=== PATIENT | female | born 1950 | race Caucasian/White ===

== ENCOUNTER 2021-09-09 08:10 | Outpatient (RCR) | payer MEDICARE, MEDICAID, SELFPAY ==
[2021-09-09 08:57] LABS: Basophils Absolute Auto 0.04 K/uL (0.00-0.30); Basophils Percent Auto 0.6 % (0.0-3.0); Eosinophils Absolute Auto 0.09 K/uL (0.00-0.50); Eosinophils Percent Auto 1.4 % (0.0-7.0); Hematocrit 43.6 % (33.0-51.0); Hemoglobin* 14.4 gm/dL (12.0-16.0); Lymphocytes Absolute Auto 2.01 K/uL (0.90-2.90); Lymphocytes Percent Auto 30.3 % (20-44); Mean Corpuscular HGB Conc 33 gm/dL (32-36); Mean Corpuscular Hemoglobin 29 pg (26-34); Mean Corpuscular Volume 88 fL (80-100); Neutrophils Absolute Auto 3.97 K/uL (1.7-7.0); Neutrophils Percent Auto 59.7 % (42.0-72.0); Platelet Count* 193 K/uL (140-440); RDW Coefficient of Variation % 14.9 % (11.5-15.5); Red Blood Count 4.97 m/uL (4.00-5.20); White Blood Count* 6.64 K/uL (4.50-11.00)
[2021-09-09 09:01] LABS: Appearance Urine Slightly Cloudy (Clear); Bilirubin Urine Negative (Negative); Blood Urine Trace-intact (Negative); Color Urine Yellow (Yellow); Glucose Urine Negative (Negative); Ketones Urine Negative (Negative); Leukocyte Esterase Urine Trace (Negative); Nitrite Urine Positive (Negative); Protein Urine Negative (Negative); Specific Gravity Urine 1.025 (1.000-1.030); Urobilinogen Urine 0.2 (0.2-1.0); pH Urine 6.5 (5.0-8.5)
[2021-09-09 09:04] LABS: Albumin* 4.3 g/dL (3.3-5.0)
[2021-09-09 09:05] LABS: Chloride* 107 mmol/L (96-114); Potassium* 3.7 mmol/L (3.6-5.1); Sodium* 139 mmol/L (135-149)
[2021-09-09 09:07] LABS: Aspartate Amino Transferase* 24 U/L (12-35); Carbon Dioxide* 24 mmol/L (20-32); Creatinine* 0.5 mg/dL (0.5-1.5); Estimated Glomerular Filt Rate 99.59; Total Protein* 7.5 g/dL (6.0-8.3)
[2021-09-09 09:08] LABS: Alanine Aminotransferase* 13 U/L (4-35); Alkaline Phosphatase* 93 U/L (40-150); Blood Urea Nitrogen* 12 mg/dL (7-30); Calcium* 9.2 mg/dL (8.4-10.6); Glucose* 108 mg/dL (60-115)
[2021-09-09] MEDS: SODIUM CHLORIDE 0.9 % (FLUSH) 10 ML SYRINGE IVF (09:15)
[2021-09-09] MEDS: HEPARIN 500 UNIT/5 ML SYRINGE IVF (09:15)
[2021-09-09 09:32] LABS: RBC Urine 0-2 (0-2)
[2021-09-09 09:33] LABS: Amorphous Sediment Urine Few; Bacteria Urine Many; Squamous Epithelial Cell Urine Moderate (None-Few); WBC Clumps Urine Few
--- NOTE | 2021-09-09 14:19 | ONC.NURNOTE ---
patient called to let her know she has a UTI. rx called in to her pharmacy. per Dr. Barber
[2021-09-11 05:32] LABS: Carcinoembryonic Antigen 32.6 ng/mL
[2021-09-11 15:00] LABS: Slide Review Reflex No
== END 2021-09-27 23:59 | disposition home or self-care (01) ==
LOC: CCIC 08:10
PROVIDERS: PCP Family Medicine; Visit Provider Internal Medicine Hematology & Oncology
DX: C20 Malignant neoplasm of rectum (principal); C78.01 Secondary malignant neoplasm of right lung; C78.02 Secondary malignant neoplasm of left lung
CPT/HCPCS: 36415; 36591; 80053; 81003; 81015; 82378; 85025; 87086; J1642

== ENCOUNTER 2021-09-17 14:32 | Emergency (ER) | payer MEDICARE, MEDICAID, SELFPAY ==
[2021-09-17] VITALS (11 sets, daily range): BP systolic 120–173; BP diastolic 80–94; PULSE 54–68; RESP 14–28; TEMP 36.1; O2SAT 89–98; BMI 20.2
--- NOTE | 2021-09-17 15:25 | CRLHL7_ITS ---
For Patients: As a result of the Century Cures Act, medical imaging exams and procedure reports are released immediately into your electronic medical record. You may view this report before your referring provider. If you have questions, please contact your health care provider. INDICATION: Shortness of breath. TECHNIQUE: Chest 1 view. COMPARISON: PET-CT 08/06/2021. FINDINGS: Right IJ Port-A-Cath with tip in the upper SVC. Large ovoid masslike density in the right lower lung corresponds with the pleural based masses seen on PET-CT. Patchy right lower perihilar opacity may represent atelectasis or infiltrate. Tiny right pleural effusion. The left lung is clear. No pneumothorax. Mild cardiomegaly. Calcified tortuous aorta. Sternotomy with mediastinal clips. The bones are unremarkable. IMPRESSION: 1. Large ovoid masslike density in the right lower lung corresponds with the pleural based masses seen on PET-CT. 2. Patchy right lower perihilar opacity may represent atelectasis or infiltrate. 3. Tiny right pleural effusion. Dictated by Alejandra Houser MD @ 09/17/2021 4:53:19 PM (Electronically Signed)
[2021-09-17] MEDS: ALTEPLASE 2 MG INJ IVF (16:29)
--- NOTE | 2021-09-17 16:32 | ED.NURSE ---
[facility] WILBUR Villarreal in to administer Cathflo to pt Port.
--- NOTE | 2021-09-17 17:07 | ED.NURSE ---
Able to draw blood off port after cathflo removed.
[2021-09-17 17:10] LABS: Basophils Absolute Auto 0.04 K/uL (0.00-0.30); Basophils Percent Auto 0.6 % (0.0-3.0); Eosinophils Absolute Auto 0.11 K/uL (0.00-0.50); Eosinophils Percent Auto 1.6 % (0.0-7.0); Immature Granulocytes Abs Auto 0.03 K/uL (0.00-0.30); Lymphocytes Absolute Auto 1.91 K/uL (0.90-2.90); Lymphocytes Percent Auto 27.6 % (20-44); Mean Corpuscular HGB Conc 33 gm/dL (32-36); Mean Corpuscular Hemoglobin 29 pg (26-34); Mean Corpuscular Volume 87 fL (80-100); Monocytes Percent Auto 7.1 % (0.0-11.0); Neutrophils Absolute Auto 4.35 K/uL (1.7-7.0); Neutrophils Percent Auto 62.7 % (42.0-72.0); Platelet Count* 164 K/uL (140-440); RDW Coefficient of Variation % 14.9 % (11.5-15.5); Red Blood Count 4.47 m/uL (4.00-5.20); White Blood Count* 6.93 K/uL (4.50-11.00)
[2021-09-17 17:27] LABS: Albumin* 3.7 g/dL (3.3-5.0); Chloride* 110 mmol/L (96-114); Slide Review Reflex No; Sodium* 140 mmol/L (135-149)
[2021-09-17 17:28] LABS: Potassium* 3.7 mmol/L (3.6-5.1)
[2021-09-17 17:29] LABS: Creatinine* 0.4 mg/dL (0.5-1.5); Est. Creatinine Clearance* 42.95; Estimated Glomerular Filt Rate 105 ml/min
[2021-09-17 17:30] LABS: Alanine Aminotransferase* 10 U/L (4-35); Alkaline Phosphatase* 75 U/L (40-150); Aspartate Amino Transferase* 22 U/L (12-35); Bilirubin Direct* 0.3 mg/dL (0.0-0.5); Bilirubin Total* 0.5 mg/dL (0.1-1.5); Blood Urea Nitrogen* 15 mg/dL (7-30); Carbon Dioxide* 26 mmol/L (20-32); Glucose* 83 mg/dL (60-115); Total Protein* 6.8 g/dL (6.0-8.3)
[2021-09-17 17:31] LABS: Calcium* 8.9 mg/dL (8.4-10.6)
[2021-09-17 17:36] LABS: D Dimer Quantitative* 3.52 ug/ml (0.00-0.50)
[2021-09-17 17:39] LABS: NT Pro B Type NatriureticPept* 660 PG/mL (0-125)
[2021-09-17 17:45] LABS: Troponin I* < 0.01 ng/mL (0.01-0.04)
[2021-09-17 17:46] LABS: C Reactive Protein* < 0.5 mg/dL (0.5-1.0)
--- NOTE | 2021-09-17 18:15 | CT_ITS ---
Final Report Patient: ANGELINE MARTINEZ Facility:?[facility] Patient ID:?[id number] Site Patient [id number]:?[id number]. Site :?[id number] Study:?CT Chest PE W/ ISOVUE 370 95CC-09/17/2021 6:46:07 PM Ordering Physician:Bipin Rodriguez Final Report: INDICATION: Chest pain and elevated D-dimer. Lung cancer. Rule out pulmonary embolism. TECHNIQUE: Volumetric helical scanning of the thorax was performed during infusion of 95 cc of Isovue 370 contrast material IV, timing optimized for pulmonary arterial opacification. Coronal and sagittal reconstructions were obtained. COMPARISON: PET-CT of 08/06/2021. FINDINGS: The images are of acceptable quality and demonstrate uniform vascular enhancement within the pulmonary arteries. No pulmonary arterial filling defect is identified. The heart size is normal. Postop changes of coronary bypass are noted. Multiple pleural-based masses in the right chest are again demonstrated matter grossly unchanged. On image 140 of series 4, a new 1 cm left lower lobe nodule is demonstrated. On image 38, an unchanged 1.5 cm medial left upper lobe nodule is noted. No acute infiltrate is demonstrated. No pleural effusion is evident. There is no mediastinal or hilar adenopathy. Images of the upper abdomen are unremarkable. IMPRESSION: 1. Negative for pulmonary embolism acute infiltrate. 2. Multiple grossly unchanged pleural-based masses in the right chest. 3. New 1 cm mass in the left lower lobe. Please note that all CT scans at this facility use dose modulation, iterative reconstruction, and/or weight-based dosing when appropriate to reduce radiation dose to as low as reasonably achievable. Dictated by Dwain Olivera MD @ 09/17/2021 7:59:17 PM (Electronic Signature)
--- NOTE | 2021-09-17 18:17 | ED.GENADULT ---
HPI - General Adult General Date Seen: 09/17/21 Chief complaint: Shortness of Breath/Dyspnea Stated complaint: Chest Pain Time Seen by Provider: 09/17/21 14:40 Source: patient History of Present Illness HPI narrative: Patient is a 71-year-old woman who presents for evaluation of left-sided chest pain. She says that she had called the clinic yesterday to make an appointment, and they called her this morning at 7:30 a.m. and told her that instead of keeping her 10:00 a.m. appointment she should come to the ER. She says that for the past 3 weeks, she has had a sharp pain in her left chest any time she leans forward. As soon as she stands up, it dissipates. It only lasts a few seconds or however long she leans forward. She is not sure whether it gets worse when she breathes, because she has never tried to breathe when she is leaning forward. She has a history of lung cancer, currently getting active oral chemotherapy. She has shortness of breath secondary to that, but has not noticed any change in her shortness of breath. She denies any new fevers or cough. She has not had any lower extremity swelling or pain. She denies any history of pulmonary embolism. She does have a history of triple bypass, she thinks 8 or 9 years ago. She did not have chest pain prior to her bypass surgery, and says that her primary symptom before that was shortness of breath with exertion. She has nitroglycerin, but has not tried any of that because the chest pain is so fleeting in nature. She says that she was told to come to the ER instead because her pain could be related to her heart. Pain is well localized to 1 spot in her chest, does not radiate, and does not vary in location. It is sometimes mild in intensity, but sometimes can be more severe. It does not happen every time she leans forward. She is not sure of what the difference is between times it happens and times it does not happen. Related Data Home Medications Medication Instructions Recorded Confirmed aspirin 81 mg chewable tablet 81 mg PO DAILY 09/07/21 09/07/21 bupropion HCl 200 mg tablet,12 hr 200 mg PO DAILY 09/07/21 09/07/21 sustained-release clonazepam 0.5 mg tablet 0.5 mg PO HS 09/07/21 09/07/21 diphenoxylate-atropine 2.5 1 tab PO Q6H PRN 09/07/21 09/07/21 mg-0.025 mg tablet gabapentin 300 mg capsule 300 mg PO .Q24 09/07/21 09/07/21 ibuprofen 200 mg capsule 200 mg PO Q6H PRN 09/07/21 09/07/21 isosorbide mononitrate 30 mg 30 mg PO DAILY 09/07/21 09/07/21 tablet,extended release 24 hr nitroglycerin 0.4 mg sublingual 0.4 mg SUBLINGUAL Q5M PRN 09/07/21 09/07/21 tablet ondansetron 4 mg disintegrating 4 mg TRANSLINGUAL Q6H PRN 09/07/21 09/07/21 tablet oxycodone 5 mg tablet 5 mg PO Q4H PRN 09/07/21 09/07/21 prochlorperazine maleate 10 mg 10 mg PO Q6H PRN 09/07/21 09/07/21 tablet sertraline 100 mg tablet 100 mg PO Q24H 09/07/21 09/07/21 sotorasib 120 mg tablet (Lumakras) 480 mg PO Q24H 09/07/21 09/07/21 Previous Rx's Medication Instructions Recorded levofloxacin 500 mg tablet 500 mg PO QDAY #5 tab 09/09/21 Allergies Allergy/AdvReac Type Severity Reaction Status Date / Time hydromorphone Allergy Unknown Verified 09/07/21 09:10 penicillin V Allergy Unknown Verified 09/07/21 09:10 Review of Systems Status of ROS: Reports: 10 or more systems reviewed and unremarkable except as noted in History and below [facility] Medical History Adenocarcinoma of rectum (~12/2015) Adenocarcinoma, lung Encounter for insertion of tunneled central venous catheter (CVC) with port Histoplasmosis 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 Social History Smoking Status: Current every day smoker What tobacco products do you use: cigarettes Do you use any of these nicotine containing products: None Second hand tobacco smoke exposure: No How often do you have a drink containing alcohol: 2-3 times a week How often do you have six or more drinks on one occasion: Never AUDIT-C Alcohol total score: 3 Non-prescribed substance use: marijuana (any form) Exam Narrative: Exam Narrative: Vital signs as noted below. In general, an alert, nontoxic elderly woman. Breathing easily. Head: Normocephalic, atraumatic. Eyes: Pupils are equal reactive. Extraocular movements are full. Conjunctivae are normal. ENT: Mucous membranes are moist. Throat is normal. Neck: Supple without lymphadenopathy. Heart: Regular rate and rhythm. No murmur or rub. Lungs: Clear bilaterally. No increased work of breathing, crackles or wheezes. Abdomen: Soft and nontender. No organomegaly. Extremities: Well perfused. No edema. No calf tenderness. Pulses intact. Neurologic: Patient is alert and oriented to person and place. Speech is fluent. Face is symmetric. Moves all extremities equally. Affect: Normal. Skin: Warm and dry. Well perfused. Const: Vital Signs, click to edit/add: Vital Signs - 24 hr 09/17/21 14:49 09/17/21 15:00 09/17/21 15:15 Temperature 96.9 F L Pulse Rate [Right Pulse Oximeter] 67 65 65 Respiratory Rate 28 H 17 14 Blood Pressure [Le ft Upper Arm] 146/85 H 136/92 H 133/80 Pulse Oximetry 94 92 93 09/17/21 15:30 09/17/21 15:45 09/17/21 16:00 Temperature Pulse Rate [Right Pulse Oximeter] 61 66 66 Respiratory Rate 20 20 24 Blood Pressure [Le ft Upper Arm] 132/81 128/91 H 137/83 Pulse Oximetry 94 95 98 09/17/21 16:30 09/17/21 17:00 09/17/21 17:30 Temperature Pulse Rate [Right Pulse Oximeter] 54 L 68 61 Respiratory Rate 25 H 26 H 26 H Blood Pressure [Le ft Upper Arm] 120/89 156/87 H Pulse Oximetry 89 94 94 09/17/21 18:00 Temperature Pulse Rate [Right Pulse Oximeter] 61 Respiratory Rate 14 Blood Pressure [Le ft Upper Arm] 158/94 H Pulse Oximetry 94 Course Course Hospital Course: Patient had an EKG on arrival which by my review shows normal sinus rhythm, ventricular rate of 67 beats per minute. No acute ischemic changes. I ordered labs including a CBC, metabolic panel, troponin, D-dimer. Anticipate the D-dimer will likely be elevated given her underlying lung cancer, but certainly her cancer diagnosis increases her risk of PE. If the D-dimer happens to be negative I would feel comfortable forgoing additional workup, but otherwise I think she will need imaging to rule out PE. I did do a portable chest x-ray just to make sure that she did not have a pleural effusion, pneumothorax or other obvious pulmonary reason for this positional chest pain. She does not have any pleuritic chest pain, she does not have pain when she lays back, does not have any changes on her EKG does suggest pericarditis. CRP is normal. White blood cell count is normal. She is not febrile here. I do not see any evidence of significant infiltrate on the chest x-ray on the left. She clearly has a large mass on the right, this is stable compared to the exterior door installer film of her last chest CT by my review. Her D-dimer was in fact elevated, at 3.52. Her troponin is negative, and I reviewed with her that her pain is really quite atypical for angina. I certainly do not suspect acute coronary syndrome given that she is pain-free here, has a negative troponin, normal EKG, and very atypical symptoms. Her BNP is mildly elevated at 660. Patient did gone have CT scan of the chest, which by my review did not show any acute abnormalities, she did have masses in the right chest which appeared stable to me. She does not have any evidence of PE by my review. Radiology report was notable for stable lung cancer in the right chest, a stable pulmonary nodule in the left upper lobe, they also noted a new nodule, 1 cm, in the left lower lobe. They did not note any evidence of PE or infiltrate. I reviewed all this with her, including the pulmonary nodule which is new compared to previous CT in 2020. She has had imaging in the form of PET scans since then. I have discussed with her that I do not know whether this nodule is entirely new were only new compared to the imaging that we have in our system here. I have asked her to review this with her oncologist. With regard to her chest pain, I do think it is very atypical for cardiac chest pain, and unlikely to be related to ischemic disease. That said, we discussed that it may not be unreasonable to do some kind of provocative cardiac testing, given that her symptoms were shortness of breath prior to her CABG, and with her lung cancer, it may be difficult to parse out whether not she is developing worsening shortness of breath or not. I think this can be safely discussed with her primary doctor. Certainly if she has chest pain which is nonpositional, severe/persistent, or has worsening/severe shortness of breath, she should return to the emergency department. Otherwise I think follow up with her primary doctor is reasonable at this time. She is comfortable with that and is very eager to go home. Vital Signs Vital signs: Initial Vital Signs Temperature 96.9 F L 09/17/21 14:49 Temperature Source Temporal Artery Scan 09/17/21 14:49 Pulse Rate 67 09/17/21 14:49 Respiratory Rate 28 H 09/17/21 14:49 Blood Pressure 146/85 H 09/17/21 14:49 Blood Pressure Mean 105 09/17/21 14:49 Blood Pressure Position Supine 09/17/21 14:49 Pulse Oximetry 94 09/17/21 14:49 Oxygen Delivery Method 09/17/21 14:49 Vital Signs Temperature 96.9 F L 09/17/21 14:49 Pulse Rate 67 09/17/21 14:49 Respiratory Rate 28 H 09/17/21 14:49 Blood Pressure 146/85 H 09/17/21 14:49 Pulse Oximetry 94 09/17/21 14:49 Temperature 96.9 F L 09/17/21 14:49 Pulse Rate 67 09/17/21 19:00 Respiratory Rate 17 09/17/21 19:00 Blood Pressure 173/93 H 09/17/21 19:00 Pulse Oximetry 96 09/17/21 19:00 Medical Decision Making Lab Data Labs: Lab Results 09/17/21 09/17/21 09/17/21 Range/Units 17:05 17:05 17:05 WBC 6.93 (4.50-11.00) K/uL RBC 4.47 (4.00-5.20) m/uL Hgb 13.0 (12.0-16.0) gm/dL Hct 39.0 (33.0-51.0) % MCV 87 (80-100) fL MCH 29 (26-34) pg MCHC 33 (32-36) gm/dL RDW Coeff of Aleks 14.9 (11.5-15.5) % Plt Count 164 (140-440) K/uL Neut % (Auto) 62.7 (42.0-72.0) % Lymph % (Auto) 27.6 (20-44) % [place] % (Auto) 7.1 (0.0-11.0) % Eos % (Auto) 1.6 (0.0-7.0) % Baso % (Auto) 0.6 (0.0-3.0) % Neut # (Auto) 4.35 (1.7-7.0) K/uL Lymph # (Auto) 1.91 (0.90-2.90) K/uL [place] # (Auto) 0.50 (0.00-0.90) K/UL Eos # (Auto) 0.11 (0.00-0.50) K/uL Baso # (Auto) 0.04 (0.00-0.30) K/uL Abs Immat Gran (auto) 0.03 (0.00-0.30) K/uL D-Dimer Quant (PE/DVT) 3.52 H (0.00-0.50) ug/ml Sodium 140 (135-149) mmol/L Potassium 3.7 (3.6-5.1) mmol/L Chloride 110 (96-114) mmol/L Carbon Dioxide 26 (20-32) mmol/L BUN 15 (7-30) mg/dL Creatinine 0.4 L (0.5-1.5) mg/dL Estimated Creat Clear 42.95 Estimated GFR 105 ml/min Glucose 83 (60-115) mg/dL Calcium 8.9 (8.4-10.6) mg/dL Total Bilirubin 0.5 (0.1-1.5) mg/dL Direct Bilirubin 0.3 (0.0-0.5) mg/dL AST 22 (12-35) U/L ALT 10 (4-35) U/L Alkaline Phosphatase 75 (40-150) U/L Troponin I < 0.01 L (0.01-0.04) ng/mL C-Reactive Protein < 0.5 L (0.5-1.0) mg/dL NT-Pro-B Natriuret Pep 660 H (0-125) PG/mL Total Protein 6.8 (6.0-8.3) g/dL Albumin 3.7 (3.3-5.0) g/dL 09/17/21 Range/Units 17:05 WBC (4.50-11.00) K/uL RBC (4.00-5.20) m/uL Hgb (12.0-16.0) gm/dL Hct (33.0-51.0) % MCV (80-100) fL MCH (26-34) pg MCHC (32-36) gm/dL RDW Coeff of Aleks (11.5-15.5) % Plt Count (140-440) K/uL Neut % (Auto) (42.0-72.0) % Lymph % (Auto) (20-44) % [place] % (Auto) (0.0-11.0) % Eos % (Auto) (0.0-7.0) % Baso % (Auto) (0.0-3.0) % Neut # (Auto) (1.7-7.0) K/uL Lymph # (Auto) (0.90-2.90) K/uL [place] # (Auto) (0.00-0.90) K/UL Eos # (Auto) (0.00-0.50) K/uL Baso # (Auto) (0.00-0.30) K/uL Abs Immat Gran (auto) (0.00-0.30) K/uL D-Dimer Quant (PE/DVT) (0.00-0.50) ug/ml Sodium (135-149) mmol/L Potassium (3.6-5.1) mmol/L Chloride (96-114) mmol/L Carbon Dioxide (20-32) mmol/L BUN (7-30) mg/dL Creatinine (0.5-1.5) mg/dL Estimated Creat Clear Estimated GFR ml/min Glucose (60-115) mg/dL Calcium (8.4-10.6) mg/dL Total Bilirubin Cancelled (0.1-1.5) mg/dL Direct Bilirubin Cancelled (0.0-0.5) mg/dL AST Cancelled (12-35) U/L ALT Cancelled (4-35) U/L Alkaline Phosphatase Cancelled (40-150) U/L Troponin I Cancelled (0.01-0.04) ng/mL C-Reactive Protein (0.5-1.0) mg/dL NT-Pro-B Natriuret Pep Cancelled (0-125) PG/mL Total Protein Cancelled (6.0-8.3) g/dL Albumin Cancelled (3.3-5.0) g/dL Discharge Plan Discharge Clinical Impression: Bilateral lung cancer, Atypical chest pain Patient Disposition: Home, Self-Care Condition: Stable Instructions: Chest Pain (ED) Additional Instructions: Primary care follow-up in the next week or so. If you have severe, persistent chest pain or worsening shortness of breath, return to the emergency department for repeat evaluation. Prescriptions: No Action aspirin 81 mg tablet,chewable 81 mg PO DAILY 0RF bupropion HCl 200 mg tablet sustained-release 12 hr 200 mg PO DAILY 0RF clonazepam 0.5 mg tablet 0.5 mg PO HS 0RF diphenoxylate-atropine 2.5-0.025 mg tablet 1 tab PO Q6H PRN0RF Rx Instructions: 1-2 tabs gabapentin 300 mg capsule 300 mg PO .Q24 0RF ondansetron 4 mg tablet,disintegrating 4 mg translingual Q6H PRN (Reason: nausea and vomiting) 0RF nitroglycerin 0.4 mg tablet, sublingual 0.4 mg sublingual Q5M PRN (Reason: chest pain) 0RF oxycodone 5 mg tablet 5 mg PO Q4H PRN (Reason: pain) 0RF prochlorperazine maleate 10 mg tablet 10 mg PO Q6H PRN (Reason: nausea and vomiting) 0RF sertraline 100 mg tablet 100 mg PO Q24H 0RF Lumakras 120 mg tablet 480 mg PO Q24H 0RF ibuprofen 200 mg capsule 200 mg PO Q6H PRN (Reason: pain) 0RF isosorbide mononitrate 30 mg tablet extended release 24 hr 30 mg PO DAILY 0RF levofloxacin 500 mg tablet 500 mg PO QDAY Qty: 5 0RF Follow Up/Referrals: Byron Mondragon MD [Primary Care Provider] - Stand Alone Forms: Trig[employer] Info Instructions
[2021-09-17] MEDS: HEPARIN 500 UNIT/5 ML SYRINGE IVF (20:22)
== END 2021-09-17 20:31 | disposition home or self-care (01) ==
PROVIDERS: Emergency Provider Emergency Medicine; PCP Family Medicine
DX: R07.89 Other chest pain (principal); C34.90 Malignant neoplasm of unspecified part of unspecified bronchus or lung
CPT/HCPCS: 36415; 71045; 71260; 80048; 80076; 83880; 84484; 85025; 85379; 86140; 93005; 99285; J1642; J2997; Q9967

== ENCOUNTER 2021-10-29 15:18 | Outpatient (CLI) | payer MEDICARE, MEDICAID, SELFPAY ==
--- NOTE | 2021-10-29 15:30 | CRLHL7_ITS ---
For Patients: As a result of the 21st Century Cures Act, medical imaging exams and procedure reports are released immediately into your electronic medical record. You may view this report before your referring provider. If you have questions, please contact your health care provider. INDICATION: Metastatic rectal cancer TECHNIQUE: Following IV injection of FDG with uptake of 57 minutes, noncontrast CT scan followed by a PET scan were acquired along the length of body from the head to the upper thighs. Noncontrast CT was used for anatomic localization and photon attenuation correction of the PET-CT scan. - Blood glucose level: 80. - FDG dose (mCi): 10.9. COMPARISON: 08/06/2021 PET-CT. FINDINGS: Head/Neck: No abnormal tracer uptake. - Chest: AP window lymph node SUV max of 3.2 previously 3.1. No significant change of peripherally calcified right pleural based masses with peripheral mild uptake, similar to prior. SUV max of right anterior pleural surface 3.1 previously 2.9. - Background liver parenchyma with SUV mean of 2.2. No abnormal tracer uptake. - Musculoskeletal: No tracer avid bone lesion. - CT findings: Chest port tip is unchanged in position. Cardiomegaly, similar to prior. Severe coronary calcifications are again noted. Sternotomy hardware. Peripherally calcified right pleural based masses are similar to prior. Stable left lower lobe pulmonary nodule measuring 7 mm. Cholecystectomy. Atherosclerotic abdominal aorta. Stool throughout the colon. Rectosigmoid anastomosis. Degenerative changes in the spine. IMPRESSION : 1. Right pleural-based masses with peripheral calcification and mild peripheral uptake, similar prior to exam. 2. AP window lymph node with mild uptake, similar to prior. 3. No new sites of tracer avid disease. Dictated by Juan R Aden MD @ 11/04/2021 3:32:08 PM (Electronically Signed)
== END 2021-10-29 15:19 | disposition home or self-care (01) ==
LOC: RAD 15:22
PROVIDERS: PCP Family Medicine; Visit Provider Internal Medicine Hematology & Oncology
DX: C20 Malignant neoplasm of rectum (principal); C77.5 Secondary and unspecified malignant neoplasm of intrapelvic lymph nodes; C78.00 Secondary malignant neoplasm of unspecified lung; C78.2 Secondary malignant neoplasm of pleura
CPT/HCPCS: 78815; A9552

== ENCOUNTER 2021-11-04 12:52 | Outpatient (CLI) | payer MEDICARE, MEDICAID, SELFPAY ==
--- NOTE | 2021-11-04 13:45 | CRLHL7_ITS ---
For Patients: As a result of the Century Cures Act, medical imaging exams and procedure reports are released immediately into your electronic medical record. You may view this report before your referring provider. If you have questions, please contact your health care provider. INDICATION: Lung cancer. Evaluate for intracranial metastatic disease. TECHNIQUE: Brain MRI with contrast. The following sequences were obtained: Sagittal T1 weighted sequence. DWI and ADC mapping sequences. Axial FLAIR and HARRIET T2 weighted sequences. T1 weighted post-contrast sequence(s). 15 cc of Dotarem gadolinium based contrast agent was used. COMPARISON: Brain MRI from 12/12/2020. FINDINGS: No evidence of acute ischemia. Microhemorrhage within the right pontine belly. No mass or pathologic intracranial enhancement. Patchy and confluent FLAIR hyperintensity within the supratentorial white matter and brainstem, typical for chronic microvascular ischemic change. Mild to moderate generalized parenchymal volume loss. No hydrocephalus or extra-axial collections. The pituitary gland, parasellar structures and optic chiasm are normal. Posterior fossa is normal. All the major intracranial vascular structures demonstrate normal flow-related signal. The orbital contents are normal. No calvarial or skull base marrow signal abnormality. Hyperostosis frontalis. No obstructive sinus disease. No extracranial soft tissue findings. IMPRESSION: 1. No evidence of intracranial metastatic disease. 2. No acute infarction or other acute intracranial pathology. 3. Moderately extensive chronic microvascular ischemic changes. 4. 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 Dictated by Alvin Donahue MD @ 11/05/2021 11:28:21 AM (Electronically Signed)
== END 2021-11-04 12:53 | disposition home or self-care (01) ==
LOC: MRI 12:53
PROVIDERS: PCP Family Medicine; Visit Provider Internal Medicine Hematology & Oncology
DX: C34.90 Malignant neoplasm of unspecified part of unspecified bronchus or lung (principal); I67.82 Cerebral ischemia
CPT/HCPCS: 70553; A9575

== ENCOUNTER 2022-02-04 15:22 | Outpatient (CLI) | payer MEDICARE, MEDICAID, SELFPAY ==
--- NOTE | 2022-02-04 15:30 | CRLHL7_ITS ---
For Patients: As a result of the Century Cures Act, medical imaging exams and procedure reports are released immediately into your electronic medical record. You may view this report before your referring provider. If you have questions, please contact your health care provider. INDICATION: Colon cancer, lung cancer TECHNIQUE: Following IV injection of FDG with uptake of 67 minutes, noncontrast CT scan followed by a PET scan were acquired along the length of body from the head to the upper thighs. Noncontrast CT was used for anatomic localization and photon attenuation correction of the PET-CT scan. - Blood glucose level: 93. - FDG dose (mCi): 7.86. COMPARISON: PET-CT dated 10/29/2021. FINDINGS: Head/Neck: No abnormal radiotracer uptake. - Chest: Background mediastinal blood pool with SUV mean of 1.9. Redemonstrated cystic, peripherally calcified lung masses. Soft tissue associated with these masses is hypermetabolic, for example in the right lower lobe (image 102) a soft tissue nodule appears to have increased in size now with SUV max of 3.3, previously 2.2. A second hypermetabolic soft tissue nodule (image 101) measures SUV max of 3.1, previously 2.5. Re-demonstrated hypermetabolic lymph node (image 86) with SUV max of 3.5, previously 2.3. Increased size of several additional soft tissue nodules, including some at the left lung base which appear new (image 117). - Background liver parenchyma with SUV mean of 2.2. No increased radiotracer uptake. - Musculoskeletal: New radiotracer uptake within the right posterior 9th rib (image 110) with SUV max 6.2. - CT findings: Right chest wall port in place. Enlarged heart. Severe coronary artery calcifications. Status post CABG. Severe atherosclerotic disease of the thoracic aorta. Enlarged descending thoracic aorta. Abdominal aortic aneurysm. Status post cholecystectomy. Prior low anterior resection. IMPRESSION: 1. Increase size, number and radiotracer uptake associated with multiple intrathoracic metastatic lesions and lymphadenopathy. 2. 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 Dictated by Maurice Moreno MD @ 02/10/2022 9:33:39 AM (Electronically Signed)
== END 2022-02-04 15:23 | disposition home or self-care (01) ==
LOC: RAD 15:22
PROVIDERS: PCP Family Medicine; Visit Provider Internal Medicine Hematology & Oncology
DX: C34.90 Malignant neoplasm of unspecified part of unspecified bronchus or lung (principal); I67.82 Cerebral ischemia; C20 Malignant neoplasm of rectum
CPT/HCPCS: 78815; A9552

== ENCOUNTER 2022-02-11 13:34 | Outpatient (CLI) | payer MEDICARE, MEDICAID, SELFPAY ==
--- NOTE | 2022-02-11 13:45 | CRLHL7_ITS ---
For Patients: As a result of the Century Cures Act, medical imaging exams and procedure reports are released immediately into your electronic medical record. You may view this report before your referring provider. If you have questions, please contact your health care provider. INDICATION: Lung cancer. Pontine microhemorrhage. TECHNIQUE: Multiplanar multisequence MR imaging acquired through the brain prior to and following intravenous contrast. COMPARISON: MRI brain 11/04/2021. FINDINGS: Prominence of the ventricles and sulci compatible with mild diffuse cerebral volume loss. No mass effect or midline shift. Stable extensive confluent patchy T2 FLAIR hyperintensities throughout the supratentorial white matter, deep amado nuclei, and krystal, typical for advanced chronic microvascular ischemic changes. No pathologic intracranial enhancement. No intracranial hemorrhage or pathologic extra. Stable chronic microhemorrhage within the right hemipons. No recent intracranial hemorrhage or pathologic extra-axial fluid collection. No diffusion restriction to suggest acute infarction. Hyperostosis frontalis interna. The major arterial flow voids of the skullbase are preserved. Thinning of the ocular lenses. Mild right maxillary sinus mucosal thickening. Small right and trace left mastoid fluid. IMPRESSION: 1. No acute intracranial abnormality or evidence for intracranial metastatic disease. No significant change compared to 11/04/2021. 2. Advanced chronic microvascular ischemic changes and mild diffuse cerebral volume loss. 3. Stable chronic microhemorrhage in the right hemipons. Dictated by Marcos Cain MD @ 02/11/2022 9:40:25 PM (Electronically Signed)
== END 2022-02-11 13:35 | disposition home or self-care (01) ==
LOC: MRI 13:35
PROVIDERS: PCP Family Medicine; Visit Provider Internal Medicine Hematology & Oncology
DX: C34.90 Malignant neoplasm of unspecified part of unspecified bronchus or lung (principal); I67.82 Cerebral ischemia
CPT/HCPCS: 70553; A9575

== ENCOUNTER 2022-04-08 09:00 | Outpatient (RCR) | payer MEDICARE, MEDICAID, SELFPAY ==
[2021-10-13 08:56] LABS: Appearance Urine Slightly Cloudy (Clear); Bilirubin Urine Negative (Negative); Blood Urine Trace-intact (Negative); Color Urine Yellow (Yellow); Glucose Urine Negative (Negative); Ketones Urine Negative (Negative); Leukocyte Esterase Urine 1+ (Negative); Nitrite Urine Negative (Negative); Protein Urine Negative (Negative); Specific Gravity Urine 1.025 (1.000-1.030); Urobilinogen Urine 0.2 (0.2-1.0)
[2021-10-13 08:57] LABS: Basophils Absolute Auto 0.05 K/uL (0.00-0.30); Basophils Percent Auto 0.9 % (0.0-3.0); Eosinophils Absolute Auto 0.13 K/uL (0.00-0.50); Eosinophils Percent Auto 2.3 % (0.0-7.0); Hematocrit 43.1 % (33.0-51.0); Hemoglobin* 14.2 gm/dL (12.0-16.0); Immature Granulocytes Abs Auto 0.01 K/uL (0.00-0.30); Lymphocytes Absolute Auto 1.78 K/uL (0.90-2.90); Mean Corpuscular HGB Conc 33 gm/dL (32-36); Mean Corpuscular Hemoglobin 29 pg (26-34); Mean Corpuscular Volume 89 fL (80-100); Neutrophils Absolute Auto 3.32 K/uL (1.7-7.0); Neutrophils Percent Auto 57.6 % (42.0-72.0); Platelet Count* 177 K/uL (140-440); RDW Coefficient of Variation % 14.7 % (11.5-15.5); Red Blood Count 4.86 m/uL (4.00-5.20); White Blood Count* 5.75 K/uL (4.50-11.00)
[2021-10-13 09:09] LABS: Squamous Epithelial Cell Urine Few (None-Few)
[2021-10-13 09:10] LABS: Bacteria Urine Few
[2021-10-13 09:12] LABS: Chloride* 107 mmol/L (96-114)
[2021-10-13 09:13] LABS: Potassium* 3.9 mmol/L (3.6-5.1); Sodium* 140 mmol/L (135-149)
[2021-10-13 09:14] LABS: Slide Review Reflex No
[2021-10-13 09:15] LABS: Alkaline Phosphatase* 74 U/L (40-150); Aspartate Amino Transferase* 22 U/L (12-35); Bilirubin Total* 0.5 mg/dL (0.1-1.5); Carbon Dioxide* 27 mmol/L (20-32); Creatinine* 0.5 mg/dL (0.5-1.5); Estimated Glomerular Filt Rate 100 ml/min; Total Protein* 7.4 g/dL (6.0-8.3)
[2021-10-13 09:16] LABS: Alanine Aminotransferase* 12 U/L (4-35); Blood Urea Nitrogen* 11 mg/dL (7-30); Calcium* 9.1 mg/dL (8.4-10.6); Glucose* 103 mg/dL (60-115)
[2021-10-13] MEDS: HEPARIN 500 UNIT/5 ML SYRINGE IVF (12:38)
[2021-10-13] MEDS: SODIUM CHLORIDE 0.9 % (FLUSH) 10 ML SYRINGE IVF (12:38)
--- NOTE | 2021-10-13 13:40 | ONC.NURNOTE ---
Addendum entered and electronically signed by Laura Ovalle APRN 10/14/21 16:26: Received return call from Selena. CBC, CMP, UA and preliminary UC result for 10/13/21, and UA and UC result from 09/09/[address] Mondragon's office at [facility]. Noted on documentation that Selena was treated with levaquin 500mg x 5 days starting 09/09/21 with persistence in symptoms. Called [facility] nursing team and appreciate their assistance to get Selena in to see Dr. Mondragon tomorrow 10/15/21. Selena is aware and appreciative of this coordination. Original Note: UA noted patient reports ongoing symptoms of UTI with frequency and urgency states symptoms continue from last month- did not note much improvement
[2021-11-04 13:25] LABS: Basophils Absolute Auto 0.02 K/uL (0.00-0.30); Basophils Percent Auto 0.3 % (0.0-3.0); Eosinophils Absolute Auto 0.07 K/uL (0.00-0.50); Eosinophils Percent Auto 1.2 % (0.0-7.0); Hematocrit 40.3 % (33.0-51.0); Hemoglobin* 13.5 gm/dL (12.0-16.0); Lymphocytes Absolute Auto 1.75 K/uL (0.90-2.90); Lymphocytes Percent Auto 30.1 % (20-44); Mean Corpuscular HGB Conc 34 gm/dL (32-36); Mean Corpuscular Hemoglobin 30 pg (26-34); Mean Corpuscular Volume 88 fL (80-100); Monocytes Percent Auto 8.1 % (0.0-11.0); Neutrophils Absolute Auto 3.51 K/uL (1.7-7.0); Neutrophils Percent Auto 60.3 % (42.0-72.0); Platelet Count* 176 K/uL (140-440); Red Blood Count 4.56 m/uL (4.00-5.20); White Blood Count* 5.82 K/uL (4.50-11.00)
[2021-11-04] MEDS: HEPARIN 500 UNIT/5 ML SYRINGE IVF (13:28)
[2021-11-04] MEDS: SODIUM CHLORIDE 0.9 % (FLUSH) 10 ML SYRINGE IVF (13:29)
[2021-11-04 13:42] LABS: Albumin* 4.1 g/dL (3.3-5.0); Chloride* 106 mmol/L (96-114)
[2021-11-04 13:43] LABS: Potassium* 3.9 mmol/L (3.6-5.1); Sodium* 141 mmol/L (135-149)
[2021-11-04 13:45] LABS: Alkaline Phosphatase* 72 U/L (40-150); Aspartate Amino Transferase* 23 U/L (12-35); Bilirubin Total* 0.6 mg/dL (0.1-1.5); Blood Urea Nitrogen* 16 mg/dL (7-30); Carbon Dioxide* 27 mmol/L (20-32); Creatinine* 0.6 mg/dL (0.5-1.5); Estimated Glomerular Filt Rate 95 ml/min
[2021-11-04 13:46] LABS: Alanine Aminotransferase* 12 U/L (4-35); Calcium* 9.2 mg/dL (8.4-10.6); Glucose* 105 mg/dL (60-115)
[2021-11-04 14:09] LABS: Slide Review Reflex No
[2021-12-02 08:32] LABS: Basophils Absolute Auto 0.04 K/uL (0.00-0.30); Basophils Percent Auto 0.6 % (0.0-3.0); Eosinophils Absolute Auto 0.12 K/uL (0.00-0.50); Eosinophils Percent Auto 1.9 % (0.0-7.0); Hematocrit 43.5 % (33.0-51.0); Hemoglobin* 14.4 gm/dL (12.0-16.0); Immature Granulocytes Abs Auto 0.01 K/uL (0.00-0.30); Lymphocytes Absolute Auto 1.75 K/uL (0.90-2.90); Lymphocytes Percent Auto 27.9 % (20-44); Mean Corpuscular HGB Conc 33 gm/dL (32-36); Mean Corpuscular Hemoglobin 30 pg (26-34); Mean Corpuscular Volume 90 fL (80-100); Monocytes Percent Auto 6.7 % (0.0-11.0); Neutrophils Absolute Auto 3.93 K/uL (1.7-7.0); Neutrophils Percent Auto 62.7 % (42.0-72.0); Platelet Count* 181 K/uL (140-440); RDW Coefficient of Variation % 13.7 % (11.5-15.5); Red Blood Count 4.86 m/uL (4.00-5.20); White Blood Count* 6.27 K/uL (4.50-11.00)
[2021-12-02 08:34] LABS: Slide Review Reflex No
[2021-12-02 08:53] LABS: Albumin* 4.4 g/dL (3.3-5.0); Chloride* 105 mmol/L (96-114); Potassium* 4.1 mmol/L (3.6-5.1); Sodium* 138 mmol/L (135-149)
[2021-12-02 08:55] LABS: Aspartate Amino Transferase* 22 U/L (12-35); Bilirubin Total* 0.5 mg/dL (0.1-1.5); Carbon Dioxide* 27 mmol/L (20-32); Creatinine* 0.5 mg/dL (0.5-1.5); Estimated Glomerular Filt Rate 100 ml/min; Total Protein* 7.8 g/dL (6.0-8.3)
[2021-12-02 08:56] LABS: Alanine Aminotransferase* 11 U/L (4-35); Alkaline Phosphatase* 79 U/L (40-150); Blood Urea Nitrogen* 10 mg/dL (7-30); Calcium* 9.6 mg/dL (8.4-10.6); Glucose* 108 mg/dL (60-115)
[2021-12-02] MEDS: HEPARIN 500 UNIT/5 ML SYRINGE IVF (08:56)
[2021-12-02] MEDS: SODIUM CHLORIDE 0.9 % (FLUSH) 10 ML SYRINGE IVF (08:57)
[2021-12-30 10:20] LABS: Basophils Absolute Auto 0.04 K/uL (0.00-0.30); Basophils Percent Auto 0.6 % (0.0-3.0); Eosinophils Absolute Auto 0.13 K/uL (0.00-0.50); Eosinophils Percent Auto 1.9 % (0.0-7.0); Hematocrit 41.7 % (33.0-51.0); Hemoglobin* 13.8 gm/dL (12.0-16.0); Immature Granulocytes Abs Auto 0.01 K/uL (0.00-0.30); Lymphocytes Absolute Auto 1.75 K/uL (0.90-2.90); Lymphocytes Percent Auto 25.1 % (20-44); Mean Corpuscular HGB Conc 33 gm/dL (32-36); Mean Corpuscular Hemoglobin 29 pg (26-34); Mean Corpuscular Volume 89 fL (80-100); Monocytes Percent Auto 6.2 % (0.0-11.0); Neutrophils Percent Auto 66.1 % (42.0-72.0); Platelet Count* 205 K/uL (140-440); RDW Coefficient of Variation % 13.3 % (11.5-15.5); Red Blood Count 4.69 m/uL (4.00-5.20); White Blood Count* 6.96 K/uL (4.50-11.00)
[2021-12-30 10:41] LABS: Slide Review Reflex No
[2021-12-30 11:46] LABS: Albumin* 4.1 g/dL (3.3-5.0); Chloride* 105 mmol/L (96-114); Sodium* 140 mmol/L (135-149)
[2021-12-30 11:47] LABS: Potassium* 3.8 mmol/L (3.6-5.1)
[2021-12-30 11:49] LABS: Alanine Aminotransferase* 14 U/L (4-35); Alkaline Phosphatase* 75 U/L (40-150); Aspartate Amino Transferase* 22 U/L (12-35); Bilirubin Total* 0.7 mg/dL (0.1-1.5); Blood Urea Nitrogen* 10 mg/dL (7-30); Carbon Dioxide* 25 mmol/L (20-32); Creatinine* 0.5 mg/dL (0.5-1.5); Estimated Glomerular Filt Rate 100 ml/min; Glucose* 108 mg/dL (60-115); Total Protein* 7.1 g/dL (6.0-8.3)
[2022-02-03 08:53] LABS: Basophils Absolute Auto 0.03 K/uL (0.00-0.30); Basophils Percent Auto 0.5 % (0.0-3.0); Eosinophils Absolute Auto 0.13 K/uL (0.00-0.50); Eosinophils Percent Auto 2.3 % (0.0-7.0); Hematocrit 42.7 % (33.0-51.0); Hemoglobin* 14.3 gm/dL (12.0-16.0); Immature Granulocytes Abs Auto 0.01 K/uL (0.00-0.30); Immature Granulocytes Pct Auto 0.2 %; Lymphocytes Absolute Auto 1.75 K/uL (0.90-2.90); Lymphocytes Percent Auto 30.3 % (20-44); Mean Corpuscular HGB Conc 34 gm/dL (32-36); Mean Corpuscular Hemoglobin 30 pg (26-34); Mean Corpuscular Volume 88 fL (80-100); Monocytes Percent Auto 6.4 % (0.0-11.0); Neutrophils Absolute Auto 3.48 K/uL (1.7-7.0); Neutrophils Percent Auto 60.3 % (42.0-72.0); Platelet Count* 213 K/uL (140-440); RDW Coefficient of Variation % 13.2 % (11.5-15.5); Red Blood Count 4.84 m/uL (4.00-5.20); White Blood Count* 5.77 K/uL (4.50-11.00)
[2022-02-03 09:05] LABS: Albumin* 4.5 g/dL (3.3-5.0); Chloride* 107 mmol/L (96-114)
[2022-02-03 09:06] LABS: Potassium* 4.3 mmol/L (3.6-5.1); Sodium* 142 mmol/L (135-149)
[2022-02-03 09:08] LABS: Aspartate Amino Transferase* 22 U/L (12-35); Bilirubin Total* 0.7 mg/dL (0.1-1.5); Carbon Dioxide* 26 mmol/L (20-32); Creatinine* 0.5 mg/dL (0.5-1.5); Estimated Glomerular Filt Rate 100 ml/min
[2022-02-03 09:09] LABS: Alanine Aminotransferase* 15 U/L (4-35); Alkaline Phosphatase* 79 U/L (40-150); Blood Urea Nitrogen* 13 mg/dL (7-30); Calcium* 9.7 mg/dL (8.4-10.6); Glucose* 102 mg/dL (60-115); Total Protein* 7.7 g/dL (6.0-8.3)
[2022-02-03 09:17] LABS: Slide Review Reflex No
[2022-02-03] MEDS: HEPARIN 500 UNIT/5 ML SYRINGE IVF (09:52)
[2022-02-03] MEDS: SODIUM CHLORIDE 0.9 % (FLUSH) 10 ML SYRINGE IVF (09:52)
[2022-02-04] MEDS: SODIUM CHLORIDE 0.9 % (FLUSH) 10 ML SYRINGE IVF (17:09)
[2022-02-04] MEDS: HEPARIN 500 UNIT/5 ML SYRINGE IVF (17:10)
[2022-02-05 11:51] LABS: Carcinoembryonic Antigen 48.4 ng/mL
[2022-02-11] MEDS: SODIUM CHLORIDE 0.9 % (FLUSH) 10 ML SYRINGE IVF (14:09)
--- NOTE | 2022-02-11 16:31 | ONC.NURNOTE ---
Spoke with Dr. Barber and due to findings on PET scan patient was called by Dr. Barber and instructed to increase her Sotorasib from 4 pills daily to 5 pills daily. If tolerating 5 pills a day after 2 weeks patient to increase to 6 pills/daily. 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
--- NOTE | 2022-02-12 13:36 | ONC.PROVNOTE ---
[facility] Provider Note Clinic Note Narrative: Refill request: lomotil Ms. Gutierrez follows at our clinic with Dr. Keysha Barber for medical management of adenocarcinoma of the rectum. Her current therapy is sotorasib. She was seen in clinic last on 02/03/22. Request for refill of lomotil. Last script for #45 tabs on 02/16/21 per [place] [facility] [employer] [employer] review. Script for #30 tabs sent to pharmacy on file per patient request.
--- NOTE | 2022-02-15 11:48 | ONC.NURNOTE ---
Addendum entered by Sarah Sanchez RN 02/15/22 12:09: Selena phoned back no change in freq or quality of stools- doing well with dose increase will recheck with Selena again this week Selena and Daniel with numerous questions about the upcoming lung biopsy and results of MRI done last week results given as no metastatic disease in the brain Original Note: Lumakras follow up: per son Daniel- Selena started taking the 5 tab dose on Tuesday. This is one additional tab then she had previously been on for total dose of 600mg/d Selena is not at home at this time, Daniel reports no apparent changes in freq or consistency of BM- will have Selena call this typewriter assembler back.
--- NOTE | 2022-02-18 11:57 | ONC.NURNOTE ---
Side effect review: reports no change in bowel pattern since increasing dose of lumakras to 5/day Selena to continue on 5 tabs/day until next week and will re-evaluate next week before increasing to 6 tabs/day per Dr Barber's orders [facility] Lumakras 120mg #6 /day (720mg/day) disp #180 with 3 refills f [phone]
--- NOTE | 2022-02-24 10:07 | ONC.NURNOTE ---
Selena reports no diarrhea since increasing her Lumakras to 5 tabs/day will plan to increase to 6 tabs/day on Tuesday
--- NOTE | 2022-03-05 12:29 | ONC.NURNOTE ---
Selena called and reports no change in stool pattern after increasing Lumakras to 6/day which she has been taking for the past week
--- NOTE | 2022-03-18 15:25 | ONC.NURNOTE ---
Patient set up for lung biopsy with Dr. Owen. Dr. Owen wanted to see patient first and he did and was going to consult with other MD's and get back to patient. Patient needs more tissue for extended panel testing
[2022-03-30 09:48] LABS: Basophils Absolute Auto 0.04 K/uL (0.00-0.30); Basophils Percent Auto 0.6 % (0.0-3.0); Eosinophils Absolute Auto 0.08 K/uL (0.00-0.50); Eosinophils Percent Auto 1.2 % (0.0-7.0); Hematocrit 41.9 % (33.0-51.0); Hemoglobin* 14.2 gm/dL (12.0-16.0); Immature Granulocytes Abs Auto 0.02 K/uL (0.00-0.30); Immature Granulocytes Pct Auto 0.3 %; Lymphocytes Absolute Auto 1.56 K/uL (0.90-2.90); Lymphocytes Percent Auto 23.3 % (20-44); Mean Corpuscular HGB Conc 34 gm/dL (32-36); Mean Corpuscular Hemoglobin 30 pg (26-34); Mean Corpuscular Volume 88 fL (80-100); Monocytes Percent Auto 6.4 % (0.0-11.0); Neutrophils Absolute Auto 4.56 K/uL (1.7-7.0); Neutrophils Percent Auto 68.2 % (42.0-72.0); Platelet Count* 177 K/uL (140-440); RDW Coefficient of Variation % 13.1 % (11.5-15.5); Red Blood Count 4.77 m/uL (4.00-5.20); White Blood Count* 6.69 K/uL (4.50-11.00)
[2022-03-30 09:52] LABS: Slide Review Reflex No
[2022-03-30] MEDS: SODIUM CHLORIDE 0.9 % (FLUSH) 10 ML SYRINGE IVF (10:00)
[2022-03-30] MEDS: HEPARIN 500 UNIT/5 ML SYRINGE IVF (10:00)
[2022-03-30 10:02] LABS: Albumin* 4.2 g/dL (3.3-5.0); Chloride* 109 mmol/L (96-114); Potassium* 3.7 mmol/L (3.6-5.1); Sodium* 140 mmol/L (135-149)
[2022-03-30 10:04] LABS: Creatinine* 0.5 mg/dL (0.5-1.5); Estimated Glomerular Filt Rate 100 ml/min
[2022-03-30 10:05] LABS: Alanine Aminotransferase* 15 U/L (4-35); Aspartate Amino Transferase* 22 U/L (12-35); Bilirubin Total* 0.6 mg/dL (0.1-1.5); Blood Urea Nitrogen* 11 mg/dL (7-30); Calcium* 9.3 mg/dL (8.4-10.6); Carbon Dioxide* 24 mmol/L (20-32); Glucose* 115 mg/dL (60-115); Total Protein* 7.5 g/dL (6.0-8.3)
[2022-03-30 10:17] LABS: Alkaline Phosphatase* 87 U/L (40-150)
== END 2022-04-11 23:59 | disposition home or self-care (01) ==
LOC: CCIC 09:00
PROVIDERS: Internal Medicine Hematology & Oncology; PCP Family Medicine; Referring Provider Family Medicine; Visit Provider Internal Medicine Hematology & Oncology
DX: C20 Malignant neoplasm of rectum (principal)
CPT/HCPCS: 36415; 36591; 70553; 80053; 81003; 81015; 82378; 85025; 87086; 99211; 99212; 99213; 99214; 99215; A9575; J1642

== ENCOUNTER 2022-09-16 10:01 | Outpatient (CLI) | payer MEDICARE, MEDICAID, SELFPAY ==
--- NOTE | 2022-09-16 10:15 | CRLHL7_ITS ---
For Patients: As a result of the Century Cures Act, medical imaging exams and procedure reports are released immediately into your electronic medical record. You may view this report before your referring provider. If you have questions, please contact your health care provider. INDICATION: Lung cancer. Evaluate for intracranial metastatic disease. Pontine hemorrhage. TECHNIQUE: Brain MRI with contrast. The following sequences were obtained: Sagittal T1 weighted sequence. DWI and ADC mapping sequences. Axial FLAIR and HARRIET T2 weighted sequences. Susceptibility weighted or GRE sequence. T1 weighted post-contrast sequence(s). 15 cc of Dotarem gadolinium based contrast agent was used. COMPARISON: Brain MRI from 02/11/2022. FINDINGS: No evidence of acute ischemia. Focus of susceptibility within the right hemipons, compatible with a small hemorrhage, such as from a cavernoma or hypertensive bleed. Five millimeter enhancing nodule along the anterior inferior falx, likely a meningioma. No mass or pathologic intracranial enhancement. Patchy and confluent T2/FLAIR hyperintensity within the supratentorial white matter and brainstem, typical for chronic microvascular ischemic change. No hydrocephalus or extra-axial collections. The pituitary gland, parasellar structures and optic chiasm are normal. All the major intracranial vascular structures demonstrate normal flow-related signal. The orbital contents are normal. No calvarial or skull base marrow signal abnormality. No obstructive sinus disease. No extracranial soft tissue findings. IMPRESSION: 1. No acute ischemia or other acute intracranial pathology. 2. No evidence of intracranial metastatic disease. 3. Stable 5 millimeter enhancing nodule along the anterior inferior falx, likely a meningioma. 4. Stable microhemorrhage right hemipons. 5. Stable moderately advanced chronic microvascular ischemic changes within the supratentorial white matter and brainstem. Dictated by Alvin Donahue MD @ 09/17/2022 8:48:56 PM (Electronically Signed)
--- NOTE | 2022-09-16 13:15 | CRLHL7_ITS ---
For Patients: As a result of the Century Cures Act, medical imaging exams and procedure reports are released immediately into your electronic medical record. You may view this report before your referring provider. If you have questions, please contact your health care provider. INDICATION: Colorectal cancer TECHNIQUE: Following IV injection of FDG with uptake of 54 minutes, noncontrast CT scan followed by a PET scan were acquired along the length of body from the head to the upper thighs. Noncontrast CT was used for anatomic localization and photon attenuation correction of the PET-CT scan. - Blood glucose level: 85. - FDG dose (mCi): 12.01. COMPARISON: 06/24/2022 PET-CT. FINDINGS: Head/Neck: No abnormal tracer uptake. - Chest: Medial right upper lobe nodule with SUV max of 4.2 previously 4.1 measures 2.5 cm previously 1.5 cm. Left lung base nodule measures 1.3 cm previously 1.1 cm with SUV max of 2.8 previously 2.1. Left inferior perihilar nodule is similar in size to prior with SUV max of 5.3 previously 2.5. Cystic peripherally calcified lung masses with peripheral uptake with no significant change. Additional smaller nodules are similar to prior. - Background liver parenchyma with SUV mean of 2.6. No abnormal tracer uptake. - Musculoskeletal: No tracer avid bone lesion. - CT findings: Chest port tip at the cavoatrial junction. Coronary artery calcifications. Pulmonary nodules and masses as above. No pleural effusion or pneumothorax. Cholecystectomy. Atherosclerotic abdominal aorta. Excreted contrast in the kidneys and bladder. Sternotomy hardware. IMPRESSION : 1. Increased size and uptake of left lung base and medial right upper lobe nodules as above. Additional lung masses and nodules are similar to prior. 2. Otherwise no new tracer avid disease. Dictated by Juan R Aden MD @ 09/22/2022 3:24:55 PM (Electronically Signed)
== END 2022-09-16 10:02 | disposition home or self-care (01) ==
LOC: MRI 10:02
PROVIDERS: PCP Family Medicine; Visit Provider Physician Assistant
DX: C20 Malignant neoplasm of rectum (principal); J85.2 Abscess of lung without pneumonia; C34.90 Malignant neoplasm of unspecified part of unspecified bronchus or lung; C78.00 Secondary malignant neoplasm of unspecified lung; I67.82 Cerebral ischemia
CPT/HCPCS: 70553; 78815; A9552; A9575

== ENCOUNTER 2022-10-14 10:15 | Outpatient (RCR) | payer MEDICARE, MEDICAID, SELFPAY ==
--- NOTE | 2022-04-12 15:03 | ONC.NURNOTE ---
Selena called stating the new med that was increased is causing nausea. I tried to call her back 4x. line busy
--- NOTE | 2022-04-13 09:56 | ONC.NURNOTE ---
Addendum entered by Grisel Monahan RN 04/15/22 15:14: Called pt to see how she is doing since recieving script for Compazine and zofran. Pt states she has been taking the zofran prior to the administration of her Lumakras and she still feels nauseated. Pt doesn't feel Zofran is effective. Pt denies any fevers, abd pain, no constipation. Lapel Baster instructed pt to try taking the prochlorperazine instead prior to Lumakras. Pt verbalized understanding of plan of care. Pt informed nursing will call her tomorrow to see if the prochlorperazine helps. Addendum entered by Elizabeth Gonzales RN 04/13/22 10:06: Asked patient to take 30 minutes prior to administration of her Lumakras Original Note: Received call from patient stating the last few days she has had some nausea. Denies vomiting just feels sick to her stomach and doesn't have any nausea pills left. Lapel Baster spoke with Laura THURSTON and got verbal order to refill both Compazine and Zofran and was asked to have patient try one or the other and see which one helps. Lapel Baster to check back in a few days but patient has increased her oral chemo pill to 6/day on 02/27
--- NOTE | 2022-04-16 15:39 | ONC.NURNOTE ---
Selena states feeling better. states compazine is helping vs Zofran. states eats and drinking, even though she doesnt have a appetite. as previous with Selena. denies emesis. states tired and sleeping more. reassurance given. encourage her to rest. that maybe thats what her body needs now. enc her to call tuesday am if questions or concerns.
[2022-05-03 14:04] LABS: Basophils Absolute Auto 0.02 K/uL (0.00-0.30); Basophils Percent Auto 0.3 % (0.0-3.0); Eosinophils Absolute Auto 0.11 K/uL (0.00-0.50); Eosinophils Percent Auto 1.8 % (0.0-7.0); Hematocrit 39.9 % (33.0-51.0); Hemoglobin* 13.4 gm/dL (12.0-16.0); Immature Granulocytes Abs Auto 0.01 K/uL (0.00-0.30); Immature Granulocytes Pct Auto 0.2 %; Lymphocytes Absolute Auto 1.94 K/uL (0.90-2.90); Lymphocytes Percent Auto 31.6 % (20-44); Mean Corpuscular HGB Conc 34 gm/dL (32-36); Mean Corpuscular Hemoglobin 29 pg (26-34); Mean Corpuscular Volume 87 fL (80-100); Monocytes Percent Auto 6.5 % (0.0-11.0); Neutrophils Absolute Auto 3.66 K/uL (1.7-7.0); Neutrophils Percent Auto 59.6 % (42.0-72.0); Platelet Count* 205 K/uL (140-440); RDW Coefficient of Variation % 13.1 % (11.5-15.5); Red Blood Count 4.59 m/uL (4.00-5.20); White Blood Count* 6.14 K/uL (4.50-11.00)
[2022-05-03 14:09] LABS: Albumin* 3.8 g/dL (3.3-5.0); Chloride* 108 mmol/L (96-114); Potassium* 3.7 mmol/L (3.6-5.1); Sodium* 139 mmol/L (135-149)
[2022-05-03 14:10] LABS: Slide Review Reflex No
[2022-05-03 14:11] LABS: Bilirubin Total* 0.5 mg/dL (0.1-1.5); Carbon Dioxide* 22 mmol/L (20-32); Creatinine* 0.5 mg/dL (0.5-1.5); Estimated Glomerular Filt Rate 99 ml/min
[2022-05-03 14:12] LABS: Alanine Aminotransferase* 14 U/L (4-35); Alkaline Phosphatase* 75 U/L (40-150); Aspartate Amino Transferase* 19 U/L (12-35); Blood Urea Nitrogen* 8 mg/dL (7-30); Calcium* 8.8 mg/dL (8.4-10.6); Glucose* 112 mg/dL (60-115); Total Protein* 6.9 g/dL (6.0-8.3)
--- NOTE | 2022-05-17 12:45 | ONC.NURNOTE ---
Diving Supervisor tim latif for liquid biopsy and called [employer] to pick-up today by 1400. Reference number [id number]
[2022-05-31 10:11] LABS: Basophils Absolute Auto 0.04 K/uL (0.00-0.30); Basophils Percent Auto 0.7 % (0.0-3.0); Eosinophils Percent Auto 1.7 % (0.0-7.0); Hematocrit 41.6 % (33.0-51.0); Hemoglobin* 13.9 gm/dL (12.0-16.0); Immature Granulocytes Abs Auto 0.01 K/uL (0.00-0.30); Immature Granulocytes Pct Auto 0.2 %; Lymphocytes Absolute Auto 1.53 K/uL (0.90-2.90); Lymphocytes Percent Auto 26.2 % (20-44); Mean Corpuscular HGB Conc 33 gm/dL (32-36); Mean Corpuscular Hemoglobin 29 pg (26-34); Mean Corpuscular Volume 87 fL (80-100); Monocytes Percent Auto 6.3 % (0.0-11.0); Neutrophils Percent Auto 64.9 % (42.0-72.0); Platelet Count* 174 K/uL (140-440); RDW Coefficient of Variation % 12.8 % (11.5-15.5); Red Blood Count 4.81 m/uL (4.00-5.20); White Blood Count* 5.85 K/uL (4.50-11.00)
[2022-05-31 10:13] LABS: Slide Review Reflex No
[2022-05-31 10:24] LABS: Albumin* 4.3 g/dL (3.3-5.0); Chloride* 106 mmol/L (96-114)
[2022-05-31 10:25] LABS: Sodium* 138 mmol/L (135-149)
[2022-05-31 10:27] LABS: Aspartate Amino Transferase* 20 U/L (12-35); Bilirubin Total* 0.9 mg/dL (0.1-1.5); Blood Urea Nitrogen* 11 mg/dL (7-30); Carbon Dioxide* 26 mmol/L (20-32); Creatinine* 0.6 mg/dL (0.5-1.5); Estimated Glomerular Filt Rate 95 ml/min; Total Protein* 7.6 g/dL (6.0-8.3)
[2022-05-31 10:28] LABS: Alanine Aminotransferase* 13 U/L (4-35); Alkaline Phosphatase* 77 U/L (40-150); Calcium* 9.3 mg/dL (8.4-10.6); Glucose* 106 mg/dL (60-115)
[2022-05-31 10:35] LABS: Potassium* 4.1 mmol/L (3.6-5.1)
[2022-07-01 14:25] LABS: Basophils Absolute Auto 0.02 K/uL (0.00-0.30); Basophils Percent Auto 0.4 % (0.0-3.0); Eosinophils Absolute Auto 0.05 K/uL (0.00-0.50); Eosinophils Percent Auto 0.9 % (0.0-7.0); Hematocrit 40.5 % (33.0-51.0); Hemoglobin* 13.6 gm/dL (12.0-16.0); Lymphocytes Absolute Auto 1.61 K/uL (0.90-2.90); Lymphocytes Percent Auto 29.8 % (20-44); Mean Corpuscular HGB Conc 34 gm/dL (32-36); Mean Corpuscular Hemoglobin 29 pg (26-34); Mean Corpuscular Volume 87 fL (80-100); Monocytes Percent Auto 6.1 % (0.0-11.0); Neutrophils Absolute Auto 3.39 K/uL (1.7-7.0); Neutrophils Percent Auto 62.8 % (42.0-72.0); Platelet Count* 199 K/uL (140-440); RDW Coefficient of Variation % 13.6 % (11.5-15.5); Red Blood Count 4.64 m/uL (4.00-5.20)
[2022-07-01 14:33] LABS: Slide Review Reflex No
[2022-07-01 14:39] LABS: Albumin* 4.2 g/dL (3.3-5.0); Chloride* 106 mmol/L (96-114); Sodium* 137 mmol/L (135-149)
[2022-07-01 14:40] LABS: Potassium* 4.1 mmol/L (3.6-5.1)
[2022-07-01 14:42] LABS: Alanine Aminotransferase* 15 U/L (4-35); Alkaline Phosphatase* 71 U/L (40-150); Aspartate Amino Transferase* 23 U/L (12-35); Bilirubin Total* 0.9 mg/dL (0.1-1.5); Blood Urea Nitrogen* 7 mg/dL (7-30); Carbon Dioxide* 23 mmol/L (20-32); Creatinine* 0.6 mg/dL (0.5-1.5); Estimated Glomerular Filt Rate 95 ml/min; Glucose* 171 mg/dL (60-115); Total Protein* 7.3 g/dL (6.0-8.3)
[2022-07-01 14:43] LABS: Calcium* 8.8 mg/dL (8.4-10.6)
[2022-07-02 22:19] LABS: Carcinoembryonic Antigen 55.6 ng/mL
--- NOTE | 2022-07-13 15:36 | ONC.NURNOTE ---
Patient called to state she took 6 of her Lumakras pills (840mg) for 8 days in a row then she felt like her brain wouldn't function so she stopped and her head has cleared up. Cutter Operator Asbestos Shingle to let Dr. Barber know. She is back to taking 5 pills /day (720mg).
--- NOTE | 2022-08-10 14:24 | ONC.NURNOTE ---
Patient called to request appointment for labs for tomorrow. Is a week late per patient. couldn't get it together last week stated patient. On for 1100 tomorrow.
[2022-08-11 11:29] LABS: Basophils Absolute Auto 0.02 K/uL (0.00-0.30); Basophils Percent Auto 0.4 % (0.0-3.0); Hematocrit 42.8 % (33.0-51.0); Immature Granulocytes Abs Auto 0.01 K/uL (0.00-0.30); Immature Granulocytes Pct Auto 0.2 %; Lymphocytes Absolute Auto 1.51 K/uL (0.90-2.90); Lymphocytes Percent Auto 29.5 % (20-44); Mean Corpuscular HGB Conc 33 gm/dL (32-36); Mean Corpuscular Hemoglobin 29 pg (26-34); Mean Corpuscular Volume 87 fL (80-100); Monocytes Percent Auto 7.6 % (0.0-11.0); Neutrophils Absolute Auto 3.09 K/uL (1.7-7.0); Neutrophils Percent Auto 60.3 % (42.0-72.0); Platelet Count* 182 K/uL (140-440); RDW Coefficient of Variation % 13.6 % (11.5-15.5); Red Blood Count 4.92 m/uL (4.00-5.20); White Blood Count* 5.12 K/uL (4.50-11.00)
[2022-08-11 11:38] LABS: Slide Review Reflex No
[2022-08-11 11:41] LABS: Albumin* 4.3 g/dL (3.3-5.0); Chloride* 103 mmol/L (96-114)
[2022-08-11 11:42] LABS: Potassium* 4.3 mmol/L (3.6-5.1); Sodium* 135 mmol/L (135-149)
[2022-08-11 11:44] LABS: Alkaline Phosphatase* 91 U/L (40-150); Aspartate Amino Transferase* 22 U/L (12-35); Bilirubin Total* 0.5 mg/dL (0.1-1.5); Carbon Dioxide* 25 mmol/L (20-32); Creatinine* 0.6 mg/dL (0.5-1.5); Estimated Glomerular Filt Rate 95 ml/min; Total Protein* 7.6 g/dL (6.0-8.3)
[2022-08-11 11:45] LABS: Alanine Aminotransferase* 12 U/L (4-35); Blood Urea Nitrogen* 10 mg/dL (7-30); Calcium* 9.5 mg/dL (8.4-10.6); Glucose* 92 mg/dL (60-115)
--- NOTE | 2022-08-13 16:09 | ONC.NURNOTE ---
called Selena with her lab results and for her to continue Lumakras 5 tabs a day per Baylee BOWLES
[2022-09-09 10:52] LABS: Basophils Absolute Auto 0.01 K/uL (0.00-0.30); Basophils Percent Auto 0.2 % (0.0-3.0); Eosinophils Absolute Auto 0.08 K/uL (0.00-0.50); Eosinophils Percent Auto 1.6 % (0.0-7.0); Hematocrit 42.7 % (33.0-51.0); Hemoglobin* 14.2 gm/dL (12.0-16.0); Immature Granulocytes Abs Auto 0.01 K/uL (0.00-0.30); Immature Granulocytes Pct Auto 0.2 %; Lymphocytes Absolute Auto 1.63 K/uL (0.90-2.90); Lymphocytes Percent Auto 32.2 % (20-44); Mean Corpuscular HGB Conc 33 gm/dL (32-36); Mean Corpuscular Hemoglobin 28 pg (26-34); Mean Corpuscular Volume 85 fL (80-100); Monocytes Percent Auto 5.9 % (0.0-11.0); Neutrophils Absolute Auto 3.03 K/uL (1.7-7.0); Neutrophils Percent Auto 59.9 % (42.0-72.0); Platelet Count* 155 K/uL (140-440); RDW Coefficient of Variation % 13.3 % (11.5-15.5); White Blood Count* 5.06 K/uL (4.50-11.00)
[2022-09-09 10:56] LABS: Slide Review Reflex No
[2022-09-09 11:06] LABS: Albumin* 4.1 g/dL (3.3-5.0); Chloride* 103 mmol/L (96-114)
[2022-09-09 11:07] LABS: Potassium* 3.5 mmol/L (3.6-5.1); Sodium* 137 mmol/L (135-149)
[2022-09-09 11:09] LABS: Aspartate Amino Transferase* 20 U/L (12-35); Bilirubin Total* 0.6 mg/dL (0.1-1.5); Carbon Dioxide* 27 mmol/L (20-32); Creatinine* 0.6 mg/dL (0.5-1.5); Estimated Glomerular Filt Rate 95 ml/min; Total Protein* 7.4 g/dL (6.0-8.3)
[2022-09-09 11:10] LABS: Alanine Aminotransferase* 13 U/L (4-35); Alkaline Phosphatase* 73 U/L (40-150); Blood Urea Nitrogen* 10 mg/dL (7-30); Calcium* 9.1 mg/dL (8.4-10.6); Glucose* 154 mg/dL (60-115)
[2022-09-10 12:49] LABS: Carcinoembryonic Antigen 63.5 ng/mL
[2022-09-16] MEDS: SODIUM CHLORIDE 0.9 % (FLUSH) 10 ML SYRINGE IVF (11:12)
[2022-09-16] MEDS: HEPARIN 500 UNIT/5 ML SYRINGE IVF (11:12)
--- NOTE | 2022-09-27 14:01 | ONC.NURNOTE ---
[employer] faxed RX for Alecia to [phone].
--- NOTE | 2022-10-15 13:28 | ONC.NURNOTE ---
Ramya son Daniel called to let us know that Selena was admitted at [facility] with pnx. Per his request I called social group worker to provide him with papers re POA>
== END 2022-10-30 23:59 | disposition home or self-care (01) ==
LOC: CCIC 10:15
PROVIDERS: Physician Assistant; PCP Family Medicine; Referring Provider Family Medicine; Visit Provider Internal Medicine Hematology & Oncology
DX: C20 Malignant neoplasm of rectum (principal)
CPT/HCPCS: 36415; 36591; 70553; 78815; 80053; 82378; 85025; 99211; 99212; 99213; 99214; 99215; A9552; A9575; J1642

== ENCOUNTER 2022-10-15 07:15 | Outpatient (CLI) | payer MEDICARE, MEDICAID, SELFPAY | END 2022-10-15 07:16 | disposition home or self-care (01) | LOC: AMB 10-20 09:36 | PROVIDERS: PCP Family Medicine; Visit Provider Family Medicine | DX: R06.09 Other forms of dyspnea (principal) | CPT/HCPCS: A0425; A0427 ==

== ENCOUNTER 2022-10-15 07:41 | Inpatient (IN) | payer MEDICARE, MEDICAID, SELFPAY ==
[2022-10-15] VITALS (27 sets, daily range): BP systolic 98–141; BP diastolic 66–117; PULSE 61–138; RESP 20–22; TEMP 36.3–36.7; O2SAT 86–94; BMI 20.1; BMI 20.3; BMI 20.2
--- NOTE | 2022-10-15 08:23 | CRLHL7_ITS ---
For Patients: As a result of the Century Cures Act, medical imaging exams and procedure reports are released immediately into your electronic medical record. You may view this report before your referring provider. If you have questions, please contact your health care provider. INDICATION: SOB HX OF COLON CANCER W LUNG METS TECHNIQUE: CT chest PE was acquired with 95 CC ISOVUE 370 IV contrast. COMPARISON: PET-CT September 16, 2022 FINDINGS: Heart and vasculature: Contrast opacification of the pulmonary arterial tree is adequate. No sign of pulmonary embolism. Stable mild cardiomegaly. Moderate to severe atherosclerosis of the thoracic aorta. Right IJ port is in place. Postoperative changes from median sternotomy. Lungs and pleural: Multiple bilateral predominantly pleural based [id number]-left metastatic lesions are again demonstrated without significant interval change when compared to September 16, 2022 examination. New bibasilar mucous plugging and patchy opacities concerning for pneumonia/aspiration. No pleural effusions, pleural thickening, or pneumothorax. Lymph nodes/mediastinum: No mediastinal, hilar, or axillary adenopathy. Chest wall: No masses. Upper abdomen: No acute or significant findings. Bones: Unremarkable for age. IMPRESSION: 1. Bibasilar mucous plugging and patchy opacities concerning for pneumonia/aspiration. 2. No evidence of pulmonary embolus. 3. Multiple bilateral predominately pleural based [id number]-left metastatic lesions are again demonstrated without significant interval change when compared to September 16, 2022 examination. Please note that all CT scans at this facility use dose modulation, iterative reconstruction, and/or weight-based dosing when appropriate to reduce radiation dose to as low as reasonably achievable. Dictated by Justice Caldwell MD @ 10/15/2022 10:13:01 AM (Electronically Signed)
--- NOTE | 2022-10-15 08:24 | ED_ITS ---
HPI - SOB/Dyspnea General Chief Complaint: Shortness of Breath/Dyspnea Stated Complaint: Respiratory Distress Time Seen by Provider: 10/15/22 08:10 History of Present Illness HPI Narrative: This 72-year-old female comes in reporting shortness of breath. This started yesterday and she arrives here today with oximetry at 86% on room air with some associated tachycardia. She has colon cancer with metastatic disease to the lung. She does report some chest pain related to this. Related Data Home Medications Medication Instructions Recorded Confirmed clonazepam 0.5 mg tablet 0.5 mg PO HS 09/07/21 09/23/22 ibuprofen 200 mg capsule 200 mg PO Q6H PRN pain 09/07/21 09/23/22 isosorbide mononitrate 30 mg 30 mg PO DAILY 09/07/21 09/23/22 tablet,extended release 24 hr nitroglycerin 0.4 mg sublingual 0.4 mg sublingual Q5M PRN chest 09/07/21 09/23/22 tablet pain sertraline 100 mg tablet 100 mg PO Q24H 09/07/21 09/23/22 gabapentin 300 mg capsule 300 mg PO .Q24 05/03/22 09/23/22 aspirin 81 mg chewable tablet 81 mg PO DAILY PRN 09/23/22 09/23/22 Previous Rx's Medication Instructions Recorded diphenoxylate-atropine 2.5 1 tab PO Q6H PRN diarrhea #30 tabs 02/12/22 mg-0.025 mg tablet ondansetron 4 mg disintegrating 4 mg translingual Q6H PRN nausea 04/13/22 tablet and vomiting #30 tabs prochlorperazine maleate 10 mg 10 mg PO Q6H PRN nausea and 04/13/22 tablet vomiting #30 tabs methylprednisolone 4 mg tablets in See Rx Instructions PO PER PKG DIR 09/23/22 a dose pack (Medrol (Heriberto)) #21 ea potassium chloride 20 mEq 20 meq PO QDAY #10 tabs 09/23/22 tablet,extended release sotorasib 120 mg tablet (Lumakras) 720 mg (6 x 120 mg) PO QDAY #180 09/23/22 tabs morphine 15 mg tablet,extended 15 mg PO Q8H #30 tabs 10/11/22 release oxycodone 5 mg tablet 5 mg PO TID PRN pain #30 tabs 10/12/22 Allergies Allergy/AdvReac Type Severity Reaction Status Date / Time penicillin V Allergy Intermediate Rash Verified 10/15/22 09:52 hydromorphone Allergy Unknown hallucinati Verified 10/15/22 09:52 ons Review of Systems Status of ROS: Reports: 10 or more systems reviewed and unremarkable except as noted in History and below Narrative: Constitutional: No fevers, no weight gain or loss. Eyes: No discharge. No vision changes. HENT: No congestion, no sore throat, no ear pain. Cardiovascular: No palpitations. Respiratory: Shortness of breath. Gastrointestinal: No abdominal pain, no vomiting, no diarrhea. Genitourinary: No dysuria, no hematuria. Musculoskeletal: Normal range of motion. Skin: No rashes, no pruritis. Neurological: No dizziness, weakness, sensory change, speech change. Endo/Heme/Allergies: No bruising or bleeding. No polydipsia. Pysch: no suicidality, no anxiety, no insomnia. All other systems reviewed and are negative. [facility] Medical History (Updated 10/15/22 @ 11:46 by Avni Mejía MD) Lung metastasis ?C78.00 - Secondary malignant neoplasm of unspecified lung (ICD-10) Rectal cancer ?C20 - Malignant neoplasm of rectum (ICD-10) Encounter for insertion of tunneled central venous catheter (CVC) with port ?Z45.2 - Encounter for adjustment and management of vascular access device (ICD-10) Adenocarcinoma, lung ?C34.90 - Malignant neoplasm of unspecified part of unspecified bronchus or lung (ICD-10) 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 ?C79.9 - Secondary malignant neoplasm of unspecified site (ICD-10) ?C20 - Malignant neoplasm of rectum (ICD-10) Histoplasmosis ?B39.9 - Histoplasmosis, unspecified (ICD-10) Adenocarcinoma of rectum (~12/2015) ?C20 - Malignant neoplasm of rectum (ICD-10) Social History (Updated 09/23/22 @ 12:28 by Keysha Barber MD) Smoking Status: Former smoker What tobacco products do you use: cigarettes Smoking quit date/years: <= 15 years ago Do you use any of these nicotine containing products: None Second hand tobacco smoke exposure: No How often do you have a drink containing alcohol: 2-4 times a month How many standard drinks containing alcohol do you have on a typical day: 3 or 4 How often do you have six or more drinks on one occasion: Never AUDIT-C Alcohol total score: 3 Non-prescribed substance use: marijuana (any form) Exam Narrative: Exam Narrative: Constitutional: Well-developed, well-nourished, no acute distress. HEENT: Normocephalic, atraumatic. Neck: Normal range of motion. Nontender. Supple. Heart: Regular. No murmurs. Normal rate. Intact distal pulses. Lungs: Mild bilateral rhonchi. No use of accessory muscles well breathing with nasal cannula oxygen in place. Abdomen: Normal bowel sounds. Nontender. No rebound tenderness. Genitalia: Deferred. Back: No midline tenderness. Normal range of motion. Extremities: Normal range of motion. No injury. Skin: Intact. No rash. Warm. No erythema or pallor. Neurologic: No altered sensation. No weakness. Alert and oriented. Psychiatric: No suicidality. No anxiety or depression. No insomnia. Nursing notes and vitals signs are reviewed. Const: Vital Signs, click to edit/add: Vital Signs - 24 hr 10/15/22 08:06 10/15/22 08:21 10/15/22 08:30 Temperature 97.3 F L Pulse Rate 86 83 Pulse Rate [Right Pulse Oximeter] 98 Respiratory Rate 22 Blood Pressure Blood Pressure [Ri ght Upper Arm] 139/100 H Pulse Oximetry 86 L 92 92 Oxygen Delivery [facility] Room Air 10/15/22 08:59 10/15/22 09:00 10/15/22 09:02 Temperature Pulse Rate 87 83 89 Pulse Rate [Right Pulse Oximeter] Respiratory Rate Blood Pressure 131/73 131/68 Blood Pressure [Ri ght Upper Arm] Pulse Oximetry 91 90 91 Oxygen Delivery Fl thod 10/15/22 09:03 10/15/22 09:33 10/15/22 09:34 Temperature Pulse Rate 138 H 95 Pulse Rate [Right Pulse Oximeter] Respiratory Rate Blood Pressure 140/117 H Blood Pressure [Ri ght Upper Arm] Pulse Oximetry 93 94 Oxygen Delivery Fl thod 10/15/22 10:00 10/15/22 10:01 10/15/22 10:30 Temperature Pulse Rate 79 78 81 Pulse Rate [Right Pulse Oximeter] Respiratory Rate Blood Pressure 98/87 Blood Pressure [Ri ght Upper Arm] Pulse Oximetry 92 91 94 Oxygen Delivery Me thod 10/15/22 10:31 10/15/22 11:00 10/15/22 11:02 Temperature Pulse Rate 81 76 93 Pulse Rate [Right Pulse Oximeter] Respiratory Rate Blood Pressure 132/66 132/71 Blood Pressure [Ri ght Upper Arm] Pulse Oximetry 93 93 92 Oxygen Delivery Me thod 10/15/22 11:30 10/15/22 11:31 Temperature Pulse Rate 78 81 Pulse Rate [Right Pulse Oximeter] Respiratory Rate Blood Pressure 129/81 Blood Pressure [Ri ght Upper Arm] Pulse Oximetry 93 92 Oxygen Delivery Me thod Course Vital Signs Vital signs: Initial Vital Signs Temperature 97.3 F L 10/15/22 08:06 Temperature Source Temporal Artery Scan 10/15/22 08:06 Pulse Rate 98 10/15/22 08:06 Respiratory Rate 22 10/15/22 08:06 Blood Pressure 139/100 H 10/15/22 08:06 Blood Pressure Mean 113 H 10/15/22 08:06 Blood Pressure Position Sitting 10/15/22 08:06 Pulse Oximetry 86 L 10/15/22 08:06 Oxygen Delivery Method Room Air 10/15/22 08:06 Vital Signs Temperature 97.3 F L 10/15/22 08:06 Pulse Rate 98 10/15/22 08:06 Respiratory Rate 22 10/15/22 08:06 Blood Pressure 139/100 H 10/15/22 08:06 Pulse Oximetry 86 L 10/15/22 08:06 Oxygen Delivery Method Room Air 10/15/22 08:06 Temperature 97.3 F L 10/15/22 08:06 Pulse Rate 81 10/15/22 11:31 Respiratory Rate 22 10/15/22 08:06 Blood Pressure 129/81 10/15/22 11:31 Pulse Oximetry 92 10/15/22 11:31 Oxygen Delivery Method Room Air 10/15/22 08:06 MDM - SOB/Dyspnea MDM Narrative Medical decision making narrative: This patient comes in by ambulance because of shortness of breath. She had oximetry at 86% on room air prior to arrival and now with nasal cannula oxygen she is maintaining oximetry at around 92%. She has history of rectal cancer with metastatic disease to the lung. This was discovered about 7 years ago at which time she was told she had 6-9 months to live. She has continued of course these 7 years hence but does have significant tumor burden in her lungs that is unchanged on today's CT scan compared to views [address] imaging today also shows suspicion for pneumonia. The patient has a normal white count but her C reactive protein is significantly elevated. I spoke with the hospitalist electronic device monitor, Dr. Jerry, who agrees to her admission into the hospital for further evaluation and treatment. The patient states that she is DNR DNI. Lab Data Labs: Lab Results 10/15/22 10/15/22 10/15/22 Range/Units 08:23 08:35 08:45 WBC 10.94 (4.50-11.00) K/uL RBC 4.37 (4.00-5.20) m/uL Hgb 12.6 (12.0-16.0) gm/dL Hct 37.3 (33.0-51.0) % MCV 85 (80-100) fL MCH 29 (26-34) pg MCHC 34 (32-36) gm/dL RDW Coeff of Aleks 13.1 (11.5-15.5) % Plt Count 208 (140-440) K/uL Neut % (Auto) 86.4 H (42.0-72.0) % Lymph % (Auto) 7.7 L (20-44) % [place] % (Auto) 5.2 (0.0-11.0) % Eos % (Auto) 0.3 (0.0-7.0) % Baso % (Auto) 0.1 (0.0-3.0) % Neut # (Auto) 9.50 H (1.7-7.0) K/uL Lymph # (Auto) 0.80 L (0.90-2.90) K/uL [place] # (Auto) 0.60 (0.00-0.90) K/UL Eos # (Auto) 0.03 (0.00-0.50) K/uL Baso # (Auto) 0.01 (0.00-0.30) K/uL Abs Immat Gran (auto) 0.03 (0.00-0.30) K/uL Imm/Tot Granulo (auto) 0.3 % Sodium 136 (135-149) mmol/L Potassium 3.2 L (3.6-5.1) mmol/L Chloride 100 (96-114) mmol/L Carbon Dioxide 27 (20-32) mmol/L BUN 13 (7-30) mg/dL Creatinine 0.5 (0.5-1.5) mg/dL Estimated Creat Clear 41.98 Estimated GFR 99 ml/min Glucose 138 H (60-115) mg/dL Calcium 8.9 (8.4-10.6) mg/dL C-Reactive Protein 17.1 H (0.5-1.0) mg/dL SARS-CoV-2 (PCR) Negative SARS-CoV-2 (Negative) Influenza Type A (PCR) Negative PCR FLU A (Negative) Influenza Type B (PCR) Negative PCR FLU B (Negative) RSV (PCR) Negative PCR RSV (Negative) POC Troponin I 0.02 (0.01-0.04) ng/ml Imaging Data CT scan - chest: Radiologist's impression: 1. Bibasilar mucous plugging and patchy opacities concerning for pneumonia/aspiration. 2. No evidence of pulmonary embolus. 3. Multiple bilateral predominately pleural based [id number]-left metastatic lesions are again demonstrated without significant interval change when compared to September 16, 2022 examination. Discharge Plan Discharge Clinical Impression: Lung metastasis, 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, Pneumonia Patient Disposition: Admitted As Inpatient Condition: Unchanged Prescriptions: No Action methylprednisolone [Medrol (Heriberto)] 4 mg tablets,dose pack See Rx Instructions PO PER PKG DIR Qty: 21 3RF Rx Instructions: PO PER PKG DIR Lumakras 120 mg tablet 720 mg PO QDAY Qty: 180 3RF potassium chloride 20 mEq tablet extended release 20 meq PO QDAY Qty: 10 3RF morphine 15 mg tablet extended release 15 mg PO Q8H Qty: 30 0RF clonazepam 0.5 mg tablet 0.5 mg PO HS nitroglycerin 0.4 mg tablet, sublingual 0.4 mg sublingual Q5M PRN (Reason: chest pain) sertraline 100 mg tablet 100 mg PO Q24H ibuprofen 200 mg capsule 200 mg PO Q6H PRN (Reason: pain) isosorbide mononitrate 30 mg tablet extended release 24 hr 30 mg PO DAILY gabapentin 300 mg capsule 300 mg PO .Q24 Patient Comments: takes 200mg aspirin 81 mg tablet,chewable 81 mg PO DAILY PRN Patient Comments: Hasn't been taking everyday like prescribed diphenoxylate-atropine 2.5-0.025 mg tablet 1 tab PO Q6H PRN (Reason: diarrhea) Qty: 30 0RF Rx Instructions: 1-2 tabs #30 with no refills prochlorperazine maleate 10 mg tablet 10 mg PO Q6H PRN (Reason: nausea and vomiting) Qty: 30 0RF Rx Instructions: Try taking this 30 minutes prior to your chemo medicine Sotorasib ondansetron 4 mg tablet,disintegrating 4 mg translingual Q6H PRN (Reason: nausea and vomiting) Qty: 30 0RF Rx Instructions: Use either this or prochlorperazine for nausea Try taking this 30 mins prior to Sotorasib oxycodone 5 mg tablet 5 mg PO TID PRN (Reason: pain) Qty: 30 0RF Follow Up/Referrals: Byron Mondragon MD [Primary Care Provider] -
[2022-10-15 08:58] LABS: Basophils Absolute Auto 0.01 K/uL (0.00-0.30); Basophils Percent Auto 0.1 % (0.0-3.0); Eosinophils Absolute Auto 0.03 K/uL (0.00-0.50); Eosinophils Percent Auto 0.3 % (0.0-7.0); Hematocrit 37.3 % (33.0-51.0); Hemoglobin* 12.6 gm/dL (12.0-16.0); Immature Granulocytes Abs Auto 0.03 K/uL (0.00-0.30); Immature Granulocytes Pct Auto 0.3 %; Lymphocytes Percent Auto 7.7 % (20-44); Mean Corpuscular HGB Conc 34 gm/dL (32-36); Mean Corpuscular Hemoglobin 29 pg (26-34); Mean Corpuscular Volume 85 fL (80-100); Monocytes Percent Auto 5.2 % (0.0-11.0); Neutrophils Percent Auto 86.4 % (42.0-72.0); Platelet Count* 208 K/uL (140-440); RDW Coefficient of Variation % 13.1 % (11.5-15.5); Red Blood Count 4.37 m/uL (4.00-5.20); White Blood Count* 10.94 K/uL (4.50-11.00)
[2022-10-15 09:01] LABS: Troponin, Point-of-Care* 0.02 ng/ml (0.01-0.04)
[2022-10-15 09:02] LABS: Slide Review Reflex No
[2022-10-15 09:16] LABS: Chloride* 100 mmol/L (96-114); Potassium* 3.2 mmol/L (3.6-5.1); Sodium* 136 mmol/L (135-149)
[2022-10-15 09:18] LABS: PCR FLU A Negative PCR FLU A (Negative); PCR FLU B Negative PCR FLU B (Negative); PCR RSV Negative PCR RSV (Negative)
[2022-10-15 09:19] LABS: Creatinine* 0.5 mg/dL (0.5-1.5); Est. Creatinine Clearance* 41.98; Estimated Glomerular Filt Rate 99 ml/min
[2022-10-15 09:20] LABS: Blood Urea Nitrogen* 13 mg/dL (7-30); Calcium* 8.9 mg/dL (8.4-10.6); Carbon Dioxide* 27 mmol/L (20-32); Glucose* 138 mg/dL (60-115)
[2022-10-15 09:22] LABS: SARS PCR* Negative SARS-CoV-2 (Negative)
[2022-10-15 09:36] LABS: C Reactive Protein* 17.1 mg/dL (0.5-1.0)
[2022-10-15] MEDS: cefTRIAXone 1 GM in 0.9 % SODIUM CHLORIDE Mini-bag 100 ML IVPB (12:48)
[2022-10-15] MEDS: NICOTINE 14 mg PATCH 1 PATCH TRANSDERMA (14:21)
[2022-10-15] MEDS: AZITHROMYCIN 100 MG/ML inj 500 MG IVPB (14:37)
--- NOTE | 2022-10-15 14:49 | PM.IMHP1 ---
Hospitalist- H&P: HPI History of Present Illness Time Seen by Provider: 12:30 Date Seen: 10/15/22 Chief complaint: Respiratory Distress Narrative: Selena Gutierrez is a 72 year old woman presents to our emergency department with about a 24 hour history dyspnea that is not improving. She feels like she cannot catch her breath. Had very little sleep because of this. This morning decides to come in for further assessment. Room air oxygen saturation on presentation is 86%. She indicates this is new to her. Patient has been a 1/2 pack per day smoker for decades. Continues to smoke. Also smokes marijuana periodically. 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 Most recent PET scan, 09/22/2022, demonstrated increased size and uptake of left lung base and medial right upper lobe nodules. Additional lung masses and nodules were similar to previous findings. No other new tracer avid disease. Patient's goal of treatment continues to be palliative in nature, with DNR DNI resuscitation status. Review of Systems Status of ROS: Reports: 10 or more systems reviewed and unremarkable except as noted in History and below Narrative: Has chest pain related to pulmonary and pleural metastases. This pain is not new. Does not have additional pain. Denies angina or anginal equivalent. Denies syncope or near-syncope. Denies nausea or vomiting. Denies palpitations or chest fluttering. Has increased cough and dyspnea. Cough is nonproductive. Denies claudication. Bowel and bladder function are satisfactory. No focal motor neurologic deficits. Has had decreased appetite the last couple of days. Current decreased appetite is on top of baseline decreased appetite. Believe she has been drinking adequately. Denies fevers, rigors, diaphoresis. No other localizing symptoms. [facility] Medical History (Updated 10/15/22 @ 15:49 by Wiley Jerry MD) Lung metastasis ?C78.00 - Secondary malignant neoplasm of unspecified lung (ICD-10) Rectal cancer ?C20 - Malignant neoplasm of rectum (ICD-10) Encounter for insertion of tunneled central venous catheter (CVC) with port ?Z45.2 - Encounter for adjustment and management of vascular access device (ICD-10) Adenocarcinoma, lung ?C34.90 - Malignant neoplasm of unspecified part of unspecified bronchus or lung (ICD-10) 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 ?C79.9 - Secondary malignant neoplasm of unspecified site (ICD-10) ?C20 - Malignant neoplasm of rectum (ICD-10) Histoplasmosis ?B39.9 - Histoplasmosis, unspecified (ICD-10) Adenocarcinoma of rectum (~12/2015) ?C20 - Malignant neoplasm of rectum (ICD-10) Social History (Updated 10/15/22 @ 15:37 by Wiley Jerry MD) Narrative: Lives in private home. Designates her son, Daniel, as her primary contact for power family law attorney for health should that be required, cell phone [phone]. Designates her daughter, Staci, as her secondary contact for power of family law attorney for health should that be required, cell phone [phone]. Adamant that she desires a DNR DNI resuscitation status. What is your current living situation?: I presently have a place to live Problems where you live: no known problems Problems where you live details: n/a In the past 12 months, utilities in danger of being shut off: no In the past 12 mos, have been you worried that your food would run out before you had money to buy more?: never true In the past 12 mos, the food you bought just didn't last and you didn't have money to buy more?: never true Highest level of school completed/degree received: high school graduate Smoking Status: Current every day smoker What tobacco products do you use: cigarettes Smoking packs per day: 0.5 Smoking cigarettes per day: 10.0 Smoking quit date/years: <= 15 years ago Do you use any of these nicotine containing products: None Second hand tobacco smoke exposure: No How often do you have a drink containing alcohol: 2-4 times a month Alcohol type: hard liquor How many standard drinks containing alcohol do you have on a typical day: 3 or 4 How often do you have six or more drinks on one occasion: Never AUDIT-C Alcohol total score: 3 Non-prescribed substance use: marijuana (any form) Caffeine: Yes (2-3 cups) How often does anyone, including family, friends and others, physically hurt you: never How often does anyone, including family, friends and others, insult or talk down to you: never How often does anyone, including family, friends and others, threaten you with harm: never How often does anyone, including family, friends and others, scream or curse at you: never service: No Meds Home Medications and Allergies Home Medications Medication Instructions Recorded Confirmed Type clonazepam 0.5 mg tablet 0.5 mg PO HS PRN 09/07/21 10/15/22 History ibuprofen 200 mg capsule 200 mg PO Q6H PRN pain 09/07/21 10/15/22 History isosorbide mononitrate 30 mg 30 mg PO DAILY 09/07/21 10/15/22 History tablet,extended release 24 hr nitroglycerin 0.4 mg sublingual 0.4 mg sublingual Q5M PRN chest 09/07/21 10/15/22 History tablet pain sertraline 100 mg tablet 100 mg PO HS 09/07/21 10/15/22 History gabapentin 300 mg capsule 300 mg PO HS 05/03/22 10/15/22 History aspirin 81 mg chewable tablet 81 mg PO DAILY PRN 09/23/22 10/15/22 History albuterol sulfate 90 mcg/actuation 2 puff inhalation Q4H PRN 10/15/22 10/15/22 History aerosol inhaler (Ventolin HFA) diphenoxylate-atropine 2.5 1 tab PO Q6H PRN diarrhea 10/15/22 10/15/22 History mg-0.025 mg tablet morphine 15 mg tablet,extended 15 mg PO Q8H PRN 10/15/22 10/15/22 History release sotorasib 120 mg tablet (Lumakras) 600 mg PO DAILY 10/15/22 10/15/22 History Allergies Allergy/AdvReac Type Severity Reaction Status Date / Time penicillin V Allergy Intermediate Rash Verified 10/15/22 09:52 Exam Narrative: Exam Narrative: I 1st examined her in the emergency department as she is laying on the exam table. She has a nasal cannula in place and is tachypneic with respirations of 20-24 breaths per minute at rest. Appears to be in [id number] respiratory distress. Speaking 5-6 words before needs to stop and take a breath. Vision and hearing are grossly adequate. Alert, oriented to self, place, time, situation. Articulate and cooperative. Appropriately anxious. Mood and affect are congruent. Appears thin and cachectic. BMI is 20.3. External auditory canals are clear with normal tympanic membranes. Midline nasal septum. Dry buccal mucosa. Dentition in fair repair. No icterus or conjunctival injection. Pupils are equally round and reactive to light and accommodation. Extraocular muscles are intact. Neck is supple. No JVD or hepatojugular reflux. No head and neck lymphadenopathy. Lungs with diffuse rhonchi and scattered inspiratory and expiratory wheezes. Prolonged expiratory phase. Bibasilar rales. Palpable rhonchi on chest. No CVA tenderness. Heart tones with regular rhythm, normal S1-S2. Soft systolic murmur. No gallop or rub. PMI not laterally displaced. Abdomen is thin. Active bowel sounds. Soft. Nontender. Extremities without edema. Capillary refill less than 3 seconds. Moves all 4 extremities. Independent with transfers and station. I do not ask her to walk. Skin is dry and tenting. Const: Vital Signs, click to edit/add: Vital Signs - 24 hr 10/15/22 08:06 10/15/22 08:21 10/15/22 08:30 Temperature 97.3 F L Pulse Rate 86 83 Pulse Rate [Right Pulse Oximeter] 98 Respiratory Rate 22 Blood Pressure Blood Pressure [Ri ght Upper Arm] 139/100 H Pulse Oximetry 86 L 92 92 Oxygen Delivery Me thod Room Air Oxygen Flow Rate 10/15/22 08:59 10/15/22 09:00 10/15/22 09:02 Temperature Pulse Rate 87 83 89 Pulse Rate [Right Pulse Oximeter] Respiratory Rate Blood Pressure 131/73 131/68 Blood Pressure [Ri ght Upper Arm] Pulse Oximetry 91 90 91 Oxygen Delivery Me thod Oxygen Flow Rate 10/15/22 09:03 10/15/22 09:33 10/15/22 09:34 Temperature Pulse Rate 138 H 95 Pulse Rate [Right Pulse Oximeter] Respiratory Rate Blood Pressure 140/117 H Blood Pressure [Ri ght Upper Arm] Pulse Oximetry 93 94 Oxygen Delivery Me thod Oxygen Flow Rate 10/15/22 10:00 10/15/22 10:01 10/15/22 10:30 Temperature Pulse Rate 79 78 81 Pulse Rate [Right Pulse Oximeter] Respiratory Rate Blood Pressure 98/87 Blood Pressure [Ri ght Upper Arm] Pulse Oximetry 92 91 94 Oxygen Delivery Me thod Oxygen Flow Rate 10/15/22 10:31 10/15/22 11:00 10/15/22 11:02 Temperature Pulse Rate 81 76 93 Pulse Rate [Right Pulse Oximeter] Respiratory Rate Blood Pressure 132/66 132/71 Blood Pressure [Ri ght Upper Arm] Pulse Oximetry 93 93 92 Oxygen Delivery Me thod Oxygen Flow Rate 10/15/22 11:30 10/15/22 11:31 10/15/22 11:32 Temperature Pulse Rate 78 81 82 Pulse Rate [Right Pulse Oximeter] Respiratory Rate Blood Pressure 129/81 Blood Pressure [Ri ght Upper Arm] Pulse Oximetry 93 92 92 Oxygen Delivery Me thod Oxygen Flow Rate 10/15/22 12:00 10/15/22 12:02 10/15/22 12:30 Temperature Pulse Rate 70 75 81 Pulse Rate [Right Pulse Oximeter] Respiratory Rate Blood Pressure 115/74 Blood Pressure [Ri ght Upper Arm] Pulse Oximetry 92 93 90 Oxygen Delivery Me thod Oxygen Flow Rate 10/15/22 12:55 Temperature 97.3 F L Pulse Rate Pulse Rate [Right Pulse Oximeter] Respiratory Rate 22 Blood Pressure Blood Pressure [Ri ght Upper Arm] Pulse Oximetry 93 Oxygen Delivery Me thod Nasal Cannula Oxygen Flow Rate 3 Documenting provider has reviewed patient's vital signs: yes Hospitalist - H&P: Result Labs Labs: Short CBC 10/15/22 Range/Units 08:45 WBC 10.94 (4.50-11.00) K/uL Hgb 12.6 (12.0-16.0) gm/dL Hct 37.3 (33.0-51.0) % Plt Count 208 (140-440) K/uL BMP 10/15/22 08:45 Sodium 136 Potassium 3.2 L Chloride 100 Carbon Dioxide 27 BUN 13 Creatinine 0.5 Glucose 138 H Calcium 8.9 ECG Attestation: I personally reviewed and interpreted this ECG as follows: ECG interpretation date: 10/15/22 ECG interpretation time: 12:30 Prior ECG tracings: not available for review Interpretation: Atrial tachycardia with heart rate of 160. Imaging CT scan - chest: Attestation: I have reviewed the pertinent imaging results. Radiologist's impression: IMPRESSION: 1. Bibasilar mucous plugging and patchy opacities concerning for pneumonia/aspiration. 2. No evidence of pulmonary embolus. 3. Multiple bilateral predominately pleural based [id number]-[id number]-left metastatic lesions are again demonstrated without significant interval change when compared to September 16, 2022 examination. Assessment and Plan Assessment and plan (1) Acute on chronic respiratory failure with hypoxemia: Status: Acute (2) Community acquired pneumonia: Status: Acute (3) Chronic obstructive pulmonary disease (COPD) suggested by initial evaluation: Status: Acute (4) Chronic obstructive pulmonary disease with acute exacerbation: Status: Acute (5) Lung metastasis: Problem comment: Rectal adenocarcinoma is primary malignancy Status: Acute (6) Rectal cancer: Problem comment: MET amplification, RET arrangement; PTEN deletion; +KRAS [id number] ; +ve SMAD4 mut; MSI stable; TMB low; PDL1 (insufficient tissue) Status: Acute (7) Cancer cachexia: Status: Acute (8) Tobacco dependence due to cigarettes: Status: Acute (9) Frailty: Status: Acute (10) Essential hypertension: Status: Acute (11) Adenocarcinoma, lung: Problem comment: Stage IV rectal adenocarcinoma with metastases to lymph nodes, lung, pleura Status: Acute (12) Pain: Status: Acute (13) Histoplasmosis: Status: Acute (14) Narrow complex tachycardia: Problem comment: Transient episode of regular rate, narrow complex QRS tachycardia with rate of 160, SVT verses multifocal atrial tachycardia verses other. Status: Acute (15) Dehydration: Status: Acute Plan 1. Reviewed impression with patient and her daughter, Staci. 2. Admit to hospital. 3. Oxygen supplementation therapy. Three-part assessment for home oxygen tomorrow. 4. IV ceftriaxone and oral azithromycin. 5. DuoNebs scheduled and p.r.n. 6. Methylprednisolone 125 mg IV then 20 mg p.o. daily for at least 4 more days. Just started a methylprednisolone tapering dose pack. May consider instead of 20 mg for 4 more days simply having patient complete full tapering dose of the methylprednisolone that she already has. 7. Patient makes it very clear that she is receiving current chemotherapy for palliative reasons only. She understands there is no curative therapy for her stage IV rectal adenocarcinoma metastatic to lung and pleura. I explained to her that while she is in the hospital we will be holding her chemotherapy. Chemotherapy precautions while in hospital. 8. Continue with other supportive medications. 9. It is possible that patient may be ready for discharge even tomorrow. 10. Telemetry for her paroxysmal narrow complex tachycardia. 11. Normal saline IV fluid bolus followed by normal saline 125 mL/hour IV x2 L then saline lock. Check orthostatic blood pressures and pulses tomorrow morning. 12. Did ask dietary to see her in regard to her cancer and lung disease cachexia. 13. Continue to have follow-up with her oncologist. 14. Answered patient's and daughter's questions to their satisfaction. 15. Patient and daughter agreeable to above stated plans and recommendations.
[2022-10-15] MEDS: SODIUM CHLORIDE 0.9 % (FLUSH) 10 ML SYRINGE 5 ML IVF (16:04)
[2022-10-15] MEDS: METHYLPREDNISOLONE SOD SUCC 62.5 MG/ML (125) 125 MG IVP (16:04)
[2022-10-15] MEDS: IPRAT-ALBUT 0.5-2.5 MG/3 ML NEB 1 NEB IH ×2 (16:05→20:27)
[2022-10-15] MEDS: POTASSIUM CHLORIDE 10 MEQ CAPSULE ER 20 MEQ PO (16:05)
[2022-10-15] MEDS: 0.9 % SODIUM CHLORIDE 250 ml 250 ML IV (16:05)
[2022-10-15] MEDS: 0.9 % SODIUM CHLORIDE 1000 ml 1,000 ML 125 ML IV (16:06)
[2022-10-15 17:22] LABS: NT Pro B Type NatriureticPept* 1900 pg/mL; Troponin I* < 0.01 ng/mL (0.01-0.04)
[2022-10-15] MEDS: OXYCODONE 5 MG TABLET PO ×2 (18:50→23:27)
[2022-10-15] MEDS: ENOXAPARIN 30 MG/0.3ML INJ SUBCUT (20:24)
[2022-10-15] MEDS: MORPHINE 30 MG TABLET.ER PO (20:24)
[2022-10-15] MEDS: GABAPENTIN 300 MG CAPSULE PO (20:25)
[2022-10-15] MEDS: SERTRALINE 100 MG TABLET PO (20:25)
[2022-10-16] VITALS (9 sets, daily range): BP systolic 117–147; BP diastolic 55–97; PULSE 50–77; RESP 20–22; TEMP 36.6–36.8; O2SAT 84–90
[2022-10-16] MEDS: OXYCODONE 5 MG TABLET PO ×3 (03:39→16:32)
[2022-10-16] MEDS: MORPHINE 4 MG/ML INJ IVP (03:42)
[2022-10-16] MEDS: clonazePAM 0.5 MG TABLET PO ×2 (05:07→22:42)
--- NOTE | 2022-10-16 05:41 | PC.NURSE ---
: Pt resting in bed this shift up a few times with sba to br, requiring prn 10mg oxycodone q4h, rating pain 10/10 at its worst with patient noted to have increased rr/dyspnea/apprehensive appearance, thus morphine iv given while awaiting oxycodone to work, afterwards pt noted to be fuzzy minded, mildly euphoric, really wanting to go outside to smoke, educated on nicotine and pain medication interaction, currently on nicotine patch, option to use gum, opted to use her clonazepam she didn't use at bedtime to help calm her anxiety/nerves, educated on hospital's smoking policy, pt agreeable at this time. Oxygen 86% on room air when pt takes off to itch nose and doesn't replace, otherwise on 1lpm via nc, tele nsr with [facility] pac.
[2022-10-16 06:54] LABS: HCO3 VBG 26 mmol/L (21-28); Lactate* 0.8 mmol/L (0.5-1.9); PCO2 VBG 53 mmHG (40-50); PO2 VBG 43.3 mmHG (25-47); pH VBG 7.303 (7.32-7.43)
[2022-10-16 06:57] LABS: Hematocrit 32.3 % (33.0-51.0); Hemoglobin* 10.4 gm/dL (12.0-16.0); Mean Corpuscular HGB Conc 32 gm/dL (32-36); Mean Corpuscular Hemoglobin 29 pg (26-34); Mean Corpuscular Volume 89 fL (80-100); Platelet Count* 194 K/uL (140-440); Red Blood Count 3.65 m/uL (4.00-5.20); White Blood Count* 10.11 K/uL (4.50-11.00)
[2022-10-16 07:00] LABS: Slide Review Reflex No
[2022-10-16 07:14] LABS: Chloride* 106 mmol/L (96-114)
[2022-10-16 07:15] LABS: Sodium* 136 mmol/L (135-149)
[2022-10-16 07:16] LABS: Potassium* 4.9 mmol/L (3.6-5.1)
[2022-10-16 07:18] LABS: Bilirubin Total* 0.5 mg/dL (0.1-1.5); Creatinine* 0.4 mg/dL (0.5-1.5); Est. Creatinine Clearance* 42.34; Estimated Glomerular Filt Rate 104 ml/min
[2022-10-16 07:19] LABS: Alanine Aminotransferase* 13 U/L (4-35); Alkaline Phosphatase* 64 U/L (40-150); Aspartate Amino Transferase* 19 U/L (12-35); Blood Urea Nitrogen* 11 mg/dL (7-30); Carbon Dioxide* 25 mmol/L (20-32); Glucose* 110 mg/dL (60-115); Magnesium* 1.8 mg/dL (1.5-2.6); Phosphorus* 3.6 mg/dL (2.5-4.5)
[2022-10-16 07:35] LABS: Procalcitonin* 0.09 ng/mL (<0.50)
[2022-10-16 07:37] LABS: C Reactive Protein* 15.9 mg/dL (0.5-1.0); NT Pro B Type NatriureticPept* 3360 pg/mL; Troponin I* < 0.01 ng/mL (0.01-0.04)
[2022-10-16] MEDS: NICOTINE 21 MG PATCH 1 PATCH TRANSDERMA (09:21)
[2022-10-16] MEDS: MORPHINE 30 MG TABLET.ER PO ×2 (09:22→20:33)
[2022-10-16] MEDS: AZITHROMYCIN 250 MG TABLET 500 MG PO (09:22)
[2022-10-16] MEDS: ISOSORBIDE MONONITRATE ER 30 MG TAB PO (09:22)
[2022-10-16] MEDS: predniSONE 20 MG TABLET PO (09:22)
[2022-10-16] MEDS: POTASSIUM CHLORIDE 10 MEQ CAPSULE ER 20 MEQ PO (09:22)
[2022-10-16] MEDS: cefTRIAXone 1 GM in 0.9 % SODIUM CHLORIDE Mini-bag 100 ML IVPB (09:23)
[2022-10-16] MEDS: 0.9 % SODIUM CHLORIDE 250 ml IV (09:23)
[2022-10-16] MEDS: IPRAT-ALBUT 0.5-2.5 MG/3 ML NEB 1 NEB IH ×2 (09:24→20:33)
[2022-10-16] MEDS: SODIUM CHLORIDE 0.9 % (FLUSH) 10 ML SYRINGE 5 ML IVF ×3 (09:24→20:33)
[2022-10-16] MEDS: HEPARIN 500 UNIT/5 ML SYRINGE IVF ×2 (09:24→20:33)
--- NOTE | 2022-10-16 10:38 | PM.IMPN1 ---
Progress Note: A&P Assessment and plan (1) Acute on chronic respiratory failure with hypoxemia: Status: Acute (2) Chronic obstructive pulmonary disease (COPD) suggested by initial evaluation: Status: Acute (3) Chronic obstructive pulmonary disease with acute exacerbation: Status: Acute (4) Community acquired pneumonia: Status: Acute (5) Lung metastasis: Problem details: Rectal adenocarcinoma is primary malignancy Status: Chronic (6) Rectal cancer: Problem details: MET amplification, RET arrangement; PTEN deletion; +KRAS [id number] ; +ve SMAD4 mut; MSI stable; TMB low; PDL1 (insufficient tissue) Status: Acute (7) Cancer cachexia: Status: Acute (8) Tobacco dependence due to cigarettes: Status: Acute (9) Frailty: Status: Acute (10) Essential hypertension: Status: Acute (11) Adenocarcinoma, lung: Problem details: Stage IV rectal adenocarcinoma with metastases to lymph nodes, lung, pleura Status: Acute (12) Pain: Status: Acute (13) Histoplasmosis: Status: Acute (14) Narrow complex tachycardia: Problem details: - Transient episode of regular rate, narrow complex QRS tachycardia with rate of 160, SVT verses multifocal atrial tachycardia verses other. - No further episodes and rate has been upper 50's - 70's. Status: Resolved (15) Dehydration: Status: Acute Plan Discussed plan with patient and son, Daniel. Questions answered. Continue hospitalization for CAP, continue ceftriaxone and azithromycin, nebs, prednisone. Will likely need oxygen supplementation retirement. Assess this evening once clonazepam and narcotics have worn off some. Anticipate probable discharge home tomorrow, if able to achieve adequate pain control with less somnolence. Increase nicotine replacement patch. Time Spent With Patient Total time spent: Today I spent 35 minutes rounding on the patient. Greater than 50% included discussing care with patient and her son, the team, reviewing data, updating and managing the care plan. Subjective Time Seen by Provider: 07:30 Date Seen: 10/16/22 Interval history: Selena has chronic chest pain related to cancer. Her pain was difficult to control overnight and she got morphine in addition to oxycodone. Also, she was quite anxious and has frequently asking to go out and smoke contain patch on and being told our policy prohibits patient's from going out to smoke. She has a nightly dose of clonazepam as needed that was given this morning around 5:00 a.m.. This morning she is little confused and loopy. Selena's son, Daniel, was in the room with her this morning. He also noted this change in her. Selena's pain is better controlled now. She is still requiring oxygen overnight and this morning. Exam Narrative: Exam Narrative: General: No acute distress. Mildly somnolent, oriented x3. No pallor. No jaundice. Oropharynx: Clear. Mucous membranes moist. Cardiovascular: Regular rate and rhythm. Grade 1/6 systolic murmur. Respiratory: Prolonged expiratory phase. Diffuse rhonchi and wheezes noted. Abdomen: Bowel sounds present. Soft, nondistended, nontender. Extremities: No pedal edema. Const: Vital Signs, click to edit/add: Vital Signs - 24 hr 10/15/22 11:00 10/15/22 11:02 10/15/22 11:30 Temperature Pulse Rate 76 93 78 Pulse Rate [Left A pical] Respiratory Rate Blood Pressure 132/71 Blood Pressure [Le ft Arm] Pulse Oximetry 93 92 93 Oxygen Delivery Me thod Oxygen Flow Rate 10/15/22 11:31 10/15/22 11:32 10/15/22 12:00 Temperature Pulse Rate 81 82 70 Pulse Rate [Left A pical] Respiratory Rate Blood Pressure 129/81 Blood Pressure [Le ft Arm] Pulse Oximetry 92 92 92 Oxygen Delivery Me thod Oxygen Flow Rate 10/15/22 12:02 10/15/22 12:30 10/15/22 12:55 Temperature 97.3 F L Pulse Rate 75 81 Pulse Rate [Left A pical] Respiratory Rate 22 Blood Pressure 115/74 Blood Pressure [Le ft Arm] Pulse Oximetry 93 90 93 Oxygen Delivery Me thod Nasal Cannula Oxygen Flow Rate 3 10/15/22 12:55 10/15/22 15:00 10/15/22 15:00 Temperature Pulse Rate Pulse Rate [Left A pical] Respiratory Rate 22 22 22 Blood Pressure Blood Pressure [Le ft Arm] Pulse Oximetry 93 93 Oxygen Delivery Me thod Nasal Cannula Nasal Cannula Oxygen Flow Rate 3 3 10/15/22 15:00 10/15/22 21:06 10/15/22 23:47 Temperature 98.1 F 98 F Pulse Rate Pulse Rate [Left A pical] Respiratory Rate 22 22 22 Blood Pressure Blood Pressure [Le ft Arm] 141/76 H 122/76 Pulse Oximetry 93 89 Oxygen Delivery Me thod Nasal Cannula Oxygen Flow Rate 3 1 10/15/22 23:47 10/15/22 23:48 10/15/22 23:57 Temperature 98 F Pulse Rate 61 Pulse Rate [Left A pical] Respiratory Rate 20 Blood Pressure Blood Pressure [Le ft Arm] 115/73 Pulse Oximetry 90 90 Oxygen Delivery Me thod Nasal Cannula Oxygen Flow Rate 1 1 10/16/22 04:43 10/16/22 06:44 10/16/22 06:48 Temperature 98.2 F Pulse Rate Pulse Rate [Left A pical] Respiratory Rate 20 20 Blood Pressure Blood Pressure [Le ft Arm] 120/55 L Pulse Oximetry 90 84 L 90 Oxygen Delivery Me thod Nasal Cannula Room Air Nasal Cannula Oxygen Flow Rate 1 0.5 10/16/22 07:00 10/16/22 07:00 10/16/22 07:00 Temperature 98.0 F Pulse Rate Pulse Rate [Left A pical] 77 77 Respiratory Rate 20 20 Blood Pressure Blood Pressure [Le ft Arm] 123/80 Pulse Oximetry 89 89 Oxygen Delivery Me thod Nasal Cannula Nasal Cannula Oxygen Flow Rate 1 1 10/16/22 07:00 Temperature Pulse Rate 59 L Pulse Rate [Left A pical] Respiratory Rate Blood Pressure Blood Pressure [Le ft Arm] Pulse Oximetry Oxygen Delivery Me thod Oxygen Flow Rate Labs Labs: Laboratory Results - last 24 hr 10/15/22 10/15/22 10/16/22 08:45 16:56 06:30 WBC 10.11 RBC 3.65 L Hgb 10.4 L Hct 32.3 L MCV 89 MCH 29 MCHC 32 Plt Count 194 VBG pH 7.303 L VBG pCO2 53 H VBG pO2 43.3 VBG HCO3 26 Sodium 136 Potassium 4.9 Chloride 106 Carbon Dioxide 25 BUN 11 Creatinine 0.4 L Estimated Creat Clear 42.34 Estimated GFR 104 Glucose 110 Lactate 0.8 Phosphorus 3.6 Magnesium 1.8 Total Bilirubin 0.5 AST 19 ALT 13 Alkaline Phosphatase 64 Troponin I < 0.01 L < 0.01 L C-Reactive Protein 15.9 H NT-Pro-B Natriuret Pep 1900 3360 Total Protein 6.0 Albumin 3.0 L Procalcitonin 0.09 Lab Acknowledgement Test Added
[2022-10-16] MEDS: GABAPENTIN 300 MG CAPSULE PO (20:33)
[2022-10-16] MEDS: SERTRALINE 100 MG TABLET PO (20:33)
[2022-10-16] MEDS: ENOXAPARIN 30 MG/0.3ML INJ SUBCUT (20:34)
--- NOTE | 2022-10-16 21:59 | PC.NURSE ---
End of Shift: Patient pleasant and cooperative. Afebrile. 1L NC to keep sats greater than 88%. Rating pain up to 6-8/10 and PRN Oxycodone given x2 and scheduled Morphine. Up to bathroom and chair with SBA. Tolerating regular diet with no nausea.
[2022-10-17] MEDS: guaiFENesin 100 MG/ML CUP PO (04:50)
[2022-10-17] MEDS: OXYCODONE 5 MG TABLET PO (04:51)
[2022-10-17 05:26] VITALS: PULSE 63
[2022-10-17 05:29] VITALS: BP 135/93; PULSE 63; RESP 20; TEMP 36.6; O2SAT 92
[2022-10-17] MEDS: MORPHINE 4 MG/ML INJ IVP (05:53)
[2022-10-17] MEDS: HEPARIN 500 UNIT/5 ML SYRINGE IVF ×2 (05:55→11:15)
[2022-10-17] MEDS: SODIUM CHLORIDE 0.9 % (FLUSH) 10 ML SYRINGE 5 ML IVF (05:55)
[2022-10-17] MEDS: IPRAT-ALBUT 0.5-2.5 MG/3 ML NEB 1 NEB IH ×2 (06:54→10:13)
--- NOTE | 2022-10-17 06:55 | PC.NURSE ---
Addendum entered by Juan R Natarajan RN 10/17/22 06:59: Pt noted to be congested beginning of shift, guiafenesin orderd/given, pt c/o not being able to cough phlegm up, but after medication has coughed up some yellow phlegm, prn nebulizer given, encouraged tcdb and is use, up with sba to br. Original Note: : Pt rested well after taking clonazepam, no pain meds needed until this morning 10mg oxycodone given after 0400 up to br and noted pt dyspnea/grimacing/uncomfortable, pain wasn't relieved and rating a 8/10 thus morphine afterwards, pt talking with daughter, pt port needle needing replacement, labs drawn this morning, vss on ra, tele remains nsr with occ pac, remains on 1lpm of oxygen oximetry 90-93%
[2022-10-17 07:02] VITALS: PULSE 64
[2022-10-17 07:08] LABS: HCO3 VBG 29 mmol/L (21-28); PCO2 VBG 54 mmHG (40-50); PO2 VBG 42.5 mmHG (25-47); pH VBG 7.339 (7.32-7.43)
[2022-10-17 07:19] LABS: Basophils Absolute Auto 0.01 K/uL (0.00-0.30); Basophils Percent Auto 0.1 % (0.0-3.0); Eosinophils Absolute Auto 0.04 K/uL (0.00-0.50); Eosinophils Percent Auto 0.5 % (0.0-7.0); Hematocrit 33.5 % (33.0-51.0); Hemoglobin* 10.9 gm/dL (12.0-16.0); Immature Granulocytes Abs Auto 0.04 K/uL (0.00-0.30); Immature Granulocytes Pct Auto 0.5 %; Lymphocytes Absolute Auto 1.96 K/uL (0.90-2.90); Mean Corpuscular HGB Conc 33 gm/dL (32-36); Mean Corpuscular Hemoglobin 29 pg (26-34); Mean Corpuscular Volume 89 fL (80-100); Monocytes Percent Auto 5.9 % (0.0-11.0); Neutrophils Absolute Auto 5.96 K/uL (1.7-7.0); Platelet Count* 205 K/uL (140-440); RDW Coefficient of Variation % 13.6 % (11.5-15.5); Red Blood Count 3.75 m/uL (4.00-5.20); Slide Review Reflex No; White Blood Count* 8.51 K/uL (4.50-11.00)
[2022-10-17 07:37] LABS: C Reactive Protein* 7.6 mg/dL (0.5-1.0)
[2022-10-17 08:21] VITALS: BP 127/81; PULSE 75; RESP 20; TEMP 36.7; O2SAT 92
[2022-10-17] MEDS: POTASSIUM CHLORIDE 10 MEQ CAPSULE ER 20 MEQ PO (10:11)
[2022-10-17] MEDS: predniSONE 20 MG TABLET PO (10:11)
[2022-10-17] MEDS: NICOTINE 21 MG PATCH 1 PATCH TRANSDERMA (10:11)
[2022-10-17] MEDS: AZITHROMYCIN 250 MG TABLET 500 MG PO (10:12)
[2022-10-17] MEDS: MORPHINE 30 MG TABLET.ER PO (10:12)
[2022-10-17] MEDS: ISOSORBIDE MONONITRATE ER 30 MG TAB PO (10:12)
[2022-10-17] MEDS: cefTRIAXone 1 GM in 0.9 % SODIUM CHLORIDE Mini-bag 100 ML IVPB (10:13)
[2022-10-17] MEDS: 0.9 % SODIUM CHLORIDE 250 ml IV (10:13)
[2022-10-17] MEDS: SODIUM CHLORIDE 0.9 % (FLUSH) 10 ML SYRINGE IVF ×2 (10:14→11:14)
--- NOTE | 2022-10-17 13:02 | P.DS_ITS ---
DS: Providers Provider Time Seen by Provider: 10:35 Date Seen: 10/17/22 Date of admission: 10/15/22 15:12 Primary care physician: Byron Mondragon MD Admitting Clinician: Wiley Jerry MD Consults: 10/15/22 14:18 Consult to Nutrition [CONS] Routine Comment: Reason for consult:: Miscellaneous Comment: metastatic lung cancer cachexia 10/17/22 05:27 Consult to Respiratory Therapy [CONS] Routine Comment: Reason(s) for RT Consult:: Consult Comment: New oxygen use, congestion, worried about pnx. Attending Physician on discharge: Lisa Lacey MD Date of Discharge: 10/17/22 DS: Diagnosis Discharge Diagnosis (1) Dehydration: Status: Resolved (2) Narrow complex tachycardia: Status: Resolved Problem details: - Transient episode of regular rate, narrow complex QRS tachycardia with rate of 160, SVT verses multifocal atrial tachycardia verses other. - No further episodes and rate has been upper 50's - 70's. (3) Acute on chronic respiratory failure with hypoxemia: Status: Acute Problem details: Acute portion has resolved and she was fitted for home O2, which she will be discharged on (4) Cancer cachexia: Status: Acute (5) Community acquired pneumonia: Status: Acute Problem details: Has received adequate about of azithromycin. Has been on Rocephin for 3 days, continue oral 3rd generation cephalosporin for another 4 days as an outpatient. (6) Chronic obstructive pulmonary disease with acute exacerbation: Status: Acute Problem details: Started a Medrol dose pack the day prior to admission and has been on oral prednisone since then. Will discharged on 2 more days of oral prednisone then stop. (7) Tobacco dependence due to cigarettes: Status: Acute Problem details: I have recommended complete cessation of tobacco use, especially since she will be on home oxygen at this point. Patient and her family demonstrated understanding of this. I have prescribed her nicotine patches as she has not had any interested using the gum. I have also encouraged her to discussed smoking cessation with her primary care provider whom she will see in a week's time. (8) Essential hypertension: Status: Chronic (9) Frailty: Status: Acute (10) Rectal cancer: Status: Acute Problem details: MET amplification, RET arrangement; PTEN deletion; +KRAS [id number] ; +ve SMAD4 mut; MSI stable; TMB low; PDL1 (insufficient tissue) (11) Lung metastasis: Status: Chronic Problem details: Rectal adenocarcinoma is primary malignancy (12) Pain: Status: Acute Problem details: Acute on chronic. Although more somnolent, she has otherwise done well with changing long-acting morphine to a slightly increased dose less often and increased dose and frequency of p.r.n. oxycodone. She may benefit from outpatient palliative care consultation. (13) UTI (urinary tract infection): Status: Acute Problem details: Treating with antibiotics as above. (14) 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: Status: Acute (15) Histoplasmosis: Status: Chronic DS: Summary Hospital Course Hospital Course: This is a 72-year-old female with history of rectal cancer metastatic to her lungs for which she has been on chemotherapy who presented to the emergency department with worsening dyspnea over 24 hours. She was found to have an infiltrate and was admitted for treatment of community-acquired pneumonia. She has had quite a bit of cancer related pain for which her pain medications were adjusted. Due to pulmonary metastases and COPD, she mildly hypoxic and qualifies for home O2. She is discharged home today in improved condition. I have asked her to have goals of care discussions with her primary care provider and oncologist. Further details of diagnoses are above. Time Spent with Patient Time attestation: Total time spent providing and/or coordinating discharge services: Exam Narrative: Exam Narrative: General: No acute distress. Mildly somnolent, oriented x3. No pallor. No jaundice. Oropharynx: Clear. Mucous membranes moist. Cardiovascular: Regular rate and rhythm. Grade 1/6 systolic murmur. Respiratory: Prolonged expiratory phase. Diffuse rhonchi and wheezes noted, unchanged. Abdomen: Bowel sounds present. Soft, nondistended, nontender. Extremities: No pedal edema. Const: Vital Signs, click to edit/add: Vital Signs - 24 hr 10/16/22 15:00 10/16/22 15:00 10/16/22 15:00 Temperature Pulse Rate 60 Pulse Rate [Left A pical] 62 Respiratory Rate 20 Blood Pressure [Le ft Arm] Pulse Oximetry 89 Oxygen Delivery Me thod Nasal Cannula Oxygen Flow Rate 1 10/16/22 15:00 10/16/22 19:00 10/16/22 23:13 Temperature 97.9 F 97.8 F Pulse Rate Pulse Rate [Left A pical] 67 62 Respiratory Rate 22 20 20 Blood Pressure [Le ft Arm] 147/97 H 139/81 Pulse Oximetry 90 90 90 Oxygen Delivery Me thod Nasal Cannula Nasal Cannula Nasal Cannula Oxygen Flow Rate 1 1 1 10/16/22 23:13 10/16/22 23:15 10/17/22 05:26 Temperature 98 F Pulse Rate 63 Pulse Rate [Left A pical] 60 60 Respiratory Rate 20 20 Blood Pressure [Le ft Arm] 117/69 Pulse Oximetry 90 Oxygen Delivery Me thod Nasal Cannula Oxygen Flow Rate 1 10/17/22 05:29 10/17/22 07:02 10/17/22 08:21 Temperature 98 F Pulse Rate 64 Pulse Rate [Left A pical] 63 Respiratory Rate 20 Blood Pressure [Le ft Arm] 135/93 H Pulse Oximetry 92 92 Oxygen Delivery Me thod Nasal Cannula Nasal Cannula Oxygen Flow Rate 1 1 10/17/22 08:21 Temperature 98.1 F Pulse Rate Pulse Rate [Left A pical] 75 Respiratory Rate 20 Blood Pressure [Le ft Arm] 127/81 Pulse Oximetry 92 Oxygen Delivery Me thod Nasal Cannula Oxygen Flow Rate 1 DS: Data Data Completed and Pending Completed studies during hospitalization: 10/15/2022 EKG: Unusual P axis, possible ectopic atrial tachycardia, heart rate 161 beats per minute. Marked ST abnormality, possible inferior subendocardial injury. Ordering Physician: Avni Mejía M.D. Date of Service: 10/15/22 Procedure(s): CT angio chest PE protocol Accession Number(s): [id number] cc: Avni Mejía M.D.; Byron Mondragon M.D.~ For Patients: As a result of the 21st Century Cures Act, medical imaging exams and procedure reports are released immediately into your electronic medical record. You may view this report before your referring provider. If you have questions, please contact your health care provider. INDICATION: SOB HX OF COLON CANCER W LUNG METS TECHNIQUE: CT chest PE was acquired with 95 CC ISOVUE 370 IV contrast. COMPARISON: PET-CT September 16, 2022 FINDINGS: Heart and vasculature: Contrast opacification of the pulmonary arterial tree is adequate. No sign of pulmonary embolism. Stable mild cardiomegaly. Moderate to severe atherosclerosis of the thoracic aorta. Right IJ port is in place. Postoperative changes from median sternotomy. Lungs and pleural: Multiple bilateral predominantly pleural based axciv-qylqvtq-psjq-left metastatic lesions are again demonstrated without significant interval change when compared to September 16, 2022 examination. New bibasilar mucous plugging and patchy opacities concerning for pneumonia/aspiration. No pleural effusions, pleural thickening, or pneumothorax. Lymph nodes/mediastinum: No mediastinal, hilar, or axillary adenopathy. Chest wall: No masses. Upper abdomen: No acute or significant findings. Bones: Unremarkable for age. IMPRESSION: 1. Bibasilar mucous plugging and patchy opacities concerning for pneumonia/aspiration. 2. No evidence of pulmonary embolus. 3. Multiple bilateral predominately pleural based zjpem-[id number]-left metastatic lesions are again demonstrated without significant interval change when compared to September 16, 2022 examination. Please note that all CT scans at this facility use dose modulation, iterative reconstruction, and/or weight-based dosing when appropriate to reduce radiation dose to as low as reasonably achievable. Dictated by Justice Caldwell MD @ 10/15/2022 10:13:01 AM (Electronically Signed) Labs on day of discharge: Labs from last 24 hours 10/17/22 06:25 WBC 8.51 RBC 3.75 L Hgb 10.9 L Hct 33.5 MCV 89 MCH 29 MCHC 33 RDW Coeff of Aleks 13.6 Plt Count 205 Neut % (Auto) 70.0 Lymph % (Auto) 23.0 Mcmullen % (Auto) 5.9 Eos % (Auto) 0.5 Baso % (Auto) 0.1 Neut # (Auto) 5.96 Lymph # (Auto) 1.96 Mcmullen # (Auto) 0.50 Eos # (Auto) 0.04 Baso # (Auto) 0.01 Abs Immat Gran (auto) 0.04 Imm/Tot Granulo (auto) 0.5 VBG pH 7.339 VBG pCO2 54 H VBG pO2 42.5 VBG HCO3 29 H C-Reactive Protein 7.6 H Preliminary micro results at discharge 10/15/22 12:34 Blood Culture - Preliminary Blood NO GROWTH AFTER 48 HOURS 10/15/22 12:28 Blood Culture - Preliminary Blood NO GROWTH AFTER 48 HOURS Discharge Plan Discharge Disposition: Home, Self-Care Date of Admission: 10/15/22 15:12 Attending Provider on Discharge: Lisa Lacey Primary Care Provider: Byron Mondragon Condition: Unchanged Anticipated Discharge Date/Time: 10/17/22 13:05 Discharge Medications: New oxycodone 5 mg Tablet 5 - 10 mg PO Q4H MDD 30 mg PRN (Reason: pain) Qty: 30 0RF ipratropium-albuterol 0.5 mg-3 mg(2.5 mg base)/3 mL Solution For Nebulization 3 ml inhalation Q6H PRN (Reason: dyspnea) Qty: 20 0RF prednisone 20 mg Tablet 20 mg PO DAILYWM 2 Days Qty: 2 0RF sennosides-docusate sodium [Stool Softener-Laxative] 8.6-50 mg Tablet 1 tab PO BID PRNQty: 60 0RF nicotine 21 mg/24 hr Patch 24 Hour 1 patch transdermal Q24H Qty: 15 0RF cefdinir 300 mg capsule 300 mg PO BID Qty: 8 0RF morphine 30 mg Tablet Extended Release 30 mg PO BID Qty: 30 0RF (DME) nebulizer and compressor Device See Rx Instructions .Route Qty: 1 0RF Rx Instructions: As directed (DME) nebulizer accessories Kit See Rx Instructions .ROUTE .MEDSUPPLY Qty: 1 0RF Rx Instructions: As directed Continued potassium chloride 20 mEq tablet extended release 20 meq PO QDAY Qty: 10 3RF clonazepam 0.5 mg tablet 0.5 mg PO HS PRN nitroglycerin 0.4 mg tablet, sublingual 0.4 mg sublingual Q5M PRN (Reason: chest pain) sertraline 100 mg tablet 100 mg PO HS ibuprofen 200 mg capsule 200 mg PO Q6H PRN (Reason: pain) isosorbide mononitrate 30 mg tablet extended release 24 hr 30 mg PO DAILY gabapentin 300 mg capsule 300 mg PO HS aspirin 81 mg tablet,chewable 81 mg PO DAILY PRN Patient Comments: Hasn't been taking everyday like prescribed albuterol sulfate [Ventolin HFA] 90 mcg/actuation HFA aerosol inhaler 2 puff inhalation Q4H PRN diphenoxylate-atropine 2.5-0.025 mg tablet 1 tab PO Q6H PRN (Reason: diarrhea) Lumakras 120 mg tablet 600 mg PO DAILY prochlorperazine maleate 10 mg tablet 10 mg PO Q6H PRN (Reason: nausea and vomiting) Qty: 30 0RF Rx Instructions: Try taking this 30 minutes prior to your chemo medicine Sotorasib ondansetron 4 mg tablet,disintegrating 4 mg translingual Q6H PRN (Reason: nausea and vomiting) Qty: 30 0RF Rx Instructions: Use either this or prochlorperazine for nausea Try taking this 30 mins prior to Sotorasib Discontinued methylprednisolone [Medrol (Heriberto)] 4 mg tablets,dose pack See Rx Instructions PO PER PKG DIR Qty: 21 3RF Rx Instructions: PO PER PKG DIR morphine 15 mg tablet extended release 15 mg PO Q8H PRN oxycodone 5 mg tablet 5 mg PO TID PRN (Reason: pain) Qty: 30 0RF Discharge Orders: Discharge Order (Routine); Ordered 10/17/22 Ordered By: Lisa Lacey Patient Education: Prednisone (By mouth), Laxative, Stool Softeners (By mouth), Nicotine (Absorbed through the skin), Oxycodone, Rapid Release (By mouth), Ipratropium/Albuterol (By breathing), Cefdinir (By mouth), Morphine, Slow Release (By mouth), Bacterial Pneumonia (DC) Additional Instructions: - Do not smoke while using oxygen. Any flame, cinder or spark near the oxygen tubing or tank may ignite and explode. Also, do not smoke or chew nicotine gum while using the nicotine patches. - Follow up with your oncologist as previously scheduled. When you see them, have a conversation to discuss goals of care and prognosis. Consider having this discussion with your primary care provider as well. - Home oxygen as prescribed. Prescription Details While awake?-?1 LPM via nasal cannula On exertion?-?3 LPM via nasal cannula Instructions?-? Supplier to evaluate patient for oxygen conserving device via pulse oximetry at rest and with activities of daily living. Maintain oxygen saturation levels at or above 90% while on oxygen Activity Level: Activity as Tolerated and Use Walker Discharge Diet: Regular Follow Up Appointments: Byron Mondragon MD [Primary Care Provider] - 10/20/22 3:20 pm ([facility]) Forms: [employer] Info Instructions
[2022-10-21 18:12] LABS: Calcium* 8.3 mg/dL (8.4-10.6)
== END 2022-10-17 15:38 | disposition home or self-care (01) | DRG 189 ==
LOC: ED 11:46 → MEDSURG 12:43
PROVIDERS: Family Medicine; Admitting Provider Internal Medicine; Emergency Provider Emergency Medicine Emergency Medical Services; PCP Family Medicine; Visit Provider Internal Medicine
DX: J96.21 Acute and chronic respiratory failure with hypoxia (principal); J18.9 Pneumonia, unspecified organism; R64 Cachexia; C20 Malignant neoplasm of rectum; C77.8 Secondary and unspecified malignant neoplasm of lymph nodes of multiple regions; C78.2 Secondary malignant neoplasm of pleura; C78.01 Secondary malignant neoplasm of right lung; C78.02 Secondary malignant neoplasm of left lung; J44.0 Chronic obstructive pulmonary disease with (acute) lower respiratory infection; J44.1 Chronic obstructive pulmonary disease with (acute) exacerbation; N39.0 Urinary tract infection, site not specified; G89.3 Neoplasm related pain (acute) (chronic); R07.9 Chest pain, unspecified; Z68.20 Body mass index [BMI] 20.0-20.9, adult; I10 Essential (primary) hypertension; B39.9 Histoplasmosis, unspecified; I70.0 Atherosclerosis of aorta; F17.210 Nicotine dependence, cigarettes, uncomplicated
CPT/HCPCS: 36415; 71275; 80048; 80053; 82803; 83605; 83735; 83880; 84100; 84145; 84484; 85025; 85027; 86140; 87040; 87631; 93005; 94640; 99285; A9270; J0456; J0696; J1642; J1650; J2270; J2930; J7030; J7050; J7512; Q9967; S4990

== ENCOUNTER 2022-11-12 10:22 | Emergency (ER) | payer MEDICARE, MEDICAID, SELFPAY ==
[2022-11-12] VITALS (24 sets, daily range): BP systolic 118–144; BP diastolic 75–93; PULSE 71–100; RESP 18; TEMP 36.4; O2SAT 88–100; BMI 19.7
--- NOTE | 2022-11-12 11:20 | ED_ITS ---
HPI - General Adult General Chief complaint: Constipation Stated complaint: Rectal pain Time Seen by Provider: 11/12/22 11:20 History of Present Illness HPI narrative: Patient reports severe constipation, rectal and lower abdominal pain on-going for at least three days. Reports using narcotics for cancer pain. Did take 3 tabs of Miralax this AM. 72-year-old woman presenting to the emergency department with complaint of increasingly severe anal/rectal pain and constipation now about 3 days. 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 This pain is just terrible. Apparently is more for the lung pain that she takes regular opiates. Has taken them more over the last month she says. Did take apparently some MiraLax? Though described as tablets this morning. Has not placed any enemas or suppository. Apparently does not usually have this trouble. No fever. Currently living with her sister. Evidently has just finished her last p.r.n. oxycodone and has only morphine per daughter's report to nurse. Son who had been fisher pot was just in present and it appears that oxycodone has gone missing. Selena does acknowledge that request has been made for refill but has not been able to get them. Related Data Home Medications Medication Instructions Recorded Confirmed clonazepam 0.5 mg tablet 0.5 mg PO HS PRN 09/07/21 10/15/22 ibuprofen 200 mg capsule 200 mg PO Q6H PRN pain 09/07/21 10/15/22 isosorbide mononitrate 30 mg 30 mg PO DAILY 09/07/21 10/15/22 tablet,extended release 24 hr nitroglycerin 0.4 mg sublingual 0.4 mg sublingual Q5M PRN chest 09/07/21 10/15/22 tablet pain sertraline 100 mg tablet 100 mg PO HS 09/07/21 10/15/22 gabapentin 300 mg capsule 300 mg PO HS 05/03/22 10/15/22 aspirin 81 mg chewable tablet 81 mg PO DAILY PRN 09/23/22 10/15/22 albuterol sulfate 90 mcg/actuation 2 puff inhalation Q4H PRN 10/15/22 10/15/22 aerosol inhaler (Ventolin HFA) diphenoxylate-atropine 2.5 1 tab PO Q6H PRN diarrhea 10/15/22 10/15/22 mg-0.025 mg tablet Previous Rx's Medication Instructions Recorded ondansetron 4 mg disintegrating 4 mg translingual Q6H PRN nausea 04/13/22 tablet and vomiting #30 tabs prochlorperazine maleate 10 mg 10 mg PO Q6H PRN nausea and 04/13/22 tablet vomiting #30 tabs potassium chloride 20 mEq 20 meq PO QDAY #10 tabs 09/23/22 tablet,extended release cefdinir 300 mg capsule 300 mg PO BID #8 caps 10/17/22 ipratropium 0.5 mg-albuterol 3 mg 3 ml inhalation Q6H PRN dyspnea 10/17/22 (2.5 mg base)/3 mL nebulization #20 ea soln morphine 30 mg tablet,extended 30 mg PO BID #30 tabs 10/17/22 release nebulizer accessories #1 ea 10/17/22 nebulizer and compressor #1 ea 10/17/22 nicotine 21 mg/24 hr daily 1 patch transdermal Q24H #15 ea 10/17/22 transdermal patch oxycodone 5 mg tablet 5 - 10 mg (1 - 2 x 5 mg) PO Q4H 10/17/22 PRN pain #30 tabs prednisone 20 mg tablet 20 mg PO DAILYWM 2 days #2 tabs 10/17/22 sennosides 8.6 mg-docusate sodium 1 tab PO BID PRN #60 tabs 10/17/22 50 mg tablet (Stool Softener-Laxative) hydrocodone 5 mg-acetaminophen 325 1 tab PO Q4-6H PRN pain #15 tabs 12/09/22 mg tablet ketorolac 10 mg tablet 10 mg PO Q8H 5 days #15 tabs 12/09/22 sotorasib 120 mg tablet (Lumakras) 600 mg (5 x 120 mg) PO DAILY #150 12/13/22 tabs Allergies Allergy/AdvReac Type Severity Reaction Status Date / Time penicillin V Allergy Intermediate Rash Verified 12/09/22 13:22 Review of Systems Status of ROS: Reports: 6 or more systems reviewed and unremarkable except as noted in History and below [facility] Medical History Lung metastasis ?C78.00 - Secondary malignant neoplasm of unspecified lung (ICD-10) Rectal cancer ?C20 - Malignant neoplasm of rectum (ICD-10) Encounter for insertion of tunneled central venous catheter (CVC) with port ?Z45.2 - Encounter for adjustment and management of vascular access device (ICD-10) Adenocarcinoma, lung ?C34.90 - Malignant neoplasm of unspecified part of unspecified bronchus or lung (ICD-10) 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 Designates her son, Daniel, as her primary contact for power commercial litigation attorney for health should that be required, cell phone [phone]. Designates her daughter, Staci, as her secondary contact for power of commercial litigation attorney for health should that be required, cell phone [phone]. Adamant that she desires a DNR DNI resuscitation status. What is your current living situation?: I presently have a place to live Problems where you live: no known problems Problems where you live details: n/a In the past 12 months, utilities in danger of being shut off: no In past 12 months, lack of transportation kept you from medical appts, meetings, work, or getting things needed for daily living: no In the past 12 mos, have been you worried that your food would run out before you had money to buy more?: never true In the past 12 mos, the food you bought just didn't last and you didn't have money to buy more?: never true Highest level of school completed/degree received: high school graduate Smoking Status: Current every day smoker What tobacco products do you use: cigarettes Smoking packs per day: 0.5 Smoking cigarettes per day: 10.0 Smoking quit date/years: <= 15 years ago Do you use any of these nicotine containing products: None Second hand tobacco smoke exposure: No How often do you have a drink containing alcohol: 2-4 times a month Alcohol type: hard liquor How many standard drinks containing alcohol do you have on a typical day: 3 or 4 How often do you have six or more drinks on one occasion: Never AUDIT-C Alcohol total score: 3 Non-prescribed substance use: marijuana (any form) Caffeine: Yes (2-3 cups) How often does anyone, including family, friends and others, physically hurt you : never How often does anyone, including family, friends and others, insult or talk down to you: never How often does anyone, including family, friends and others, threaten you with harm: never How often does anyone, including family, friends and others, scream or curse at you: never service: No Exam 2 Narrative: Exam Narrative: Pleasant. Little tremulous voice. Clearly uncomfortable. Rotates for exam with some moans of pain. Otherwise breathing easily. Abdomen with normoactive bowel sounds is full. Diffusely tender but primarily in the low abdomen/pelvis. Examination of the anal area shows at least 3 substantial hemorrhoids though not inflamed. She is leaking some stool. She has been wearing attends. Const: Vital Signs, click to edit/add: Vital Signs - 24 hr 11/12/22 10:38 Temperature 97.5 F L Pulse Rate [Pulse Oximeter] 75 Respiratory Rate 18 Blood Pressure [Ri ght Upper Arm] 123/81 Pulse Oximetry 94 Oxygen Delivery Me thod Room Air Documenting provider has reviewed patient's vital signs: yes Course Vital Signs Vital signs: Initial Vital Signs Temperature 97.5 F L 11/12/22 10:38 Temperature Source Temporal Artery Scan 11/12/22 10:38 Pulse Rate 75 11/12/22 10:38 Respiratory Rate 18 11/12/22 10:38 Blood Pressure 123/81 11/12/22 10:38 Blood Pressure Mean 95 11/12/22 10:38 Pulse Oximetry 94 11/12/22 10:38 Oxygen Delivery Method Room Air 11/12/22 10:38 Vital Signs Temperature 97.5 F L 11/12/22 10:38 Pulse Rate 75 11/12/22 10:38 Respiratory Rate 18 11/12/22 10:38 Blood Pressure 123/81 11/12/22 10:38 Pulse Oximetry 94 11/12/22 10:38 Oxygen Delivery Method Room Air 11/12/22 10:38 Temperature 97.5 F L 11/12/22 10:38 Pulse Rate 79 11/12/22 15:02 Respiratory Rate 18 11/12/22 10:38 Blood Pressure 126/75 11/12/22 15:01 Pulse Oximetry 91 11/12/22 15:02 Oxygen Delivery Method Nasal Cannula 11/12/22 15:02 Oxygen Flow Rate 2 11/12/22 15:02 Medical Decision Making MDM Narrative Medical decision making narrative: She is clearly uncomfortable in requesting something strong for pain. Given that she already takes opiate will give a dose of Dilaudid accessing her port. Bladder scan as might also be retaining urine. X-ray of the abdomen. Does not have other indication of affection though abdomen is notably tender but without peritoneal signs. May need to pursue this further. I anticipate Enemeez or some other anesthetic combined with enema. I did look at abdominal x-ray. Given exam I do not suspect perforation. By my read looks to have good deal of stool in the rectal vault. Other changes, pulmonary, present prior. No air-fluid levels Abdomen 1 view. Comparison: 09/16/2022 CT-PET, CT chest 09/16/2022 Findings: Surgical clips in the right upper quadrant. Large pleural-based masses within the right lung base again noted. Moderately increased stool in the colon particularly within the rectum. Cardiomegaly. Aortic tortuosity. Postop changes of partial colectomy. No dilated small bowel loops. Chronic left renal calcifications. Impression: Constipation is suspected. No small bowel obstruction. Did bladder scan for 483 mL. She is requesting more pain medication. Given a dose of fentanyl. Able to get up on the commode. Voided with postvoid residual of 7 mL on bladder scan. Nursing was able to disimpact about a cup of stool. Enema placed. Overall improved See patient discharge plan Discharge Plan Discharge Clinical Impression: Chronic pain, Urinary retention, Obstipation, Pain in rectum Patient Disposition: Home w/ Parent or Adult Condition: Improved Additional Instructions: Very important to stay well hydrated. Generally increase your fruit and vegetable intake. I would consider taking MiraLax or equivalent 2-3 times daily over the next 2 weeks, adjusting to stool consistency. You might want to drink a bottle of magnesium citrate today and if no good result, repeating again tomorrow. While taking opiates it would probably also be a good idea to be taking a tablet of senna once or twice daily. This stimulates your bowels to move. I would suggest following up with your primary care provider or whomever is prescribing your pain medications to discuss other options. This might include a fentanyl patch which would decrease the chance that you will become as constipated from opiates. Prescribing some Percocet from [facility] as stop gap. Please make an appointment today of possible again to discuss refills/pain management I suspect that the degree of urinary retention was somewhat related to your full rectal vault. Prescriptions: No Action potassium chloride 20 mEq tablet extended release 20 meq PO QDAY Qty: 10 3RF hydrocodone-acetaminophen 5-325 mg tablet 1 tab PO Q4-6H PRN (Reason: pain) Qty: 15 0RF ketorolac 10 mg tablet 10 mg PO Q8H 5 Days Qty: 15 0RF clonazepam 0.5 mg tablet 0.5 mg PO HS PRN nitroglycerin 0.4 mg tablet, sublingual 0.4 mg sublingual Q5M PRN (Reason: chest pain) sertraline 100 mg tablet 100 mg PO HS ibuprofen 200 mg capsule 200 mg PO Q6H PRN (Reason: pain) isosorbide mononitrate 30 mg tablet extended release 24 hr 30 mg PO DAILY gabapentin 300 mg capsule 300 mg PO HS aspirin 81 mg tablet,chewable 81 mg PO DAILY PRN Patient Comments: Hasn't been taking everyday like prescribed albuterol sulfate [Ventolin HFA] 90 mcg/actuation HFA aerosol inhaler 2 puff inhalation Q4H PRN diphenoxylate-atropine 2.5-0.025 mg tablet 1 tab PO Q6H PRN (Reason: diarrhea) oxycodone 5 mg Tablet 5 - 10 mg PO Q4H MDD 30 mg PRN (Reason: pain) Qty: 30 0RF ipratropium-albuterol 0.5 mg-3 mg(2.5 mg base)/3 mL Solution For Nebulization 3 ml inhalation Q6H PRN (Reason: dyspnea) Qty: 20 0RF prednisone 20 mg Tablet 20 mg PO DAILYWM 2 Days Qty: 2 0RF sennosides-docusate sodium [Stool Softener-Laxative] 8.6-50 mg Tablet 1 tab PO BID PRNQty: 60 0RF nicotine 21 mg/24 hr Patch 24 Hour 1 patch transdermal Q24H Qty: 15 0RF cefdinir 300 mg capsule 300 mg PO BID Qty: 8 0RF morphine 30 mg Tablet Extended Release 30 mg PO BID Qty: 30 0RF (DME) nebulizer and compressor Device See Rx Instructions .Route Qty: 1 0RF Rx Instructions: As directed (DME) nebulizer accessories Kit See Rx Instructions .ROUTE .MEDSUPPLY Qty: 1 0RF Rx Instructions: As directed Lumakras 120 mg tablet 600 mg PO DAILY Qty: 150 3RF prochlorperazine maleate 10 mg tablet 10 mg PO Q6H PRN (Reason: nausea and vomiting) Qty: 30 0RF Rx Instructions: Try taking this 30 minutes prior to your chemo medicine Sotorasib ondansetron 4 mg tablet,disintegrating 4 mg translingual Q6H PRN (Reason: nausea and vomiting) Qty: 30 0RF Rx Instructions: Use either this or prochlorperazine for nausea Try taking this 30 mins prior to Sotorasib Follow Up/Referrals: Byron Mondragon MD [Primary Care Provider] - Stand Alone Forms: [facility]Doctor Info Instructions
--- NOTE | 2022-11-12 11:29 | CRLHL7_ITS ---
For Patients: As a result of the Century Cures Act, medical imaging exams and procedure reports are released immediately into your electronic medical record. You may view this report before your referring provider. If you have questions, please contact your health care provider. Indication: Abdomen pain Technique: Abdomen 1 view. Comparison: 09/16/2022 CT-PET, CT chest 09/16/2022 Findings: Surgical clips in the right upper quadrant. Large pleural-based masses within the right lung base again noted. Moderately increased stool in the colon particularly within the rectum. Cardiomegaly. Aortic tortuosity. Postop changes of partial colectomy. No dilated small bowel loops. Chronic left renal calcifications. Impression: Constipation is suspected. No small bowel obstruction. Dictated by Juan R Steen MD @ 11/12/2022 12:10:28 PM (Electronically Signed)
[2022-11-12] MEDS: HYDROmorphone 0.5 mg/0.5 ml inj IVP (12:02)
[2022-11-12] MEDS: fentaNYL 100 MCG/2 ML inj 50 MCG IVP (12:34)
[2022-11-12] MEDS: DOCUSATE SODIUM/BENZOCAINE 5 ML ENEMA PR (13:40)
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
--- NOTE | 2022-11-12 14:01 | ED.NURSE ---
1202: Port accessed without difficulty and dilaudid administered. 1215: Pt continuing to refuse bladder scan/enema until pain controlled. Pt states she is still at 10/10. MD updated. 1220: Sats in 80s, placed on 2 LPM oxygen via [place]. Pt requesting more pain medication. MD updated. 1318: Pt states pain is 8/10. Bladder scan 483. MD updated. 1325: Pt up to bedside commode with assist. Pt able to urinate and defecate small amount of stool. Repeat bladder scan 7. Pt rectum swollen with stool protruding out of rectum. Pt manually disimpacted per request. ~1 cup stool manually removed from rectum. Enema administered. updated.
[2022-11-12] MEDS: HEPARIN 500 UNIT/5 ML SYRINGE IVF (15:37)
== END 2022-11-12 15:46 | disposition home or self-care (01) ==
PROVIDERS: Emergency Provider Family Medicine; PCP Family Medicine
DX: R33.9 Retention of urine, unspecified (principal); K59.00 Constipation, unspecified; K62.89 Other specified diseases of anus and rectum; G89.29 Other chronic pain
CPT/HCPCS: 51798; 74018; 94761; 99284; A9270; J1170; J1642; J3010

== ENCOUNTER 2022-12-09 12:57 | Outpatient (CLI) | payer MEDICARE, MEDICAID, SELFPAY | END 2022-12-09 12:58 | disposition home or self-care (01) | LOC: AMB 12-10 11:18 | PROVIDERS: PCP Family Medicine; Visit Provider Internal Medicine | DX: R10.9 Unspecified abdominal pain (principal); K59.00 Constipation, unspecified | CPT/HCPCS: A0425; A0427 ==

== ENCOUNTER 2022-12-09 13:13 | Emergency (ER) | payer MEDICARE, MEDICAID, SELFPAY ==
[2022-12-09] VITALS (36 sets, daily range): BP systolic 131–173; BP diastolic 73–117; PULSE 59–84; RESP 18; TEMP 36.6; O2SAT 88–97; BMI 23.5
--- NOTE | 2022-12-09 13:30 | CRLHL7_ITS ---
For Patients: As a result of the Century Cures Act, medical imaging exams and procedure reports are released immediately into your electronic medical record. You may view this report before your referring provider. If you have questions, please contact your health care provider. INDICATION: Abdominal pain. History of colon cancer. TECHNIQUE: CT abdomen and pelvis acquired with 74 mL Isovue 370 IV contrast. COMPARISON: Multiple priors, most recent PET-CT dated 09/16/2022. FINDINGS: Lower chest: Multiple pulmonary masses in the bilateral lung bases, right greater than left, several of which are peripherally calcified, overall not significantly changed. Liver: No suspicious focal hepatic lesion. Gallbladder and bile ducts: Postcholecystectomy. Pancreas: Unremarkable. Spleen: Stable subcentimeter hypodense lesion, too small to characterize. Adrenal glands: Unremarkable. Kidneys: Kidneys enhance symmetrically, without hydronephrosis. Retroperitoneum: No lymphadenopathy. Bowel and mesentery: Bowel is not obstructed. No significant ascites. No pneumoperitoneum. Stable postsurgical changes of the rectum. Scattered colonic diverticulosis, without evidence of acute diverticulitis. Multiple prominent fluid filled nondilated loops of small bowel within the pelvis. Bladder: Unremarkable for degree of distension. Reproductive organs: Small calcified uterine fibroids. Pelvic lymph nodes: No lymphadenopathy. Vessels: Extensive atherosclerotic calcifications. Aneurysmal dilation of the infrarenal abdominal aorta measuring up to 3.3 cm, not significantly changed. Abdominal wall: No acute abdominal wall abnormality. Bones: Multilevel degenerative changes of the spine. Bones are osteopenic. IMPRESSION: 1. Multiple prominent filled fluid nondilated loops of small bowel within the pelvis, nonspecific, may reflect enteritis. 2. No significant change in multiple pulmonary masses in the bilateral lung bases, consistent with pulmonary metastases. 3. Stable additional incidental findings as above. Please note that all CT scans at this facility use dose modulation, iterative reconstruction, and/or weight-based dosing when appropriate to reduce radiation dose to as low as reasonably achievable. Dictated by Tim Olea MD @ 12/09/2022 6:33:09 PM (Electronically Signed)
--- NOTE | 2022-12-09 13:39 | ED.ABDPAIN ---
HPI - Abdominal Pain General Chief Complaint: Abdominal Pain <Rene Marvin MD - Last Filed: 12/10/22 08:45> Stated Complaint: Abdominal pain <Rene Marvin MD - Last Filed: 12/10/22 08:45> Time Seen by Provider: 12/09/22 13:20 <Rene Marvin MD - Last Filed: 12/10/22 08:45> History of Present Illness HPI narrative: Patient is a 72-year-old woman with a known history of metastatic colon cancer status post resection currently on oral chemotherapy for pulmonary metastases who presents with no bowel movement for 3 days. He has diffuse abdominal pain general malaise body aches and fatigue. She states that she is nauseous today but has been eating normally. She has had no dysuria. She has had no rashes no neurologic changes. She describes no cough or shortness of breath. No chest pain orthopnea or PND. Pain is dull and diffuse without radiculopathy. <Rene Marvin MD - Last Filed: 12/10/22 08:45> Related Data Home Medications: Home Medications Medication Instructions Recorded Confirmed clonazepam 0.5 mg tablet 0.5 mg PO HS PRN 09/07/21 10/15/22 ibuprofen 200 mg capsule 200 mg PO Q6H PRN pain 09/07/21 10/15/22 isosorbide mononitrate 30 mg 30 mg PO DAILY 09/07/21 10/15/22 tablet,extended release 24 hr nitroglycerin 0.4 mg sublingual 0.4 mg sublingual Q5M PRN chest 09/07/21 10/15/22 tablet pain sertraline 100 mg tablet 100 mg PO HS 09/07/21 10/15/22 gabapentin 300 mg capsule 300 mg PO HS 05/03/22 10/15/22 aspirin 81 mg chewable tablet 81 mg PO DAILY PRN 09/23/22 10/15/22 albuterol sulfate 90 mcg/actuation 2 puff inhalation Q4H PRN 10/15/22 10/15/22 aerosol inhaler (Ventolin HFA) diphenoxylate-atropine 2.5 1 tab PO Q6H PRN diarrhea 10/15/22 10/15/22 mg-0.025 mg tablet sotorasib 120 mg tablet (Lumakras) 600 mg PO DAILY 10/15/22 10/15/22 Previous Rx's Medication Instructions Recorded ondansetron 4 mg disintegrating 4 mg translingual Q6H PRN nausea 04/13/22 tablet and vomiting #30 tabs prochlorperazine maleate 10 mg 10 mg PO Q6H PRN nausea and 04/13/22 tablet vomiting #30 tabs potassium chloride 20 mEq 20 meq PO QDAY #10 tabs 09/23/22 tablet,extended release cefdinir 300 mg capsule 300 mg PO BID #8 caps 10/17/22 ipratropium 0.5 mg-albuterol 3 mg 3 ml inhalation Q6H PRN dyspnea 10/17/22 (2.5 mg base)/3 mL nebulization #20 ea soln morphine 30 mg tablet,extended 30 mg PO BID #30 tabs 10/17/22 release nebulizer accessories #1 ea 10/17/22 nebulizer and compressor #1 ea 10/17/22 nicotine 21 mg/24 hr daily 1 patch transdermal Q24H #15 ea 10/17/22 transdermal patch oxycodone 5 mg tablet 5 - 10 mg (1 - 2 x 5 mg) PO Q4H 10/17/22 PRN pain #30 tabs prednisone 20 mg tablet 20 mg PO DAILYWM 2 days #2 tabs 10/17/22 sennosides 8.6 mg-docusate sodium 1 tab PO BID PRN #60 tabs 10/17/22 50 mg tablet (Stool Softener-Laxative) hydrocodone 5 mg-acetaminophen 325 1 tab PO Q4-6H PRN pain #15 tabs 12/09/22 mg tablet ketorolac 10 mg tablet 10 mg PO Q8H 5 days #15 tabs 12/09/22 <Rene Marvin MD - Last Filed: 12/10/22 08:45> Allergies/Adverse Reactions: Allergies Allergy/AdvReac Type Severity Reaction Status Date / Time penicillin V Allergy Intermediate Rash Verified 12/09/22 13:22 <Rene Marvin MD - Last Filed: 12/10/22 08:45> Review of Systems Status of ROS Reports: 10 or more systems reviewed and unremarkable except as noted in History and below <Rene Marvin MD - Last Filed: 12/10/22 08:45> [facility] Medical History: Medical History Lung metastasis ?C78.00 - Secondary malignant neoplasm of unspecified lung (ICD-10) Rectal cancer ?C20 - Malignant neoplasm of rectum (ICD-10) Encounter for insertion of tunneled central venous catheter (CVC) with port ?Z45.2 - Encounter for adjustment and management of vascular access device (ICD-10) Adenocarcinoma, lung ?C34.90 - Malignant neoplasm of unspecified part of unspecified bronchus or lung (ICD-10) 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 Designates her son, Daniel, as her primary contact for power general assembler for health should that be required, cell phone [phone]. Designates her daughter, Staci, as her secondary contact for power of general assembler for health should that be required, cell phone [phone]. Adamant that she desires a DNR DNI resuscitation status. What is your current living situation?: I presently have a place to live Problems where you live: no known problems Problems where you live details: n/a In the past 12 months, utilities in danger of being shut off: no In past 12 months, lack of transportation kept you from medical appts, meetings, work, or getting things needed for daily living: no In the past 12 mos, have been you worried that your food would run out before you had money to buy more?: never true In the past 12 mos, the food you bought just didn't last and you didn't have money to buy more?: never true Highest level of school completed/degree received: high school graduate Smoking Status: Current every day smoker What tobacco products do you use: cigarettes Smoking packs per day: 0.5 Smoking cigarettes per day: 10.0 Smoking quit date/years: <= 15 years ago Do you use any of these nicotine containing products: None Second hand tobacco smoke exposure: No How often do you have a drink containing alcohol: 2-4 times a month Alcohol type: hard liquor How many standard drinks containing alcohol do you have on a typical day: 3 or 4 How often do you have six or more drinks on one occasion: Never AUDIT-C Alcohol total score: 3 Non-prescribed substance use: marijuana (any form) Caffeine: Yes (2-3 cups) How often does anyone, including family, friends and others, physically hurt you: never How often does anyone, including family, friends and others, insult or talk down to you: never How often does anyone, including family, friends and others, threaten you with harm: never How often does anyone, including family, friends and others, scream or curse at you: never service: No <Rene Marvin MD - Last Filed: 12/10/22 08:45> Exam Narrative: Exam Narrative: EXAM GENERAL: Patient appears comfortable and well. EYES: No scleral icterus. ENT: Tympanic membranes and oropharynx normal. THYROID: no thyroid nodules or thyromegaly. LYMPH: No supraclavicular or cervical lymphadenopathy. SKIN: Visible skin seen during exam normal or with benign process only. EXT: No dependent lower extremity pedal edema. HEART: Regular rate and rhythm with no murmurs, rubs, or gallops. LUNGS: Clear to auscultation bilaterally with no crackles or wheezes. ABD: Soft mildly tender to palpation no rebound masses or guarding hypoactive but present bowel sounds. PSYCH: Good eye contact, speech is not pressured. <Rene Marvin MD - Last Filed: 12/10/22 08:45> Const: Vital Signs, click to edit/add: Vital Signs - 24 hr 12/09/22 13:18 12/09/22 13:32 12/09/22 14:31 Temperature 97.9 F Pulse Rate 63 Pulse Rate [Right Pulse Oximeter] 67 Respiratory Rate 18 Blood Pressure 153/96 H Blood Pressure [Ri ght Upper Arm] 157/73 H Pulse Oximetry 94 93 Oxygen Delivery Me thod Room Air Oxygen Flow Rate 12/09/22 14:32 12/09/22 14:45 12/09/22 15:00 Temperature Pulse Rate 74 68 84 Pulse Rate [Right Pulse Oximeter] Respiratory Rate Blood Pressure Blood Pressure [Ri ght Upper Arm] Pulse Oximetry 92 93 88 Oxygen Delivery Me thod Oxygen Flow Rate 12/09/22 15:03 12/09/22 15:15 12/09/22 15:30 Temperature Pulse Rate 76 73 77 Pulse Rate [Right Pulse Oximeter] Respiratory Rate Blood Pressure 161/92 H Blood Pressure [Ri ght Upper Arm] Pulse Oximetry 90 88 92 Oxygen Delivery Me thod Oxygen Flow Rate 12/09/22 15:32 12/09/22 15:33 12/09/22 15:45 Temperature Pulse Rate 72 77 63 Pulse Rate [Right Pulse Oximeter] Respiratory Rate Blood Pressure 173/99 H Blood Pressure [Ri ght Upper Arm] Pulse Oximetry 90 92 92 Oxygen Delivery Me thod Oxygen Flow Rate 12/09/22 16:00 12/09/22 16:02 12/09/22 16:15 Temperature Pulse Rate 66 79 59 L Pulse Rate [Right Pulse Oximeter] Respiratory Rate Blood Pressure 156/94 H Blood Pressure [Ri ght Upper Arm] Pulse Oximetry 93 92 91 Oxygen Delivery Me thod Oxygen Flow Rate 12/09/22 16:31 12/09/22 16:33 12/09/22 16:34 Temperature Pulse Rate 79 83 79 Pulse Rate [Right Pulse Oximeter] Respiratory Rate Blood Pressure 143/117 H Blood Pressure [Ri ght Upper Arm] Pulse Oximetry 91 90 90 Oxygen Delivery Me thod Oxygen Flow Rate 12/09/22 16:45 12/09/22 17:00 12/09/22 17:04 Temperature Pulse Rate 66 76 67 Pulse Rate [Right Pulse Oximeter] Respiratory Rate Blood Pressure 160/93 H Blood Pressure [Ri ght Upper Arm] Pulse Oximetry 90 91 91 Oxygen Delivery Me thod Oxygen Flow Rate 12/09/22 17:15 12/09/22 17:30 12/09/22 17:33 Temperature Pulse Rate 76 72 72 Pulse Rate [Right Pulse Oximeter] Respiratory Rate Blood Pressure 155/89 H Blood Pressure [Ri ght Upper Arm] Pulse Oximetry 92 91 92 Oxygen Delivery Me thod Oxygen Flow Rate 12/09/22 17:45 12/09/22 18:00 12/09/22 18:03 Temperature Pulse Rate 70 71 70 Pulse Rate [Right Pulse Oximeter] Respiratory Rate Blood Pressure 164/94 H Blood Pressure [Ri ght Upper Arm] Pulse Oximetry 91 89 91 Oxygen Delivery Me thod Oxygen Flow Rate 12/09/22 18:15 12/09/22 18:30 12/09/22 18:32 Temperature Pulse Rate 63 64 65 Pulse Rate [Right Pulse Oximeter] Respiratory Rate Blood Pressure 146/84 H Blood Pressure [Ri ght Upper Arm] Pulse Oximetry 89 90 89 Oxygen Delivery Me thod Oxygen Flow Rate 12/09/22 18:45 12/09/22 18:46 12/09/22 19:00 Temperature Pulse Rate 74 63 Pulse Rate [Right Pulse Oximeter] Respiratory Rate Blood Pressure Blood Pressure [Ri ght Upper Arm] Pulse Oximetry 95 95 96 Oxygen Delivery Me thod Nasal Cannula Oxygen Flow Rate 2 12/09/22 19:02 12/09/22 19:03 12/09/22 19:15 Temperature Pulse Rate 67 69 62 Pulse Rate [Right Pulse Oximeter] Respiratory Rate Blood Pressure 131/84 Blood Pressure [Ri ght Upper Arm] Pulse Oximetry 95 97 97 Oxygen Delivery Me thod Oxygen Flow Rate <Rene Marvin MD - Last Filed: 12/10/22 08:45> Vital Signs, click to edit/add: Vital Signs - 24 hr 12/09/22 13:18 12/09/22 13:32 12/09/22 14:31 Temperature 97.9 F Pulse Rate 63 Pulse Rate [Right Pulse Oximeter] 67 Respiratory Rate 18 Blood Pressure 153/96 H Blood Pressure [Ri ght Upper Arm] 157/73 H Pulse Oximetry 94 93 Oxygen Delivery Me thod Room Air Oxygen Flow Rate 12/09/22 14:32 12/09/22 14:45 12/09/22 15:00 Temperature Pulse Rate 74 68 84 Pulse Rate [Right Pulse Oximeter] Respiratory Rate Blood Pressure Blood Pressure [Ri ght Upper Arm] Pulse Oximetry 92 93 88 Oxygen Delivery Me thod Oxygen Flow Rate 12/09/22 15:03 12/09/22 15:15 12/09/22 15:30 Temperature Pulse Rate 76 73 77 Pulse Rate [Right Pulse Oximeter] Respiratory Rate Blood Pressure 161/92 H Blood Pressure [Ri ght Upper Arm] Pulse Oximetry 90 88 92 Oxygen Delivery Me thod Oxygen Flow Rate 12/09/22 15:32 12/09/22 15:33 12/09/22 15:45 Temperature Pulse Rate 72 77 63 Pulse Rate [Right Pulse Oximeter] Respiratory Rate Blood Pressure 173/99 H Blood Pressure [Ri ght Upper Arm] Pulse Oximetry 90 92 92 Oxygen Delivery Me thod Oxygen Flow Rate 12/09/22 16:00 12/09/22 16:02 12/09/22 16:15 Temperature Pulse Rate 66 79 59 L Pulse Rate [Right Pulse Oximeter] Respiratory Rate Blood Pressure 156/94 H Blood Pressure [Ri ght Upper Arm] Pulse Oximetry 93 92 91 Oxygen Delivery Me thod Oxygen Flow Rate 12/09/22 16:31 12/09/22 16:33 12/09/22 16:34 Temperature Pulse Rate 79 83 79 Pulse Rate [Right Pulse Oximeter] Respiratory Rate Blood Pressure 143/117 H Blood Pressure [Ri ght Upper Arm] Pulse Oximetry 91 90 90 Oxygen Delivery Me thod Oxygen Flow Rate 12/09/22 16:45 12/09/22 17:00 12/09/22 17:04 Temperature Pulse Rate 66 76 67 Pulse Rate [Right Pulse Oximeter] Respiratory Rate Blood Pressure 160/93 H Blood Pressure [Ri ght Upper Arm] Pulse Oximetry 90 91 91 Oxygen Delivery Me thod Oxygen Flow Rate 12/09/22 17:15 12/09/22 17:30 12/09/22 17:33 Temperature Pulse Rate 76 72 72 Pulse Rate [Right Pulse Oximeter] Respiratory Rate Blood Pressure 155/89 H Blood Pressure [Ri ght Upper Arm] Pulse Oximetry 92 91 92 Oxygen Delivery Me thod Oxygen Flow Rate 12/09/22 17:45 12/09/22 18:00 12/09/22 18:03 Temperature Pulse Rate 70 71 70 Pulse Rate [Right Pulse Oximeter] Respiratory Rate Blood Pressure 164/94 H Blood Pressure [Ri ght Upper Arm] Pulse Oximetry 91 89 91 Oxygen Delivery Me thod Oxygen Flow Rate 12/09/22 18:15 12/09/22 18:30 12/09/22 18:32 Temperature Pulse Rate 63 64 65 Pulse Rate [Right Pulse Oximeter] Respiratory Rate Blood Pressure 146/84 H Blood Pressure [Ri ght Upper Arm] Pulse Oximetry 89 90 89 Oxygen Delivery Me thod Oxygen Flow Rate 12/09/22 18:45 12/09/22 18:46 12/09/22 19:00 Temperature Pulse Rate 74 63 Pulse Rate [Right Pulse Oximeter] Respiratory Rate Blood Pressure Blood Pressure [Ri ght Upper Arm] Pulse Oximetry 95 95 96 Oxygen Delivery Me thod Nasal Cannula Oxygen Flow Rate 2 12/09/22 19:02 12/09/22 19:03 12/09/22 19:15 Temperature Pulse Rate 67 69 62 Pulse Rate [Right Pulse Oximeter] Respiratory Rate Blood Pressure 131/84 Blood Pressure [Ri ght Upper Arm] Pulse Oximetry 95 97 97 Oxygen Delivery Me thod Oxygen Flow Rate <Avni Mejía MD - Last Filed: 12/09/22 19:07> Course Course ED Course: Patient seen examined. CT abdomen pelvis CBC amylase comprehensive metabolic panel UA pending. <Rene Marvin MD - Last Filed: 12/10/22 08:45> Vital Signs Vital signs: Initial Vital Signs Temperature 97.9 F 12/09/22 13:18 Temperature Source Temporal Artery Scan 12/09/22 13:18 Pulse Rate 67 12/09/22 13:18 Pulse Rhythm Regular 12/09/22 13:18 Pulse Strength 3+ Normal 12/09/22 13:18 Respiratory Rate 18 12/09/22 13:18 Blood Pressure 157/73 H 12/09/22 13:18 Blood Pressure Mean 101 12/09/22 13:18 Blood Pressure Position Supine 12/09/22 13:18 Pulse Oximetry 94 12/09/22 13:18 Oxygen Delivery Method Room Air 12/09/22 13:18 Vital Signs Temperature 97.9 F 12/09/22 13:18 Pulse Rate 67 12/09/22 13:18 Respiratory Rate 18 12/09/22 13:18 Blood Pressure 157/73 H 12/09/22 13:18 Pulse Oximetry 94 12/09/22 13:18 Oxygen Delivery Method Room Air 12/09/22 13:18 Temperature 97.9 F 12/09/22 13:18 Pulse Rate 62 12/09/22 19:15 Respiratory Rate 18 12/09/22 13:18 Blood Pressure 131/84 12/09/22 19:02 Pulse Oximetry 97 12/09/22 19:15 Oxygen Delivery Method Nasal Cannula 12/09/22 18:46 Oxygen Flow Rate 2 12/09/22 18:46 <Rene Marvin MD - Last Filed: 12/10/22 08:45> Initial Vital Signs Temperature 97.9 F 12/09/22 13:18 Temperature Source Temporal Artery Scan 12/09/22 13:18 Pulse Rate 67 12/09/22 13:18 Pulse Rhythm Regular 12/09/22 13:18 Pulse Strength 3+ Normal 12/09/22 13:18 Respiratory Rate 18 12/09/22 13:18 Blood Pressure 157/73 H 12/09/22 13:18 Blood Pressure Mean 101 12/09/22 13:18 Blood Pressure Position Supine 12/09/22 13:18 Pulse Oximetry 94 12/09/22 13:18 Oxygen Delivery Method Room Air 12/09/22 13:18 Vital Signs Temperature 97.9 F 12/09/22 13:18 Pulse Rate 67 12/09/22 13:18 Respiratory Rate 18 12/09/22 13:18 Blood Pressure 157/73 H 12/09/22 13:18 Pulse Oximetry 94 12/09/22 13:18 Oxygen Delivery Method Room Air 12/09/22 13:18 Temperature 97.9 F 12/09/22 13:18 Pulse Rate 62 12/09/22 19:15 Respiratory Rate 18 12/09/22 13:18 Blood Pressure 131/84 12/09/22 19:02 Pulse Oximetry 97 12/09/22 19:15 Oxygen Delivery Method Nasal Cannula 12/09/22 18:46 Oxygen Flow Rate 2 12/09/22 18:46 <Avni Mejía MD - Last Filed: 12/09/22 19:07> MDM - Abdominal Pain MDM Narrative Medical decision making narrative: This patient was seen by Dr. Marvin prior to my arrival and results are pending at the end of his shift. CT imaging returns with no significant acute findings. She does have her colon cancer with metastatic disease to the lungs. There is no sign of obstruction or ileus or other mass. There may be some signs of enteritis nonspecifically. Additionally the patient's labs returned with reassuring findings. She is having some pain in reports some constipation over the past 3 days. She was scheduled to have an MRI today but this needs to happen after a PET scan. This will be rescheduled next week. The patient did receive IV dose of Dilaudid 0.3 mg which brought relief to her pain. She is okay to be discharged home to resume her current plans. I recommended using [id number] stool regimens to assist in normalizing her bowels. She has not taken any narcotics for about a week and understands that these medicines do slow down bowel transit. She is having significant pain so I did prescribe some tablets of [place] and Toradol. <Avni Mejía MD - Last Filed: 12/09/22 19:07> Lab Data Labs: Lab Results 12/09/22 12/09/22 Range/Units 13:30 14:00 WBC 4.71 (4.50-11.00) K/uL RBC 4.34 (4.00-5.20) m/uL Hgb 12.4 (12.0-16.0) gm/dL Hct 38.8 (33.0-51.0) % MCV 89 (80-100) fL MCH 29 (26-34) pg MCHC 32 (32-36) gm/dL RDW Coeff of Aleks 14.5 (11.5-15.5) % Plt Count 188 (140-440) K/uL Neut % (Auto) 57.1 (42.0-72.0) % Lymph % (Auto) 32.5 (20-44) % [place] % (Auto) 7.0 (0.0-11.0) % Eos % (Auto) 2.8 (0.0-7.0) % Baso % (Auto) 0.4 (0.0-3.0) % Neut # (Auto) 2.69 (1.7-7.0) K/uL Lymph # (Auto) 1.53 (0.90-2.90) K/uL [place] # (Auto) 0.30 (0.00-0.90) K/UL Eos # (Auto) 0.13 (0.00-0.50) K/uL Baso # (Auto) 0.02 (0.00-0.30) K/uL Abs Immat Gran (auto) 0.01 (0.00-0.30) K/uL Imm/Tot Granulo (auto) 0.2 % Sodium 139 (135-149) mmol/L Potassium 4.0 (3.6-5.1) mmol/L Chloride 109 (96-114) mmol/L Carbon Dioxide 22 (20-32) mmol/L Anion Gap 8 (7-15) mEq/L BUN 14 (7-30) mg/dL Creatinine 0.5 (0.5-1.5) mg/dL Estimated Creat Clear 48.72 Estimated GFR 99 ml/min Glucose 85 (60-115) mg/dL Calcium 8.7 (8.4-10.6) mg/dL Total Bilirubin 0.8 (0.1-1.5) mg/dL AST 22 (12-35) U/L ALT 12 (4-35) U/L Alkaline Phosphatase 85 (40-150) U/L Total Protein 6.6 (6.0-8.3) g/dL Albumin 3.5 (3.3-5.0) g/dL Amylase 66 (18-89) U/L Urine Color [place] A (Yellow) Urine Appearance Clear (Clear) Urine pH 5.5 (5.0-8.5) Ur Specific [place] 1.025 (1.000-1.030) Urine Protein 3+ A (Negative) Urine Glucose (UA) Negative (Negative) Urine Ketones Trace A (Negative) Urine Blood 2+ A (Negative) Urine Nitrite Negative (Negative) Urine Bilirubin 1+ A (Negative) Urine Urobilinogen 2.0 A (0.2-1.0) Ur Leukocyte Esterase Negative (Negative) Urine RBC 2-5 A (0-2) Urine WBC 0-2 (0-5) Ur Squamous Epith Cells Moderate A (None-Few) Urine Bacteria None (None) Coarse Granular Casts Many A (None) Urine Mucus Moderate A (None) <Rene Marvin MD - Last Filed: 12/10/22 08:45> Lab Results 12/09/22 12/09/22 Range/Units 13:30 14:00 WBC 4.71 (4.50-11.00) K/uL RBC 4.34 (4.00-5.20) m/uL Hgb 12.4 (12.0-16.0) gm/dL Hct 38.8 (33.0-51.0) % MCV 89 (80-100) fL MCH 29 (26-34) pg MCHC 32 (32-36) gm/dL RDW Coeff of Aleks 14.5 (11.5-15.5) % Plt Count 188 (140-440) K/uL Neut % (Auto) 57.1 (42.0-72.0) % Lymph % (Auto) 32.5 (20-44) % [place] % (Auto) 7.0 (0.0-11.0) % Eos % (Auto) 2.8 (0.0-7.0) % Baso % (Auto) 0.4 (0.0-3.0) % Neut # (Auto) 2.69 (1.7-7.0) K/uL Lymph # (Auto) 1.53 (0.90-2.90) K/uL [place] # (Auto) 0.30 (0.00-0.90) K/UL Eos # (Auto) 0.13 (0.00-0.50) K/uL Baso # (Auto) 0.02 (0.00-0.30) K/uL Abs Immat Gran (auto) 0.01 (0.00-0.30) K/uL Imm/Tot Granulo (auto) 0.2 % Sodium 139 (135-149) mmol/L Potassium 4.0 (3.6-5.1) mmol/L Chloride 109 (96-114) mmol/L Carbon Dioxide 22 (20-32) mmol/L Anion Gap 8 (7-15) mEq/L BUN 14 (7-30) mg/dL Creatinine 0.5 (0.5-1.5) mg/dL Estimated Creat Clear 48.72 Estimated GFR 99 ml/min Glucose 85 (60-115) mg/dL Calcium 8.7 (8.4-10.6) mg/dL Total Bilirubin 0.8 (0.1-1.5) mg/dL AST 22 (12-35) U/L ALT 12 (4-35) U/L Alkaline Phosphatase 85 (40-150) U/L Total Protein 6.6 (6.0-8.3) g/dL Albumin 3.5 (3.3-5.0) g/dL Amylase 66 (18-89) U/L Urine Color [place] A (Yellow) Urine Appearance Clear (Clear) Urine pH 5.5 (5.0-8.5) Ur Specific [place] 1.025 (1.000-1.030) Urine Protein 3+ A (Negative) Urine Glucose (UA) Negative (Negative) Urine Ketones Trace A (Negative) Urine Blood 2+ A (Negative) Urine Nitrite Negative (Negative) Urine Bilirubin 1+ A (Negative) Urine Urobilinogen 2.0 A (0.2-1.0) Ur Leukocyte Esterase Negative (Negative) Urine RBC 2-5 A (0-2) Urine WBC 0-2 (0-5) Ur Squamous Epith Cells Moderate A (None-Few) Urine Bacteria None (None) Coarse Granular Casts Many A (None) Urine Mucus Moderate A (None) <Avni Mejía MD - Last Filed: 12/09/22 19:07> Imaging Data CT scan - abdomen: Radiologist's impression: 1. Multiple prominent filled fluid nondilated loops of small bowel within the pelvis, nonspecific, may reflect enteritis. 2. No significant change in multiple pulmonary masses in the bilateral lung bases, consistent with pulmonary metastases. 3. Stable additional incidental findings as above. <Avni Mejía MD - Last Filed: 12/09/22 19:07> Discharge Plan Discharge Clinical Impression: Lung metastasis, Rectal cancer, Abdominal pain, Constipation <Rene Marvin MD - Last Filed: 12/10/22 08:45> Patient Disposition: Home, Self-Care <Rene Marvin MD - Last Filed: 12/10/22 08:45> Condition: Stable <Rene Marvin MD - Last Filed: 12/10/22 08:45> Instructions: Abdominal Pain (ED) <Rene Marvin MD - Last Filed: 12/10/22 08:45> Additional Instructions: Take medications as needed and directed. Use [id number] meds for managing bowel function. Use Metamucil, Citrucel, Benefiber, MiraLax, Dulcolax, magnesium citrate, and others as needed and directed. Follow up with MD or return if worsening. <Rene Marvin MD - Last Filed: 12/10/22 08:45> Activity Level: Activity as Tolerated <Rene Marvin MD - Last Filed: 12/10/22 08:45> Activity as Tolerated <Avni Mejía MD - Last Filed: 12/09/22 19:07> Discharge Diet: Regular <Rene Marvin MD - Last Filed: 12/10/22 08:45> Regular <Avni Mejía MD - Last Filed: 12/09/22 19:07> Prescriptions: New hydrocodone-acetaminophen 5-325 mg tablet 1 tab PO Q4-6H PRN (Reason: pain) Qty: 15 0RF ketorolac 10 mg tablet 10 mg PO Q8H 5 Days Qty: 15 0RF No Action potassium chloride 20 mEq tablet extended release 20 meq PO QDAY Qty: 10 3RF clonazepam 0.5 mg tablet 0.5 mg PO HS PRN nitroglycerin 0.4 mg tablet, sublingual 0.4 mg sublingual Q5M PRN (Reason: chest pain) sertraline 100 mg tablet 100 mg PO HS ibuprofen 200 mg capsule 200 mg PO Q6H PRN (Reason: pain) isosorbide mononitrate 30 mg tablet extended release 24 hr 30 mg PO DAILY gabapentin 300 mg capsule 300 mg PO HS aspirin 81 mg tablet,chewable 81 mg PO DAILY PRN Patient Comments: Hasn't been taking everyday like prescribed albuterol sulfate [Ventolin HFA] 90 mcg/actuation HFA aerosol inhaler 2 puff inhalation Q4H PRN diphenoxylate-atropine 2.5-0.025 mg tablet 1 tab PO Q6H PRN (Reason: diarrhea) Lumakras 120 mg tablet 600 mg PO DAILY oxycodone 5 mg Tablet 5 - 10 mg PO Q4H MDD 30 mg PRN (Reason: pain) Qty: 30 0RF ipratropium-albuterol 0.5 mg-3 mg(2.5 mg base)/3 mL Solution For Nebulization 3 ml inhalation Q6H PRN (Reason: dyspnea) Qty: 20 0RF prednisone 20 mg Tablet 20 mg PO DAILYWM 2 Days Qty: 2 0RF sennosides-docusate sodium [Stool Softener-Laxative] 8.6-50 mg Tablet 1 tab PO BID PRNQty: 60 0RF nicotine 21 mg/24 hr Patch 24 Hour 1 patch transdermal Q24H Qty: 15 0RF cefdinir 300 mg capsule 300 mg PO BID Qty: 8 0RF morphine 30 mg Tablet Extended Release 30 mg PO BID Qty: 30 0RF (DME) nebulizer and compressor Device See Rx Instructions .Route Qty: 1 0RF Rx Instructions: As directed (DME) nebulizer accessories Kit See Rx Instructions .ROUTE .MEDSUPPLY Qty: 1 0RF Rx Instructions: As directed prochlorperazine maleate 10 mg tablet 10 mg PO Q6H PRN (Reason: nausea and vomiting) Qty: 30 0RF Rx Instructions: Try taking this 30 minutes prior to your chemo medicine Sotorasib ondansetron 4 mg tablet,disintegrating 4 mg translingual Q6H PRN (Reason: nausea and vomiting) Qty: 30 0RF Rx Instructions: Use either this or prochlorperazine for nausea Try taking this 30 mins prior to Sotorasib <Rene Marvin MD - Last Filed: 12/10/22 08:45> Follow Up/Referrals: Byron Mondragon MD [Primary Care Provider] - <Rene Marvin MD - Last Filed: 12/10/22 08:45> Stand Alone Forms: MyHealth Info Instructions <Rene Marvin MD - Last Filed: 12/10/22 08:45>
--- NOTE | 2022-12-09 13:44 | PC.SOCIAL ---
Pt had a scheduled 1:00 pm appointment with social work to discuss resources for phone service. Pt did not show up to appointment. Sent an email to Sarah Jones in [facility] to inform social work when pt will be in next. Social work will continue to follow up as needed.
--- NOTE | 2022-12-09 13:54 | ED.NURSE ---
Pt's power port was accessed x2, needle does not flush with skin, pt has lost weight and needle has accessed port, but it sticks out a little bit. Port was covered with tegaderm and both nurses that accessed port can flush, but not draw blood. Lab was called for blood draw. Port is good for CT only, not blood draws.
[2022-12-09 14:15] LABS: Basophils Absolute Auto 0.02 K/uL (0.00-0.30); Basophils Percent Auto 0.4 % (0.0-3.0); Eosinophils Absolute Auto 0.13 K/uL (0.00-0.50); Eosinophils Percent Auto 2.8 % (0.0-7.0); Hematocrit 38.8 % (33.0-51.0); Hemoglobin* 12.4 gm/dL (12.0-16.0); Immature Granulocytes Abs Auto 0.01 K/uL (0.00-0.30); Immature Granulocytes Pct Auto 0.2 %; Lymphocytes Absolute Auto 1.53 K/uL (0.90-2.90); Lymphocytes Percent Auto 32.5 % (20-44); Mean Corpuscular HGB Conc 32 gm/dL (32-36); Mean Corpuscular Hemoglobin 29 pg (26-34); Mean Corpuscular Volume 89 fL (80-100); Neutrophils Absolute Auto 2.69 K/uL (1.7-7.0); Neutrophils Percent Auto 57.1 % (42.0-72.0); Platelet Count* 188 K/uL (140-440); RDW Coefficient of Variation % 14.5 % (11.5-15.5); Red Blood Count 4.34 m/uL (4.00-5.20); White Blood Count* 4.71 K/uL (4.50-11.00)
[2022-12-09 14:22] LABS: Slide Review Reflex No
[2022-12-09 14:23] LABS: Appearance Urine Clear (Clear); Bilirubin Urine 1+ (Negative); Blood Urine 2+ (Negative); Color Urine Amber (Yellow); Glucose Urine Negative (Negative); Ketones Urine Trace (Negative); Leukocyte Esterase Urine Negative (Negative); Nitrite Urine Negative (Negative); Protein Urine 3+ (Negative); Specific Gravity Urine 1.025 (1.000-1.030); pH Urine 5.5 (5.0-8.5)
[2022-12-09 14:24] LABS: Albumin* 3.5 g/dL (3.3-5.0); Chloride* 109 mmol/L (96-114); Sodium* 139 mmol/L (135-149)
[2022-12-09 14:27] LABS: Alanine Aminotransferase* 12 U/L (4-35); Alkaline Phosphatase* 85 U/L (40-150); Amylase* 66 U/L (18-89); Anion Gap 8 mEq/L (7-15); Aspartate Amino Transferase* 22 U/L (12-35); Bilirubin Total* 0.8 mg/dL (0.1-1.5); Blood Urea Nitrogen* 14 mg/dL (7-30); Carbon Dioxide* 22 mmol/L (20-32); Creatinine* 0.5 mg/dL (0.5-1.5); Est. Creatinine Clearance* 48.72; Estimated Glomerular Filt Rate 99 ml/min; Glucose* 85 mg/dL (60-115); Total Protein* 6.6 g/dL (6.0-8.3)
[2022-12-09 14:28] LABS: Calcium* 8.7 mg/dL (8.4-10.6)
[2022-12-09 14:40] LABS: WBC Urine 0-2 (0-5)
[2022-12-09 14:41] LABS: Coarse Granular Casts Urine Many; Squamous Epithelial Cell Urine Moderate (None-Few)
[2022-12-09 14:42] LABS: Mucus Urine Moderate
--- NOTE | 2022-12-09 16:40 | ONC.NURNOTE ---
Patient did not come in for appt today because she went to the ER for abd pain ER was not able to do the MRI today SS did not see Selena regarding a phone- will still need to be addressed- as Selena has no phone Selena reports needing refill of Lumakras, she has enough thru the weekend AMRITA signed for neighbor Cherelle Love, Daughter Staci Dacosta, and home care
[2022-12-09] MEDS: HYDROmorphone 0.5 mg/0.5 ml inj 0.3 MG IVP (17:30)
--- NOTE | 2022-12-09 18:45 | ED.NURSE ---
Applied 2 L NC oxygen per patient request. She uses oxygen at home and states if I fall asleep now, I don't need to worry about my oxygen level. Provider updated.
[2022-12-09] MEDS: HEPARIN 500 UNIT/5 ML SYRINGE IVF (19:31)
== END 2022-12-09 19:40 | disposition home or self-care (01) ==
PROVIDERS: Emergency Provider Internal Medicine; PCP Family Medicine
DX: R10.9 Unspecified abdominal pain (principal); K59.00 Constipation, unspecified; C80.1 Malignant (primary) neoplasm, unspecified; C78.00 Secondary malignant neoplasm of unspecified lung
CPT/HCPCS: 36415; 74177; 80053; 81003; 81015; 82150; 85025; 93005; 96374; 99283; 99284; 99285; J1170; J1642; Q9967

== ENCOUNTER 2023-01-04 09:32 | Outpatient (CLI) | payer MEDICARE, MEDICAID, SELFPAY ==
--- NOTE | 2023-01-04 10:00 | CRLHL7_ITS ---
For Patients: As a result of the Century Cures Act, medical imaging exams and procedure reports are released immediately into your electronic medical record. You may view this report before your referring provider. If you have questions, please contact your health care provider. INDICATION: Lung metastasis, cancer progression COMPARISON: CT chest 10/15/2022 TECHNIQUE: CT chest with contrast. Multiplanar axial, coronal, and sagittal reformats are included. MIP images to improve detection of pulmonary nodules are included. Intravenous contrast: 75 mL Isovue 370 FINDINGS: Lungs and pleura: Multiple parenchymal and pleural based nodules and masses are similar compared to prior. No new or substantially enlarged nodules or masses are seen. Resolved areas of atelectasis and pneumonia. Airway: Normal tracheobronchial tree. Lymph nodes: No thoracic adenopathy. Mediastinum: No pneumomediastinum. Heart and great vessels: Right IJ chest port distal tip obscured by the contrast bolus but at least to the SVC. No pericardial effusion. Normal cardiac chamber size. Unchanged dilated descending thoracic and upper abdominal aorta. Unchanged heavy atherosclerotic plaques, many of which are uncalcified. Unchanged appearance of what appears to be penetrating atherosclerotic ulcer. Median sternotomy wires. Dilated main pulmonary artery, unchanged no central or proximal segmental pulmonary emboli seen. Bones:T2 and T7 superior endplate compression fractures with mild sclerosis. These are new compared to prior. About 10 percent loss of height. Chest wall: Normal. No masses. Upper abdomen: Normal. IMPRESSION: 1. Unchanged right greater than left pleural and pulmonary parenchymal nodules and masses. No new lesions. 2. Resolved pneumonia. 3. T2 and T7 superior endplate compression fractures with about 10 percent loss of height. Please note that all CT scans at this facility use dose modulation, iterative reconstruction, and/or weight-based dosing when appropriate to reduce radiation dose to as low as reasonably achievable. Dictated by Marcela Grant MD @ 01/06/2023 9:34:17 AM (Electronically Signed)
== END 2023-01-04 09:33 | disposition home or self-care (01) ==
LOC: CT 09:34
PROVIDERS: PCP Family Medicine; Visit Provider Internal Medicine Hematology & Oncology
DX: C78.00 Secondary malignant neoplasm of unspecified lung (principal); M48.54XA Collapsed vertebra, not elsewhere classified, thoracic region, initial encounter for fracture
CPT/HCPCS: 71260; Q9967

== ENCOUNTER 2023-04-04 13:32 | Outpatient (CLI) | payer OTHER, SELFPAY ==
--- NOTE | 2023-04-04 13:45 | CRLHL7_ITS ---
For Patients: As a result of the Century Cures Act, medical imaging exams and procedure reports are released immediately into your electronic medical record. You may view this report before your referring provider. If you have questions, please contact your health care provider. INDICATION: Malignancy. Evaluate for intracranial metastatic disease. TECHNIQUE: Multiplanar multisequence MR imaging of the brain prior to and following intravenous contrast. COMPARISON: MRI brain 12/13/2022. FINDINGS: Prominence of the ventricles and sulci compatible with mild diffuse cerebral volume loss. No mass effect or midline shift. Confluent FLAIR hyperintensities in the supratentorial white matter and krystal, not significantly changed and typical for advanced chronic microvascular ischemic changes. No pathologic intra-axial enhancement. Stable 4 mm enhancement along the anteroinferior falx (series 14, image 112), potentially representing a small meningioma. Stable punctate susceptibility within the right hemipons, likely representing a chronic microhemorrhage. No recent intracranial hemorrhage or pathologic extra-axial fluid collection. New small focus of diffusion restriction and FLAIR hyperintensity within the left parieto-occipital region (series 3, image 30), compatible with acute to early subacute infarction. The major arterial flow voids of the skullbase are preserved. Hyperostosis frontalis interna. Thinning of the ocular lenses. Minimal paranasal sinus mucosal thickening. Small right and trace left mastoid fluid. IMPRESSION: 1. No evidence for intracranial metastatic disease. 2. 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 Dictated by Marcos Cain MD @ 04/04/2023 7:55:01 PM (Electronically Signed)
== END 2023-04-04 13:33 | disposition home or self-care (01) ==
LOC: MRI 13:37
PROVIDERS: PCP Family Medicine; Visit Provider Internal Medicine Hematology & Oncology
DX: C78.00 Secondary malignant neoplasm of unspecified lung (principal); I63.9 Cerebral infarction, unspecified
CPT/HCPCS: 70553; A9575

== ENCOUNTER 2023-04-14 16:08 | Outpatient (CLI) | payer OTHER, SELFPAY ==
--- NOTE | 2023-04-14 14:00 | PE_ITS ---
[facility] [address] [address] Phone:?[phone] Fax:?[phone] Referring Physician Information: Keysha Barber M.D. [address] [address] Phone:?[phone] Fax:?[phone] Patient:Amilcar Gutierrez D.O.B:?1950 Sex:?Female Phone:?[phone] [facility] MRN:?[id number] Exam Date:?04/14/2023 EXAM: PET/CT EYES TO THIGHS, CANCER RESTAGING CLINICAL INFORMATION: Lung cancer, colon cancer. TECHNICAL INFORMATION: Helical acquisition of data was obtained from the orbits to the upper thighs with reconstruction of 3.75 mm thick images at 3.[address] data was used for attenuation correction. PET scanning was performed through the same anatomic range 60 minutes following administration of 14.19 mCi of 18-FDG delivered intravenously. The patient's glucose at the time of the injection was 60 mg/dL. PET, CT and PET/CT fusion images are interpreted using a computer viewing workstation. PET, CT and PET/CT fusion images were archived and saved in the patient's permanent medical record. COMPARISON: PET-CT from 09/16/2022. Chest CT from 01/04/[address] from 12/09/2022 also were reviewed. INTERPRETATION: Head and Neck: There are no abnormal hypermetabolic foci within the head or neck. There is physiologic uptake in the intracranial soft tissues. Chest: Multiple pulmonary nodules and masses are present. As before, there are largely necrotic and variably calcified. Most do not show increased FDG uptake; indexed exceptions include: ...a) medial right upper lobe nodule (Se 2 Im 96) measures 2.7 x 2.0 cm with a maximum SUV of 3.72, previously 2.7 x 2.2 cm with a maximum SUV of 4.19. ...b) posterior right upper lobe nodule (Se 2 Im 103) has a maximum SUV of 8.01, previously 3.03. ...c) left perihilar nodule (Se 2 Im 107) is indistinct on the free breathing CT but has a maximum SUV of 6.59, previously 5.27. ...d) left basal nodule (Se 2 Im 136) measures 2.7 x 1.8 cm with a maximum SUV of 2.16. Previously, it measured 1.9 x 1.8 cm with a maximum SUV of 2.89. There are no other abnormal hypermetabolic foci within the chest. Background mediastinal blood pool uptake has a maximum SUV of 1.76. Right chest port catheter terminates in the upper SVC. No lymphadenopathy detected. Abdomen and Pelvis: There are no abnormal hypermetabolic foci within the abdomen or pelvis. Background hepatic parenchymal uptake has a maximum SUV of 2.3. There is physiologic excretion of radiotracer in the urine and bowel. Status post cholecystectomy. 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 Skeleton, Musculature, and Integument: No abnormal hypermetabolic foci within the skeleton. No hazel osteoblastic or osteolytic disease. CONCLUSION: 1. Multiple pulmonary nodules and masses redemonstrated, the majority of which are necrotic compared to calcified. Of the few that are hypermetabolic, there has been slight mixed change since August 2022. Lesion A is essentially stable. Lesion B shows substantially increased FDG uptake. Lesion C shows slightly increased FDG uptake. Lesion D is stable to minimally improved. 2. No new sites of disease detected. Electronically signed on 04/15/2023 3:20:00 PM by Keyshawn Lay M.D.
--- OUTSIDE RECORDS SUMMARY | 2023-04-14 16:11 | XMS_ITS | Clinical Summary ---
Author Name Unknown Organization [facility] Address [place], [place] [address] Care Team Providers Care Director [employer] Name Role Phone GillDiane alvarezjean pierre Schultz LP Unavailable Hue Mayes MD Unavailable Byron Mondragon MD Primary Care Provider + Conchita Pierson RN Unavailable Miri Norton RN Unavailable Allergies Active Allergy Reactions Criticality Noted Date Comments Penicillins Rash 07/26/2008 Medications Medication Sig Dispensed Refills Start Date End Date Status psyllium husk (METAMUCIL ORAL) Take by mouth. 0 Acti ve NebulizerIndication s:Pneumonia, bacterial,Chronic obstructive pulmonary disease, unspecified COPD type (HC) Nebulizer, disposable neb kit x 4, reuseable neb kit x 1, mask x 1, filters x 1. Frequency of use: daily; Medication: duoneb Length of need: 99 months 1 Each 0 10/20/2022 Active Walker - 4 wheelsIndications:W eak,Malignant neoplasm metastatic to lung, unspecified laterality (HC),Malignant neoplasm of lung, unspecified laterality, unspecified part of lung (HC) For home use. Length of need: 99 1 Each 0 11/23/2022 Active isosorbide mononitrate (IMDUR) 30 mg extended release tablet 24 HourIndications:Cor onary artery disease due to lipid rich plaque Take 1 Tablet (30 mg) by mouth once daily. 90 Tablet 3 12/08/2022 Active albuterol HFA (PRO-AIR; VENTOLIN; PROVENTIL) 90 mcg/actuation inhalerIndications: Chronic obstructive pulmonary disease, unspecified COPD type (HC) Inhale 1-2 Puffs by mouth every 4 hours if needed for Shortness Of Breath. 8.5 g 3 12/08/2022 Active albuterol-ipratropi um (DUONEB) (2.5-0.5 mg) in 3 mL NEBULIZATION solutionIndications :COPD exacerbation (HC) Inhale 3 mL via a nebulizer 4 times daily. 1080 mL 3 12/08/2022 Active mirtazapine (REMERON) 7.5 mg tabletIndications:G eneralized anxiety disorder Take one at bedtime for a week, then 2 at bedtime. 90 Tablet 3 12/08/2022 Active aspirin (ECOTRIN) 81 mg enteric coated tabletIndications:C oronary artery disease involving menominee heart without angina pectoris, unspecified vessel or lesion type Take 1 Tablet (81 mg) by mouth once daily with a meal. 100 Tablet 3 12/08/2022 Active gabapentin (Neurontin) 300 mg capsuleIndications: Neuropathic pain Take 1 Capsule (300 mg) by mouth at bedtime. 90 Capsule 3 12/08/2022 Active sertraline (ZOLOFT) 100 mg tabletIndications:G eneralized anxiety disorder,Dysthymic disorder Take 1 Tablet (100 mg) by mouth at bedtime. 90 Tablet 3 12/08/2022 Active ondansetron (ZOFRAN ODT) 4 mg disintegrating tabletIndications:N annyea Place 1 Tablet (4 mg) on the tongue every 8 hours if needed for Nausea/Vomiting . 30 Tablet 2 12/08/2022 Active nitroglycerin (NITROSTAT) 0.4 mg sublingual tabletIndications:C oronary artery disease involving menominee heart without angina pectoris, unspecified vessel or lesion type DISSOLVE ONE TABLET UNDER TONGUE EVERY FIVE MINUTES NEEDED FOR CHEST PAIN. MAY USE UP TO 3 TABLETS. CALL 911 IF NO RELIEF 25 Tablet 2 12/08/2022 Active sennosides-docusate (SENOKOT S) (8.6-50 mg) tabletIndications:C hest wall pain Take 2 Tablets by mouth two times daily. 120 Tablet 11 12/08/2022 Active polyethylene glycoL (MIRALAX) 17 gram/scoop powderIndications:C onstipation due to opioid therapy Mix 1 scoop (17 g) in liquid then take by mouth once daily if needed for Constipation. 510 g 1 12/08/2022 Active miscellaneous medical supply (Blood Pressure Cuff) miscIndications:Hyp ertensive heart disease, unspecified whether heart failure present As directed. 1 unit 0 12/22/2022 Active Blood Pressure Monitor KitIndications:HTN (hypertension), benign Use to check blood pressure daily. 1 Each 0 12/27/2022 Active multivitamin (MVI) tabletIndications:E ncounter for herb and vitamin supplement management Take 1 Tablet by mouth once daily. 100 Tablet 4 01/05/2023 Active clonazePAM (KLONOPIN) 0.5 mg tablet Take by mouth. 0 09/07/2021 Active ketorolac (TORADOL) 10 mg tabletIndications:M alignant neoplasm of lung, unspecified laterality, unspecified part of lung (HC) TAKE 1 TABLET BY MOUTH EVERY SIX HOURS NEEDED FOR PAIN FOR UP TO 5 DAYS *MAX OF 40MG IN 24 HOURS* 20 Tablet 0 01/27/2023 Active Shower ChairIndications:Ma lignant neoplasm metastatic to lung, unspecified laterality (HC),Primary malignant neoplasm of lung, unspecified laterality (HC) For home use. 1 Each 0 02/17/2023 Active Diaper,Brief, Adult,DisposableInd ications:Stress incontinence of urine For home use. 120 Each 02/17/2023 Active oxygen-air delivery systems (HOME OXYGEN)Indications: Chronic obstructive pulmonary disease, unspecified COPD type (HC) Portable oxygen with conserving device. Need for 99 months 2 LPM 0 02/24/2023 Active Blood Pressure Monitor KitIndications:Viv gnant neoplasm metastatic to right lung (HC) Frequency of testing: daily 1 Each 0 03/24/2023 Active oxyCODONE (ROXICODONE) 5 mg immediate release tabletIndications:C hest wall pain,Malignant neoplasm metastatic to lung, unspecified laterality (HC) Take 1 Tablet (5 mg) by mouth every 4 hours if needed for Pain. 30 Tablet 0 04/05/2023 Active morphine CONTROLLED-RELEASE (MS CONTIN) 15 mg tabletIndications:M alignant neoplasm metastatic to right lung (HC) Take 1 Tablet (15 mg) by mouth two times daily. This is a chronic diagnosis 60 Tablet 0 04/08/2023 Active LORazepam (ATIVAN) 0.5 mg tabIndications:Gene ralized anxiety disorder Take 1 Tablet (0.5 mg) by mouth every 6 hours if needed for Anxiety. 24 Tablet 0 12/08/2022 4 Discontinue d(*Med complete/Re gimen complete/Le sheldon of care change) oxyCODONE (ROXICODONE) 5 mg immediate release tabletIndications:C hest wall pain,Malignant neoplasm metastatic to lung, unspecified laterality (HC) Take 1 Tablet (5 mg) by mouth every 4 hours if needed for Pain. 30 Tablet 0 03/10/2023 4 Discontinue d(Reorder (E-cancel not sent)) Pulse OximeterIndications :Malignant neoplasm metastatic to right lung (HC) For home use. 1 Each 0 03/24/2023 4 oxyCODONE (ROXICODONE) 5 mg immediate release tabletIndications:C hest wall pain,Malignant neoplasm metastatic to lung, unspecified laterality (HC) Take 1 Tablet (5 mg) by mouth every 4 hours if needed for Pain. 30 Tablet 0 03/30/2023 4 Discontinue d(Reorder (E-cancel not sent)) morphine CONTROLLED-RELEASE (MS CONTIN) 15 mg tabletIndications:M alignant neoplasm metastatic to right lung (HC) Take 1 Tablet (15 mg) by mouth two times daily. This is a chronic diagnosis 60 Tablet 0 04/07/2023 4 Discontinue d(Reorder (E-cancel not sent)) Active Problems Problem Noted Date Diagnosed Date Type 2 diabetes mellitus wit h diabetic peripheral angiopathy without gangrene, without long-term current use of insulin 04/07/2023 Malignant neoplasm metastatic to lung 06/07/2021 Chronic obstructive pulmonary disease 06/07/2021 Depression, recurrent 06/07/2021 Type 2 diabetes mellitus with unspecified compli cations 06/07/2021 Pain medication agreement 01/14/2021 Overview: Metastatic rectal cancer. Lung cancer. Hypertensive heart disease with heart failure Peripheral vascular disease 10/03/2018 Atherosclerotic heart diseas e of menominee coronary artery with other forms of angina pectoris 10/03/2018 Controlled substance agreement signed 04/26/2017 Overview: Signed: 10/22/14: Amanda Del Cid, TUBER MACHINE OPERATOR HELPER, BC, DIESEL STATIONARY ENGINEER /mf Long QT interval 06/01/2016 Junctional rhythm 05/30/2016 Right ventricular dysfunction 05/30/2016 Hypotension, unspecified 05/30/2016 Chest pain of uncertain etiology 05/30/2016 Medical non-compliance 05/28/2016 Generalized abdominal pain 05/28/2016 Thrombocytopenia 05/28/2016 Rectal cancer 01/20/2016 Overview: Metastatic to lung. PTSD (post-traumatic stress disorder) 11/29/2014 Accelerating angina 06/13/2014 Controlled substance agreement signed 11-22-13 ER X 12/03/2013 Dysthymic disorder 06/03/2011 Diabetes mellitus, type 2 09/14/2010 CAD (coronary artery disease) Overview: - s/p CAB x 3 in [place] 09/27/2006: MAXWELL - LAD, SVG - OM2, SVG -dRCA - Angiogram 10/04/2006: SVG - OM totally occluded at proximal portion (no intervention performed); MAXWELL - LAD and SVG - dRCA patent. - angiogram 06/13/14: s/p SONJA Distal SVG-RCA anastomosis HTN (hypertension) Overview: Updated by system to replace inactive record Hyperlipidemia LDL goal < 70 Tobacco use disorder Pain Debility Resolved Problems Problem Noted Date Diagnosed Date Resolved Date Chronic pulmonary edema 01/14/2021 08/0 06/2021 Ileostomy status 10/03/2018 02/22/2019 PAF (paroxysmal atrial fibri llation) with rapid ventricular response 06/01/2016 07/05/2018 Severe malnutrition 05/29/2016 07/06/19 KAT (acute kidney injury) 05/28/2016 Metabolic acidosis, normal anion gap (NAG) 05/28/2016 07/05/2018 Anxiety state, unspecified r ule out PTSD and panic disorder 08/26/2014 11/29/2014 Anxiety 06/27/2014 08/26/2014 Anxiety 06/27/2014 Acute kidney injury 02/23/20 19 Delirium 02/22/2019 Encounters Date Type Department Care Team Description 04/08/2023 Telephone [facility] [address] [place] [address] Byron Mondragon MD Medication Management 04/07/2023 4:10 PM NURSING DEPARTMENT CHAIRPERSON Office Visit [address] [address] Byron Mondragon MD Medication Management (pain) 04/07/2023 Travel 04/05/[address] [address] Byron Mondragon MD Appointment Request (THIS AFTERNOON) 04/04/2023 Orders Only [facility] Scanner 1 scan: (1-Ord) [facility], MR HEAD/BRAIN WO/W CON, 04/04/2023 03/31/2023 Telephone [facility] [address] [place] [address] Byron Mondragon MD Questions 03/30/[address] [address] Byron Mondragon MD Refill Request (oxyCODONE (ROXICODONE) 5 mg) 03/29/[address] [address] Byron Mondragon MD 03/24/[address] [address] Byron Mondragon MD ORDERS (Blood pressure cuff and pulse oximeter) 03/16/[address] [address] Byron Mondragon MD 03/10/[address] [address] Byron Mondragon MD Medication Management (oxyCODONE (ROXICODONE) 5 mg immediate release tablet.//) 02/24/2023 Telephone [facility] [address] [place] [address] Byron Mondragon MD Medication Management (nitrofurantoin ) 02/24/2023 Telephone [facility] [address] [place] [address] Byron Mondragon MD 02/24/[address] [address] Byron Mondragon MD Medication Management (oxygen-air delivery systems (HOME OXYGEN)) 02/17/2023 3:20 PM NURSING DEPARTMENT CHAIRPERSON Office Visit [address] [address] Byron Mondragon MD Urinary Problem (Dysuria, burning, frequency, x 5 days) 02/17/2023 Travel 02/17/2023 Nurse Triage [address] [address] Byron Mondragon MD Urinary Problem 02/17/[address] [address] Byron Mondragon MD ORDERS 02/16/[address] [address] Byron Mondragon MD 02/02/[address] [address] Byron Mondragon MD 02/01/[address] [address] Byron Mondragon MD 01/27/[address] [address] Byron Mondragon MD Form 01/26/[address] [address] Byron Mondragon MD Refill Request (Ketorolac) 01/25/2023 Telephone [facility] [address] [place] [address] VoteByron shepherd MD Form 01/19/2023 Telephone [facility] [address] [place] [address] ToroteByron shepherd MD Questions 01/13/2023 Telephone [facility] [address] [place] [address] VoteByron shepherd MD Form 01/12/2023 Telephone [facility] [address] [place] [address] VotelByron MD Prior Authorization (ketorolac (TORADOL) 10 mg tablet (Approved 12/29/2022-01/12/2024) ) 01/12/2023 Telephone [facility] [address] [place] [address] VotelByron MD from Last 3 Months Immunizations Name Administration Dates Next Due COVID-19 vaccine (Euro Dream Heat 30mcg/0.3mL) 12YO+ MERLYN-SUCROSE PF MDV 06/04/2021 DT (Age < 7 years) 10/27/1987 Dtap-5 Pertussis Antigens 10/27/1987 Influenza, High-dose Inactivated 01/16/2016 Influenza, IIV3 (Age >=3 years) 11/27/2014 Influenza, Inactivated AIIV4 (Age 65+ Years) Preserv Free 01/21/2021 Pneumococcal Poly,23-Valent (Pneumovax) 08/21/19 11 Pneumococcal conj 13-Valent (Prevnar 13) 015 Td, Preservative Free (age >= 7 Years) 1 Tdap 08/20/2010 Zoster (Zostavax-ZVL, live) 09/02/2011 Family History Medical History Relation Name Comments Other Brother AVM at base of skull Heart Disease Father cabg. of stroke following Other Mother ruptured brain aneurysm Cancer-breast Paternal Aunt Relation Name Status Comments Brother Father (Age 70) CAD, CVA Mother (Age 50s) brain ane urysym Paternal Aunt Social History Tobacco Use Types Packs/Day Years Used Date Smoking Tobacco: Some Days Cigarettes 0.3 60 Started: [birth year]1957; Last attempted to quit: 06/12/2017 Smokeless Tobacco: Never Tobacco Cessation:Ready to Q uit: No; Counseling Given: Yes Alcohol Use Standard Drinks/Week Comments Yes 2 (1 standard drink = 0.6 oz pur e alcohol) occ PHQ-2 Answer Date Recorded PHQ-2 TOTAL SCORE 2 06/04/2021 Social Connections Answer Date Recorded Frequency of Communication with Friends and Fami ly 0 11/03/2022 Financial Resource Strain Answer Date R ecorded Difficulty of Paying Living Expenses 3 11/03/2022 Difficulty of Paying Living Expenses Not on file 11/03/2022 Food Insecurity Answer Date Recorded Worried About Running Out of Food in the Last Ye ar 1 11/03/2022 Transportation Needs Answer Date Record ed Lack of Transportation (Medical) 1 11/03/2022 Housing Stability Answer Date Recorded Unable to Pay for Housing in the Last Year 1 11/03/2022 Sex and Gender Information Value Date Recorded Sex Assigned at Not on file Gender Identity Not on file Sexual Orientation Not on file Obstetrics History Para Term AB IAB SAB Ectopic Multiple Livin g Live Births 2 2 Date Outcome GA Total Labor Labor/2nd/3rd Weight Sex Delivery Anes PTL Lynnette A1 A5 Name Cl in Para Para Last Filed Vital Signs Vital Sign Reading Time Taken Comments Blood Pressure 125/87 04/07/2023 4:13 PM NURSING DEPARTMENT CHAIRPERSON Pulse 68 04/07/2023 4:13 PM NURSING DEPARTMENT CHAIRPERSON Temperature 36.5 ??C (97.7 ??F) 11/25/2022 1:41 PM CD T Respiratory Rate 18 04/01/2022 1:29 PM NURSING DEPARTMENT CHAIRPERSON Oxygen Saturation 96% 04/07/2023 4:13 PM NURSING DEPARTMENT CHAIRPERSON Inhaled Oxygen Concentration - - Weight 52.9 kg (116 lb 11.2 oz) 04/07/2023 4:13 PM NURSING DEPARTMENT CHAIRPERSON Height 160.3 cm (5' 3.1) 04/07/2023 4:13 PM NURSING DEPARTMENT CHAIRPERSON Body Mass Index 20.61 04/07/2023 4:13 PM NURSING DEPARTMENT CHAIRPERSON Plan of Treatment Upcoming Encounters Date Type Department Care Team (Late st Contact Info) Description 04/28/2023 1:40 PM NURSING DEPARTMENT CHAIRPERSON Office Visit [facility] [address] [place] [address] Byron Mondragon MD [address] [place] [address] Procedures Procedure Name Priority Date/Time Associated Diagnosis Comments SCAN-MRI INTERPRETATION 04/04/19 12:00 AM NURSING DEPARTMENT CHAIRPERSON URINALYSIS MICROSCOPIC Routine 3:15 PM NURSING DEPARTMENT CHAIRPERSON Dysuria UA W/ SEDIMENT EXAM REFLEXED PER CRITERIA Routine 02/17/2023 3:15 PM NURSING DEPARTMENT CHAIRPERSON Dysuria from Last 3 Months Results * SCAN-MRI INTERPRETATION (04/04/2023 12:00 AM NURSING DEPARTMENT CHAIRPERSON) Anatomical Region Laterality Modality Other Scanner OTHER * (ABNORMAL) URINALYSIS MICROSCOPIC (02/17/2023 3:15 PM NURSING DEPARTMENT CHAIRPERSON) RBC 0-2 0-2, None Seen /HPF 02/17/2023 3:38 PM NURSING DEPARTMENT CHAIRPERSON [facility] WBC 11-25(A) 0-2, 3-5, None Seen /HPF 02/17/2023 3:38 PM NURSING DEPARTMENT CHAIRPERSON [facility] BACTERIA Few None Seen, Rare, Few Bacteria/H PF 02/17/2023 3:38 PM NURSING DEPARTMENT CHAIRPERSON [facility] EPITHELIAL CELLS Few None Seen, Few Epi/HPF 02/17/2023 3:38 PM NURSING DEPARTMENT CHAIRPERSON [facility] Urine URINE SPECIMEN / Unknown Non-Blood / Unknown 02/17/2023 3:15 PM NURSING DEPARTMENT CHAIRPERSON 02/17/2023 3:30 PM NURSING DEPARTMENT CHAIRPERSON Byron Mondragon MD URINE [facility] [address] [place] [address], * (ABNORMAL) UA W/ SEDIMENT EXAM REFLEXED PER CRITERIA (02/17/2023 3:15 PM NURSING DEPARTMENT CHAIRPERSON) COLOR Yellow Yellow Color 02/17/2023 3:38 PM NURSING DEPARTMENT CHAIRPERSON [facility] CLARITY Clear Clear Clarity 02/17/2023 3:38 PM NURSING DEPARTMENT CHAIRPERSON [facility] SPECIFIC GRAVITY,URINE 1.020 1.010, 1.015, 1.020, 1.025 02/17/2023 3:38 PM NURSING DEPARTMENT CHAIRPERSON [facility] PH,URINE 7.0 6.0, 7.0, 8.0, 5.5, 6.5, 7.5, 8.5 02/17/2023 3:38 PM NURSING DEPARTMENT CHAIRPERSON [facility] UROBILINOGEN, QUALITATIVE Normal Normal EU/dl 02/17/2023 3:38 PM NURSING DEPARTMENT CHAIRPERSON [facility] PROTEIN, URINE Negative Negative mg/dL 02/17/2023 3:38 PM NURSING DEPARTMENT CHAIRPERSON [facility] GLUCOSE, URINE Negative Negative mg/dL 02/17/2023 3:38 PM NURSING DEPARTMENT CHAIRPERSON [facility] KETONES,URINE Negative Negative mg/dL 02/17/2023 3:38 PM NURSING DEPARTMENT CHAIRPERSON [facility] BILIRUBIN,URI NE Negative Negative 02/17/2023 3:38 PM NURSING DEPARTMENT CHAIRPERSON [facility] OCCULT BLOOD,URINE Negative Negative 02/17/2023 3:38 PM NURSING DEPARTMENT CHAIRPERSON [facility] NITRITE Negative Negative 02/17/2023 3:38 PM NURSING DEPARTMENT CHAIRPERSON [facility] LEUKOCYTE ESTERASE Moderate(A) Negative 02/17/2023 3:38 PM NURSING DEPARTMENT CHAIRPERSON [facility] Urine URINE SPECIMEN / Unknown Non-Blood / Unknown 02/17/2023 3:15 PM NURSING DEPARTMENT CHAIRPERSON 02/17/2023 3:30 PM NURSING DEPARTMENT CHAIRPERSON Byron Mondragon MD URINE Performing Organization Address City/State/[facility] Co de Phone Number [facility] [address] [place] [address], [place] [phone] from Last 3 Months Advance Directives Documents on File Type Date Recorded Patient Application Security Developer Expl anation Treatment Guidelines 08/20/2016 3:11 PM HO ME* DNR REQUEST FORM, [facility], 08/17/2016 Latest Code Status on File Code Status Date Activated Date Inactivated Comments Full Code 04/01/2022 7:49 AM 04/01/2022 4:05 PM Question Answer Comments Code Status Discussion: Reviewed Preferences Code Status History Code Status Date Activated Date Inactivated Comments Full Code 03/12/2020 10:27 AM 03/12/2020 4:25 PM Question Answer Comments Code Status Discussion: Per Existing Order DNR 06/01/2016 1:51 PM 06/07/2016 2:34 PM Full Code 05/30/2016 2:55 PM 06/01/2016 1:51 PM Full Code 05/28/2016 3:32 PM 05/30/2016 2:55 PM Question Answer Comments Code Status Discussion: Discussed Care Teams [employer] Relationship Specialty Start Date End Date Votel, Byron Cota MD [address] [place] [address] PCP - General Family Practice 11/26/20 Renetta Gill LP Psychologist Psychology 05/20/11 Hue Mayes MD [address] [facility] [address] [place] [address] Rheumatology Rheumatology 12/08/15 Conchita Pierson RN [facility] [place] [address] Pharmacologist - [facility] Registered Nurse 04/28/21 Miri Norton RN [address] [place] [address] [address] [place], [place] [id number] Pharmacologist - [facility] Registered Nurse 04/28/21
== END 2023-04-14 16:09 | disposition home or self-care (01) ==
LOC: RAD 16:08
PROVIDERS: PCP Family Medicine; Visit Provider Internal Medicine Hematology & Oncology
DX: C20 Malignant neoplasm of rectum (principal); R91.8 Other nonspecific abnormal finding of lung field; C34.90 Malignant neoplasm of unspecified part of unspecified bronchus or lung
CPT/HCPCS: 78815; A9552

== ENCOUNTER 2023-04-19 11:30 | Outpatient (RCR) | payer MEDICARE, OTHER, MEDICAID, SELFPAY ==
--- NOTE | 2022-12-07 13:58 | ONC.NURNOTE ---
phone # listed in EMR is no longer active Message left for Daughter to call with a current contact number
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
[2022-12-13] MEDS: SODIUM CHLORIDE 0.9 % (FLUSH) 10 ML SYRINGE IVF (10:02)
[2022-12-13] MEDS: HEPARIN 500 UNIT/5 ML SYRINGE IVF (10:02)
--- NOTE | 2022-12-23 13:49 | ONC.NURNOTE ---
Patient called stating she wasn't coming in for her PET scan because she couldn't go without her oxygen and doesn't have her portable tank yet. Is asking if it would be ok to just have CT scan. Let her know this will be discussed with Dr. sawyer on Tuesday.
[2023-01-04 10:37] LABS: Basophils Absolute Auto 0.03 K/uL (0.00-0.30); Basophils Percent Auto 0.6 % (0.0-3.0); Eosinophils Absolute Auto 0.14 K/uL (0.00-0.50); Eosinophils Percent Auto 2.7 % (0.0-7.0); Hematocrit 36.3 % (33.0-51.0); Hemoglobin* 12.1 gm/dL (12.0-16.0); Lymphocytes Absolute Auto 1.58 K/uL (0.90-2.90); Lymphocytes Percent Auto 30.9 % (20-44); Mean Corpuscular HGB Conc 33 gm/dL (32-36); Mean Corpuscular Hemoglobin 29 pg (26-34); Mean Corpuscular Volume 88 fL (80-100); Monocytes Percent Auto 7.8 % (0.0-11.0); Neutrophils Absolute Auto 2.97 K/uL (1.7-7.0); Platelet Count* 186 K/uL (140-440); RDW Coefficient of Variation % 14.1 % (11.5-15.5); Red Blood Count 4.13 m/uL (4.00-5.20); White Blood Count* 5.12 K/uL (4.50-11.00)
[2023-01-04 10:38] LABS: Albumin* 3.7 g/dL (3.3-5.0)
[2023-01-04 10:39] LABS: Chloride* 111 mmol/L (96-114); Potassium* 3.7 mmol/L (3.6-5.1); Slide Review Reflex No; Sodium* 142 mmol/L (135-149)
[2023-01-04] MEDS: SODIUM CHLORIDE 0.9 % (FLUSH) 10 ML SYRINGE IVF (10:39)
[2023-01-04] MEDS: HEPARIN 500 UNIT/5 ML SYRINGE IVF (10:39)
[2023-01-04 10:41] LABS: Anion Gap 6 mEq/L (7-15); Aspartate Amino Transferase* 28 U/L (12-35); Bilirubin Total* 0.5 mg/dL (0.1-1.5); Carbon Dioxide* 25 mmol/L (20-32); Creatinine* 0.6 mg/dL (0.5-1.5); Estimated Glomerular Filt Rate 95 ml/min; Total Protein* 6.9 g/dL (6.0-8.3)
[2023-01-04 10:42] LABS: Alanine Aminotransferase* 13 U/L (4-35); Alkaline Phosphatase* 69 U/L (40-150); Blood Urea Nitrogen* 10 mg/dL (7-30); Calcium* 9.2 mg/dL (8.4-10.6); Glucose* 93 mg/dL (60-115)
--- NOTE | 2023-01-04 10:44 | ONC.NURNOTE ---
Reports ongoing loose stool and hard stools taking stool softener/laxative 2 BID- not sure the name baseline is soft to loose stools up to 4 times a day Selena states when she holds the softener/laxative- she is bloated, with hard small BM's so Selena states she is more comfortable with freq loose stools she is followed by [facility] appt next week with Dr Barber
[2023-01-06 17:15] LABS: Carcinoembryonic Antigen 67.3 ng/mL
--- NOTE | 2023-01-13 11:01 | ONC.NURNOTE ---
Order for Alecia faxed to [facility].
[2023-02-02 14:39] LABS: Basophils Absolute Auto 0.03 K/uL (0.00-0.30); Basophils Percent Auto 0.6 % (0.0-3.0); Eosinophils Absolute Auto 0.14 K/uL (0.00-0.50); Eosinophils Percent Auto 2.7 % (0.0-7.0); Hematocrit 37.6 % (33.0-51.0); Hemoglobin* 12.2 gm/dL (12.0-16.0); Lymphocytes Absolute Auto 1.92 K/uL (0.90-2.90); Lymphocytes Percent Auto 37.5 % (20-44); Mean Corpuscular HGB Conc 32 gm/dL (32-36); Mean Corpuscular Hemoglobin 29 pg (26-34); Mean Corpuscular Volume 89 fL (80-100); Monocytes Percent Auto 8.2 % (0.0-11.0); Neutrophils Absolute Auto 2.61 K/uL (1.7-7.0); Platelet Count* 167 K/uL (140-440); RDW Coefficient of Variation % 13.3 % (11.5-15.5); Red Blood Count 4.24 m/uL (4.00-5.20); White Blood Count* 5.12 K/uL (4.50-11.00)
[2023-02-02 14:44] LABS: Slide Review Reflex No
[2023-02-02 14:54] LABS: Albumin* 4.1 g/dL (3.3-5.0); Chloride* 106 mmol/L (96-114)
[2023-02-02 14:55] LABS: Sodium* 140 mmol/L (135-149)
[2023-02-02 14:57] LABS: Anion Gap 9 mEq/L (7-15); Aspartate Amino Transferase* 23 U/L (12-35); Bilirubin Total* 0.3 mg/dL (0.1-1.5); Carbon Dioxide* 25 mmol/L (20-32); Creatinine* 0.6 mg/dL (0.5-1.5); Estimated Glomerular Filt Rate 95 ml/min; Total Protein* 7.2 g/dL (6.0-8.3)
[2023-02-02 14:58] LABS: Alanine Aminotransferase* 13 U/L (4-35); Alkaline Phosphatase* 71 U/L (40-150); Blood Urea Nitrogen* 13 mg/dL (7-30); Calcium* 9.1 mg/dL (8.4-10.6); Glucose* 131 mg/dL (60-115)
[2023-03-04 13:44] LABS: Basophils Absolute Auto 0.04 K/uL (0.00-0.30); Basophils Percent Auto 0.7 % (0.0-3.0); Eosinophils Absolute Auto 0.12 K/uL (0.00-0.50); Eosinophils Percent Auto 2.2 % (0.0-7.0); Hematocrit 37.3 % (33.0-51.0); Hemoglobin* 12.3 gm/dL (12.0-16.0); Immature Granulocytes Abs Auto 0.01 K/uL (0.00-0.30); Immature Granulocytes Pct Auto 0.2 %; Lymphocytes Percent Auto 45.6 % (20-44); Mean Corpuscular HGB Conc 33 gm/dL (32-36); Mean Corpuscular Hemoglobin 29 pg (26-34); Mean Corpuscular Volume 87 fL (80-100); Monocytes Percent Auto 8.2 % (0.0-11.0); Neutrophils Absolute Auto 2.37 K/uL (1.7-7.0); Neutrophils Percent Auto 43.1 % (42.0-72.0); Platelet Count* 179 K/uL (140-440); RDW Coefficient of Variation % 13.4 % (11.5-15.5); Red Blood Count 4.27 m/uL (4.00-5.20)
[2023-03-04 13:52] LABS: Slide Review Reflex No
[2023-03-04 14:00] LABS: Albumin* 4.1 g/dL (3.3-5.0); Chloride* 109 mmol/L (96-114); Potassium* 3.6 mmol/L (3.6-5.1); Sodium* 141 mmol/L (135-149)
[2023-03-04 14:03] LABS: Alanine Aminotransferase* 12 U/L (4-35); Alkaline Phosphatase* 68 U/L (40-150); Anion Gap 6 mEq/L (7-15); Aspartate Amino Transferase* 24 U/L (12-35); Bilirubin Total* 0.5 mg/dL (0.1-1.5); Blood Urea Nitrogen* 7 mg/dL (7-30); Carbon Dioxide* 26 mmol/L (20-32); Creatinine* 0.5 mg/dL (0.5-1.5); Estimated Glomerular Filt Rate 99 ml/min; Glucose* 126 mg/dL (60-115); Total Protein* 7.2 g/dL (6.0-8.3)
[2023-03-04 14:04] LABS: Calcium* 9.1 mg/dL (8.4-10.6)
--- NOTE | 2023-03-10 14:12 | PC.NURSE ---
Pt and her home nurse, Ashli, called today with some clarifying questions. RN answered questions to their satisfaction and re-arranged her schedule to accommodate lab draws and port access for MRI and PET scan the week of 04/04/2023. Pt verbalized understanding. Selena will see Dr. Barber the following week on 04/13/2023.
--- NOTE | 2023-03-30 14:21 | PC.NURSE ---
Welder Tech received a call from [facility] requesting new/updated insurance information for Selena in anticipation of PET scan on 04/14/2023. RN noted that port access for PET scan had been scheduled for , 04/07/2023, however, confirmed with [facility] that the PET truck is not here that day. RN contacted Selena and obtained new insurance info ([facility] , Group: [employer]) and called [facility] with the updated info. RN called back later in the day to check on insurance status as there was a chance the scan could be moved to 03/31/2023. Welder Tech was informed that no PA was required but that 03/31/2023 was fully booked. Pt's new schedule is as follows: 04/04/2023: Brain MRI (port access at [facility]) 04/14/2023: PET scan (port access at [facility]) 04/19/2023: Dr. Barber follow-up. Pt aware and verbalized understanding. Will print her schedule to picking tech when at [facility] on 04/04/2023 for port access.
--- NOTE | 2023-03-31 13:33 | PC.NURSE ---
Addendum entered by Elizabeth Gonzales RN 03/31/23 14:11: Bicycle I Assembler contacted patient and her HomeCare nurse who was there and stated it would be 5 days earlier if we moved to [facility] and at this point they have decided to wait and have contacted PCP as this pain has gotten worse but is the same backpain she's had for last month or more and get more pain medicine. Original Note: Pt and her home nurse called today to report concern with timing of appointments. Selena is experiencing 10/10 RUQ/back pain and is requiring more Oxycodone (ordered by PCP). Pt is taking 3-4 tablets per day (5 mg each). Selena asked if she can have her PET scan sooner and see MD sooner. RN discussed with WILBUR Johnson who will look into scheduling changes.
[2023-04-04] MEDS: SODIUM CHLORIDE 0.9 % (FLUSH) 10 ML SYRINGE IVF ×2 (14:12→15:08)
[2023-04-04 14:15] LABS: Basophils Absolute Auto 0.04 K/uL (0.00-0.30); Basophils Percent Auto 0.8 % (0.0-3.0); Eosinophils Absolute Auto 0.08 K/uL (0.00-0.50); Eosinophils Percent Auto 1.5 % (0.0-7.0); Hematocrit 36.4 % (33.0-51.0); Lymphocytes Absolute Auto 1.79 K/uL (0.90-2.90); Lymphocytes Percent Auto 33.7 % (20-44); Mean Corpuscular HGB Conc 33 gm/dL (32-36); Mean Corpuscular Hemoglobin 29 pg (26-34); Mean Corpuscular Volume 89 fL (80-100); Monocytes Percent Auto 7.7 % (0.0-11.0); Neutrophils Absolute Auto 2.99 K/uL (1.7-7.0); Neutrophils Percent Auto 56.3 % (42.0-72.0); Platelet Count* 217 K/uL (140-440); RDW Coefficient of Variation % 12.9 % (11.5-15.5); Red Blood Count 4.11 m/uL (4.00-5.20); White Blood Count* 5.31 K/uL (4.50-11.00)
[2023-04-04 14:19] LABS: Slide Review Reflex No
[2023-04-04 14:29] LABS: Albumin* 4.2 g/dL (3.3-5.0); Chloride* 105 mmol/L (96-114)
[2023-04-04 14:30] LABS: Sodium* 138 mmol/L (135-149)
[2023-04-04 14:32] LABS: Anion Gap 9 mEq/L (7-15); Bilirubin Total* 0.5 mg/dL (0.1-1.5); Carbon Dioxide* 24 mmol/L (20-32); Creatinine* 0.5 mg/dL (0.5-1.5); Estimated Glomerular Filt Rate 99 ml/min; Total Protein* 7.7 g/dL (6.0-8.3)
[2023-04-04 14:33] LABS: Alanine Aminotransferase* 12 U/L (4-35); Alkaline Phosphatase* 70 U/L (40-150); Blood Urea Nitrogen* 9 mg/dL (7-30); Calcium* 9.3 mg/dL (8.4-10.6); Glucose* 111 mg/dL (60-115); Potassium* 3.7 mmol/L (3.6-5.1)
[2023-04-04 14:34] LABS: Aspartate Amino Transferase* 25 U/L (12-35)
[2023-04-04] MEDS: HEPARIN 500 UNIT/5 ML SYRINGE IVF (15:08)
--- NOTE | 2023-04-13 10:37 | ONC.NURNOTE ---
Lab results reviewed by Dr Barber and called to Selena- with noted rise in CEA reviewed schedule, PET 04/[address] Barber on 04/19 of note Selena reports increase pain under right rib cage that radiates to her back and low abd pain with pain on urination she has been following with Dr Mondragon who evaluated for UTI- no treatment indicated Dr Mondragon has started her on MSC Q 12hrs and oxycodone for break through pain last week Taking senna to manage constipation
--- NOTE | 2023-04-14 14:24 | PC.NURSE ---
Pt due for PET scan today. Pt did not arrive at [facility] for port access. Called Radiology and they report that Selena did not come for her PET scan. Called pt, no answer. Unable to leave a message. Pt is due to see Dr. Barber next week.
[2023-04-14] MEDS: SODIUM CHLORIDE 0.9 % (FLUSH) 10 ML SYRINGE IVF ×4 (16:40→16:51)
[2023-04-14] MEDS: HEPARIN 500 UNIT/5 ML SYRINGE IVF (16:51)
== END 2023-06-11 23:59 | disposition home or self-care (01) ==
LOC: CCIC 11:30
PROVIDERS: PCP Family Medicine; Referring Provider Family Medicine; Visit Provider Internal Medicine Hematology & Oncology
DX: C20 Malignant neoplasm of rectum (principal); C78.01 Secondary malignant neoplasm of right lung; Z99.81 Dependence on supplemental oxygen; F17.200 Nicotine dependence, unspecified, uncomplicated
CPT/HCPCS: 36415; 36591; 70553; 71260; 80053; 82378; 85025; 99211; 99213; 99214; 99215; G0463; A9575; J1642; Q9967

== ENCOUNTER 2023-06-21 12:32 | Outpatient (CLI) | payer OTHER, SELFPAY ==
--- OUTSIDE RECORDS SUMMARY | 2023-06-28 13:13 | XMS_ITS | Clinical Summary ---
Author Name Unknown Organization [facility] Address [place], [place] [address] Care Team Providers Care Computer Technician Name Role Phone GillDiane alvarezjean pierre Schultz LP Unavailable Hue Mayes MD Unavailable [phone] Byron Mondragon MD Primary Care Provider + Conchita Pierson RN Unavailable Miri Norton RN Unavailable [phone] Allergies Active Allergy Reactions Criticality Noted Date [...] enteric coated tabletIndications:C oronary artery disease involving [place] heart without angina pectoris, unspecified vessel or [...] mg sublingual tabletIndications:C oronary artery disease involving [place] heart without angina pectoris, unspecified vessel or [...] disease 10/03/2018 Atherosclerotic heart diseas e of [place] coronary artery with other forms of angina pectoris 10/03/2018 Controlled substance agreement signed 04/26/2017 Overview: Signed: 10/22/14: Amanda Del Cid, KNITTED GARMENT FINISHER, BC, DIRECTOR TALENT /mf Long QT interval 06/01/2016 Junctional rhythm [...] Encounters Date Type Department Care Team Description 06/27/2023 Telephone [facility] [[email or web address] [address] [place] [address] Votel, Byron Cota MD update (Update/) 06/21/2023 Orders Only [facility] Scanner 1 scan: (1-Ord) [facility], XR CHEST 1V, 06/21/2023 06/21/2023 Orders Only [facility] Scanner 1 scan: (1-Ord) [facility], ANGIO CHEST , 06/21/2023 06/10/[address] [address] Byron Mondragon MD Prior Authorization (morphine CONTROLLED RELEASE (MS CONTIN) 30 mg CR tablet APPROVED (06/10/23-06/09/24)) 06/09/[address] [address] Byron Mondragon MD Prior Authorization 05/31/[address] [address] Byron Mondragon MD Refill Request (oxyCODONE, morphine) 05/24/[address] [address] Byron Mondragon MD 05/19/[address] [address] Byron Mondragon MD Refill Request (oxyCODONE 10 mg tablet ) 05/10/[address] [address] Byron Mondragon MD Questions (QUESTIONS) 05/05/[address] [address] Byron Mondragon MD Medication Management (morphine CONTROLLED-RELEASE (MS CONTIN) 15 mg tablet & oxyCODONE (ROXICODONE) 5 mg immediate release tablet) 05/02/2023 Nurse Triage [address] [address] Byron Mondragon MD Chest Pain 05/02/[address] [address] Byron Mondragon MD Refill Request (Oxycodone) 05/02/[address] [address] Byron Mondragon MD Error-please disregard 04/30/2023 Refill [facility] [[email or web address]] [address] [place] [address] Byron Mondragon MD Refill Request (oxyCODONE (ROXICODONE) 5 mg immediate release tablet) 04/28/[address] [address] Byron Mondragon MD Questions 04/22/2023 Telephone [facility] [[email or web address]] [address] [place] [address] Cnochita Fontana DO Refill Request (oxycodone) 04/22/2023 Refill [facility] [[email or web address]] [address] [place] [address] Byron Mondragon MD Refill Request (oxyCODONE (ROXICODONE) 5 mg immediate release tablet) 04/21/2023 Telephone [facility] [[email or web address]] [address] [place] [address] Byron Mondragon MD Medication Management 04/14/2023 Orders Only [facility] Scanner 1 scan: (1-Ord) [facility], PET/CT EYES TO THIGH, CANCER RESTAGING, 04/14/2023 04/08/[address] [address] Byron Mondragon MD Medication Management 04/07/2023 4:10 PM AUTOMOTIVE TIRE WORKER Office Visit [address] [address] Byron Mondragon MD Medication Management (pain) 04/07/2023 Travel 04/05/[address] [address] Byron Mondragon MD Appointment Request (THIS AFTERNOON) 04/04/2023 Orders Only [facility] Scanner 1 scan: (1-Ord) [facility], MR HEAD/BRAIN WO/W CON, 04/04/2023 03/31/2023 Telephone [facility] [[email or web address]] [address] [facility] [address] Votel, Byron Cota MD Questions 03/30/2023 Refill [facility] [[email or web address]] [address] [facility] [address] VotelByron MD Refill Request (oxyCODONE (ROXICODONE) 5 mg) 03/29/2023 Telephone [facility] [[email or web address]] [address] [facility] [address] Votel, Byron Cota MD from Last 3 Months Immunizations Name Administration Dates Next Due COVID-19 vaccine ([employer] 30mcg/0.3mL) 12YO+ MERLYN-SUCROSE MD MIKEV 06/04/2021 DT (Age < 7 years) 10/27/1988 [...] Comments Blood Pressure 125/87 04/07/2023 4:13 PM AUTOMOTIVE TIRE WORKER Pulse 68 04/07/2023 4:13 PM AUTOMOTIVE TIRE WORKER Temperature 36.5 ??C (97.7 ??F) 11/25/2022 1:41 PM CD T Respiratory Rate 18 04/01/2022 1:29 PM AUTOMOTIVE TIRE WORKER Oxygen Saturation 96% 04/07/2023 4:13 PM AUTOMOTIVE TIRE WORKER Inhaled Oxygen Concentration - - Weight 52.9 kg (116 lb 11.2 oz) 04/07/2023 4:13 PM AUTOMOTIVE TIRE WORKER Height 160.3 cm (5' 3.1) 04/07/2023 4:13 PM AUTOMOTIVE TIRE WORKER Body Mass Index 20.61 04/07/2023 4:13 PM AUTOMOTIVE TIRE WORKER Plan of Treatment Upcoming Encounters Date Type Department Care Team (Late st Contact Info) Description 07/01/2023 12:45 PM CDT Office Visit [facility] [[email or web address]] [address] [place] [address] Chandni Avery PA [address] [place] [address] Procedures Procedure Name Priority Date/Time Associated Diagnosis Comments SCAN-RADIOLOGY REPORT 06/21/2023 12:00 AM CDT SCAN-CT INTERPRETATION 12:00 AM CDT SCAN-PET SCAN 04/14/2023 12:00 AM AUTOMOTIVE TIRE WORKER SCAN-MRI INTERPRETATION 04/04/19 12:00 AM AUTOMOTIVE TIRE WORKER from Last 3 Months Results * SCAN-RADIOLOGY REPORT (06/21/2023 12:00 AM CDT) Anatomical Region Laterality Modality Other Scanner OTHER * SCAN-CT INTERPRETATION (06/21/2023 12:00 AM CDT) Anatomical Region Laterality Modality Other Scanner OTHER * SCAN-PET SCAN (04/14/2023 12:00 AM AUTOMOTIVE TIRE WORKER) Anatomical Region Laterality Modality Other Scanner OTHER * SCAN-MRI INTERPRETATION (04/04/2023 12:00 AM AUTOMOTIVE TIRE WORKER) Anatomical Region Laterality Modality Other Scanner OTHER from Last 3 Months Advance Directives Documents on File Type Date Recorded 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 Expl anation Treatment Guidelines 08/20/2016 3:11 PM HO ME* DNR REQUEST FORM, KEITH LAUREN, 08/17/2016 * Full Code (Latest Code Status [...] Comments Code Status Discussion: Discussed Care Teams Computer Technician Relationship Specialty Start Date End Date Votel, Byron Cota MD [address] [place] [id number] PCP - General Family Practice 11/26/20 Renetta Gill LP Psychologist Psychology 05/20/11 Hue Mayes MD [address] [address] Rheumatology Rheumatology 12/08/15 Conchita Pierson RN [address] [facility] [address] [place], [place] [id number] Water Regulator And Valve Repairer - [employer] Registered Nurse 04/28/21 Miri Norton RN [address] [facility] [address] [place] [address] Water Regulator And Valve Repairer - [employer] Registered Nurse 04/28/21
== END 2023-06-21 12:33 | disposition home or self-care (01) ==
LOC: AMB 06-28 13:10
PROVIDERS: PCP Family Medicine; Visit Provider Family Medicine
DX: R06.09 Other forms of dyspnea (principal); R53.1 Weakness
CPT/HCPCS: A0425; A0429

== ENCOUNTER 2023-06-21 13:01 | Inpatient (IN) | payer OTHER, SELFPAY ==
[2023-06-21] VITALS (29 sets, daily range): BP systolic 129–179; BP diastolic 61–113; PULSE 61–120; RESP 10–22; TEMP 36.4–36.9; O2SAT 90–99; BMI 19.5; BMI 18.1
--- NOTE | 2023-06-21 13:10 | ED.GENADULT ---
HPI - General Adult General Date Seen: 06/21/23 Chief complaint: Shortness of Breath/Dyspnea Stated complaint: Difficulty breathing Time Seen by Provider: 06/21/23 13:09 History of Present Illness HPI narrative: 73-year-old female presenting to the ER today by EMS for shortness of breath. She has a history of metastatic colon cancer with known metastasis to her lungs. She has been doing with his cancer for about 6 years or so. She reports that she has had some surgical resection and also had been on IV chemotherapy years ago but had life-threatening complications. She is currently on oral chemotherapy, Sotorasib. She also has advanced COPD and is on home oxygen 2 L since last September. She has back pain and takes morphine extended release 15 mg twice daily and oxycodone 2-3 times per day. From oncology note 04/19/2023 Selena has metastatic rectal cancer, status post 5 FU based chemotherapy (in adjuvant setting) with significant toxicity requiring ICU admission, also developed significant toxicity to regorafenib--> lack of motivation to pursue further systemic treatment therefore regorafenib was discontinued 07/2018--> has been on watchful observation since then--> worsening disease on PET scan from 08/23/2019 in the right hemithorax/pleural metastases/started on irinotecan on 09/19/2019, with dose fluctuations between 200 milligrams/meter sq versus 250 milligrams/meter squared every 21 days, tolerating 200 milligrams/meter sq every 21 days -ECOG 2+ -08/14/2019 [employer] -ve for MET amplification, RET arrangement; PTEN deletion; +KRAS Mut; +ve SMAD4 mut; MSI stable; TMB low; PDL1 (insufficient tissue) -on irinotecan since 09/19/2019 at 200 milligrams/meter sq -09/24/2020 discontinued irinotecan and Keytruda -CEA is gradually rising and CT abdomen pelvis consistent with right pleural based nodules increasing in size : 09/14/2020 Plan -Sotorasib placed on 09/24/2020 --> currently taking 5-6 tablets -lung biopsy 03/2022 followed by liquid biopsy without any actionable mutations/no eligible clinical trials -for now we will continue with Sotorasib -scans reviewed : PET scan from 03/2023, CBC CMP from 04/04/2023 reviewed -unfortunately CEA has increased from 67.3 on 01/04/2023 to 102 on 04/04/2023. -other options like Lonsurf/fruquintinib, may be associated with significant toxicity due to her worsening performance status. -Selena and her son Daniel have realistic and pragmatic expectations. -return visit in 3 months with PET scan CBC CMP CEA and MRI brain. #other options -like Lonsurf/fruquintinib, may be associated with significant toxicity due to her worsening performance status. -possible future treatment options may consider addition of PDL1 treatment again (she has been treated with Keytruda in the past as well) -of note she has significant toxicity with 5 FU based adjuvant treatment requiring ICU admission in 2017, therefore she is hesitant to try Lonsurf. 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 -MRI brain unremarkable for brain metastases -we will consider it as stage IV with pleural nodules -Sotorasib --> currently in 5-6 tablets #[facility] Pain # Histoplasmosis -Pharmacy is currently working on itraconazole as recommended by Infectious Diseases--> started taking around 04/13/2020 -EBUS/FNA/ID recommendations reviewed and discussed -concluded itraconazole # smoking cessation counseling -continues to smoke: completes 1 pack in 3 days or so -encouraged to quit smoking # right clavicular swelling on the medial end -reviewed notes and documentation from 12/2019 -CT soft tissue neck consistent with degenerative joint disease, also no PET avid lesion in the supraclavicular region for the PET done on 08/06/2021. #elevated BP/RR at clinics -CTA neg in 09/2022 for PE -Sat 95% in clinic therefore not repeating CTA #??? ADVANCED CARE PLANNING ?Prognosis: fair ?Intent of treatment:palliative ?Lines of treatment available: 1+ ?Healthcare directives/power of insurance defense attorney on file: none ?patient's understanding of the disease and management: rickie Shares multiple adventurous stories about her life including skydiving/rafting etc. Thank you. (3) 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: C79.9 - Secondary malignant neoplasm of unspecified site; C20 - Malignant neoplasm of rectum (4) Rectal cancer: C20 - Malignant neoplasm of rectum She is having home nursing visits. Nursing note from 06/15-5 days ago indicates that she is on oxycodone for pain. She had bilateral rhonchi and was using nebulizers twice daily for her breathing. Her oncologist is Dr. Barber. She is currently on her Sotorasib. She is having a cough for the past couple of months. It has gotten worse lately. She is more short of breath, and has been so weak and short of breath she has really been able to leave the house for several weeks. She has had a nonproductive cough. No definite fevers. In that context she has gotten much worse over the past 2 or 3 days. She has been very short of breath. She has been using her nebulizer 2 to 3 times a day but finds it does not help. She is coughing but still not producing any phlegm. She is feeling exceedingly weak. This morning she was feeling drowsy and was nodding off while watching TV. She was so short of breath she was afraid she might , so she called the ambulance per Of note she does have advanced directives. She is DNR. She would not want a ventilator. She would want to be hospitalized for treatment of pneumonia and for comfort with her breathing Related Data Home Medications Medication Instructions Recorded Confirmed clonazepam 0.5 mg tablet 0.5 mg PO HS PRN 09/07/21 04/19/23 ibuprofen 200 mg capsule 200 mg PO Q6H PRN pain 09/07/21 04/19/23 isosorbide mononitrate 30 mg 30 mg PO DAILY 09/07/21 04/19/23 tablet,extended release 24 hr nitroglycerin 0.4 mg sublingual 0.4 mg sublingual Q5M PRN chest 09/07/21 04/19/23 tablet pain sertraline 100 mg tablet 100 mg PO HS 09/07/21 04/19/23 gabapentin 300 mg capsule 300 mg PO HS 05/03/22 04/19/23 albuterol sulfate 90 mcg/actuation 2 puff inhalation Q4H PRN 10/15/22 04/19/23 aerosol inhaler (Ventolin HFA) diphenoxylate-atropine 2.5 1 tab PO Q6H PRN diarrhea 10/15/22 04/19/23 mg-0.025 mg tablet potassium chloride 20 mEq 20 meq PO QDAY PRN 01/11/23 04/19/23 tablet,extended release aspirin 81 mg chewable tablet 81 mg PO DAILY 04/19/23 04/19/23 morphine 30 mg tablet,extended 15 mg PO BID PRN 04/19/23 04/19/23 release Previous Rx's Medication Instructions Recorded ondansetron 4 mg disintegrating 4 mg translingual Q6H PRN nausea 04/13/22 tablet and vomiting #30 tabs prochlorperazine maleate 10 mg 10 mg PO Q6H PRN nausea and 04/13/22 tablet vomiting #30 tabs ipratropium 0.5 mg-albuterol 3 mg 3 ml inhalation Q6H PRN dyspnea 10/17/22 (2.5 mg base)/3 mL nebulization #20 ea soln nebulizer accessories #1 ea 10/17/22 nebulizer and compressor #1 ea 10/17/22 nicotine 21 mg/24 hr daily 1 patch transdermal Q24H #15 ea 10/17/22 transdermal patch oxycodone 5 mg tablet 5 - 10 mg (1 - 2 x 5 mg) PO Q4H 10/17/22 PRN pain #30 tabs sennosides 8.6 mg-docusate sodium 1 tab PO BID PRN #60 tabs 10/17/22 50 mg tablet (Stool Softener-Laxative) sotorasib 120 mg tablet (Lumakras) 600 mg (5 x 120 mg) PO DAILY #150 12/13/22 tabs lorazepam 0.5 mg tablet (Ativan) 0.5 mg PO QDAY #1 tab 01/24/23 Allergies Allergy/AdvReac Type Severity Reaction Status Date / Time penicillin V Allergy Intermediate Rash Verified 06/21/23 16:01 [facility] Medical History Lung metastasis ?C78.00 - Secondary malignant neoplasm of unspecified lung (ICD-10) Rectal cancer ?C20 - Malignant neoplasm of rectum (ICD-10) Encounter for insertion of tunneled central venous catheter (CVC) with port ?Z45.2 - Encounter for adjustment and management of vascular access device (ICD-10) Adenocarcinoma, lung ?C34.90 - Malignant neoplasm of unspecified part of unspecified bronchus or lung (ICD-10) 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 Designates her son, Daniel, as her primary contact for power insurance defense attorney for health should that be required, cell phone [phone]. Designates her daughter, Staci, as her secondary contact for power of insurance defense attorney for health should that be required, cell phone [phone]. Adamant that she desires a DNR DNI resuscitation status. What is your current living situation?: I presently have a place to live Problems where you live: no known problems Problems where you live details: n/a In the past 12 months, utilities in danger of being shut off: no In past 12 months, lack of transportation kept you from medical appts, meetings, work, or getting things needed for daily living: no In the past 12 mos, have been you worried that your food would run out before you had money to buy more?: never true In the past 12 mos, the food you bought just didn't last and you didn't have money to buy more?: never true Highest level of school completed/degree received: high school graduate Smoking Status: Current every day smoker What tobacco products do you use: cigarettes Smoking packs per day: 0.25 Smoking cigarettes per day: 5.0 Smoking quit date/years: <= 15 years ago Do you use any of these nicotine containing products: None Second hand tobacco smoke exposure: Yes How often do you have a drink containing alcohol: 2-4 times a month Alcohol type: hard liquor How many standard drinks containing alcohol do you have on a typical day: 3 or 4 How often do you have six or more drinks on one occasion: Never AUDIT-C Alcohol total score: 3 Non-prescribed substance use: denies use, former substance user and marijuana (any form) Caffeine: Yes (2-3 cups) How often does anyone, including family, friends and others, physically hurt you: never How often does anyone, including family, friends and others, insult or talk down to you: never How often does anyone, including family, friends and others, threaten you with harm: never How often does anyone, including family, friends and others, scream or curse at you: never service: No Exam Narrative: Exam Narrative: Constitutional: Appears well-developed . She looks very slender and cachectic. Alert. Conversant. Non toxic. Breathing easily on 3 L nasal cannula. Oxygen sats in the 93-90 fiber HENT: Head: Atraumatic. Nose: Nose normal. Mouth/Throat: Oral mucosa is clear and moist. no trismus. Pharynx normal. Eyes: Conjunctivae normal. EOM normal. Pupils equal, round, and reactive to light. No scleral icterus. Neck: Normal range of motion. Neck supple. No tracheal deviation present. Cardiovascular: Normal rate, regular rhythm. No gallop. No friction rub. No murmur heard. Symmetric radial artery pulses Pulmonary/Chest: Effort normal. No stridor. No respiratory distress. Bilateral expiratory rales and wheezes. No tenderness. Abdominal: Soft. Bowel sounds normal. No distension. No mass. No tenderness. No rebound. No guarding. Musculoskeletal: RUE: Normal range of motion. No tenderness. No deformity LUE: Normal range of motion. No tenderness. No deformity RLE: Normal range of motion. No edema. No tenderness. No deformity LLE: Normal range of motion. No edema. No tenderness. No deformity Neurological: Alert and oriented to person, place, and time. Normal strength. CN II-VII intact. No sensory deficit. GCS eye subscore is 4. GCS verbal subscore is 5. GCS motor subscore is 6. Normal coordination Skin: Skin is warm and dry. No rash noted. No pallor. Normal capillary refill. Psychiatric: Normal mood. Normal affect. Const: Vital Signs, click to edit/add: Vital Signs - 24 hr 06/21/23 13:09 06/21/23 13:25 06/21/23 13:30 Temperature 98.5 F Pulse Rate 75 71 Pulse Rate [Pulse Oximeter] 77 Respiratory Rate 20 Blood Pressure Blood Pressure [Le ft Upper Arm] 150/113 H Pulse Oximetry 98 97 97 Oxygen Delivery Me thod Nasal Cannula Nasal Cannula Nasal Cannula Oxygen Flow Rate 2 2 2 06/21/23 13:32 06/21/23 13:45 06/21/23 14:00 Temperature Pulse Rate 84 70 Pulse Rate [Pulse Oximeter] Respiratory Rate Blood Pressure 129/66 Blood Pressure [Le ft Upper Arm] Pulse Oximetry 95 98 96 Oxygen Delivery Me thod Nasal Cannula Nasal Cannula Nasal Cannula Oxygen Flow Rate 2 2 2 06/21/23 14:00 06/21/23 14:02 06/21/23 14:15 Temperature Pulse Rate 73 75 68 Pulse Rate [Pulse Oximeter] Respiratory Rate Blood Pressure 137/90 H Blood Pressure [Le ft Upper Arm] Pulse Oximetry 98 97 97 Oxygen Delivery Me thod Nasal Cannula Nasal Cannula Nasal Cannula Oxygen Flow Rate 2 2 2 06/21/23 14:30 06/21/23 14:31 06/21/23 15:00 Temperature Pulse Rate 82 79 70 Pulse Rate [Pulse Oximeter] Respiratory Rate Blood Pressure 151/100 H Blood Pressure [Le ft Upper Arm] Pulse Oximetry 98 98 98 Oxygen Delivery Me thod Nasal Cannula Nasal Cannula Nasal Cannula Oxygen Flow Rate 2 2 2 06/21/23 15:01 06/21/23 15:30 06/21/23 15:32 Temperature Pulse Rate 80 66 120 H Pulse Rate [Pulse Oximeter] Respiratory Rate Blood Pressure 141/71 H 136/61 Blood Pressure [Le ft Upper Arm] Pulse Oximetry 98 98 99 Oxygen Delivery Me thod Nasal Cannula Nasal Cannula Nasal Cannula Oxygen Flow Rate 2 2 2 Course Vital Signs Vital signs: Initial Vital Signs Temperature 98.5 F 06/21/23 13:09 Temperature Source Temporal Artery Scan 06/21/23 13:09 Pulse Rate 77 06/21/23 13:09 Respiratory Rate 20 06/21/23 13:09 Blood Pressure 150/113 H 06/21/23 13:09 Blood Pressure Mean 125 H 06/21/23 13:09 Blood Pressure Position Semi-Fowlers 06/21/23 13:09 Pulse Oximetry 98 06/21/23 13:09 Oxygen Delivery Method Nasal Cannula 06/21/23 13:09 Oxygen Flow Rate 2 06/21/23 13:09 Vital Signs Temperature 98.5 F 06/21/23 13:09 Pulse Rate 77 06/21/23 13:09 Respiratory Rate 20 06/21/23 13:09 Blood Pressure 150/113 H 06/21/23 13:09 Pulse Oximetry 98 06/21/23 13:09 Oxygen Delivery Method Nasal Cannula 06/21/23 13:09 Oxygen Flow Rate 2 06/21/23 13:09 Temperature 98.5 F 06/21/23 13:09 Pulse Rate 120 H 06/21/23 15:32 Respiratory Rate 20 06/21/23 13:09 Blood Pressure 136/61 06/21/23 15:32 Pulse Oximetry 99 06/21/23 15:32 Oxygen Delivery Method Nasal Cannula 06/21/23 15:32 Oxygen Flow Rate 2 06/21/23 15:32 Medications Administered Medications: Discontinued Medications Generic Name Dose Route Start Last Admin Trade Name Freq PRN Reason Stop Dose Admin Sodium Chloride 1,000 mls @ 1,000 mls/hr 06/21/23 13:45 06/21/23 15:24 0.9 % Sodium Chloride 1000 Ml IV 06/21/23 14:44 Infused .Q1H NELIDA Infusion Methylprednisolone Sodium Succinate 125 mg 06/21/23 13:44 06/21/23 14:20 Methylprednisolone Sod Succ 62.5 Mg/Ml (125) IVP 06/21/23 13:45 125 mg ONCE ONE Administration Medical Decision Making MDM Narrative Medical decision making narrative: 73-year-old female with a complex past medical history including COPD on oxygen, colon cancer with metastasis lung and also primary lung cancer. She is currently on oral chemotherapy (she is aware that cancer is not curable and she is already exceeded her predicted life expectancy by several years. It sounds like her chemo is mostly to mitigate progression and be palliative) presenting to the ER today by EMS for shortness of breath. She has had a cough for the past several weeks it has gotten worse lately with particularly bad shortness of breath for the past couple of days Initial lung sounds were quite wheezy and rhonchorous. Treated with IV Solu-Medrol and DuoNebs here in the ER for possible COPD exacerbation. After these treatments she was actually feeling a bit better on nasal to rest and follow sleep for a little while. She was not developing worsening drowsiness or hypercarbia. Fortunately blood gas shows normal pH in the setting of elevated pCO2, likely chronic CO2 retention. COPD is likely contributing to her shortness of breath. COVID/influenza/RSV PCR is negative. Chest x-ray shows fairly large multi focal masses in the right lower lobe. No definitive pneumonia by my read. Procalcitonin is normal. White count normal. Blood pressure is stable. She is not tachycardic. Venous lactic is normal. CT PA is obtained and shows stable known lung masses. CT scan does show areas of either bronchitis or mucous plugging or infection in her lungs, possibly postobstructive. Will treat with antibiotics although white count and procalcitonin are normal. Consider atypical presentation of ACS causing her shortness of breath. Screening EKG is nonspecific but no definitive ischemia. Troponin is negative. Overall she is doing better after nebs and steroids given here in the ER but breathing still not well enough that she can go home and she still has generalized weakness. Discussed with our hospitalist, Dr. Obrien who graciously agrees to admit. Discussed long-term goals of therapy with the patient and her son. They confirmed that she has advanced directives saying she is DNR. She also confirms that she would not desire intubation or ventilation if her breathing got worse. She would be agreeable to nebs, steroids, antibiotics, hospitalization if necessary to help her breathing and comfort. Lab Data Labs: Lab Results 06/21/23 06/21/23 Range/Units 14:30 14:56 WBC 5.97 (4.50-11.00) K/uL RBC 3.91 L (4.00-5.20) m/uL Hgb 11.3 L (12.0-16.0) gm/dL Hct 35.6 (33.0-51.0) % MCV 91 (80-100) fL MCH 29 (26-34) pg MCHC 32 (32-36) gm/dL RDW Coeff of Aleks 13.8 (11.5-15.5) % Plt Count 175 (140-440) K/uL Neut % (Auto) 58.5 (42.0-72.0) % Lymph % (Auto) 31.7 (20-44) % [place] % (Auto) 6.9 (0.0-11.0) % Eos % (Auto) 2.2 (0.0-7.0) % Baso % (Auto) 0.7 (0.0-3.0) % Neut # (Auto) 3.50 (1.7-7.0) K/uL Lymph # (Auto) 1.89 (0.90-2.90) K/uL [place] # (Auto) 0.40 (0.00-0.90) K/UL Eos # (Auto) 0.13 (0.00-0.50) K/uL Baso # (Auto) 0.04 (0.00-0.30) K/uL Abs Immat Gran (auto) 0.00 (0.00-0.30) K/uL Imm/Tot Granulo (auto) 0.0 % VBG pH 7.365 (7.32-7.43) VBG pCO2 56 H (40-50) mmHG VBG pO2 < 30.1 (25-47) mmHG VBG HCO3 32 H (21-28) mmol/L Sodium 142 (135-149) mmol/L Potassium 3.3 L (3.6-5.1) mmol/L Chloride 110 (96-114) mmol/L Carbon Dioxide 30 (20-32) mmol/L Anion Gap 2 L (7-15) mEq/L BUN 10 (7-30) mg/dL Creatinine 0.4 L (0.5-1.5) mg/dL Estimated Creat Clear 41.35 Estimated GFR 104 ml/min Glucose 97 (60-115) mg/dL Lactate 1.1 (0.5-1.9) mmol/L Calcium 8.7 (8.4-10.6) mg/dL Troponin I < 0.01 L (0.01-0.04) ng/mL Procalcitonin 0.04 (<0.50) ng/mL SARS-CoV-2 (PCR) Negative SARS-CoV-2 (Negative) Influenza Type A (PCR) Negative PCR FLU A (Negative) Influenza Type B (PCR) Negative PCR FLU B (Negative) RSV (PCR) Negative PCR RSV (Negative) Imaging Data Chest x-ray: Attestation: I have reviewed the pertinent imaging results. My impression: Multifocal multi nodular opacities in the right lower lobe probably are metastatic disease. No definite pneumonia. Radiologist's impression: IMPRESSION: 1. Multiple right greater than left masses. 2. No new focal consolidation. CT scan - chest: Attestation: I have reviewed the pertinent imaging results. Radiologist's impression: IMPRESSION: No pulmonary embolism. Redemonstration of right greater than left pleural and parenchymal pulmonary nodules and masses, not significantly changed given changes in technique. Diffuse peribronchial thickening with scattered areas of mucous plugging, likely infectious/inflammatory in etiology including aspiration or bronchitis. ECG Data Attestation: I personally reviewed and interpreted this ECG as follows: Interpretation: Normal sinus rhythm with sinus arrhythmia Rate 75 CO interval 160 QRS axis normal No pathologic Q-waves And no ST segment elevation or depression. T-wave inversions V1 and V2. Nonspecific T-wave flattening rings in the remainder of her precordial leads QTC 439 Discharge Plan Discharge Clinical Impression: Lung mass, Acute exacerbation of chronic obstructive pulmonary disease, Pneumonia Prescriptions: No Action potassium chloride 20 mEq tablet extended release 20 meq PO QDAY PRN Patient Comments: Not taking morphine 30 mg tablet extended release 15 mg PO BID PRN clonazepam 0.5 mg tablet 0.5 mg PO HS PRN nitroglycerin 0.4 mg tablet, sublingual 0.4 mg sublingual Q5M PRN (Reason: chest pain) sertraline 100 mg tablet 100 mg PO HS ibuprofen 200 mg capsule 200 mg PO Q6H PRN (Reason: pain) isosorbide mononitrate 30 mg tablet extended release 24 hr 30 mg PO DAILY gabapentin 300 mg capsule 300 mg PO HS aspirin 81 mg tablet,chewable 81 mg PO DAILY Patient Comments: Hasn't been taking everyday like prescribed albuterol sulfate [Ventolin HFA] 90 mcg/actuation HFA aerosol inhaler 2 puff inhalation Q4H PRN diphenoxylate-atropine 2.5-0.025 mg tablet 1 tab PO Q6H PRN (Reason: diarrhea) oxycodone 5 mg Tablet 5 - 10 mg PO Q4H MDD 30 mg PRN (Reason: pain) Qty: 30 0RF ipratropium-albuterol 0.5 mg-3 mg(2.5 mg base)/3 mL Solution For Nebulization 3 ml inhalation Q6H PRN (Reason: dyspnea) Qty: 20 0RF sennosides-docusate sodium [Stool Softener-Laxative] 8.6-50 mg Tablet 1 tab PO BID PRNQty: 60 0RF nicotine 21 mg/24 hr Patch 24 Hour 1 patch transdermal Q24H Qty: 15 0RF (DME) nebulizer and compressor Device See Rx Instructions .Route Qty: 1 0RF Rx Instructions: As directed (DME) nebulizer accessories Kit See Rx Instructions .ROUTE .MEDSUPPLY Qty: 1 0RF Rx Instructions: As directed Lumakras 120 mg tablet 600 mg PO DAILY Qty: 150 3RF prochlorperazine maleate 10 mg tablet 10 mg PO Q6H PRN (Reason: nausea and vomiting) Qty: 30 0RF Rx Instructions: Try taking this 30 minutes prior to your chemo medicine Sotorasib ondansetron 4 mg tablet,disintegrating 4 mg translingual Q6H PRN (Reason: nausea and vomiting) Qty: 30 0RF Rx Instructions: Use either this or prochlorperazine for nausea Try taking this 30 mins prior to Sotorasib lorazepam [Ativan] 0.5 mg tablet 0.5 mg PO QDAY Qty: 1 0RF Rx Instructions: one dose 30 minutes prior to PET scan in 03/2023. thanks. Follow Up/Referrals: Byron Mondragon MD [Primary Care Provider] -
--- NOTE | 2023-06-21 13:38 | CT_ITS ---
Patient: ANGELINE MARTINEZ Facility:?[facility] Patient ID:?[id number] Site Patient ID:?[id number]. Site :?[id number] Study:?CT-Chest PE 95CC ISOVUE 370-06/21/2023 4:07:15 PM Ordering Physician:?DR. VALDEZ Final Report: INDICATION: Dyspnea, cough, hypoxia. TECHNIQUE: CT chest PE was acquired with 95 cc Isovue 370 IV contrast. COMPARISON: January 06, 2023. FINDINGS: Heart and vasculature: Contrast opacification of the pulmonary arterial tree is adequate. No sign of pulmonary embolism. Heart size is normal. Coronary artery calcifications. Unchanged dilated descending thoracic and upper abdominal aorta. Unchanged heavy atherosclerotic plaque. Unchanged penetrating atherosclerotic ulcer Lungs and pleura: Redemonstration of multiple parenchymal and pleural-based nodules and masses, similar to prior study given changes in technique. Diffuse peribronchial thickening. Additional scattered atelectasis. No pleural effusions or pneumothoraces. Lymph nodes/mediastinum: No mediastinal, hilar, or axillary adenopathy. Chest wall: Right chest wall port with catheter terminating in the upper SVC. No masses. Upper abdomen: No acute or significant findings. Bones: Unchanged T2 and T7 superior endplate compression fractures. IMPRESSION: No pulmonary embolism. Redemonstration of right greater than left pleural and parenchymal pulmonary nodules and masses, not significantly changed given changes in technique. Diffuse peribronchial thickening with scattered areas of mucous plugging, likely infectious/inflammatory in etiology including aspiration or bronchitis. Please note that all CT scans at this facility use dose modulation, iterative reconstruction, and/or weight-based dosing when appropriate to reduce radiation dose to as low as reasonably achievable. Dictated by Monty Mike MD @ 06/21/2023 4:30:39 PM Signed by:?Monty Mike MD @06/21/2023 4:30:39 PM (Electronic Signature)
--- NOTE | 2023-06-21 13:44 | XR_ITS ---
Patient: ANGELINE MARTINEZ Facility:?[facility] Patient ID:?[id number] Site Patient ID:?[id number]. Site :?[id number] Study:?XRay-Chest 1 VIEW-06/21/2023 4:08:18 PM Ordering Physician:?DR. VALDEZ Final Report: INDICATION: Dyspnea, cough, hypoxia. TECHNIQUE: Chest 1 view. COMPARISON: CT chest 01/04/2023. FINDINGS: Cardiovascular and mediastinum: Stable cardiomediastinal silhouette. Postsurgical changes of CABG. Right chest wall port catheter tip projects over the SVC. Lungs and pleural spaces: Multiple right mid and lower lung zone masslike opacities as well as left basilar masslike opacity. No new focal consolidation. No pleural effusions or pneumothorax. Bones and soft tissues: No significant findings. IMPRESSION: 1. Multiple right greater than left masses. 2. No new focal consolidation. Dictated by Adrian Cheney MD @ 06/21/2023 4:24:39 PM Signed by:?Adrian Cheney MD @06/21/2023 4:24:39 PM (Electronic Signature)
--- OUTSIDE RECORDS SUMMARY | 2023-06-21 14:00 | XMS_ITS | Clinical Summary ---
Author Name Unknown Organization [facility] Address [place], [place] [address] Care Team Providers Care Bonderite Operator Name Role Phone GillDiane alvarezjean pierre Schultz LP Unavailable Hue Mayes MD Unavailable [phone] Byron Mondragon MD Primary Care Provider + Conchita Pierson RN Unavailable Miri Norton RN Unavailable Allergies Active Allergy Reactions Criticality Noted Date Comments Penicillins Rash 07/26/2008 Medications Medication Sig Dispensed Refills Start Date End Date Status psyllium husk (METAMUCIL ORAL) Take by mouth. Acti ve NebulizerIndication s:Pneumonia, bacterial,Chronic obstructive pulmonary disease, unspecified COPD type (HC) Nebulizer, disposable neb kit x 4, reuseable neb kit x 1, mask x 1, filters x 1. Frequency of use: daily; Medication: duoneb Length of need: 99 months 1 Each 10/20/2022 Active Walker - 4 wheelsIndications:W eak,Malignant neoplasm metastatic to lung, unspecified laterality (HC),Malignant neoplasm of lung, unspecified laterality, unspecified part of lung (HC) For home use. Length of need: 99 1 Each 11/23/2022 Active isosorbide mononitrate (IMDUR) 30 mg [...] enteric coated tabletIndications:C oronary artery disease involving [place] heart without angina pectoris, unspecified vessel or [...] ondansetron (ZOFRAN ODT) 4 mg disintegrating tabletIndications:N ausea Place 1 Tablet (4 mg) on the tongue every 8 hours if needed for Nausea/Vomiting . 30 Tablet 2 12/08/2022 Active nitroglycerin (NITROSTAT) 0.4 mg sublingual tabletIndications:C oronary artery disease involving [place] heart without angina pectoris, unspecified vessel or [...] heart failure present As directed. 1 unit 12/22/2022 Active Blood Pressure Monitor KitIndications:HTN (hypertension), benign Use to check blood pressure daily. 1 Each 12/27/2022 Active multivitamin (MVI) tabletIndications:E ncounter for herb and vitamin supplement management Take 1 Tablet by mouth once daily. 100 Tablet 4 01/05/2023 Active clonazePAM (KLONOPIN) 0.5 mg tablet Take by mouth. 09/07/2021 Active ketorolac (TORADOL) 10 mg tabletIndications:M alignant neoplasm of lung, unspecified laterality, unspecified part of lung (HC) TAKE 1 TABLET BY MOUTH EVERY SIX HOURS NEEDED FOR PAIN FOR UP TO 5 DAYS *MAX OF 40MG IN 24 HOURS* 20 Tablet 01/27/2023 Active Shower ChairIndications:Ma lignant neoplasm metastatic to lung, unspecified laterality (HC),Primary malignant neoplasm of lung, unspecified laterality (HC) For home use. 1 Each 02/17/2023 Active Diaper,Brief, Adult,DisposableInd ications:Stress incontinence of urine For home use. 120 Each 02/17/2023 Active oxygen-air delivery systems (HOME OXYGEN)Indications: Chronic obstructive pulmonary disease, unspecified COPD type (HC) Portable oxygen with conserving device. 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 30 Tablet 05/02/2023 Active morphine CONTROLLED RELEASE (MS CONTIN) 30 mg CR tabletIndications:M alignant neoplasm metastatic to right lung (HC),Primary malignant neoplasm of lung, unspecified laterality (HC) Take 1 Tablet (30 mg) by mouth two times daily. 60 Tablet 06/01/2023 Active oxyCODONE 10 mg tabletIndications:M alignant neoplasm metastatic to right lung (HC),Primary malignant neoplasm of lung, unspecified laterality (HC) Take 1 Tablet (10 mg) by mouth every 4 hours if needed for Pain. 30 Tablet 06/01/2023 Active morphine CONTROLLED RELEASE (MS CONTIN) 30 mg CR tabletIndications:M alignant neoplasm metastatic to right lung (HC),Primary malignant neoplasm of lung, unspecified laterality (HC) Take 1 Tablet (30 mg) by mouth two times daily. 60 Tablet 05/05/2023 4 Discontinue d(Reorder (E-cancel not sent)) oxyCODONE 10 mg tabletIndications:M alignant neoplasm metastatic to right lung (HC),Primary malignant neoplasm of lung, unspecified laterality (HC) Take 1 Tablet (10 mg) by mouth every 4 hours if needed for Pain. 30 Tablet 05/19/2023 4 Discontinue d(Reorder (E-cancel not sent)) Active [...] disease 10/03/2018 Atherosclerotic heart diseas e of [place] coronary artery with other forms of angina pectoris 10/03/2018 Controlled substance agreement signed 04/26/2017 Overview: Signed: 10/22/14: Amanda Del Cid, CAMP RECREATION SPECIALIST, BC, HOSPITAL SECURITY OFFICER /mf Long QT interval 06/01/2016 Junctional rhythm [...] Overview: - s/p CAB x 3 in [place] 09/27/2006: MAXWELL - LAD, SVG - OM2, [...] response 06/01/2016 07/05/2018 Severe malnutrition 05/29/2016 07/06/19 19 KAT (acute kidney injury) 05/28/2016 Metabolic acidosis, normal anion gap (NAG) 05/28/2016 07/05/2018 Anxiety state, unspecified r ule out PTSD and panic disorder 08/26/2014 11/29/2014 Anxiety 06/27/2014 08/26/2014 Anxiety 06/27/2014 Acute kidney injury 02/23/20 19 Delirium 02/22/2019 Encounters Date Type Department Care Team Description 06/10/2023 Telephone [facility] [address] [place] [address] Votel, Byron Cota MD Prior Authorization (morphine CONTROLLED RELEASE (MS CONTIN) 30 mg CR tablet APPROVED (06/10/23-06/09/24)) 06/09/2023 Telephone [facility] [address] [place] [address] VoByron dos santos MD Prior Authorization 05/31/[address] [address] Byron Mondragon MD Refill Request (oxyCODONE, morphine) 05/24/[address] [address] Byron Mondragon MD 05/19/[address] [address] VoteByron shepherd MD Refill Request (oxyCODONE 10 mg tablet ) 05/10/[address] [address] Byron Mondragon MD Questions (QUESTIONS) 05/05/[address] [address] Byron Mondragon MD Medication Management (morphine CONTROLLED-RELEASE (MS CONTIN) 15 mg tablet & oxyCODONE (ROXICODONE) 5 mg immediate release tablet) 05/02/2023 Nurse Triage [address] [address] ToroteByron shepherd MD Chest Pain 05/02/[address] [address] Byron Mondragon MD Refill Request (Oxycodone) 05/02/[address] [address] Byron Mondragon MD Error-please disregard 04/30/[address] [address] Byron Mondragon MD Refill Request (oxyCODONE (ROXICODONE) 5 mg immediate release tablet) 04/28/[address] [address] Byron Mondragon MD Questions 04/22/2023 Telephone [facility] [address] [place] [address] Conchita Fontana DO Refill Request (oxycodone) 04/22/2023 Refill [facility] [address] [place] [address] Byron Mondragon MD Refill Request (oxyCODONE (ROXICODONE) 5 mg immediate release tablet) 04/21/2023 Telephone [facility] [address] [place] [address] Byron Mondragon MD Medication Management 04/14/2023 Orders Only [facility] Scanner 1 scan: (1-Ord) [place], PET/CT EYES TO THIGH, CANCER RESTAGING, 04/14/2023 04/08/[address] [address] Byron Mondragon MD Medication Management 04/07/2023 4:10 PM LIVE TRUCK TECHNICIAN Office Visit [facility] [address] [place] [address] Byron Mondragon MD Medication Management (pain) 04/07/2023 Travel 04/05/2023 Telephone [facility] [address] [place] [address] Byron Mondragon MD Appointment Request (THIS AFTERNOON) 04/04/2023 Orders Only [facility] Scanner 1 scan: (1-Ord) [facility], MR HEAD/BRAIN WO/W CON, 04/04/2023 03/31/2023 Telephone [facility] [address] [place] [address] Byron Mondragon MD Questions 03/30/2023 Refill [facility] [address] [place] [address] Byron Mondragon MD Refill Request (oxyCODONE (ROXICODONE) 5 mg) 03/29/2023 Telephone [facility] [address] [place] [address] Votel, Byron Cota MD 03/24/2023 Telephone [facility] [address] [place] [address] Votel, Byron Cota MD ORDERS (Blood pressure cuff and pulse oximeter) from Last 3 Months Immunizations Name Administration Dates Next Due COVID-19 vaccine ([employer] 30mcg/0.3mL) 12YO+ MERLYN-SUCROSE PF, MDV 06/04/2021 DT (Age < 7 years) [...] Comments Blood Pressure 125/87 04/07/2023 4:13 PM LIVE TRUCK TECHNICIAN Pulse 68 04/07/2023 4:13 PM LIVE TRUCK TECHNICIAN Temperature 36.5 ??C (97.7 ??F) 11/25/2022 1:41 PM CD T Respiratory Rate 18 04/01/2022 1:29 PM LIVE TRUCK TECHNICIAN Oxygen Saturation 96% 04/07/2023 4:13 PM LIVE TRUCK TECHNICIAN Inhaled Oxygen Concentration - - Weight 52.9 kg (116 lb 11.2 oz) 04/07/2023 4:13 PM LIVE TRUCK TECHNICIAN Height 160.3 cm (5' 3.1) 04/07/2023 4:13 PM LIVE TRUCK TECHNICIAN Body Mass Index 20.61 04/07/2023 4:13 PM LIVE TRUCK TECHNICIAN Plan of Treatment Not on file Procedures Procedure Name Priority Date/Time Associated Diagnosis Comments SCAN-PET SCAN 04/14/2023 12:00 AM LIVE TRUCK TECHNICIAN SCAN-MRI INTERPRETATION 04/04/19 12:00 AM LIVE TRUCK TECHNICIAN from Last 3 Months Results * SCAN-PET SCAN (04/14/2023 12:00 AM LIVE TRUCK TECHNICIAN) Anatomical Region Laterality Modality Other Scanner OTHER * SCAN-MRI INTERPRETATION (04/04/2023 12:00 AM LIVE TRUCK TECHNICIAN) Anatomical Region Laterality Modality Other Scanner OTHER from Last 3 Months Advance Directives Documents on File Type Date Recorded Patient Program Lead Expl anation Treatment Guidelines 08/20/2016 3:11 PM HO ME* DNR REQUEST FORM, [facility], 08/17/2016 * Full Code (Latest Code Status on File) Date Activated Date Inactivated Comments 04/01/2022 7:49 AM 04/01/2022 4:05 PM Question Answer Comments Code Status Discussion: Reviewed Preferences * Full Code Date Activated Date Inactivated Comments 03/12/2020 10:27 AM 03/12/2020 4:25 PM Question Answer Comments Code Status Discussion: Per Existing Order * DNR Date Activated Date Inactivated Comments 06/01/2016 1:51 PM 06/07/2016 2:34 PM * Full Code Date Activated Date Inactivated Comments 05/30/2016 2:55 PM 06/01/2016 1:51 PM * Full Code Date Activated Date Inactivated Comments 05/28/2016 3:32 PM 05/30/2016 2:55 PM Question Answer Comments Code Status Discussion: Discussed Care Teams Bonderite Operator Relationship Specialty Start Date End Date Votel, Byron Cota MD [address] [place] [address] PCP - General Family Practice 11/26/20 Renetta Gill LP Psychologist Psychology 05/20/11 Hue Mayes MD Alisha Gallo Jonndelta Croft [address] [address] Rheumatology Rheumatology 12/08/15 Conchita Pierson RN [facility], [address] [place] [address] [place] [facility] [place] [facility] Registered Nurse 04/28/21 Miri Norton RN [address] [place] [address] [place] [facility] - [facility] Registered Nurse 04/28/21
[2023-06-21] MEDS: METHYLPREDNISOLONE SOD SUCC 62.5 MG/ML (125) 125 MG IVP (14:20)
[2023-06-21] MEDS: 0.9 % SODIUM CHLORIDE 1000 ml 1,000 ML IV (14:21)
[2023-06-21 14:48] LABS: HCO3 VBG 32 mmol/L (21-28); Lactate Sepsis w/Reflex* 1.1 mmol/L (0.5-1.9); PCO2 VBG 56 mmHG (40-50); PO2 VBG < 30.1 mmHG (25-47); pH VBG 7.365 (7.32-7.43)
[2023-06-21 14:53] LABS: Basophils Absolute Auto 0.04 K/uL (0.00-0.30); Basophils Percent Auto 0.7 % (0.0-3.0); Eosinophils Absolute Auto 0.13 K/uL (0.00-0.50); Eosinophils Percent Auto 2.2 % (0.0-7.0); Hematocrit 35.6 % (33.0-51.0); Hemoglobin* 11.3 gm/dL (12.0-16.0); Lymphocytes Absolute Auto 1.89 K/uL (0.90-2.90); Lymphocytes Percent Auto 31.7 % (20-44); Mean Corpuscular HGB Conc 32 gm/dL (32-36); Mean Corpuscular Hemoglobin 29 pg (26-34); Mean Corpuscular Volume 91 fL (80-100); Monocytes Percent Auto 6.9 % (0.0-11.0); Neutrophils Percent Auto 58.5 % (42.0-72.0); Platelet Count* 175 K/uL (140-440); RDW Coefficient of Variation % 13.8 % (11.5-15.5); Red Blood Count 3.91 m/uL (4.00-5.20); White Blood Count* 5.97 K/uL (4.50-11.00)
[2023-06-21 14:55] LABS: Slide Review Reflex No
[2023-06-21 15:21] LABS: Chloride* 110 mmol/L (96-114); Potassium* 3.3 mmol/L (3.6-5.1); Sodium* 142 mmol/L (135-149)
[2023-06-21 15:24] LABS: Anion Gap 2 mEq/L (7-15); Blood Urea Nitrogen* 10 mg/dL (7-30); Carbon Dioxide* 30 mmol/L (20-32); Creatinine* 0.4 mg/dL (0.5-1.5); Est. Creatinine Clearance* 41.35; Estimated Glomerular Filt Rate 104 ml/min
[2023-06-21 15:25] LABS: Calcium* 8.7 mg/dL (8.4-10.6); Glucose* 97 mg/dL (60-115)
[2023-06-21 15:38] LABS: PCR FLU A Negative PCR FLU A (Negative); PCR FLU B Negative PCR FLU B (Negative); PCR RSV Negative PCR RSV (Negative); SARS PCR* Negative SARS-CoV-2 (Negative)
[2023-06-21 15:42] LABS: Procalcitonin* 0.04 ng/mL (<0.50)
[2023-06-21 15:50] LABS: Troponin I* < 0.01 ng/mL (0.01-0.04)
[2023-06-21] MEDS: cefTRIAXone 1 GM in 0.9 % SODIUM CHLORIDE Mini-bag 100 ML IVPB (17:25)
--- NOTE | 2023-06-21 18:19 | P.IMHP_ITS ---
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 Patient reports that she has had an overall decline over the past few months with progressive weakness. In the past week however she has had increasing dyspnea at rest. She is on 2 L of oxygen per nasal cannula chronically at home. Even with supplemental oxygen she has been quite dyspneic this week. She reports poor exercise tolerance. She reports she lives in a small apartment and is able to get around her apartment but has very limited exercise tolerance. She has not had a fever. Her cough is nonproductive. She reports that she can feel like there is some mucus in her chest that she is trying to cough out but it will come up. She has chronic right chest and right flank pain which has been attributed to her cancer in the past. She was diagnosed with adenocarcinoma of the rectum in December 2015. February of 2016 she underwent a low anterior resection, pathologically stage III. Received therapy with FOLFOX which cause significant toxicity requiring an ICU stay. In February of 2018 she was seen to have metastatic disease in her lungs. June of 2018 She was treated with regorafenib which also caused significant toxicity and was discontinued. She continued to have progression of disease and was treated with irinotecan August of 2019. In May of 2020 she had a right middle lobe CT-guided biopsy appearing to be a primary adenocarcinoma of the lung, different from her prior rectal carcinoma. June of 2020 Keytruda was added to irinotecan. August of 2020 both were discontinued and sotorasib was started. March of 2022 robotic bronchoscopy was performed of the right lower lobe nodule showing pathology consistent with rectal adenocarcinoma. Oncology visit in March with PET scanning showed relatively stable imaging findings with MRI showing no brain metastases. CEA increased from 67 in December 2022 to 102 in March 2023. Treatment plan was unchanged. Ongoing concern about toxicity from treatment in light of her declining performance status. 04/13/2020 she was treated for histoplasmosis with itraconazole. She has underlying COPD related to cigarette smoking. She continues to smoke about 3 cigarettes a day and is working on quitting. Review of Systems Narrative: She reports progressive fatigue and weakness over weeks to months. She still living independently. She tells me that she is not had problems with falling down. She does not use a cane or a walker. She sometimes hold onto hansen and furniture. She reports that she has a fair appetite but can only eat small meals due to early satiety. Right flank/chest pain is her primary pain problem and she is taking chronic morphine and oxycodone for this [facility] Medical History (Updated 06/21/23 @ 18:57 by Dwain Obrien MD) Hypokalemia ?E87.6 - Hypokalemia (ICD-10) Acute on chronic hypoxic respiratory failure ?J96.21 - Acute and chronic respiratory failure with hypoxia (ICD-10) Lung metastasis ?C78.00 - Secondary malignant neoplasm of unspecified lung (ICD-10) Rectal cancer ?C20 - Malignant neoplasm of rectum (ICD-10) Encounter for insertion of tunneled central venous catheter (CVC) with port ?Z45.2 - Encounter for adjustment and management of vascular access device (ICD-10) Adenocarcinoma, lung ?C34.90 - Malignant neoplasm of unspecified part of unspecified bronchus or lung (ICD-10) 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 ?C79.9 - Secondary malignant neoplasm of unspecified site (ICD-10) ?C20 - Malignant neoplasm of rectum (ICD-10) Histoplasmosis ?B39.9 - Histoplasmosis, unspecified (ICD-10) Adenocarcinoma of rectum (~12/2015) ?C20 - Malignant neoplasm of rectum (ICD-10) Surgical History (Updated 06/21/23 @ 18:48 by Dwain Obrien MD) History of reversal of ileostomy ?Z98.890 - Other specified postprocedural states (ICD-10) History of low anterior resection of rectum ?Z90.49 - Acquired absence of other specified parts of digestive tract (ICD- 10) History of bronchoscopy ?Z98.890 - Other specified postprocedural states (ICD-10) History of lung biopsy ?Z98.890 - Other specified postprocedural states (ICD-10) History of cholecystectomy ?Z90.49 - Acquired absence of other specified parts of digestive tract (ICD- 10) History of appendectomy ?Z90.49 - Acquired absence of other specified parts of digestive tract (ICD- 10) History of coronary artery bypass graft x 3 ?Z95.1 - Presence of aortocoronary bypass graft (ICD-10) Family History (Updated 06/21/23 @ 18:49 by Dwain Obrien MD) Father Coronary artery disease Social History (Updated 06/21/23 @ 18:50 by Dwain Obrien MD) Narrative: Lives alone in an apartment in [place]. Designates her son, Daniel, as her primary contact for power environmental attorney for health should that be required, cell phone [phone]. Son Daniel lives nearby. Designates her daughter, Staci, as her secondary contact for power of environmental attorney for health should that be required, cell phone [phone]. Adamant that she desires a DNR DNI resuscitation status. She occasionally drinks alcohol. She has been smoking cigarettes since 1957. Currently smoking 3 cigarettes per day What is your current living situation?: I presently have a place to live Problems where you live: no known problems Problems where you live details: n/a In the past 12 months, utilities in danger of being shut off: no In past 12 months, lack of transportation kept you from medical appts, meetings, work, or getting things needed for daily living: no In the past 12 mos, have been you worried that your food would run out before you had money to buy more?: never true In the past 12 mos, the food you bought just didn't last and you didn't have money to buy more?: never true Highest level of school completed/degree received: high school graduate Smoking Status: Current every day smoker What tobacco products do you use: cigarettes Smoking packs per day: 0.25 Smoking cigarettes per day: 5.0 Do you use any of these nicotine containing products: None Second hand tobacco smoke exposure: Yes How often do you have a drink containing alcohol: monthly or less Alcohol type: hard liquor How many standard drinks containing alcohol do you have on a typical day: 1 or 2 How often do you have six or more drinks on one occasion: Never AUDIT-C Alcohol total score: 1 Non-prescribed substance use: denies use Caffeine: Yes (2-3 cups) How often does anyone, including family, friends and others, physically hurt you : never How often does anyone, including family, friends and others, insult or talk down to you: never How often does anyone, including family, friends and others, threaten you with harm: never How often does anyone, including family, friends and others, scream or curse at you: never service: No Meds Home Medications and Allergies Home Medications Medication Instructions Recorded Confirmed Type clonazepam 0.5 mg tablet 0.5 mg PO HS PRN 09/07/21 06/21/23 History isosorbide mononitrate 30 mg 30 mg PO DAILY 09/07/21 06/21/23 History tablet,extended release 24 hr nitroglycerin 0.4 mg sublingual 0.4 mg sublingual Q5M PRN chest 09/07/21 06/21/23 History tablet pain sertraline 100 mg tablet 100 mg PO HS 09/07/21 06/21/23 History gabapentin 300 mg capsule 300 mg PO HS 05/03/22 06/21/23 History albuterol sulfate 90 mcg/actuation 2 puff inhalation Q4H PRN 10/15/22 06/21/23 History aerosol inhaler (Ventolin HFA) aspirin 81 mg chewable tablet 81 mg PO DAILY 04/19/23 06/21/23 History morphine 30 mg tablet,extended 30 mg PO BID 04/19/23 06/21/23 History release mirtazapine 7.5 mg tablet 15 mg PO HS 06/21/23 06/21/23 History multivitamin with folic acid 400 1 tab PO DAILY 06/21/23 06/21/23 History mcg tablet (Tab-A-Nan) polyethylene glycol 3350 17 gram 17 g PO DAILY 06/21/23 06/21/23 History oral powder packet (Miralax) polyethylene glycol 3350 17 17 g PO DAILY PRN 06/21/23 06/21/23 History gram/dose oral powder sennosides 8.6 mg-docusate sodium 2 tab-cap PO BID PRN 06/21/23 06/21/23 History 50 mg tablet (Stool Softener-Laxative) Allergies Allergy/AdvReac Type Severity Reaction Status Date / Time penicillin V Allergy Intermediate Rash Verified 06/21/23 16:01 Exam Narrative: Exam Narrative: She is alert and appears in no obvious distress. She is breathing oxygen at 3 L per nasal cannula. She gives her own history with fair detail. She does not know her medications. Head is atraumatic. Eyes normal. Oropharynx with dry mucous membranes. Dentures. Neck is supple without mass or adenopathy. No jugular venous distension. Respirations with marked diffuse crackles heard throughout her right lung [place]. Possible consolidation/fluid at her right lung base. Expiratory wheezing and decreased breath sounds also noted. Left lung [place] with a few crackles but better air exchange. Mild wheezing also present on the left. Cardiovascular: S1, S2, regular tachycardia. While I am auscultating her heart her heart rate does slow down from the 120s to 80s. No murmur gallop or rub. Abdomen is soft without tenderness or mass. She is moderately tender over her entire right side including her lower ribs and right flank of her abdomen in the mid axillary line. No evidence of trauma. No rash. She has intact pedal pulses. No edema. She moves all 4 extremities well. Const: Vital Signs, click to edit/add: Vital Signs - 24 hr 06/21/23 13:09 06/21/23 13:25 06/21/23 13:30 Temperature 98.5 F Pulse Rate 75 71 Pulse Rate [Pulse Oximeter] 77 Respiratory Rate 20 Blood Pressure Blood Pressure [Le ft Upper Arm] 150/113 H Pulse Oximetry 98 97 97 Oxygen Delivery Me thod Nasal Cannula Nasal Cannula Nasal Cannula Oxygen Flow Rate 2 2 2 06/21/23 13:32 06/21/23 13:45 06/21/23 14:00 Temperature Pulse Rate 84 70 Pulse Rate [Pulse Oximeter] Respiratory Rate Blood Pressure 129/66 Blood Pressure [Le ft Upper Arm] Pulse Oximetry 95 98 96 Oxygen Delivery Me thod Nasal Cannula Nasal Cannula Nasal Cannula Oxygen Flow Rate 2 2 2 06/21/23 14:00 06/21/23 14:02 06/21/23 14:15 Temperature Pulse Rate 73 75 68 Pulse Rate [Pulse Oximeter] Respiratory Rate Blood Pressure 137/90 H Blood Pressure [Le ft Upper Arm] Pulse Oximetry 98 97 97 Oxygen Delivery Me thod Nasal Cannula Nasal Cannula Nasal Cannula Oxygen Flow Rate 2 2 2 06/21/23 14:30 06/21/23 14:31 06/21/23 15:00 Temperature Pulse Rate 82 79 70 Pulse Rate [Pulse Oximeter] Respiratory Rate Blood Pressure 151/100 H Blood Pressure [Le ft Upper Arm] Pulse Oximetry 98 98 98 Oxygen Delivery Me thod Nasal Cannula Nasal Cannula Nasal Cannula Oxygen Flow Rate 2 2 2 06/21/23 15:01 06/21/23 15:30 06/21/23 15:32 Temperature Pulse Rate 80 66 120 H Pulse Rate [Pulse Oximeter] Respiratory Rate Blood Pressure 141/71 H 136/61 Blood Pressure [Le ft Upper Arm] Pulse Oximetry 98 98 99 Oxygen Delivery Me thod Nasal Cannula Nasal Cannula Nasal Cannula Oxygen Flow Rate 2 2 2 06/21/23 15:33 06/21/23 16:07 06/21/23 16:30 Temperature Pulse Rate 117 H 89 79 Pulse Rate [Pulse Oximeter] Respiratory Rate 14 Blood Pressure Blood Pressure [Le ft Upper Arm] Pulse Oximetry 99 96 97 Oxygen Delivery Me thod Nasal Cannula Nasal Cannula Nasal Cannula Oxygen Flow Rate 2 2 2 06/21/23 16:32 06/21/23 17:00 06/21/23 17:02 Temperature Pulse Rate 73 75 76 Pulse Rate [Pulse Oximeter] Respiratory Rate 10 L 20 Blood Pressure 148/93 H 142/109 H Blood Pressure [Le ft Upper Arm] Pulse Oximetry 98 92 90 Oxygen Delivery Me thod Nasal Cannula Nasal Cannula Oxygen Flow Rate 2 2 06/21/23 17:31 Temperature Pulse Rate Pulse Rate [Pulse Oximeter] Respiratory Rate Blood Pressure 154/109 H Blood Pressure [Le ft Upper Arm] Pulse Oximetry Oxygen Delivery Me thod Oxygen Flow Rate Hospitalist - H&P: Result Labs Labs: Short CBC 06/21/23 Range/Units 14:30 WBC 5.97 (4.50-11.00) K/uL Hgb 11.3 L (12.0-16.0) gm/dL Hct 35.6 (33.0-51.0) % Plt Count 175 (140-440) K/uL BMP 06/21/23 14:30 Sodium 142 Potassium 3.3 L Chloride 110 Carbon Dioxide 30 BUN 10 Creatinine 0.4 L Glucose 97 Calcium 8.7 Cardiac Enzymes 06/21/23 Range/Units 14:30 Troponin I < 0.01 L (0.01-0.04) ng/mL Imaging CT scan - chest: Radiologist's impression: Final Report: INDICATION: Dyspnea, cough, hypoxia. TECHNIQUE: CT chest PE was acquired with 95 cc Isovue 370 IV contrast. COMPARISON: January 06, 2023. FINDINGS: Heart and vasculature: Contrast opacification of the pulmonary arterial tree is adequate. No sign of pulmonary embolism. Heart size is normal. Coronary artery calcifications. Unchanged dilated descending thoracic and upper abdominal aorta. Unchanged heavy atherosclerotic plaque. Unchanged penetrating atherosclerotic ulcer Lungs and pleura: Redemonstration of multiple parenchymal and pleural-based nodules and masses, similar to prior study given changes in technique. Diffuse peribronchial thickening. Additional scattered atelectasis. No pleural effusions or pneumothoraces. Lymph nodes/mediastinum: No mediastinal, hilar, or axillary adenopathy. Chest wall: Right chest wall port with catheter terminating in the upper SVC. No masses. Upper abdomen: No acute or significant findings. Bones: Unchanged T2 and T7 superior endplate compression fractures. IMPRESSION: No pulmonary embolism. Redemonstration of right greater than left pleural and parenchymal pulmonary nodules and masses, not significantly changed given changes in technique. Diffuse peribronchial thickening with scattered areas of mucous plugging, likely infectious/inflammatory in etiology including aspiration or bronchitis. Assessment and Plan Assessment and plan (1) Acute on chronic hypoxic respiratory failure: Problem comment: Due to a combination of COPD exacerbation with possible pulmonary infection and underlying metastatic lung cancer Status: Acute (2) Chronic obstructive pulmonary disease with acute exacerbation: Problem comment: Started a Medrol dose pack the day prior to admission and has been on oral prednisone since then. Will discharged on 2 more days of oral prednisone then stop. Status: Acute (3) Pneumonia: Problem comment: Concern about pulmonary infection with acute onset of symptoms and findings on imaging and examination supportive of pneumonia or bronchitis. Initiate treatment with ceftriaxone and azithromycin for community-acquired pneumonia Status: Suspected (4) Cancer cachexia: Problem comment: Appears to have lost about 5 lb of weight in the past 2 months from March to May 2023 Status: Acute (5) Lung metastasis: Problem comment: Rectal adenocarcinoma is primary malignancy Status: Chronic (6) Paroxysmal atrial tachycardia: Problem comment: Previous history of episodes of narrow complex regular tachycardia with a rate up to 160. Now currently experiencing episodes in the 120s. SVT verses multifocal atrial tachycardia. May 2023 admission trial of metoprolol to suppress atrial tachycardia. Cardiac monitoring to assess frequency and severit y of tachycardia and response to treatment. Status: Acute Plan Patient is admitted to the hospital for treatment of acute on chronic hypoxic respiratory failure with underlying COPD exacerbation, possible pneumonia and significant burden of metastatic disease especially in her right lung. I am concerned about progression of her disease and overall decline in her functional status. Continue to assess functional status and response to treatment. Continue discussion about goals of care and prognosis Total Time Spent Total Time Spent: Total time spent today is 80 minutes, 50 minutes in coordination of care discussing with patient and other providers ongoing evaluation management of metastatic rectal cancer, COPD, pneumonia, frailty
--- NOTE | 2023-06-21 19:28 | PC.NURSE ---
Pt arrived to floor around 1800. Pt settled. VSS; HTN, on @ liters O2.
[2023-06-21] MEDS: 0.9 % SODIUM CHLORIDE 1000 ml 1,000 ML 30 ML IV (19:33)
[2023-06-21] MEDS: POTASSIUM CHLORIDE 10 MEQ CAPSULE ER 20 MEQ PO (19:38)
[2023-06-21] MEDS: AZITHROMYCIN 250 MG TABLET 500 MG PO (19:38)
[2023-06-21] MEDS: MORPHINE 30 MG TABLET.ER PO (20:28)
[2023-06-21] MEDS: MIRTAZAPINE 15 MG TABLET PO (20:28)
[2023-06-21] MEDS: METOPROLOL TARTRATE 25 MG TABLET PO (20:28)
[2023-06-21] MEDS: GABAPENTIN 300 MG CAPSULE PO (20:28)
[2023-06-21] MEDS: SERTRALINE 100 MG TABLET PO (20:29)
[2023-06-22] VITALS (12 sets, daily range): BP systolic 116–175; BP diastolic 87–118; PULSE 55–79; RESP 16–20; TEMP 36.3–36.6; O2SAT 94–98; BMI 18.8
[2023-06-22] MEDS: IPRAT-ALBUT 0.5-2.5 MG/3 ML NEB 1 NEB IH (04:07)
--- NOTE | 2023-06-22 06:14 | PC.NURSE ---
End of shift [id number]: A&O w/ some forgetfulness, pleasant and cooperative. Hypertensive overnight. updated, no new orders. HR anywhere from 50s-120s. Pt has bouts of tachycardia but HR quickly drops back to normal. Pt denies any feeling like her heart is racing or chest pain with these episodes. Reports SOB w/ activity. On 2L of oxygen w/ sats reaming in the mis 90s. PRN neb given x1 for reported dyspnea w/ stated relief. A1 w/ walker and GB. Using call light appropriately.
[2023-06-22 06:22] LABS: HCO3 VBG 29 mmol/L (21-28); PCO2 VBG 46 mmHG (40-50); PO2 VBG 44.5 mmHG (25-47); pH VBG 7.403 (7.32-7.43)
[2023-06-22 07:01] LABS: Chloride* 108 mmol/L (96-114); Potassium* 4.4 mmol/L (3.6-5.1); Sodium* 138 mmol/L (135-149)
[2023-06-22 07:04] LABS: Anion Gap 4 mEq/L (7-15); Blood Urea Nitrogen* 11 mg/dL (7-30); Carbon Dioxide* 26 mmol/L (20-32); Creatinine* 0.4 mg/dL (0.5-1.5); Est. Creatinine Clearance* 38.88; Estimated Glomerular Filt Rate 104 ml/min; Glucose* 80 mg/dL (60-115)
[2023-06-22 07:05] LABS: Calcium* 8.9 mg/dL (8.4-10.6)
[2023-06-22 07:32] LABS: Basophils Absolute Auto 0.03 K/uL (0.00-0.30); Basophils Percent Auto 0.4 % (0.0-3.0); Eosinophils Percent Auto 1.3 % (0.0-7.0); Hematocrit 38.7 % (33.0-51.0); Hemoglobin* 12.4 gm/dL (12.0-16.0); Immature Granulocytes Abs Auto 0.01 K/uL (0.00-0.30); Immature Granulocytes Pct Auto 0.1 %; Lymphocytes Absolute Auto 2.51 K/uL (0.90-2.90); Lymphocytes Percent Auto 33.7 % (20-44); Mean Corpuscular HGB Conc 32 gm/dL (32-36); Mean Corpuscular Hemoglobin 29 pg (26-34); Mean Corpuscular Volume 91 fL (80-100); Monocytes Percent Auto 7.4 % (0.0-11.0); Neutrophils Absolute Auto 4.25 K/uL (1.7-7.0); Neutrophils Percent Auto 57.1 % (42.0-72.0); Platelet Count* 191 K/uL (140-440); RDW Coefficient of Variation % 13.8 % (11.5-15.5); Red Blood Count 4.24 m/uL (4.00-5.20); White Blood Count* 7.45 K/uL (4.50-11.00)
[2023-06-22 07:34] LABS: Slide Review Reflex No
[2023-06-22] MEDS: POTASSIUM CHLORIDE 10 MEQ CAPSULE ER PO (07:43)
[2023-06-22] MEDS: predniSONE 20 MG TABLET 40 MG PO (07:44)
[2023-06-22] MEDS: SENNOSIDES/DOCUSATE TABLET 2 TAB PO ×2 (08:46→20:36)
[2023-06-22] MEDS: MULTIVITAMIN/MINERALS 1 TABLET 1 TAB PO (08:46)
[2023-06-22] MEDS: ASPIRIN 81 MG TAB.CHEW PO (08:46)
[2023-06-22] MEDS: METOPROLOL TARTRATE 25 MG TABLET PO ×2 (08:46→20:35)
[2023-06-22] MEDS: MORPHINE 30 MG TABLET.ER PO ×2 (08:46→20:34)
[2023-06-22] MEDS: cefTRIAXone 1 GM in 0.9 % SODIUM CHLORIDE Mini-bag 100 ML IVPB (08:47)
--- NOTE | 2023-06-22 09:00 | RESP.RT ---
Patient with strong non productive cough. Instructed on Aerobika for airway clearance assistance. Patient tolerated Aerobika well.
--- NOTE | 2023-06-22 09:16 | PM.IMPN1 ---
Progress Note: A&P Assessment and plan (1) Acute on chronic hypoxic respiratory failure: Problem details: - combination of COPD exacerbation, possible secondary infection, underlying rectal cancer with lung metastases - continue supplemental oxygen, steroids, Azithromycin/Ceftriaxone (06/20) - RT following Status: Acute (2) Chronic obstructive pulmonary disease with acute exacerbation: Problem details: - RT referral, supplemental nebs, steroids - on Ceftriaxone and Azithromycin (06/20) Status: Acute (3) Pneumonia: Problem details: - concern about pulmonary infection with acute onset of symptoms and findings on imaging and examination supportive of pneumonia or bronchitis - presumably community-acquired PNA Status: Suspected (4) Cancer cachexia: Problem details: - Appears to have lost about 5 lb of weight in the past 2 months from March to May 2023 - BMI of 18 - also has deconditioning, therapies following Status: Acute (5) Lung metastasis: Problem details: - Rectal adenocarcinoma is primary malignancy Status: Chronic (6) Paroxysmal atrial tachycardia: Problem details: - Previous history of episodes of narrow complex regular tachycardia with a rate up to 160; currently having intermittent episodes with rate of 120 - SVT verses multifocal atrial tachycardia - Metoprolol initiated 06/21, continue monitoring on telemetry Status: Acute (7) Essential hypertension: Problem details: - Isosorbide held with initiation of Metoprolol on 06/20, BP still elevated on 06/21 (160-170s/90-100s) Status: Chronic Plan - per above - Lovenox for ppx - patient prefers to go back home when medically appropriate Subjective Date Seen: 06/22/23 Interval history: Selena was admitted to the hospital last night for dyspnea in the setting of acute on chronic respiratory failure. This morning, she is not feeling much better. She continues to cough, but is unable to bring up any sputum. No concerns of new pain (chronic R sided pain, on home medications), no other concerns. No reports of concerning tachycardia or other arrhythmias overnight by nursing staff (patient unaware when she has this). Exam Narrative: Exam Narrative: GEN: Awake and sitting in bed, cachectic and appears chronically ill CV: RRR, No concerning murmurs R: She has diffuse expiratory wheezing with decreased bibasilar breath sounds Ext: wwp, no concerning edema Skin: No concerning skin lesions or rashes on exposed skin Neuro: No focal deficits Psych: Appropriate Const: Vital Signs, click to edit/add: Vital Signs - 24 hr 06/21/23 13:09 06/21/23 13:25 06/21/23 13:30 Temperature 98.5 F Pulse Rate 75 71 Pulse Rate [Apical ] Pulse Rate [Pulse Oximeter] 77 Respiratory Rate 20 Blood Pressure Blood Pressure [Le ft Arm] Blood Pressure [Le ft Upper Arm] 150/113 H Pulse Oximetry 98 97 97 Oxygen Delivery Me thod Nasal Cannula Nasal Cannula Nasal Cannula Oxygen Flow Rate 2 2 2 06/21/23 13:32 06/21/23 13:45 06/21/23 14:00 Temperature Pulse Rate 84 70 Pulse Rate [Apical ] Pulse Rate [Pulse Oximeter] Respiratory Rate Blood Pressure 129/66 Blood Pressure [Le ft Arm] Blood Pressure [Le ft Upper Arm] Pulse Oximetry 95 98 96 Oxygen Delivery Me thod Nasal Cannula Nasal Cannula Nasal Cannula Oxygen Flow Rate 2 2 2 06/21/23 14:00 06/21/23 14:02 06/21/23 14:15 Temperature Pulse Rate 73 75 68 Pulse Rate [Apical ] Pulse Rate [Pulse Oximeter] Respiratory Rate Blood Pressure 137/90 H Blood Pressure [Le ft Arm] Blood Pressure [Le ft Upper Arm] Pulse Oximetry 98 97 97 Oxygen Delivery Me thod Nasal Cannula Nasal Cannula Nasal Cannula Oxygen Flow Rate 2 2 2 06/21/23 14:30 06/21/23 14:31 06/21/23 15:00 Temperature Pulse Rate 82 79 70 Pulse Rate [Apical ] Pulse Rate [Pulse Oximeter] Respiratory Rate Blood Pressure 151/100 H Blood Pressure [Le ft Arm] Blood Pressure [Le ft Upper Arm] Pulse Oximetry 98 98 98 Oxygen Delivery Me thod Nasal Cannula Nasal Cannula Nasal Cannula Oxygen Flow Rate 2 2 2 06/21/23 15:01 06/21/23 15:30 06/21/23 15:32 Temperature Pulse Rate 80 66 120 H Pulse Rate [Apical ] Pulse Rate [Pulse Oximeter] Respiratory Rate Blood Pressure 141/71 H 136/61 Blood Pressure [Le ft Arm] Blood Pressure [Le ft Upper Arm] Pulse Oximetry 98 98 99 Oxygen Delivery Me thod Nasal Cannula Nasal Cannula Nasal Cannula Oxygen Flow Rate 2 2 2 06/21/23 15:33 06/21/23 16:07 06/21/23 16:30 Temperature Pulse Rate 117 H 89 79 Pulse Rate [Apical ] Pulse Rate [Pulse Oximeter] Respiratory Rate 14 Blood Pressure Blood Pressure [Le ft Arm] Blood Pressure [Le ft Upper Arm] Pulse Oximetry 99 96 97 Oxygen Delivery Me thod Nasal Cannula Nasal Cannula Nasal Cannula Oxygen Flow Rate 2 2 2 06/21/23 16:32 06/21/23 17:00 06/21/23 17:02 Temperature Pulse Rate 73 75 76 Pulse Rate [Apical ] Pulse Rate [Pulse Oximeter] Respiratory Rate 10 L 20 Blood Pressure 148/93 H 142/109 H Blood Pressure [Le ft Arm] Blood Pressure [Le ft Upper Arm] Pulse Oximetry 98 92 90 Oxygen Delivery Me thod Nasal Cannula Nasal Cannula Oxygen Flow Rate 2 2 06/21/23 17:31 06/21/23 18:10 06/21/23 19:33 Temperature 97.6 F 97.6 F Pulse Rate Pulse Rate [Apical ] Pulse Rate [Pulse Oximeter] 83 88 Respiratory Rate 18 20 Blood Pressure 154/109 H Blood Pressure [Le ft Arm] 171/99 H 163/86 H Blood Pressure [Le ft Upper Arm] Pulse Oximetry 91 94 Oxygen Delivery Me thod Nasal Cannula Nasal Cannula Oxygen Flow Rate 2 2 06/21/23 21:00 06/21/23 22:02 06/21/23 22:03 Temperature Pulse Rate 118 H 61 Pulse Rate [Apical ] Pulse Rate [Pulse Oximeter] Respiratory Rate 20 Blood Pressure Blood Pressure [Le ft Arm] Blood Pressure [Le ft Upper Arm] Pulse Oximetry 96 Oxygen Delivery Me thod Nasal Cannula Oxygen Flow Rate 2 06/21/23 22:56 06/21/23 22:58 06/21/23 23:00 Temperature Pulse Rate Pulse Rate [Apical ] 88 Pulse Rate [Pulse Oximeter] 82 Respiratory Rate 16 22 Blood Pressure Blood Pressure [Le ft Arm] 179/99 H Blood Pressure [Le ft Upper Arm] Pulse Oximetry 96 96 Oxygen Delivery Me thod Nasal Cannula Nasal Cannula Oxygen Flow Rate 2 2 06/22/23 03:07 06/22/23 07:00 06/22/23 07:50 Temperature 97.7 F Pulse Rate 61 Pulse Rate [Apical ] Pulse Rate [Pulse Oximeter] 78 67 Respiratory Rate 18 16 Blood Pressure Blood Pressure [Le ft Arm] 175/118 H Blood Pressure [Le ft Upper Arm] Pulse Oximetry 98 Oxygen Delivery Me thod Nasal Cannula Oxygen Flow Rate 2 06/22/23 08:17 04/24/24 08:19 Temperature 97.7 F Pulse Rate Pulse Rate [Apical ] 61 Pulse Rate [Pulse Oximeter] Respiratory Rate 16 16 Blood Pressure Blood Pressure [Le ft Arm] 116/87 Blood Pressure [Le ft Upper Arm] Pulse Oximetry 97 97 Oxygen Delivery Me thod Nasal Cannula Nasal Cannula Oxygen Flow Rate 2 2 Labs Labs: Laboratory Results - last 24 hr 06/21/23 06/21/23 06/22/23 14:30 14:56 06:05 WBC 5.97 RBC 3.91 L Hgb 11.3 L Hct 35.6 MCV 91 MCH 29 MCHC 32 RDW Coeff of Aleks 13.8 Plt Count 175 Neut % (Auto) 58.5 Lymph % (Auto) 31.7 [place] % (Auto) 6.9 Eos % (Auto) 2.2 Baso % (Auto) 0.7 Neut # (Auto) 3.50 Lymph # (Auto) 1.89 [place] # (Auto) 0.40 Eos # (Auto) 0.13 Baso # (Auto) 0.04 Abs Immat Gran (auto) 0.00 Imm/Tot Granulo (auto) 0.0 VBG pH 7.365 7.403 VBG pCO2 56 H 46 VBG pO2 < 30.1 44.5 VBG HCO3 32 H 29 H Sodium 142 138 Potassium 3.3 L 4.4 Chloride 110 108 Carbon Dioxide 30 26 Anion Gap 2 L 4 L BUN 10 11 Creatinine 0.4 L 0.4 L Estimated Creat Clear 41.35 38.88 Estimated GFR 104 104 Glucose 97 80 Lactate 1.1 Calcium 8.7 8.9 Troponin I < 0.01 L Procalcitonin 0.04 SARS-CoV-2 (PCR) Negative SARS-CoV-2 Influenza Type A (PCR) Negative PCR FLU A Influenza Type B (PCR) Negative PCR FLU B RSV (PCR) Negative PCR RSV 06/22/23 07:25 WBC 7.45 RBC 4.24 Hgb 12.4 Hct 38.7 MCV 91 MCH 29 MCHC 32 RDW Coeff of Aleks 13.8 Plt Count 191 Neut % (Auto) 57.1 Lymph % (Auto) 33.7 [place] % (Auto) 7.4 Eos % (Auto) 1.3 Baso % (Auto) 0.4 Neut # (Auto) 4.25 Lymph # (Auto) 2.51 [place] # (Auto) 0.60 Eos # (Auto) 0.10 Baso # (Auto) 0.03 Abs Immat Gran (auto) 0.01 Imm/Tot Granulo (auto) 0.1 VBG pH VBG pCO2 VBG pO2 VBG HCO3 Sodium Potassium Chloride Carbon Dioxide Anion Gap BUN Creatinine Estimated Creat Clear Estimated GFR Glucose Lactate Calcium Troponin I Procalcitonin SARS-CoV-2 (PCR) Influenza Type A (PCR) Influenza Type B (PCR) RSV (PCR)
[2023-06-22] MEDS: OXYCODONE 5 MG TABLET 10 MG PO ×2 (11:00→22:19)
--- NOTE | 2023-06-22 13:55 | PC.SOCIAL ---
Addendum entered by AMAIRANI Coffey 06/23/23 15:10: Pt has a [facility] Money Room Teller, Nai Miller, and her phone number is [phone]. Original Note: Discharge planning- Met with pt to discuss discharge plans. Pt is hopeful to discharge back home after hospital stay. Pt informs that she has some family that can assist her as needed. Informed pt that this worker will continue to assist with discharge plans as needed. Received a phone call from Eboni at [facility] informing that pt has home care for Longterm and will need a resumption of care order prior to discharge from the hospital. Provided update to charge nurse. Social work will continue to follow up on discharge plans.
--- NOTE | 2023-06-22 17:15 | PC.NURSE ---
Shift Summary: Patient pleasant and cooperative, up with SBA to bathroom. Vitals stable and WNL. Poor appetite today, seen by business continuity strategy director. Pain 4-6/10, managed with scheduled medication and PRN oxycodone. Continues with o2 @ 2L/NC.
[2023-06-22] MEDS: ONDANSETRON 2 MG/ML inj 4 MG IVP (17:58)
[2023-06-22] MEDS: AZITHROMYCIN 250 MG TABLET 500 MG PO (19:47)
[2023-06-22] MEDS: SERTRALINE 100 MG TABLET PO (20:34)
[2023-06-22] MEDS: GABAPENTIN 300 MG CAPSULE PO (20:34)
[2023-06-22] MEDS: MIRTAZAPINE 15 MG TABLET PO (20:35)
[2023-06-22] MEDS: ENOXAPARIN 30 MG/0.3ML INJ SUBCUT (20:35)
[2023-06-23] VITALS (8 sets, daily range): BP systolic 103–164; BP diastolic 64–86; PULSE 55–71; RESP 16–20; TEMP 36.2–36.6; O2SAT 91–98
[2023-06-23] MEDS: 0.9 % SODIUM CHLORIDE 1000 ml 1,000 ML 30 ML IV (01:13)
--- NOTE | 2023-06-23 06:31 | PC.NURSE ---
End of shift [id number]: A&O w/ some forgetfulness but pleasant and cooperative. Hypertensive overnight on 2 L of oxygen and sats remaining in the mid 90s.?Bouts of bradycardia and tachycardia overnight. Pt denies any symptoms with those episodes.? SOB w/ activity.? A1 w/ walker and GB. Port flushed well but unable to draw blood off this AM. Using call light appropriately.?? ?
[2023-06-23 06:33] LABS: HCO3 VBG 32 mmol/L (21-28); PCO2 VBG 60 mmHG (40-50); PO2 VBG < 30.1 mmHG (25-47); pH VBG 7.335 (7.32-7.43)
[2023-06-23 06:37] LABS: Basophils Absolute Auto 0.04 K/uL (0.00-0.30); Basophils Percent Auto 0.7 % (0.0-3.0); Eosinophils Absolute Auto 0.18 K/uL (0.00-0.50); Hematocrit 35.8 % (33.0-51.0); Hemoglobin* 11.2 gm/dL (12.0-16.0); Immature Granulocytes Abs Auto 0.01 K/uL (0.00-0.30); Immature Granulocytes Pct Auto 0.2 %; Mean Corpuscular HGB Conc 31 gm/dL (32-36); Mean Corpuscular Hemoglobin 29 pg (26-34); Mean Corpuscular Volume 93 fL (80-100); Monocytes Percent Auto 7.1 % (0.0-11.0); Neutrophils Absolute Auto 2.79 K/uL (1.7-7.0); Platelet Count* 176 K/uL (140-440); RDW Coefficient of Variation % 13.9 % (11.5-15.5); Red Blood Count 3.87 m/uL (4.00-5.20); White Blood Count* 6.05 K/uL (4.50-11.00)
[2023-06-23 06:44] LABS: Slide Review Reflex No
[2023-06-23 07:05] LABS: Chloride* 110 mmol/L (96-114); Potassium* 3.6 mmol/L (3.6-5.1); Sodium* 140 mmol/L (135-149)
[2023-06-23 07:08] LABS: Anion Gap -1 mEq/L (7-15); Carbon Dioxide* 31 mmol/L (20-32); Creatinine* 0.5 mg/dL (0.5-1.5); Est. Creatinine Clearance* 37.24; Estimated Glomerular Filt Rate 98 ml/min
[2023-06-23 07:09] LABS: Blood Urea Nitrogen* 12 mg/dL (7-30); Calcium* 8.9 mg/dL (8.4-10.6); Glucose* 78 mg/dL (60-115)
[2023-06-23] MEDS: predniSONE 20 MG TABLET 40 MG PO (07:40)
[2023-06-23] MEDS: POTASSIUM CHLORIDE 10 MEQ CAPSULE ER PO (07:40)
[2023-06-23] MEDS: ASPIRIN 81 MG TAB.CHEW PO (08:51)
[2023-06-23] MEDS: ISOSORBIDE MONONITRATE ER 30 MG TAB PO (08:52)
[2023-06-23] MEDS: SENNOSIDES/DOCUSATE TABLET 2 TAB PO ×2 (08:52→20:34)
[2023-06-23] MEDS: MORPHINE 30 MG TABLET.ER PO ×2 (08:52→20:30)
[2023-06-23] MEDS: MULTIVITAMIN/MINERALS 1 TABLET 1 TAB PO (08:52)
[2023-06-23] MEDS: METOPROLOL TARTRATE 25 MG TABLET PO ×2 (08:53→20:30)
[2023-06-23] MEDS: OXYCODONE 5 MG TABLET 10 MG PO ×4 (08:53→22:55)
[2023-06-23] MEDS: cefTRIAXone 1 GM in 0.9 % SODIUM CHLORIDE Mini-bag 100 ML IVPB (08:54)
--- NOTE | 2023-06-23 09:58 | PM.IMPN1 ---
Progress Note: A&P Assessment and plan (1) Acute on chronic hypoxic respiratory failure: Problem details: - combination of COPD exacerbation, possible secondary infection, underlying rectal cancer with lung metastases - continue supplemental oxygen, steroids (40mg of Prednisone daily initiated on 06/21), Azithromycin/Ceftriaxone (06/20) - RT following, improving with Aero Bika Status: Acute (2) Chronic obstructive pulmonary disease with acute exacerbation: Problem details: - RT referral, supplemental nebs, steroids - on Ceftriaxone and Azithromycin (06/20) Status: Acute (3) Pneumonia: Problem details: - concern about pulmonary infection with acute onset of symptoms and findings on imaging and examination supportive of pneumonia or bronchitis - presumably community-acquired PNA Status: Suspected (4) Cancer cachexia: Problem details: - Appears to have lost about 5 lb of weight in the past 2 months from March to May 2023 - BMI of 18 - also has deconditioning, therapies following Status: Acute (5) Lung metastasis: Problem details: - Rectal adenocarcinoma is primary malignancy Status: Chronic (6) Paroxysmal atrial tachycardia: Problem details: - Previous history of episodes of narrow complex regular tachycardia with a rate up to 160; currently having intermittent episodes with rate of 120 - SVT verses multifocal atrial tachycardia - Metoprolol initiated 06/21, continue monitoring on telemetry Status: Acute (7) Essential hypertension: Problem details: - on home Isosorbide in addition to new Rx of BID Metoprolol Status: Chronic Plan - per above - Lovenox for ppx - home with resumption of Home Care services when medically appropriate for discharge - Rigo Sanchez updated by phone, questions answered Subjective Date Seen: 06/23/23 Interval history: Selena was admitted to the hospital on 06/20 for weakness and dyspnea in the setting of multifactorial acute on chronic respiratory failure. She feels slightly better this morning, not yet back to baseline. Continues to have coughing paroxysms and episodes of severe dyspnea. Working with RT, noting improvement in phlegm production with Aerobika. Reassuring telemetry and laboratory findings. Vital signs baseline. Right-sided chest wall pain has flared this morning, known metastases in this region. We discussed hospice eligibility and treatment options today; Selena is not ready for comfort-focused care measures, but is aware that she would be hospice appropriate if desired. Exam Narrative: Exam Narrative: GEN: Sitting in bedside chair, intermittent dyspnea during discussion, cachectic HEENT: EOMIs bilaterally, no scleral icterus CV: RRR, No concerning murmurs R: Expiratory wheezing throughout (apices>bases), bibasilar rhonchi Ext: wwp, no concerning edema Skin: Scattered bruising on extremities, no other concerning skin lesions or rashes on exposed skin Neuro: No focal deficits, no resting tremor Psych: Appropriate Const: Vital Signs, click to edit/add: Vital Signs - 24 hr 06/22/23 11:30 06/22/23 15:00 06/22/23 15:00 Temperature 97.5 F L 97.8 F Pulse Rate Pulse Rate [Apical ] 65 Pulse Rate [Pulse Oximeter] 74 74 Respiratory Rate 20 16 16 Blood Pressure [Le ft Arm] 168/97 H 131/93 H Pulse Oximetry 98 94 Oxygen Delivery Me thod Nasal Cannula Nasal Cannula Oxygen Flow Rate 2 2 06/22/23 15:00 06/22/23 16:45 06/22/23 19:45 Temperature 97.3 F L Pulse Rate 55 L Pulse Rate [Apical ] Pulse Rate [Pulse Oximeter] 79 Respiratory Rate 18 Blood Pressure [Le ft Arm] 169/90 H Pulse Oximetry 94 97 Oxygen Delivery Me thod Nasal Cannula Nasal Cannula Oxygen Flow Rate 2 2 06/22/23 23:23 06/22/23 23:25 06/22/23 23:29 Temperature 97.5 F L Pulse Rate 57 L Pulse Rate [Apical ] Pulse Rate [Pulse Oximeter] 66 Respiratory Rate 18 18 Blood Pressure [Le ft Arm] 153/90 H Pulse Oximetry 94 94 Oxygen Delivery Me thod Room Air Nasal Cannula Oxygen Flow Rate 2 2 06/23/23 02:57 06/23/23 07:03 06/23/23 07:47 Temperature 98 F Pulse Rate 67 Pulse Rate [Apical ] Pulse Rate [Pulse Oximeter] 65 61 Respiratory Rate 20 20 Blood Pressure [Le ft Arm] 149/82 H Pulse Oximetry 98 Oxygen Delivery Me thod Nasal Cannula Oxygen Flow Rate 2 06/23/23 07:47 06/23/23 07:47 Temperature 97.2 F L Pulse Rate Pulse Rate [Apical ] Pulse Rate [Pulse Oximeter] 61 Respiratory Rate 20 20 Blood Pressure [Le ft Arm] 164/71 H Pulse Oximetry 96 96 Oxygen Delivery Me thod Nasal Cannula Nasal Cannula Oxygen Flow Rate 2 2 Labs Labs: Laboratory Results - last 24 hr 06/23/23 06:16 WBC 6.05 RBC 3.87 L Hgb 11.2 L Hct 35.8 MCV 93 MCH 29 MCHC 31 L RDW Coeff of Aleks 13.9 Plt Count 176 Neut % (Auto) 46.0 Lymph % (Auto) 43.0 [place] % (Auto) 7.1 Eos % (Auto) 3.0 Baso % (Auto) 0.7 Neut # (Auto) 2.79 Lymph # (Auto) 2.60 [place] # (Auto) 0.40 Eos # (Auto) 0.18 Baso # (Auto) 0.04 Abs Immat Gran (auto) 0.01 Imm/Tot Granulo (auto) 0.2 VBG pH 7.335 VBG pCO2 60 H VBG pO2 < 30.1 VBG HCO3 32 H Sodium 140 Potassium 3.6 Chloride 110 Carbon Dioxide 31 Anion Gap -1 L BUN 12 Creatinine 0.5 Estimated Creat Clear 37.24 Estimated GFR 98 Glucose 78 Calcium 8.9
[2023-06-23] MEDS: ACETAMINOPHEN 325 MG TABLET 650 MG PO (17:38)
--- NOTE | 2023-06-23 18:27 | PC.NURSE ---
End Of Shift: Patient calm, cooperative, and pleasant. Patient alert and oriented, forgetful at times. Patient vitally stable, lung sounds rhonchi, BS active, port running NS @30. Patient on 2L O2 NC, with sats in mid 90s. Patient standby assist/walker. Patient has rated pain 8/10 out of 10, tylenol given once, and 10mg of oxycodone given x2 for right upper abdominal pain. Patient tolerating regular diet, urinating well in toilet, no BM this shift. Tele=NSR/SA.
[2023-06-23] MEDS: AZITHROMYCIN 250 MG TABLET 500 MG PO (20:27)
[2023-06-23] MEDS: GABAPENTIN 300 MG CAPSULE PO (20:28)
[2023-06-23] MEDS: SERTRALINE 100 MG TABLET PO (20:28)
[2023-06-23] MEDS: MIRTAZAPINE 15 MG TABLET PO (20:29)
[2023-06-23] MEDS: ENOXAPARIN 30 MG/0.3ML INJ SUBCUT (20:31)
[2023-06-24 02:15] VITALS: BP 172/74; PULSE 76; RESP 20; TEMP 36.5; O2SAT 94
[2023-06-24] MEDS: OXYCODONE 5 MG TABLET 10 MG PO ×3 (04:18→18:47)
[2023-06-24] MEDS: ALBUTEROL INHALER 2 PUFF IH (04:49)
[2023-06-24 06:00] LABS: HCO3 VBG 33 mmol/L (21-28); PCO2 VBG 59 mmHG (40-50); PO2 VBG < 30.1 mmHG (25-47); pH VBG 7.357 (7.32-7.43)
[2023-06-24 06:07] LABS: Basophils Absolute Auto 0.03 K/uL (0.00-0.30); Basophils Percent Auto 0.5 % (0.0-3.0); Eosinophils Absolute Auto 0.13 K/uL (0.00-0.50); Eosinophils Percent Auto 2.1 % (0.0-7.0); Hematocrit 34.9 % (33.0-51.0); Hemoglobin* 10.9 gm/dL (12.0-16.0); Immature Granulocytes Abs Auto 0.01 K/uL (0.00-0.30); Immature Granulocytes Pct Auto 0.2 %; Lymphocytes Absolute Auto 2.66 K/uL (0.90-2.90); Lymphocytes Percent Auto 42.6 % (20-44); Mean Corpuscular HGB Conc 31 gm/dL (32-36); Mean Corpuscular Hemoglobin 29 pg (26-34); Mean Corpuscular Volume 92 fL (80-100); Neutrophils Absolute Auto 2.98 K/uL (1.7-7.0); Neutrophils Percent Auto 47.6 % (42.0-72.0); Platelet Count* 167 K/uL (140-440); RDW Coefficient of Variation % 13.6 % (11.5-15.5); Red Blood Count 3.78 m/uL (4.00-5.20); White Blood Count* 6.25 K/uL (4.50-11.00)
[2023-06-24 06:08] LABS: Slide Review Reflex No
[2023-06-24 06:20] LABS: Chloride* 106 mmol/L (96-114); Potassium* 3.7 mmol/L (3.6-5.1); Sodium* 139 mmol/L (135-149)
[2023-06-24 06:23] LABS: Anion Gap -1 mEq/L (7-15); Carbon Dioxide* 34 mmol/L (20-32); Creatinine* 0.5 mg/dL (0.5-1.5); Est. Creatinine Clearance* 37.62; Estimated Glomerular Filt Rate 98 ml/min
[2023-06-24 06:24] LABS: Blood Urea Nitrogen* 14 mg/dL (7-30); Calcium* 8.9 mg/dL (8.4-10.6); Glucose* 98 mg/dL (60-115); Magnesium* 1.7 mg/dL (1.5-2.6)
[2023-06-24 07:00] VITALS: BP 122/89; PULSE 73; PULSE 78; RESP 16; TEMP 36.3; O2SAT 97
--- NOTE | 2023-06-24 07:06 | PC.NURSE ---
Pt alert and oriented x3.? Afebrile.? Reports 9/10 pain in RUQ 7/10 with no movement, pain managed with PRN medications. Pt is on 2L to maintain stats of 90% and greater. Pt reported feeling SOB, gave PRN albuterol inhaler with relief. Pt is up SBA with IV pole. Pt?s right port dressing is CDI, and port is patent. ?
[2023-06-24] MEDS: MULTIVITAMIN/MINERALS 1 TABLET 1 TAB PO (09:38)
[2023-06-24] MEDS: ISOSORBIDE MONONITRATE ER 30 MG TAB PO (09:38)
[2023-06-24] MEDS: MORPHINE 30 MG TABLET.ER PO ×2 (09:39→20:53)
[2023-06-24] MEDS: cefTRIAXone 1 GM in 0.9 % SODIUM CHLORIDE Mini-bag 100 ML IVPB (09:39)
[2023-06-24] MEDS: METOPROLOL SUCCINATE (XL) 50 MG TAB PO (09:39)
[2023-06-24] MEDS: ASPIRIN 81 MG TAB.CHEW PO (09:40)
[2023-06-24] MEDS: SENNOSIDES/DOCUSATE TABLET 2 TAB PO ×2 (09:41→20:54)
--- NOTE | 2023-06-24 10:00 | P.IMPN_ITS ---
Progress Note: A&P Assessment and plan (1) Acute on chronic hypoxic respiratory failure: Problem details: - combination of COPD exacerbation, possible secondary infection, underlying rectal cancer with lung metastases - continue supplemental oxygen, steroids (40mg of Prednisone daily initiated on 06/21), Azithromycin/Ceftriaxone (06/20) - RT following, improving with Aero Bika Status: Acute (2) Chronic obstructive pulmonary disease with acute exacerbation: Problem details: - RT referral, supplemental nebs, steroids - on Ceftriaxone and Azithromycin (06/20) Status: Acute (3) Pneumonia: Problem details: - concern about pulmonary infection with acute onset of symptoms and findings on imaging and examination supportive of pneumonia or bronchitis - presumably community-acquired PNA Status: Suspected (4) Cancer cachexia: Problem details: - Appears to have lost about 5 lb of weight in the past 2 months from March to May 2023 - BMI of 18 - also has deconditioning, therapies following Status: Acute (5) Lung metastasis: Problem details: - Rectal adenocarcinoma is primary malignancy Status: Chronic (6) Paroxysmal atrial tachycardia: Problem details: - Previous history of episodes of narrow complex regular tachycardia with a rate up to 160; currently having intermittent episodes with rate of 120 - SVT verses multifocal atrial tachycardia - Metoprolol initiated 06/21, continue monitoring on telemetry (has been stable) Status: Acute (7) Essential hypertension: Problem details: - on home Isosorbide in addition to new Rx of BID Metoprolol Status: Chronic Plan - per above - home tomorrow with resumption of home care Subjective Date Seen: 06/24/23 Interval history: Selena was admitted to the hospital on 06/20 for weakness, R-sided chest pain, and dyspnea. She was found to have acute on chronic respiratory failure (multifactorial: CAP, COPD, lung metastases). She continues to have pain, moderately controlled with home medications. She is not yet back to baseline and plans to d/c home tomorrow on home oxygen. Working with RT, PT, OT. Tolerating Metoprolol and antibiotics. Reassuring labs and VS. She will have resumption of HH Care upon discharge home, and will discuss hospice further with her HC nurse (Iza). Exam Narrative: Exam Narrative: GEN: Sitting in bedside chair, baseline cachexia, wearing oxygen, intermittent dyspnea while talking HEENT: EOMIs bilaterally, no scleral icterus CV: RRR, No concerning murmurs R: Mild expiratory wheezing, otherwise baseline Ext: wwp, no concerning edema Skin: Scattered bruising on extremities, no other concerning skin lesions or ra shes on exposed skin Neuro: No focal deficits, no resting tremor Psych: Appropriate Const: Vital Signs, click to edit/add: Vital Signs - 24 hr 06/23/23 11:16 06/23/23 14:32 06/23/23 14:32 Temperature 97.5 F L Pulse Rate Pulse Rate [Pulse Oximeter] 55 L 57 L Respiratory Rate 16 18 18 Blood Pressure [Le ft Arm] 103/73 Pulse Oximetry 95 96 Oxygen Delivery Me thod Nasal Cannula Nasal Cannula Oxygen Flow Rate 2 2 06/23/23 14:32 06/23/23 15:00 06/23/23 20:21 Temperature 97.5 F L 97.8 F Pulse Rate 64 Pulse Rate [Pulse Oximeter] 57 L 71 Respiratory Rate 18 18 Blood Pressure [Le ft Arm] 115/64 123/75 Pulse Oximetry 96 94 Oxygen Delivery Me thod Nasal Cannula Nasal Cannula Oxygen Flow Rate 2 2 06/23/23 22:56 06/23/23 22:56 06/23/23 22:56 Temperature 97.8 F Pulse Rate 64 Pulse Rate [Pulse Oximeter] 60 Respiratory Rate 18 16 Blood Pressure [Le ft Arm] 113/86 Pulse Oximetry 91 Oxygen Delivery Me thod Nasal Cannula Oxygen Flow Rate 2 06/23/23 22:56 06/24/23 02:15 06/24/23 07:00 Temperature 97.7 F Pulse Rate Pulse Rate [Pulse Oximeter] 76 Respiratory Rate 18 20 16 Blood Pressure [Le ft Arm] 172/74 H Pulse Oximetry 91 94 97 Oxygen Delivery Me thod Nasal Cannula Nasal Cannula Nasal Cannula Oxygen Flow Rate 2 2 2 06/24/23 07:00 Temperature 97.3 F L Pulse Rate Pulse Rate [Pulse Oximeter] 78 Respiratory Rate 16 Blood Pressure [Le ft Arm] 122/89 Pulse Oximetry 97 Oxygen Delivery Me thod Nasal Cannula Oxygen Flow Rate 2 Labs Labs: Laboratory Results - last 24 hr 06/24/23 05:48 WBC 6.25 RBC 3.78 L Hgb 10.9 L Hct 34.9 MCV 92 MCH 29 MCHC 31 L RDW Coeff of Aleks 13.6 Plt Count 167 Neut % (Auto) 47.6 Lymph % (Auto) 42.6 [place] % (Auto) 7.0 Eos % (Auto) 2.1 Baso % (Auto) 0.5 Neut # (Auto) 2.98 Lymph # (Auto) 2.66 [place] # (Auto) 0.40 Eos # (Auto) 0.13 Baso # (Auto) 0.03 Abs Immat Gran (auto) 0.01 Imm/Tot Granulo (auto) 0.2 VBG pH 7.357 VBG pCO2 59 H VBG pO2 < 30.1 VBG HCO3 33 H Sodium 139 Potassium 3.7 Chloride 106 Carbon Dioxide 34 H Anion Gap -1 L BUN 14 Creatinine 0.5 Estimated Creat Clear 37.62 Estimated GFR 98 Glucose 98 Calcium 8.9 Magnesium 1.7
[2023-06-24] MEDS: predniSONE 20 MG TABLET 40 MG PO (10:17)
--- NOTE | 2023-06-24 11:18 | P.IMPN_ITS ---
Progress Note: A&P Assessment and plan (1) Acute on chronic hypoxic respiratory failure: Problem details: - combination of COPD exacerbation, possible secondary infection, underlying rectal cancer with lung metastases - continue supplemental oxygen, steroids (40mg of Prednisone daily initiated on 06/21), Azithromycin/Ceftriaxone (06/20). Antibiotic treatment course completed. - RT following, improving with Aero Bika Status: Acute (2) Chronic obstructive pulmonary disease with acute exacerbation: Problem details: - RT referral, supplemental nebs, steroids - chest completed 3 days of Ceftriaxone and Azithromycin (06/20) Status: Acute (3) Pneumonia: Problem details: - concern about pulmonary infection with acute onset of symptoms and findings on imaging and examination supportive of pneumonia or bronchitis - presumably community-acquired PNA. Just completed 3 day course of ceftriaxone and azithromycin Status: Suspected (4) Cancer cachexia: Problem details: - Appears to have lost about 5 lb of weight in the past 2 months from March to May 2023 - BMI of 18 - also has deconditioning, therapies following Status: Acute (5) Lung metastasis: Problem details: - Rectal adenocarcinoma is primary malignancy Status: Chronic (6) Paroxysmal atrial tachycardia: Problem details: - Previous history of episodes of narrow complex regular tachycardia with a rate up to 160; currently having intermittent episodes with rate of 120 - SVT verses multifocal atrial tachycardia - Metoprolol initiated 06/21, continue monitoring on telemetry (has been stable) pulses occasionally in the upper 50s. No obvious SVT Status: Acute (7) Essential hypertension: Problem details: - on home Isosorbide in addition to new Rx of BID Metoprolol Status: Chronic Plan Continue in hospital for 1 more day for management of her right-sided pain, hypoxic respiratory failure due to pneumonia and COPD. Anticipate discharge to home tomorrow. Patient is appropriate candidate for hospice in light of her recent functional decline, ongoing dyspnea and pain and guarded prognosis. Ongoing discussion as an outpatient would be appropriate. Even if hospice is not right for her at this time. There should be ongoing conversation about incr easing outpatient support or moving to a higher level of care Time Spent With Patient Total time spent: Total time spent today is 45 minutes, 30 minutes in coordination of care discussing with patient and other providers end of life care, management of pain and dyspnea and disposition Subjective Date Seen: 06/24/23 Interval history: Selena was admitted to the hospital on 06/20 for weakness, R-sided chest pain, and dyspnea. She was found to have acute on chronic respiratory failure (multifactorial: CAP, COPD, lung metastases). She continues to have pain, moderately controlled with home medications. She is not yet back to baseline and plans to d/c home tomorrow on home oxygen. Working with RT, PT, OT. Not having recurrent episodes of SVT on metoprolol. Still short of breath but modestly improved since admission. On 2 L per nasal cannula which is her home O2 supplementation Reassuring labs and VS. She will have resumption of HH Care upon discharge home, and will discuss hospice further with her HC nurse (Iza). Exam Narrative: Exam Narrative: She is alert and appears in no distress. Respirations with occasional crackle and some evidence of consolidation at the right base. Other lung [place] with improved aeration, mostly resolved wheezing. Rare crackle. Cardiovascular: S1, S2, regular rate and rhythm. Abdomen: Bowel sounds active. Abdomen is soft without tenderness or mass. Right flank and chest wall tenderness unchanged. Extremities without edema. Const: Vital Signs, click to edit/add: Vital Signs - 24 hr 06/23/23 14:32 06/23/23 14:32 06/23/23 14:32 Temperature 97.5 F L Pulse Rate Pulse Rate [Pulse Oximeter] 57 L 57 L Respiratory Rate 18 18 18 Blood Pressure [Le ft Arm] 115/64 Pulse Oximetry 96 96 Oxygen Delivery Me thod Nasal Cannula Nasal Cannula Oxygen Flow Rate 2 2 06/23/23 15:00 06/23/23 20:21 06/23/23 22:56 Temperature 97.8 F 97.8 F Pulse Rate 64 Pulse Rate [Pulse Oximeter] 71 60 Respiratory Rate 18 18 Blood Pressure [Le ft Arm] 123/75 113/86 Pulse Oximetry 94 91 Oxygen Delivery Me thod Nasal Cannula Nasal Cannula Oxygen Flow Rate 2 2 06/23/23 22:56 06/23/23 22:56 06/23/23 22:56 Temperature Pulse Rate 64 Pulse Rate [Pulse Oximeter] Respiratory Rate 16 18 Blood Pressure [Le ft Arm] Pulse Oximetry 91 Oxygen Delivery Me thod Nasal Cannula Oxygen Flow Rate 2 06/24/23 02:15 06/24/23 07:00 06/24/23 07:00 Temperature 97.7 F 97.3 F L Pulse Rate Pulse Rate [Pulse Oximeter] 76 78 Respiratory Rate 20 16 16 Blood Pressure [Le ft Arm] 172/74 H 122/89 Pulse Oximetry 94 97 97 Oxygen Delivery Me thod Nasal Cannula Nasal Cannula Nasal Cannula Oxygen Flow Rate 2 2 2 Documenting provider has reviewed patient's vital signs: yes Labs Labs: Laboratory Results - last 24 hr 06/24/23 05:48 WBC 6.25 RBC 3.78 L Hgb 10.9 L Hct 34.9 MCV 92 MCH 29 MCHC 31 L RDW Coeff of Aleks 13.6 Plt Count 167 Neut % (Auto) 47.6 Lymph % (Auto) 42.6 Hendry % (Auto) 7.0 Eos % (Auto) 2.1 Baso % (Auto) 0.5 Neut # (Auto) 2.98 Lymph # (Auto) 2.66 Hendry # (Auto) 0.40 Eos # (Auto) 0.13 Baso # (Auto) 0.03 Abs Immat Gran (auto) 0.01 Imm/Tot Granulo (auto) 0.2 VBG pH 7.357 VBG pCO2 59 H VBG pO2 < 30.1 VBG HCO3 33 H Sodium 139 Potassium 3.7 Chloride 106 Carbon Dioxide 34 H Anion Gap -1 L BUN 14 Creatinine 0.5 Estimated Creat Clear 37.62 Estimated GFR 98 Glucose 98 Calcium 8.9 Magnesium 1.7
[2023-06-24] MEDS: HEPARIN 500 UNIT/5 ML SYRINGE IVF (12:00)
[2023-06-24 12:15] VITALS: PULSE 55; PULSE 58; TEMP 37; O2SAT 97
[2023-06-24 15:00] VITALS: BP 165/80; PULSE 62; PULSE 63; RESP 18; TEMP 36.4; O2SAT 93
--- NOTE | 2023-06-24 15:59 | PC.SOCIAL ---
Discharge planning: Met with pt who is planning to discharge home when ready for discharge. She is not interested in a facility placement and states she went to [facility] for rehab and it was not a good experience. Pt plans to go home and resume home care nursing once a week with [facility]. Pt states the nurse sets up medications once a week and this is working well for her. Pt states her son comes by to assist as needed and that he could visit more if needed. Discussed option of hiring sales technician home theater care if needed an answered questions about how this is different from home care covered by insurance. Provided pt with written information on sales technician home theater care agencies. Offered to call son to discuss hiring this level of care at home, but pt refused and said she would share the information with him herself. Pt states she had looked into [facility] and thinks she is on a waiting list but has nit heard back from them. Pt is still interested in meals on wheels. Contacted the meals on wheels coordinator at [facility] and left message requesting she reach out to pt about her status on wait list or to start services. Provided pt with written information on how to follow up on [facility] on [facility]. Pt was pleased with information provided. PT/OT recommending home care PT/OT services be added to [facility]. RN to send discharge orders with resumption of nursing home manager and new face to face for PT/OT orders to [facility] at discharge if MD orders.
--- NOTE | 2023-06-24 18:28 | PC.NURSE ---
The patients daughter called.... Prior to giving the daughter an update I approved that this was ok with the patient. The patients daughter was called and given an update on her mom's care while in the hospital. Yvonne BARROSON
[2023-06-24] MEDS: ACETAMINOPHEN 325 MG TABLET 650 MG PO (18:47)
--- NOTE | 2023-06-24 18:55 | PC.NURSE ---
End of Shift: The patient is pleasant and cooperative throughout the day. VSS... on 2L NC chronically for her COPD. SOB with exertion when up to the BR. Remains SBA when getting up due to tripping hazard with the O2 tubing. Ate all of breakfast and dinner this shift and a small lunch. Reported moderate/severe RUQ pain throughout the shift... PRN oxy given 2x at the patients discretion. I educated her that we don't want the pain to get out of hand and then have to catch up on it. Call light within reach. IV abx infused in R chest port this AM. Heparin locked this afternoon. Yvonne BOWLES BSN
[2023-06-24 19:00] VITALS: BP 139/119; PULSE 82; RESP 18; TEMP 36.4; O2SAT 92
[2023-06-24] MEDS: ENOXAPARIN 30 MG/0.3ML INJ SUBCUT (20:53)
[2023-06-24] MEDS: MIRTAZAPINE 15 MG TABLET PO (20:54)
[2023-06-24] MEDS: GABAPENTIN 300 MG CAPSULE PO (20:54)
[2023-06-24] MEDS: SERTRALINE 100 MG TABLET PO (20:54)
[2023-06-24 23:00] VITALS: BP 170/91; PULSE 64; PULSE 73; PULSE 74; RESP 18; TEMP 36.5; O2SAT 92; O2SAT 95
--- NOTE | 2023-06-25 00:03 | PC.NURSE ---
Addendum entered by Fred Grant RN 06/25/23 05:00: Pt is asymptomatic for the A.fib at the moment. Pt is occasionally confuse. High Systolic Bp. Pt had hard time sleeping. Chemo precaution observed. Original Note: Nurse note: A. fib with NSR noted on the telemetry. EKG taken for MD review.Charge nurse notified.
[2023-06-25 03:00] VITALS: BP 195/96; PULSE 68; RESP 18; TEMP 36.1; O2SAT 100
[2023-06-25 07:40] VITALS: PULSE 51
[2023-06-25] MEDS: POTASSIUM CHLORIDE 10 MEQ CAPSULE ER PO (07:44)
[2023-06-25] MEDS: OXYCODONE 5 MG TABLET 10 MG PO (07:45)
[2023-06-25] MEDS: predniSONE 20 MG TABLET 40 MG PO (07:45)
[2023-06-25 07:48] VITALS: BP 151/99; PULSE 70; RESP 16; TEMP 36.4; O2SAT 96
[2023-06-25] MEDS: MORPHINE 30 MG TABLET.ER PO (09:09)
[2023-06-25] MEDS: AMLODIPINE 5 MG TABLET PO (09:09)
[2023-06-25] MEDS: APIXABAN 5 MG TABLET PO (09:09)
[2023-06-25] MEDS: METOPROLOL SUCCINATE (XL) 50 MG TAB PO (09:09)
[2023-06-25] MEDS: MULTIVITAMIN/MINERALS 1 TABLET 1 TAB PO (09:09)
[2023-06-25] MEDS: SENNOSIDES/DOCUSATE TABLET 2 TAB PO (09:10)
[2023-06-25] MEDS: ACETAMINOPHEN 325 MG TABLET 650 MG PO (09:10)
[2023-06-25] MEDS: SODIUM CHLORIDE 0.9 % (FLUSH) 10 ML SYRINGE 5 ML IVF (09:11)
--- NOTE | 2023-06-25 10:57 | RESP.RT ---
discussed with patient Home Oxygen safety, and smoking. Patient on Home Oxygen 2 Lpm continuing to smoke. Has Aerobika and is using it PRN often, likes it. Patient using MDI but not using extensions at this time. Previous hospital visit patient was given extension and explained it's use and advantages. Patient also uses Nebulizer when she feels like the MDI's did not work. Discussed one or the other at one time. Patient verbally agrees but will need re-enforcement.
[2023-06-25 11:48] VITALS: BP 137/91; PULSE 73; RESP 18; TEMP 36.6; O2SAT 96
--- NOTE | 2023-06-25 12:05 | P.DS_ITS ---
DS: Providers Provider Date Seen: 06/25/23 Date of admission: 06/21/23 17:59 Primary care physician: Byron Mondragon MD Admitting Clinician: Dwain Obrien MD Attending Physician on discharge: Dwain Obrien MD Date of Discharge: 06/25/23 DS: Diagnosis Discharge Diagnosis (1) Acute on chronic hypoxic respiratory failure: Status: Acute Problem details: - combination of COPD exacerbation, possible secondary infection, underlying rectal cancer with lung metastases - continue supplemental oxygen, steroids (40mg of Prednisone daily initiated on 06/21), Azithromycin/Ceftriaxone (06/20). Antibiotic treatment course completed. - RT following, improving with Aero Bika. At discharge back to baseline respiratory status requiring 2 L per nasal cannula (2) Pneumonia: Status: Suspected Problem details: - concern about pulmonary infection with acute onset of symptoms and findings on imaging and examination supportive of pneumonia or bronchitis - presumably community-acquired PNA. Just completed 3 day course of ceftriaxone and azithromycin (3) Chronic obstructive pulmonary disease with acute exacerbation: Status: Acute Problem details: - RT referral, supplemental nebs, steroids - just completed 3 days of Ceftriaxone and Azithromycin (06/20) (4) Cancer cachexia: Status: Acute Problem details: - Appears to have lost about 5 lb of weight in the past 2 months from March to May 2023 - BMI of 18 - also has deconditioning, therapies following (5) Paroxysmal atrial tachycardia: Status: Acute Problem details: - Previous history of episodes of narrow complex regular tachycardia with a rate up to 160; currently having intermittent episodes with rate of 120 On telemetry monitoring patient did have some variation in her heart rate and rhythm but rate control was excellent on metoprolol 50 mg daily. Electrocardiogram suggested atrial fibrillation but close inspection shows that she has continued to have P waves with consistent morphology and MO intervals. - Metoprolol initiated 06/21, continue monitoring on telemetry (has been stable) pulses occasionally in the upper 50s. (6) Lung metastasis: Status: Chronic Problem details: - Rectal adenocarcinoma is primary malignancy. Large right lower lobe masses are relatively stable. (7) Pain: Status: Acute Problem details: On MS Contin and p.r.n. oxycodone. Fair pain control with this strategy. Tolerating opioid side effects fairly well. Needs more aggressive treatment of constipation. (8) Hypokalemia: Status: Acute Problem details: Initiate oral potassium. Follow-up as outpatient (9) Essential hypertension: Status: Chronic Problem details: Metoprolol 50 mg daily for rate control started. Isosorbide was discontinued and amlodipine 5 mg was started for coronary disease and blood pressure control DS: Summary Hospital Course Hospital Course: Selena was admitted to the hospital on 06/20 for weakness, R-sided chest pain, and dyspnea. She was found to have acute on chronic respiratory failure (multifactorial: CAP, COPD, lung metastases). She continues to have pain, moderately controlled with home medications. Patient indicates that she appreciates been help from having nurses care for her. She is not interested in fci facility however Not having recurrent episodes of SVT on metoprolol. Had an episode on the evening of June 23 that looked like it might be atrial fibrillation but closer inspection shows that she had consistent uniform P waves and MO intervals. Still short of breath but modestly improved since admission. On 2 L per nasal cannula which is her home O2 supplementation Blood pressures were elevated. Metoprolol 50 mg daily was added for rate control and amlodipine 5 mg daily was added for blood pressure control and isosorbide was discontinued. Outpatient follow-up of blood pressure and pulse. Patient has stage IV rectal adenocarcinoma metastates to her right lower lung. This is thought to be the primary cause for her right-sided pain, cachexia and contributing to her chronic dyspnea. We discussed how these problems are not going to get better despite her palliative immune therapy and that she would be appropriate to consider hospice for end of life care when the time is right for her. She will have resumption of Care upon discharge home, and will discuss hospice further with her HC nurse (Iza). Status at Discharge Functional status at discharge: uses cane/walker Overall status at discharge: patient is progressing back to baseline Time Spent with Patient Time attestation: Total time spent providing and/or coordinating discharge services: 35 minutes Time spent: Greater than 30 minutes Exam Narrative: Exam Narrative: She is alert and appears in no distress. Breathing comfortably at rest on 2 L per nasal cannula. Respirations are clear to auscultation except for the right base where she has an occasional crackle and diminished breath sounds consistent with her known consolidation from lung metastases. No wheezing is present. Cardiovascular: S1, S2, regular rate and rhythm. Abdomen is soft without tenderness. Extremities without edema. Const: Vital Signs, click to edit/add: Vital Signs - 24 hr 06/24/23 12:15 06/24/23 15:00 06/24/23 15:00 Temperature 98.6 F 97.5 F L Pulse Rate 62 Pulse Rate [Apical ] 58 L Pulse Rate [Pulse Oximeter] 55 L 63 Respiratory Rate 18 Blood Pressure [Le ft Arm] 165/80 H Pulse Oximetry 97 93 Oxygen Delivery Me thod Nasal Cannula Nasal Cannula Oxygen Flow Rate 2 06/24/23 15:00 06/24/23 19:00 06/24/23 23:00 Temperature 97.5 F L Pulse Rate Pulse Rate [Apical ] Pulse Rate [Pulse Oximeter] 82 64 Respiratory Rate 18 18 Blood Pressure [Le ft Arm] 139/119 H Pulse Oximetry 93 92 Oxygen Delivery Me thod Nasal Cannula Nasal Cannula Oxygen Flow Rate 2 2 06/24/23 23:00 06/24/23 23:00 06/24/23 23:00 Temperature 97.7 F Pulse Rate 73 Pulse Rate [Apical ] Pulse Rate [Pulse Oximeter] 74 Respiratory Rate 18 18 Blood Pressure [Le ft Arm] 170/91 H Pulse Oximetry 92 95 Oxygen Delivery Me thod Nasal Cannula Nasal Cannula Oxygen Flow Rate 2 2 06/25/23 03:00 06/25/23 07:40 06/25/23 07:48 Temperature 97 F L Pulse Rate 51 L Pulse Rate [Apical ] Pulse Rate [Pulse Oximeter] 68 70 Respiratory Rate 18 16 Blood Pressure [Le ft Arm] 195/96 H Pulse Oximetry 100 Oxygen Delivery Me thod Nasal Cannula Oxygen Flow Rate 2 06/25/23 07:48 06/25/23 07:48 06/25/23 11:48 Temperature 97.6 F 97.9 F Pulse Rate Pulse Rate [Apical ] Pulse Rate [Pulse Oximeter] 70 73 Respiratory Rate 16 16 18 Blood Pressure [Le ft Arm] 151/99 H 137/91 H Pulse Oximetry 96 96 96 Oxygen Delivery Me thod Nasal Cannula Nasal Cannula Nasal Cannula Oxygen Flow Rate 2 2 2 Documenting provider has reviewed patient's vital signs: yes DS: Data Data Completed and Pending Completed studies during hospitalization: Procedures Introduction of Other Gas into Respiratory Tract, Via Natural or Artificial Opening (10/15/22) Labs on day of discharge: Preliminary micro results at discharge 06/21/23 14:40 Blood Culture - Preliminary Blood NO GROWTH AFTER 72 HOURS 06/21/23 14:30 Blood Culture - Preliminary Blood NO GROWTH AFTER [address] scan - chest: Radiologist's impression: Study:?CT-Chest PE 95CC ISOVUE 370-06/21/2023 4:07:15 PM Ordering Physician:?DR. VALDEZ Final Report: INDICATION: Dyspnea, cough, hypoxia. TECHNIQUE: CT chest PE was acquired with 95 cc Isovue 370 IV contrast. COMPARISON: January 06, 2023. FINDINGS: Heart and vasculature: Contrast opacification of the pulmonary arterial tree is adequate. No sign of pulmonary embolism. Heart size is normal. Coronary artery calcifications. Unchanged dilated descending thoracic and upper abdominal aorta. Unchanged heavy atherosclerotic plaque. Unchanged penetrating atherosclerotic ulcer Lungs and pleura: Redemonstration of multiple parenchymal and pleural-based nodules and masses, similar to prior study given changes in technique. Diffuse peribronchial thickening. Additional scattered atelectasis. No pleural effusions or pneumothoraces. Lymph nodes/mediastinum: No mediastinal, hilar, or axillary adenopathy. Chest wall: Right chest wall port with catheter terminating in the upper SVC. No masses. Upper abdomen: No acute or significant findings. Bones: Unchanged T2 and T7 superior endplate compression fractures. IMPRESSION: No pulmonary embolism. Redemonstration of right greater than left pleural and parenchymal pulmonary nodules and masses, not significantly changed given changes in technique. Diffuse peribronchial thickening with scattered areas of mucous plugging, likely infectious/inflammatory in etiology including aspiration or bronchitis. Discharge Plan Discharge Disposition: Home, Self-Care Date of Admission: 06/21/23 17:59 Attending Provider on Discharge: Dwain Obrien Primary Care Provider: Byron Mondragon Condition: Improved Anticipated Discharge Date/Time: 06/25/23 10:00 Discharge Medications: New potassium chloride 10 mEq Capsule, Extended Release 10 meq PO DAILYWM Qty: 30 0RF metoprolol succinate 50 mg Tablet Extended Release 24 Hr 50 mg PO DAILY Qty: 30 0RF amlodipine 5 mg Tablet 5 mg PO DAILY Qty: 30 0RF Continued morphine 30 mg tablet extended release 30 mg PO BID clonazepam 0.5 mg tablet 0.5 mg PO HS PRN nitroglycerin 0.4 mg tablet, sublingual 0.4 mg sublingual Q5M PRN (Reason: chest pain) sertraline 100 mg tablet 100 mg PO HS gabapentin 300 mg capsule 300 mg PO HS aspirin 81 mg tablet,chewable 81 mg PO DAILY PRN albuterol sulfate [Ventolin HFA] 90 mcg/actuation HFA aerosol inhaler 2 puff inhalation Q4H PRN ipratropium-albuterol 0.5 mg-3 mg(2.5 mg base)/3 mL Solution For Nebulization 3 ml inhalation Q6H PRN (Reason: dyspnea) Qty: 20 0RF Lumakras 120 mg tablet 600 mg PO DAILY Qty: 150 3RF sennosides-docusate sodium [Stool Softener-Laxative] 8.6-50 mg Tablet 2 tab-cap PO BID PRN polyethylene glycol 3350 17 gram/dose powder 17 g PO DAILY PRN multivitamin with folic acid [Tab-A-Nan] 400 mcg tablet 1 tab PO DAILY mirtazapine 15 mg tablet 15 mg PO HS oxycodone 10 mg tablet 10 mg PO Q4H PRN Systane Ultra 0.4-0.3 % drops 1 drp ophthalmic (eye) Q2H PRN ondansetron 4 mg tablet,disintegrating 4 mg translingual Q8H PRN (Reason: nausea and vomiting) Rx Instructions: Use either this or prochlorperazine for nausea Try taking this 30 mins prior to Sotorasib Discontinued isosorbide mononitrate 30 mg tablet extended release 24 hr 30 mg PO DAILY Discharge Orders: Discharge Order (Routine); Ordered 06/25/23 Ordered By: Dwain Obrien Patient Education: Metoprolol (By mouth), Potassium Chloride (By mouth) (K-Dur, K-Lilia, K-Tab, Robert Mur), Amlodipine (By mouth), COPD (Chronic Obstructive Pulmonary Disease) (GEN) Activity Level: Activity as Tolerated Discharge Diet: Regular Follow Up Appointments: Chandni Avery PA-C [Referring] - 07/01/23 12:45 pm ([facility] for follow up. Primary Care Provider was unavailable during the time frame needed for follow up) Byron Mondragon MD [Primary Care Provider] - (follow up next week to reassess pain, blood pressure, heart rate and rhythm and trouble breathing.) Forms: [facility] Info Instructions
[2023-06-25] MEDS: ONDANSETRON ODT 4 MG TAB PO (12:30)
--- NOTE | 2023-06-25 13:42 | PC.NURSE ---
End of Shift: Patient calm, cooperative, and pleasant. Patient vitally stable, lungs with rhonchi, BS active. Patient on 2L O2 via NC, with sats in the mid 90s. Port de-accessed. Patient reported pain 10/10 and 6/10, 10mg of Oxycodone given once. Patient requested Zofran prior to eating lunch. Tele=NSR. Patient tolerating regular diet, and urinating well. Charge nurse completed discharge with patient. Patient left the floor by wheelchair at 1335.
== END 2023-06-25 13:35 | disposition home or self-care (01) | DRG 189 ==
LOC: ED 15:29 → MEDSURG 17:50
PROVIDERS: Family Medicine; Admitting Provider Family Medicine; Emergency Provider Emergency Medicine; PCP Family Medicine; Visit Provider Family Medicine
DX: J96.21 Acute and chronic respiratory failure with hypoxia (principal); J18.9 Pneumonia, unspecified organism; J44.0 Chronic obstructive pulmonary disease with (acute) lower respiratory infection; J44.1 Chronic obstructive pulmonary disease with (acute) exacerbation; C20 Malignant neoplasm of rectum; C78.02 Secondary malignant neoplasm of left lung; C78.01 Secondary malignant neoplasm of right lung; I47.19 Other supraventricular tachycardia; Z68.1 Body mass index [BMI] 19.9 or less, adult; E88.A Wasting disease (syndrome) due to underlying condition; E87.6 Hypokalemia; F17.210 Nicotine dependence, cigarettes, uncomplicated; I25.10 Atherosclerotic heart disease of native coronary artery without angina pectoris; Z95.1 Presence of aortocoronary bypass graft; I10 Essential (primary) hypertension
CPT/HCPCS: 36415; 71045; 71275; 80048; 82803; 83605; 83735; 84145; 84484; 85025; 87040; 87631; 93005; 94640; 97110; 97161; 97165; 97535; 99284; 99285; A9153; A9270; J0696; J1642; J1650; J2405; J2919; J7030; J7512; Q9967

== ENCOUNTER 2023-07-07 18:19 | Outpatient (CLI) | payer OTHER, SELFPAY ==
--- OUTSIDE RECORDS SUMMARY | 2023-07-08 16:53 | XMS_ITS | Continuity of Care Document ---
Author Name Unknown Organization [facility] Address [address] [address] [place] [address] Phone Care Team Providers Care Cathode Ray Tube Assembler Name Role Phone Unavailable Unavailable Unavailable Procedures Procedure Date Subsqt Hosp-da E&m Minr Compl Init Hosp-da E&m Mod Severity [employer] Direct[employer] Directive Yes / No Effective Date File Name No Information Encounters Encounter Description Practice Location Reason(s) For Visit Diagnoses Date Provider Providers Copied on Encounter Subsqt Hosp-da E&m Minr Compl [facility], [address] [address], [place], [place], [id number], [place] tel:[phone] [facility] No Information No Information Referring Provider: Byron Barnes, [address] , [place], [address]. tel:[phone] Init Hosp-da E&m Mod Severity [facility], [facility], [address] [address], [place], [place], [id number], [place] tel:[phone] [facility] No Information No Information Referring Provider: Byron Barnes, [address], [place], [address]. tel:[phone] Family History Family Member Type Diagnosis Age At Onset No Information Payers Payer name Insurance type Covered libertarian ID Authoriza tion(s) Medicare [facility] [place] [id number] [place] Medical Assistance [id number] Social History Type Description Quantity Date Captured [...]
--- OUTSIDE RECORDS SUMMARY | 2023-07-08 16:54 | XMS_ITS | Clinical Summary ---
Author Name Unknown Organization [facility] Address [place], [place] [address] Care Team Providers Care Supervisor Refining Name Role Phone GillDiane alvarezjean pierre Schultz LP Unavailable Hue Mayes MD Unavailable [phone] Byron Mondragon MD Primary Care Provider + [...] enteric coated tabletIndications: Coronary artery disease involving [place] heart without angina pectoris, unspecified vessel or [...] mg sublingual tabletIndications: Coronary artery disease involving [place] heart without angina pectoris, unspecified vessel or [...] disease 10/03/2018 Atherosclerotic heart diseas e of [place] coronary artery with other forms of angina pectoris 10/03/2018 Controlled substance agreement signed 04/26/2017 Overview: Signed: 10/22/14: Amanda Del Cid, MATTRESS SPECIALIST, BC, TIER TRUCK DRIVER /mf Long QT interval 06/01/2016 Junctional rhythm [...] Overview: - s/p CAB x 3 in [place] 09/27/2006: MAXWELL - LAD, SVG - OM2, [...] Type Department Care Team Description 07/06/2023 Telephone [facility] [address] [place] [address] TorotelByron MD 07/04/2023 Refill [facility] [address] [place] [address] Byron Mondragon MD Refill Request (Ondansetron) 07/01/2023 Telephone [facility] [address] [place] [address] Byron Mondragon MD Questions 07/01/[address] [address] Byron Mondragon MD Refill Request (Morphine, oxyCODONE ) 06/27/[address] [address] Byron Mondragon MD update (Update/) 06/21/2023 Orders Only [facility] Scanner 1 scan: (1-Ord) [facility], XR CHEST 1V, 06/21/2023 06/21/2023 Orders Only [facility] Scanner 1 scan: (1-Ord) [place], ANGIO CHEST , 06/21/2023 06/10/[address] [address] Byron Mondragon MD Prior Authorization (morphine CONTROLLED RELEASE (MS CONTIN) 30 mg CR tablet APPROVED (06/10/23-06/09/24)) 06/09/[address] [address] Byron Mondragon MD Prior Authorization 05/31/[address] [address] Byron Mondragon MD Refill Request (oxyCODONE, morphine) 05/24/[address] [address] Byron Mondragon MD 05/19/[address] [address] Byron Mondragon MD Refill Request (oxyCODONE 10 mg tablet ) 05/10/[address] [address] Byron Mondragon MD Questions (QUESTIONS) 05/05/[address] [address] Byron Mondragon MD Medication Management (morphine CONTROLLED-RELEASE (MS CONTIN) 15 mg tablet & oxyCODONE (ROXICODONE) 5 mg immediate release tablet) 05/02/2023 Nurse Triage [address] [address] Byron Mondragon MD Chest Pain 05/02/[address] [address] Byron Mondragon MD Refill Request (Oxycodone) 05/02/[address] [address] Byron Mondragon MD Error-please disregard 04/30/[address] [address] Byron Mondragon MD Refill Request (oxyCODONE (ROXICODONE) 5 mg immediate release tablet) 04/28/[address] [address] Byron Mondragon MD Questions 04/22/[address] [address] Conchita Fontana DO Refill Request (oxycodone) 04/22/2023 Refill [facility] [address] [place] [address] Byron Mondragon MD Refill Request (oxyCODONE (ROXICODONE) 5 mg immediate release tablet) 04/21/[address] [address] Byron Mondragon MD Medication Management 04/14/2023 Orders Only [facility] Scanner 1 scan: (1-Ord) [place], PET/CT EYES TO THIGH, CANCER RESTAGING, 04/14/2023 from Last 3 Months Immunizations Name Administration Dates Next Due COVID-19 vaccine (Enish-Bio NTech 30mcg/0.3mL) 12YO+ MERLYN-SUCROSE PF, MDV 06/04/2021 [...] Comments Blood Pressure 125/87 04/07/2023 4:13 PM STAMPING BENCH DIE MAKER Pulse 68 04/07/2023 4:13 PM STAMPING BENCH DIE MAKER Temperature 36.5 ??C (97.7 ??F) 11/25/2022 1:41 PM CD T Respiratory Rate 18 04/01/2022 1:29 PM STAMPING BENCH DIE MAKER Oxygen Saturation 96% 04/07/2023 4:13 PM STAMPING BENCH DIE MAKER Inhaled Oxygen Concentration - - Weight 52.9 kg (116 lb 11.2 oz) 04/07/2023 4:13 PM STAMPING BENCH DIE MAKER Height 160.3 cm (5' 3.1) 04/07/2023 4:13 PM STAMPING BENCH DIE MAKER Body Mass Index 20.61 04/07/2023 4:13 PM STAMPING BENCH DIE MAKER Plan of Treatment Upcoming Encounters Date Type Department Care Team (Late st Contact Info) Description 07/20/2023 2:30 PM CDT Office Visit [facility] [address] [place] [address] Votel, Byron Cota MD [address] [place] [address] Procedures Procedure Name Priority Date/Time Associated Diagnosis Comments SCAN-RADIOLOGY REPORT 06/21/2023 12:00 AM CDT SCAN-CT INTERPRETATION 12:00 AM CDT SCAN-PET SCAN 04/14/2023 12:00 AM STAMPING BENCH DIE MAKER from Last 3 Months Results * SCAN-RADIOLOGY REPORT (06/21/2023 12:00 AM CDT) Anatomical Region Laterality Modality Other Scanner OTHER * SCAN-CT INTERPRETATION (06/21/2023 12:00 AM CDT) Anatomical Region Laterality Modality Other Scanner OTHER * SCAN-PET SCAN (04/14/2023 12:00 AM STAMPING BENCH DIE MAKER) Anatomical Region Laterality Modality Other Scanner OTHER from Last 3 Months Advance Directives Documents on File Type Date Recorded Patient Optical Glass Wet Inspector Expl anation Treatment Guidelines 08/20/2016 3:11 PM HO ME* DNR REQUEST FORM, [facility], 08/17/2016 * Full Code (Latest Code Status [...] Comments Code Status Discussion: Discussed Care Teams Supervisor Refining Relationship Specialty Start Date End Date VotelByron MD [address] [place] [address] PCP - General Family Practice 11/26/20 Renetta Gill LP Psychologist Psychology 05/20/11 Hue Mayes MD [address] [facility] [address] [place] [address] Rheumatology Rheumatology 12/08/15 Conchita Pierson RN [address] [facility] [place], [place] [id number] Cytometry Technologist - [facility] [place] Registered Nurse 04/28/21 Miri Norton RN [address] [facility] [address] [place] [address] Cytometry Technologist - [facility] [place] Registered Nurse 04/28/21
== END 2023-07-07 18:20 | disposition home or self-care (01) ==
LOC: AMB 07-08 16:52
PROVIDERS: PCP Family Medicine; Visit Provider Emergency Medicine
DX: R06.02 Shortness of breath (principal)
CPT/HCPCS: A0425; A0427

== ENCOUNTER 2023-07-07 18:42 | Inpatient (IN) | payer OTHER, SELFPAY ==
--- NOTE | 2023-07-07 18:47 | ED.GENADULT ---
HPI - General Adult General Time Seen by Provider: 18:47 Date Seen: 07/07/23 Chief complaint: Shortness of Breath/Dyspnea Stated complaint: SOB Time Seen by Provider: 07/07/23 18:47 Source: patient, EMS, RN notes reviewed and old records reviewed Mode of arrival: EMS Limitations: no limitations History of Present Illness HPI narrative: 73-year-old female with history of COPD, hypertension, lung cancer, rectal cancer who presents today with shortness of breath. Patient notes increased shortness of breath for the last 3 hours. Also increased cough and some lightheadedness. He used inhaler at home and receive nebulizer treatment in route with EMS and feels a little bit better. Denies any fevers or chills, chronic right-sided chest pain which is unchanged from usual. Patient is on 2 L of oxygen chronically. Related Data Home Medications Medication Instructions Recorded Confirmed clonazepam 0.5 mg tablet 0.5 mg PO HS PRN 09/07/21 06/21/23 nitroglycerin 0.4 mg sublingual 0.4 mg sublingual Q5M PRN chest 09/07/21 06/21/23 tablet pain sertraline 100 mg tablet 100 mg PO HS 09/07/21 06/21/23 gabapentin 300 mg capsule 300 mg PO HS 05/03/22 06/21/23 albuterol sulfate 90 mcg/actuation 2 puff inhalation Q4H PRN 10/15/22 06/21/23 aerosol inhaler (Ventolin HFA) aspirin 81 mg chewable tablet 81 mg PO DAILY PRN 04/19/23 06/22/23 morphine 30 mg tablet,extended 30 mg PO BID 04/19/23 06/21/23 release multivitamin with folic acid 400 1 tab PO DAILY 06/21/23 06/21/23 mcg tablet (Tab-A-Nan) polyethylene glycol 3350 17 17 g PO DAILY PRN 06/21/23 06/21/23 gram/dose oral powder sennosides 8.6 mg-docusate sodium 2 tab-cap PO BID PRN 06/21/23 06/21/23 50 mg tablet (Stool Softener-Laxative) mirtazapine 15 mg tablet 15 mg PO HS 06/22/23 06/22/23 ondansetron 4 mg disintegrating 4 mg translingual Q8H PRN nausea 06/22/23 06/22/23 tablet and vomiting oxycodone 10 mg tablet 10 mg PO Q4H PRN 06/22/23 06/22/23 peg 400-propylene glycol 0.4 %-0.3 1 drp ophthalmic (eye) Q2H PRN 06/22/23 06/22/23 % eye drops (Systane Ultra) Previous Rx's Medication Instructions Recorded ipratropium 0.5 mg-albuterol 3 mg 3 ml inhalation Q6H PRN dyspnea 10/17/22 (2.5 mg base)/3 mL nebulization #20 ea soln sotorasib 120 mg tablet (Lumakras) 600 mg (5 x 120 mg) PO DAILY #150 12/13/22 tabs amlodipine 5 mg tablet 5 mg PO DAILY #30 tabs 06/25/23 metoprolol succinate 50 mg 50 mg PO DAILY #30 tabs 06/25/23 tablet,extended release 24 hr potassium chloride 10 mEq 10 meq PO DAILYWM #30 caps 06/25/23 capsule,extended release Allergies Allergy/AdvReac Type Severity Reaction Status Date / Time penicillin V Allergy Intermediate Rash Verified 06/21/23 16:01 [facility] Medical History (Updated 07/07/23 @ 20:18 by David Quevedo MD) Hypokalemia ?E87.6 - Hypokalemia (ICD-10) Acute on chronic hypoxic respiratory failure ?J96.21 - Acute and chronic respiratory failure with hypoxia (ICD-10) Lung metastasis ?C78.00 - Secondary malignant neoplasm of unspecified lung (ICD-10) Rectal cancer ?C20 - Malignant neoplasm of rectum (ICD-10) Encounter for insertion of tunneled central venous catheter (CVC) with port ?Z45.2 - Encounter for adjustment and management of vascular access device (ICD-10) Adenocarcinoma, lung ?C34.90 - Malignant neoplasm of unspecified part of unspecified bronchus or lung (ICD-10) 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 ?C79.9 - Secondary malignant neoplasm of unspecified site (ICD-10) ?C20 - Malignant neoplasm of rectum (ICD-10) Histoplasmosis ?B39.9 - Histoplasmosis, unspecified (ICD-10) Adenocarcinoma of rectum (~12/2015) ?C20 - Malignant neoplasm of rectum (ICD-10) Surgical History (Updated 06/21/23 @ 18:48 by Dwain Obrien MD) History of reversal of ileostomy ?Z98.890 - Other specified postprocedural states (ICD-10) History of low anterior resection of rectum ?Z90.49 - Acquired absence of other specified parts of digestive tract (ICD-10) History of bronchoscopy ?Z98.890 - Other specified postprocedural states (ICD-10) History of lung biopsy ?Z98.890 - Other specified postprocedural states (ICD-10) History of cholecystectomy ?Z90.49 - Acquired absence of other specified parts of digestive tract (ICD-10) History of appendectomy ?Z90.49 - Acquired absence of other specified parts of digestive tract (ICD-10) History of coronary artery bypass graft x 3 ?Z95.1 - Presence of aortocoronary bypass graft (ICD-10) Family History (Updated 06/21/23 @ 18:49 by Dwain Obrien MD) Father Coronary artery disease Social History (Updated 06/21/23 @ 18:50 by Dwain Obrien MD) Narrative: Lives alone in an apartment in [place]. Designates her son, Daniel, as her primary contact for power litigation attorney associate for health should that be required, cell phone [phone]. Son Daniel lives nearby. Designates her daughter, Staci, as her secondary contact for power of litigation attorney associate for health should that be required, cell phone [phone]. Adamant that she desires a DNR DNI resuscitation status. She occasionally drinks alcohol. She has been smoking cigarettes since 1957. Currently smoking 3 cigarettes per day What is your current living situation?: I presently have a place to live Problems where you live: no known problems Problems where you live details: n/a In the past 12 months, utilities in danger of being shut off: no In past 12 months, lack of transportation kept you from medical appts, meetings, work, or getting things needed for daily living: no In the past 12 mos, have been you worried that your food would run out before you had money to buy more?: never true In the past 12 mos, the food you bought just didn't last and you didn't have money to buy more?: never true Highest level of school completed/degree received: high school graduate Smoking Status: Current every day smoker What tobacco products do you use: cigarettes Smoking packs per day: 0.25 Smoking cigarettes per day: 5.0 Do you use any of these nicotine containing products: None Second hand tobacco smoke exposure: Yes How often do you have a drink containing alcohol: monthly or less Alcohol type: hard liquor How many standard drinks containing alcohol do you have on a typical day: 1 or 2 How often do you have six or more drinks on one occasion: Never AUDIT-C Alcohol total score: 1 Non-prescribed substance use: denies use Caffeine: Yes (2-3 cups) How often does anyone, including family, friends and others, physically hurt you: never How often does anyone, including family, friends and others, insult or talk down to you: never How often does anyone, including family, friends and others, threaten you with harm: never How often does anyone, including family, friends and others, scream or curse at you: never service: No Exam Narrative: Exam Narrative: General: Cachectic, no acute distress Head: Atraumatic and normocephalic Eyes: Pupils are equal reactive, extraocular motions intact, conjunctiva clear ENT: External nose and ears are normal, posterior pharynx without erythema or exudate Neck: No midline cervical tenderness, full spontaneous range of motion the neck, trachea midline, no adenopathy Heart: Regular rate and rhythm no murmurs or thrills Lungs: Crackles on the right with some coarse expiratory bronchial breath sounds bilaterally Abdomen: Soft, nontender, nondistended with active bowel sounds Musculoskeletal: No tenderness, deformity, or edema Neurologic: Awake, alert, and oriented x3, no gross focal neurologic deficits, cranial nerves intact as tested Psych: Mood and affect are appropriate Skin: No rashes Const: Vital Signs, click to edit/add: Vital Signs - 24 hr 07/07/23 18:50 07/07/23 19:57 Temperature 97.6 F Pulse Rate [Pulse Oximeter] 58 L Respiratory Rate 24 Blood Pressure [Ri ght Upper Arm] 151/96 H Pulse Oximetry 100 95 Oxygen Delivery Me thod Nasal Cannula Nasal Cannula Oxygen Flow Rate 1.5 Course Course ED Course: Patient seen examined, reviewed prior admission from June 20- which was for COPD exacerbation, patient was discharged on prednisone, azithromycin and Rocephin, was discharged with baseline oxygen need of 2 L by nasal cannula. Patient presents today with shortness of breath for couple of hours. Feels better after nebulizer treatments at home and in route with EMS, on initial exam oxygen saturation 100% on her usual 2 L. includes frog ill brisk toes bilaterally with some crackles on the right, this most likely represents COPD exacerbation with possibly some mucous plugging as well. Labs and CT PE study ordered. Patient does continue to smoke cigarettes. Reevaluation(s) Time of Reevaluation #1: 20:15 Reevaluation #1: CT scan of the chest independently interpreted by me does not demonstrate acute pulmonary embolism, numerous pulmonary masses with atelectasis but no acute infiltrate, radiology interpretation with mild ground-glass opacities in the left lung. Labs ordered and independently interpreted by me with venous blood gas showing pH 62, however normal pH 7.33 and review of prior records shows chronic hypercarbia with CO2 around 60. Time of Reevaluation #2: 20:21 Reevaluation #2: Labs ordered and independently interpreted by me with normal CBC,. In absence of fever and with abrupt onset of symptoms, infectious etiology is less likely, this likely represents exacerbation of COPD, chronic hypercarbia and hypoxia. Plan to observe in the hospital overnight, would defer antibiotics for now. Time of Reevaluation #3: 20:29 Reevaluation #3: Care discussed with Coretta Dale, hospitalist for admission. Vital Signs Vital signs: Initial Vital Signs Temperature 97.6 F 07/07/23 18:50 Temperature Source Temporal Artery Scan 07/07/23 18:50 Pulse Rate 58 L 07/07/23 18:50 Pulse Rhythm Regular 07/07/23 18:50 Respiratory Rate 07/07/23 18:50 Blood Pressure 151/96 H 07/07/23 18:50 Blood Pressure Mean 114 H 07/07/23 18:50 Blood Pressure Position Sitting 07/07/23 18:50 Pulse Oximetry 100 07/07/23 18:50 Oxygen Delivery Method Nasal Cannula 07/07/23 18:50 Vital Signs Temperature 97.6 F 07/07/23 18:50 Pulse Rate 58 L 07/07/23 18:50 Respiratory Rate 24 07/07/23 18:50 Blood Pressure 151/96 H 07/07/23 18:50 Pulse Oximetry 100 07/07/23 18:50 Oxygen Delivery Method Nasal Cannula 07/07/23 18:50 Temperature 97.6 F 07/07/23 18:50 Pulse Rate 58 L 07/07/23 18:50 Respiratory Rate 24 07/07/23 18:50 Blood Pressure 151/96 H 07/07/23 18:50 Pulse Oximetry 95 07/07/23 19:57 Oxygen Delivery Method Nasal Cannula 07/07/23 19:57 Oxygen Flow Rate 1.5 07/07/23 19:57 Medications Administered Medications: Generic Name Dose Route Start Last Admin Trade Name Freq PRN Reason Stop Dose Admin Methylprednisolone Sodium Succinate 125 mg 07/07/23 20:16 07/07/23 20:21 Methylprednisolone Sod Succ 62.5 Mg/Ml (125) IVP 07/07/23 20:17 125 mg ONCE ONE Administration Medical Decision Making Lab Data Labs: Lab Results 07/07/23 07/07/23 Range/Units 19:17 20:06 WBC 5.31 (4.50-11.00) K/uL RBC 3.72 L (4.00-5.20) m/uL Hgb 10.8 L (12.0-16.0) gm/dL Hct 34.5 (33.0-51.0) % MCV 93 (80-100) fL MCH 29 (26-34) pg MCHC 31 L (32-36) gm/dL RDW Coeff of Aelks 13.7 (11.5-15.5) % Plt Count 167 (140-440) K/uL Neut % (Auto) 56.4 (42.0-72.0) % Lymph % (Auto) 32.4 (20-44) % [place] % (Auto) 7.0 (0.0-11.0) % Eos % (Auto) 3.2 (0.0-7.0) % Baso % (Auto) 0.8 (0.0-3.0) % Neut # (Auto) 3.00 (1.7-7.0) K/uL Lymph # (Auto) 1.72 (0.90-2.90) K/uL [place] # (Auto) 0.40 (0.00-0.90) K/UL Eos # (Auto) 0.17 (0.00-0.50) K/uL Baso # (Auto) 0.04 (0.00-0.30) K/uL Abs Immat Gran (auto) 0.01 (0.00-0.30) K/uL Imm/Tot Granulo (auto) 0.2 % VBG pH 7.329 (7.32-7.43) VBG pCO2 62 H* (40-50) mmHG VBG pO2 < 30.1 (25-47) mmHG VBG HCO3 33 H (21-28) mmol/L SARS-CoV-2 (PCR) Negative SARS-CoV-2 (Negative) Influenza Type A (PCR) Negative PCR FLU A (Negative) Influenza Type B (PCR) Negative PCR FLU B (Negative) RSV (PCR) Negative PCR RSV (Negative) Discharge Plan Discharge Clinical Impression: Chronic obstructive pulmonary disease with acute exacerbation, 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, Adenocarcinoma, lung, Chronic respiratory failure with hypoxia and hypercapnia Patient Disposition: Admitted As Observation Prescriptions: No Action morphine 30 mg tablet extended release 30 mg PO BID clonazepam 0.5 mg tablet 0.5 mg PO HS PRN nitroglycerin 0.4 mg tablet, sublingual 0.4 mg sublingual Q5M PRN (Reason: chest pain) sertraline 100 mg tablet 100 mg PO HS gabapentin 300 mg capsule 300 mg PO HS aspirin 81 mg tablet,chewable 81 mg PO DAILY PRN albuterol sulfate [Ventolin HFA] 90 mcg/actuation HFA aerosol inhaler 2 puff inhalation Q4H PRN ipratropium-albuterol 0.5 mg-3 mg(2.5 mg base)/3 mL Solution For Nebulization 3 ml inhalation Q6H PRN (Reason: dyspnea) Qty: 20 0RF Lumakras 120 mg tablet 600 mg PO DAILY Qty: 150 3RF sennosides-docusate sodium [Stool Softener-Laxative] 8.6-50 mg Tablet 2 tab-cap PO BID PRN polyethylene glycol 3350 17 gram/dose powder 17 g PO DAILY PRN multivitamin with folic acid [Tab-A-Nan] 400 mcg tablet 1 tab PO DAILY mirtazapine 15 mg tablet 15 mg PO HS oxycodone 10 mg tablet 10 mg PO Q4H PRN Systane Ultra 0.4-0.3 % drops 1 drp ophthalmic (eye) Q2H PRN ondansetron 4 mg tablet,disintegrating 4 mg translingual Q8H PRN (Reason: nausea and vomiting) Rx Instructions: Use either this or prochlorperazine for nausea Try taking this 30 mins prior to Sotorasib potassium chloride 10 mEq Capsule, Extended Release 10 meq PO DAILYWM Qty: 30 0RF metoprolol succinate 50 mg Tablet Extended Release 24 Hr 50 mg PO DAILY Qty: 30 0RF amlodipine 5 mg Tablet 5 mg PO DAILY Qty: 30 0RF Follow Up/Referrals: Byron Mondragon MD [Primary Care Provider] -
[2023-07-07 18:50] VITALS: BP 151/96; PULSE 58; RESP 24; TEMP 36.4; O2SAT 100; BMI 18.6
--- NOTE | 2023-07-07 19:09 | CT_ITS ---
Patient: ANGELINE MARTINEZ Facility:?[facility] Patient ID:?[id number] Site Patient ID:?[id number]. Site :?[id number] Study:?CT-Chest PE STUDY-07/07/2023 7:53:39 PM Ordering Physician:DONALD Final Report: INDICATION: Dyspnea. Malignancy. History of metastatic colorectal cancer. TECHNIQUE: CT chest pulmonary angiogram acquired with 95 cc of Isovue 370 IV contrast. COMPARISON: CT pulmonary angiogram 06/21/2023 FINDINGS: Cardiovascular structures: CT pulmonary angiogram demonstrates adequate opacification of the pulmonary arteries. No evidence of pulmonary embolus. Aortic atherosclerosis and tortuosity. Ascending thoracic aorta measures 3.8 change. Coronary artery calcifications. Cardiomegaly, as before. Prior median sternotomy and CABG. Mediastinum and aaron: No pathologic lymphadenopathy. Lungs: No pneumothorax. Central airways are patent. Multiple bilateral parenchymal and pleural-based nodules and masses, right greater than left have not significantly changed. New mild ground-glass opacities in the left lung. Pleura and pericardium: No effusions. Chest wall and axilla: Right Port-A-Cath appears unchanged. Bones: Mild degenerative changes. Stable superior endplate deformities of the T2 and T7 vertebra. No acute osseous abnormality. Upper abdomen: Unremarkable/unchanged. IMPRESSION: 1. No evidence of pulmonary embolus. 2. Mild ground-glass opacities in the left lung may be infectious/inflammatory in the appropriate clinical setting. 3. Extensive pulmonary metastasis is unchanged. Dictated by Reece Amado MD @ 07/07/2023 8:13:13 PM Please note that all CT scans at this facility use dose modulation, iterative reconstruction, and/or weight-based dosing when appropriate to reduce radiation dose to as low as reasonably achievable. Dictated by: Reece Amado MD @ 07/07/2023 20:13:31 Signed by:Flor Amado MD @07/07/2023 8:13:31 PM (Electronic Signature)
--- OUTSIDE RECORDS SUMMARY | 2023-07-07 19:19 | XMS_ITS | Continuity of Care Document ---
Author Name Unknown Organization [facility] Address [address] [address] [place] [address] Phone Care Team Providers Care Superintendent Refuse Disposal Name Role Phone Unavailable Unavailable Unavailable Procedures Procedure Date Subsqt Hosp-da E&m Minr Compl Init Hosp-da E&m Mod Severity Advance Directives Directive Yes / No Effective Date File Name No Information Encounters Encounter Description Practice Location Reason(s) For Visit Diagnoses Date Provider Providers Copied on Encounter Subsqt Hosp-da E&m Minr Compl [facility], [address] [address], [place], [place], [id number], [place] tel:[phone] [facility] No Information No Information Referring Provider: Byron Barnes, [address] , [place], [address]. tel:[phone] Init Hosp-da E&m Mod Severity [facility], [address] [address], [place], [place], [id number], [place] tel:[phone] [facility] No Information No Information Referring Provider: Byron Barnes, [address], [place], [address]. tel:[phone] Family History Family Member Type Diagnosis Age At Onset No Information Payers Payer name Insurance type Covered green party ID Authoriza tion(s) Medicare [facility] [place] [id number] [place] Medical Assistance [id number] Social History Type Description Quantity Date Captured Comments Sex Female Smoking Status No Information Chief Complaint And Reason For Visit No Information Reason For Referral Reason For Referral No Information History Of Present Illness Encounter Date Complaint History Of Prese nt Illness No Information Functional Status Date Functional Assessmen t No Information Instructions Date Instruction Additional Infor mation No Information Assessments Type Assessment Date No Information Patient Care Teams Name Effective Dates (start - stop) Status Members No Information
--- OUTSIDE RECORDS SUMMARY | 2023-07-07 19:19 | XMS_ITS | Clinical Summary ---
Author Name Unknown Organization [facility] Address [place], [place] [address] Care Team Providers Care Information Management Manager Name Role Phone GillDiane alvarezjean pierre Schultz LP Unavailable [phone] Hue Mayes MD Unavailable [phone] Byron Mondragon MD Primary Care Provider + Conchita Pierson RN Unavailable Miri Norton RN Unavailable Allergies Active Allergy Reactions Criticality Noted Date Comments Penicillins Rash 07/26/2008 Medications Medication Sig Dispensed Refills Start Date End Date Status psyllium husk (METAMUCIL ORAL) Take by mouth. Acti ve NebulizerIndicatio ns:Pneumonia, bacterial,Chronic obstructive pulmonary disease, unspecified COPD type (HC) Nebulizer, disposable neb kit x 4, reuseable neb kit x 1, mask x 1, filters x 1. Frequency of use: daily; Medication: duoneb Length of need: 99 months 1 Each 3 Active Walker - 4 wheelsIndications: Weak,Malignant neoplasm metastatic to lung, unspecified laterality (HC),Malignant neoplasm of lung, unspecified laterality, unspecified part of lung (HC) For home use. Length of need: 99 1 Each 3 Active isosorbide mononitrate (IMDUR) 30 mg extended release tablet 24 HourIndications:Co ronary artery disease due to lipid rich plaque Take 1 Tablet (30 mg) by mouth once daily. 90 Tablet 3 3 Active albuterol HFA (PRO-AIR; VENTOLIN; PROVENTIL) 90 mcg/actuation inhalerIndications :Chronic obstructive pulmonary disease, unspecified COPD type (HC) Inhale 1-2 Puffs by mouth every 4 hours if needed for Shortness Of Breath. 8.5 g 3 3 Active albuterol-ipratrop ium (DUONEB) (2.5-0.5 mg) in 3 mL NEBULIZATION solutionIndication s:COPD exacerbation (HC) Inhale 3 mL via a nebulizer 4 times daily. 1080 mL 3 3 Active mirtazapine (REMERON) 7.5 mg tabletIndications: Generalized anxiety disorder Take one at bedtime for a week, then 2 at bedtime. 90 Tablet 3 3 Active aspirin (ECOTRIN) 81 mg enteric coated tabletIndications: Coronary artery disease involving levelock heart without angina pectoris, unspecified vessel or lesion type Take 1 Tablet (81 mg) by mouth once daily with a meal. 100 Tablet 3 3 Active gabapentin (Neurontin) 300 mg capsuleIndications :Neuropathic pain Take 1 Capsule (300 mg) by mouth at bedtime. 90 Capsule 3 3 Active sertraline (ZOLOFT) 100 mg tabletIndications: Generalized anxiety disorder,Dysthymic disorder Take 1 Tablet (100 mg) by mouth at bedtime. 90 Tablet 3 3 Active nitroglycerin (NITROSTAT) 0.4 mg sublingual tabletIndications: Coronary artery disease involving levelock heart without angina pectoris, unspecified vessel or lesion type DISSOLVE ONE TABLET UNDER TONGUE EVERY FIVE MINUTES NEEDED FOR CHEST PAIN. MAY USE UP TO 3 TABLETS. CALL 911 IF NO RELIEF 25 Tablet 2 3 Active sennosides-docusat e (SENOKOT S) (8.6-50 mg) tabletIndications: Chest wall pain Take 2 Tablets by mouth two times daily. 120 Tablet 11 3 Active polyethylene glycoL (MIRALAX) 17 gram/scoop powderIndications: Constipation due to opioid therapy Mix 1 scoop (17 g) in liquid then take by mouth once daily if needed for Constipation. 510 g 1 3 Active miscellaneous medical supply (Blood Pressure Cuff) miscIndications:Hy pertensive heart disease, unspecified whether heart failure present As directed. 1 unit 3 Active Blood Pressure Monitor KitIndications:HTN (hypertension), benign Use to check blood pressure daily. 1 Each 3 Active multivitamin (MVI) tabletIndications: Encounter for herb and vitamin supplement management Take 1 Tablet by mouth once daily. 100 Tablet 4 3 Active clonazePAM (KLONOPIN) 0.5 mg tablet Take by mouth. 2 Active ketorolac (TORADOL) 10 mg tabletIndications: Malignant neoplasm of lung, unspecified laterality, unspecified part of lung (HC) TAKE 1 TABLET BY MOUTH EVERY SIX HOURS NEEDED FOR PAIN FOR UP TO 5 DAYS *MAX OF 40MG IN 24 HOURS* 20 Tablet 3 Active Shower ChairIndications:M alignant neoplasm metastatic to lung, unspecified laterality (HC),Primary malignant neoplasm of lung, unspecified laterality (HC) For home use. 1 Each 3 Active Diaper,Brief, Adult,DisposableIn dications:Stress incontinence of urine For home use. 120 Each 3 Active oxygen-air delivery systems (HOME OXYGEN)Indications :Chronic obstructive pulmonary disease, unspecified COPD type (HC) Portable oxygen with conserving device. Need for 99 months 2 LPM 3 Active Blood Pressure Monitor KitIndications:Mal ignant neoplasm metastatic to right lung (HC) Frequency of testing: daily 1 Each 4 Active oxyCODONE (ROXICODONE) 5 mg immediate release tabletIndications: Chest wall pain,Malignant neoplasm metastatic to lung, unspecified laterality (HC) Take 1 Tablet (5 mg) by mouth every 4 hours if needed for Pain. 30 Tablet 4 Active morphine CONTROLLED RELEASE (MS CONTIN) 30 mg CR tabletIndications: Malignant neoplasm metastatic to right lung (HC),Primary malignant neoplasm of lung, unspecified laterality (HC) Take 1 Tablet (30 mg) by mouth two times daily. 60 Tablet 4 Active oxyCODONE 10 mg tabletIndications: Malignant neoplasm metastatic to right lung (HC),Primary malignant neoplasm of lung, unspecified laterality (HC) Take 1 Tablet (10 mg) by mouth every 4 hours if needed for Pain. 30 Tablet 4 Active ondansetron (ZOFRAN ODT) 4 mg disintegrating tabletIndications: Nausea DISSOLVE 1 TABLET ON TONGUE EVERY 8 HOURS NEEDED FOR NAUSEA/VOMITIN G 30 Tablet 2 4 Active ondansetron (ZOFRAN ODT) 4 mg disintegrating tabletIndications: Nausea Place 1 Tablet (4 mg) on the tongue every 8 hours if needed for Nausea/Vomitin g. 30 Tablet 2 3 07/05/19 24 Discontinued morphine CONTROLLED RELEASE (MS CONTIN) 30 mg CR tabletIndications: Malignant neoplasm metastatic to right lung (HC),Primary malignant neoplasm of lung, unspecified laterality (HC) Take 1 Tablet (30 mg) by mouth two times daily. 60 Tablet 4 07/01/19 24 Discontinued(Re order (E-cancel not sent)) oxyCODONE 10 mg tabletIndications: Malignant neoplasm metastatic to right lung (HC),Primary malignant neoplasm of lung, unspecified laterality (HC) Take 1 Tablet (10 mg) by mouth every 4 hours if needed for Pain. 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 /mf Long QT interval 06/01/2016 Junctional rhythm [...] Overview: - s/p CAB x 3 in [place] 09/27/2006: MAXWELL - LAD, SVG - OM2, [...] Encounters Date Type Department Care Team Description 07/06/2023 Telephone [facility] [address] [place] [address] TorotelByron MD 07/04/2023 Refill [facility] [address] [place] [address] Byron Mondragon MD Refill Request (Ondansetron) 07/01/2023 Telephone [facility] [address] [place] [address] Byron Mondragon MD Questions 07/01/[address] [address] Byron Mondragon MD Refill Request (Morphine, oxyCODONE ) 06/27/[address] [address] Byron Mondragon MD update (Update/) 06/21/2023 Orders Only [facility] Scanner 1 scan: (1-Ord) [facility], XR CHEST 1V, 06/21/2023 06/21/2023 Orders Only [facility] Scanner 1 scan: (1-Ord) PARRISH, ANGIO CHEST , 06/21/2023 06/10/[address] [address] Byron Mondragon MD Prior Authorization (morphine CONTROLLED RELEASE (MS CONTIN) 30 mg CR tablet APPROVED (06/10/23-06/09/24)) 06/09/[address] [address] Byron Mondragon MD Prior Authorization 05/31/[address] [address] Byron Mondragon MD Refill Request (oxyCODONE, morphine) 05/24/[address] [address] Byron Mondragon MD 05/19/[address] [address] Byron Mondragon MD Refill Request (oxyCODONE 10 mg tablet ) 05/10/[address] [address] Byron Mondragon MD Questions (QUESTIONS) 05/05/[address] [address] Byron Mondragon MD Medication Management (morphine CONTROLLED-RELEASE (MS CONTIN) 15 mg tablet & oxyCODONE (ROXICODONE) 5 mg immediate release tablet) 05/02/2023 Nurse Triage [address] [address] Byron Mondragon MD Chest Pain 05/02/[address] [address] Byron Mondragon MD Refill Request (Oxycodone) 05/02/[address] [address] Byron Mondragon MD Error-please disregard 04/30/[address] [address] Byron Mondragon MD Refill Request (oxyCODONE (ROXICODONE) 5 mg immediate release tablet) 04/28/[address] [address] Byron Mondragon MD Questions 04/22/[address] [address] Conchita Fontana DO Refill Request (oxycodone) 04/22/2023 Refill [facility] [address] [place] [address] Byron Mondragon MD Refill Request (oxyCODONE (ROXICODONE) 5 mg immediate release tablet) 04/21/[address] [address] Byron Mondragon MD Medication Management 04/14/2023 Orders Only [facility] Scanner 1 scan: (1-Ord) PARRISH, PET/CT EYES TO THIGH, CANCER RESTAGING, 04/14/2023 04/08/2023 Telephone [facility] [address] [place] [address] Votel, Byron Cota MD Medication Management from Last 3 Months Immunizations Name Administration Dates Next Due COVID-19 vaccine ([employer] 30mcg/0.3mL) 12YO+ MERLYN-SUCROSE PF, MDV 06/04/2021 [...] Comments Blood Pressure 125/87 04/07/2023 4:13 PM OWNER Pulse 68 04/07/2023 4:13 PM OWNER Temperature 36.5 ??C (97.7 ??F) 11/25/2022 1:41 PM CD T Respiratory Rate 18 04/01/2022 1:29 PM OWNER Oxygen Saturation 96% 04/07/2023 4:13 PM OWNER Inhaled Oxygen Concentration - - Weight 52.9 kg (116 lb 11.2 oz) 04/07/2023 4:13 PM OWNER Height 160.3 cm (5' 3.1) 04/07/2023 4:13 PM OWNER Body Mass Index 20.61 04/07/2023 4:13 PM OWNER Plan of Treatment Upcoming Encounters Date Type Department Care Team (Late st Contact Info) Description 07/20/2023 2:30 PM CDT Office Visit [facility] [address] [place] [address] Votel, Byron Cota MD [address] [place] [address] Procedures Procedure Name Priority Date/Time Associated Diagnosis Comments SCAN-RADIOLOGY REPORT 06/21/2023 12:00 AM CDT SCAN-CT INTERPRETATION 12:00 AM CDT SCAN-PET SCAN 04/14/2023 12:00 AM OWNER from Last 3 Months Results * SCAN-RADIOLOGY REPORT (06/21/2023 12:00 AM CDT) Anatomical Region Laterality Modality Other Scanner OTHER * SCAN-CT INTERPRETATION (06/21/2023 12:00 AM CDT) Anatomical Region Laterality Modality Other Scanner OTHER * SCAN-PET SCAN (04/14/2023 12:00 AM OWNER) Anatomical Region Laterality Modality Other Scanner OTHER from Last 3 Months Advance Directives Documents on File Type Date Recorded Patient Roads Superintendent Expl anation Treatment Guidelines 08/20/2016 3:11 PM HO ME* DNR REQUEST FORM, [facility], 08/17/2016 * Full Code (Latest Code [...] Comments Code Status Discussion: Discussed Care Teams Information Management Manager Relationship Specialty Start Date End Date VotelByron MD [address] [place] [address] PCP - General Family Practice 11/26/20 Renetta Gill LP Psychologist Psychology 05/20/11 Hue Mayes MD [address] [id number] Rheumatology Rheumatology 12/08/15 Conchita Pierson RN [address] [facility] [place], [place] [phone] Information Assurance Manager [place] [facility] [place] Registered Nurse 04/28/21 Miri Norton RN [address] [facility] [address] [place] [address] Information Assurance Manager - [facility] [place] Registered Nurse 04/28/21
[2023-07-07 19:57] VITALS: O2SAT 95
[2023-07-07 19:57] LABS: PCR FLU A Negative PCR FLU A (Negative); PCR FLU B Negative PCR FLU B (Negative); PCR RSV Negative PCR RSV (Negative); SARS PCR* Negative SARS-CoV-2 (Negative)
--- NOTE | 2023-07-07 19:57 | PC.NURSE ---
resumed care of patient from Marcela BOWLES
[2023-07-07 20:08] LABS: HCO3 VBG 33 mmol/L (21-28); PO2 VBG < 30.1 mmHG (25-47); pH VBG 7.329 (7.32-7.43)
[2023-07-07 20:09] LABS: Basophils Absolute Auto 0.04 K/uL (0.00-0.30); Basophils Percent Auto 0.8 % (0.0-3.0); Eosinophils Absolute Auto 0.17 K/uL (0.00-0.50); Eosinophils Percent Auto 3.2 % (0.0-7.0); Hematocrit 34.5 % (33.0-51.0); Hemoglobin* 10.8 gm/dL (12.0-16.0); Immature Granulocytes Abs Auto 0.01 K/uL (0.00-0.30); Immature Granulocytes Pct Auto 0.2 %; Lymphocytes Absolute Auto 1.72 K/uL (0.90-2.90); Lymphocytes Percent Auto 32.4 % (20-44); Mean Corpuscular HGB Conc 31 gm/dL (32-36); Mean Corpuscular Hemoglobin 29 pg (26-34); Mean Corpuscular Volume 93 fL (80-100); Neutrophils Percent Auto 56.4 % (42.0-72.0); PCO2 VBG 62 mmHG (40-50); Platelet Count* 167 K/uL (140-440); RDW Coefficient of Variation % 13.7 % (11.5-15.5); Red Blood Count 3.72 m/uL (4.00-5.20); White Blood Count* 5.31 K/uL (4.50-11.00)
[2023-07-07 20:17] LABS: Slide Review Reflex No
[2023-07-07] MEDS: METHYLPREDNISOLONE SOD SUCC 62.5 MG/ML (125) 125 MG IVP (20:21)
[2023-07-07 20:25] LABS: Chloride* 104 mmol/L (96-114); Potassium* 3.4 mmol/L (3.6-5.1); Sodium* 139 mmol/L (135-149)
[2023-07-07 20:28] LABS: Anion Gap 2 mEq/L (7-15); Blood Urea Nitrogen* 11 mg/dL (7-30); Calcium* 8.9 mg/dL (8.4-10.6); Carbon Dioxide* 33 mmol/L (20-32); Creatinine* 0.5 mg/dL (0.5-1.5); Est. Creatinine Clearance* 37.11; Estimated Glomerular Filt Rate 98 ml/min; Glucose* 104 mg/dL (60-115)
[2023-07-07 20:29] VITALS: O2SAT 92
[2023-07-07 20:29] LABS: Magnesium* 1.6 mg/dL (1.5-2.6)
[2023-07-07 20:31] VITALS: BP 145/83; PULSE 64; RESP 18; O2SAT 93
[2023-07-07] MEDS: IPRAT-ALBUT 0.5-2.5 MG/3 ML NEB 1 NEB IH (20:36)
[2023-07-07 20:39] LABS: NT Pro B Type NatriureticPept* 2310 pg/mL
--- NOTE | 2023-07-07 21:00 | P.IMHP_ITS ---
Hospitalist- H&P: HPI History of Present Illness Date Seen: 07/07/23 Chief complaint: SOB Narrative: Selena Gutierrez is a 73 year old female past medical history significant for hypertension, degenerative joint disease, tobacco dependence, rectal cancer with Mets to lung (adenocarcinoma), COPD, oxygen dependent is admitted to the medical floor from the ED for acute on chronic recurrent hypoxic respiratory failure with hypercapnia. Patient is seen with son at bedside. Reports 2 day history of increasing shortness of breath. Her home health nurse was with her today and had her sent to the ED. Patient denies new or worsening chest pain or pressure outside of her normal discomfort related to her lung cancer. Denies headaches. Occasional dizziness. Denies recent fevers. Has occasional nausea, no worse than normal. No recent vomiting. No change in stools. Weight has stabilized. Patient continues on oral chemotherapy, reporting no recent worsening of cancer progression. Continues to smoke daily. Figures there is no point in quitting at this stage of her cancer. Used 8 nebs at home, received 1 per EMS, and a 3rd in the ED. Feeling better. Continues to be hypoxic, < 80s, while conversing. Review of Systems Narrative: REVIEW OF SYSTEMS: Complete review of systems performed and negative unless otherwise stated in HPI or below. [facility] Medical History Hypokalemia ?E87.6 - Hypokalemia (ICD-10) Acute on chronic hypoxic respiratory failure ?J96.21 - Acute and chronic respiratory failure with hypoxia (ICD-10) Lung metastasis ?C78.00 - Secondary malignant neoplasm of unspecified lung (ICD-10) Rectal cancer ?C20 - Malignant neoplasm of rectum (ICD-10) Encounter for insertion of tunneled central venous catheter (CVC) with port ?Z45.2 - Encounter for adjustment and management of vascular access device (ICD-10) Adenocarcinoma, lung ?C34.90 - Malignant neoplasm of unspecified part of unspecified bronchus or lung (ICD-10) 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 ?C79.9 - Secondary malignant neoplasm of unspecified site (ICD-10) ?C20 - Malignant neoplasm of rectum (ICD-10) Histoplasmosis ?B39.9 - Histoplasmosis, unspecified (ICD-10) Adenocarcinoma of rectum (~12/2015) ?C20 - Malignant neoplasm of rectum (ICD-10) Surgical History History of reversal of ileostomy ?Z98.890 - Other specified postprocedural states (ICD-10) History of low anterior resection of rectum ?Z90.49 - Acquired absence of other specified parts of digestive tract (ICD- 10) History of bronchoscopy ?Z98.890 - Other specified postprocedural states (ICD-10) History of lung biopsy ?Z98.890 - Other specified postprocedural states (ICD-10) History of cholecystectomy ?Z90.49 - Acquired absence of other specified parts of digestive tract (ICD-1 0) History of appendectomy ?Z90.49 - Acquired absence of other specified parts of digestive tract (ICD- 10) History of coronary artery bypass graft x 3 ?Z95.1 - Presence of aortocoronary bypass graft (ICD-10) Family History Father Coronary artery disease Social History Narrative: Lives alone in an apartment in [place]. Designates her son, Daniel, as her primary contact for power attorney general for health should that be required, cell phone [phone]. Son Daniel lives nearby. Designates her daughter, Staci, as her secondary contact for power of attorney general for health should that be required, cell phone [phone]. Adamant that she desires a DNR DNI resuscitation status. She occasionally drinks alcohol. She has been smoking cigarettes since 1957. Currently smoking 3 cigarettes per day What is your current living situation?: I presently have a place to live Problems where you live: no known problems Problems where you live details: n/a In the past 12 months, utilities in danger of being shut off: no In past 12 months, lack of transportation kept you from medical appts, meetings, work, or getting things needed for daily living: no In the past 12 mos, have been you worried that your food would run out before you had money to buy more?: never true In the past 12 mos, the food you bought just didn't last and you didn't have money to buy more?: never true Highest level of school completed/degree received: high school graduate Smoking Status: Current every day smoker What tobacco products do you use: cigarettes Smoking packs per day: 0.25 Smoking cigarettes per day: 5.0 Do you use any of these nicotine containing products: None Second hand tobacco smoke exposure: Yes How often do you have a drink containing alcohol: monthly or less Alcohol type: hard liquor How many standard drinks containing alcohol do you have on a typical day: 1 or 2 How often do you have six or more drinks on one occasion: Never AUDIT-C Alcohol total score: 1 Non-prescribed substance use: denies use Caffeine: Yes (2-3 cups) How often does anyone, including family, friends and others, physically hurt you : never How often does anyone, including family, friends and others, insult or talk down to you: never How often does anyone, including family, friends and others, threaten you with harm: never How often does anyone, including family, friends and others, scream or curse at you: never service: No Meds Home Medications and Allergies Home Medications Medication Instructions Recorded Confirmed Type clonazepam 0.5 mg tablet 0.5 mg PO HS PRN 09/07/21 06/21/23 History nitroglycerin 0.4 mg sublingual 0.4 mg sublingual Q5M PRN chest 09/07/21 06/21/23 History tablet pain sertraline 100 mg tablet 100 mg PO HS 09/07/21 06/21/23 History gabapentin 300 mg capsule 300 mg PO HS 05/03/22 06/21/23 History albuterol sulfate 90 mcg/actuation 2 puff inhalation Q4H PRN 10/15/22 06/21/23 History aerosol inhaler (Ventolin HFA) aspirin 81 mg chewable tablet 81 mg PO DAILY PRN 04/19/23 06/22/23 History morphine 30 mg tablet,extended 30 mg PO BID 04/19/23 06/21/23 History release multivitamin with folic acid 400 1 tab PO DAILY 06/21/23 06/21/23 History mcg tablet (Tab-A-Nan) polyethylene glycol 3350 17 17 g PO DAILY PRN 06/21/23 06/21/23 History gram/dose oral powder sennosides 8.6 mg-docusate sodium 2 tab-cap PO BID PRN 06/21/23 06/21/23 History 50 mg tablet (Stool Softener-Laxative) mirtazapine 15 mg tablet 15 mg PO HS 06/22/23 06/22/23 History ondansetron 4 mg disintegrating 4 mg translingual Q8H PRN nausea 06/22/23 06/22/23 History tablet and vomiting oxycodone 10 mg tablet 10 mg PO Q4H PRN 06/22/23 06/22/23 History peg 400-propylene glycol 0.4 %-0.3 1 drp ophthalmic (eye) Q2H PRN 06/22/23 06/22/23 History % eye drops (Systane Ultra) Allergies Allergy/AdvReac Type Severity Reaction Status Date / Time penicillin V Allergy Intermediate Rash Verified 06/21/23 16:01 Exam Narrative: Exam Narrative: PHYSICAL EXAM General: Pleasant, conversant, NAD HEENT: Normocephalic, atraumatic, sclera white, EOMI Cardiovascular: RRR, S1S2. No pitting edema Pulmonary: Coarse breath sounds throughout, slight expiratory wheeze left lower lobe. Dyspnea on 2 L per NC Abdominal: Soft, nondistended, NTTP Neurological: Alert, answering questions appropriately, cranial nerves intact, no focal findings Extremities: No gross joint deformity or swelling. AROMI. Neurovascularly intact Skin: Warm, dry. Const: Vital Signs, click to edit/add: Vital Signs - 24 hr 07/07/23 18:50 07/07/23 19:57 07/07/23 20:29 Temperature 97.6 F Pulse Rate [Pulse Oximeter] 58 L Respiratory Rate 24 Blood Pressure [Ri ght Upper Arm] 151/96 H Pulse Oximetry 100 95 92 Oxygen Delivery Me thod Nasal Cannula Nasal Cannula Oxygen Flow Rate 1.5 1 07/07/23 20:31 Temperature Pulse Rate [Pulse Oximeter] 64 Respiratory Rate 18 Blood Pressure [Ri ght Upper Arm] 145/83 H Pulse Oximetry 93 Oxygen Delivery Me thod Nasal Cannula Oxygen Flow Rate 1 Hospitalist - H&P: Result Labs Labs: Short CBC 07/07/23 Range/Units 20:06 WBC 5.31 (4.50-11.00) K/uL Hgb 10.8 L (12.0-16.0) gm/dL Hct 34.5 (33.0-51.0) % Plt Count 167 (140-440) K/uL [facility] 07/07/23 20:06 Sodium 139 Potassium 3.4 L Chloride 104 Carbon Dioxide 33 H BUN 11 Creatinine 0.5 Glucose [address] scan - chest: Attestation: I have reviewed the pertinent imaging results. Radiologist's impression: CT chest pulmonary angiogram acquired with 95 cc of Isovue 370 IV contrast. COMPARISON: CT pulmonary angiogram 06/21/2023 FINDINGS: Cardiovascular structures: CT pulmonary angiogram demonstrates adequate opacification of the pulmonary arteries. No evidence of pulmonary embolus. Aortic atherosclerosis and tortuosity. Ascending thoracic aorta measures 3.8 change. Coronary artery calcifications. Cardiomegaly, as before. Prior median sternotomy and CABG. Mediastinum and aaron: No pathologic lymphadenopathy. Lungs: No pneumothorax. Central airways are patent. Multiple bilateral parenchymal and pleural-based nodules and masses, right greater than left have not significantly changed. New mild ground-glass opacities in the left lung. Pleura and pericardium: No effusions. Chest wall and axilla: Right Port-A-Cath appears unchanged. Bones: Mild degenerative changes. Stable superior endplate deformities of the T2 and T7 vertebra. No acute osseous abnormality. Upper abdomen: Unremarkable/unchanged. IMPRESSION: 1. No evidence of pulmonary embolus. 2. Mild ground-glass opacities in the left lung may be infectious/inflammatory in the appropriate clinical setting. 3. Extensive pulmonary metastasis is unchanged. Assessment and Plan Assessment and plan (1) Chronic respiratory failure with hypoxia and hypercapnia: Problem comment: Acute on chronic, recurrent, in setting of adenocarcinoma of the lung. Active smoker. COPD, oxygen dependent CT negative for PE, notable for mild ground-glass opacities left lung infectious versus inflammatory, extensive pulmonary metastases unchanged VBG pCO2 62, baseline 53-60, pH 7.329, HC03 33. Serum carbon dioxide 33, previously 34 Oxygen dependent, baseline 2 L Status: Acute (2) Chronic obstructive pulmonary disease with acute exacerbation: Problem comment: Prednisone 40 mg daily x5 day course, received methylprednisolone in ED DuoNebs q.i.d., albuterol nebs p.r.n. Will give 1 time dose of magnesium 2 g IV as current Mag level is 1.6 RT for pulmonary support Will defer antibiotics at this time, afebrile, no leukocytosis, recently finished antibiotic course following hospitalization end of May Monitor labs, repeat VBG in a.m. Status: Acute (3) Hypokalemia: Problem comment: Potassium 3.4, replace with oral supplement and monitor Status: Acute (4) Essential hypertension: Problem comment: Continue home medications when reviewed by pharmacy Status: Chronic (5) Rectal cancer: Problem comment: Diagnosed 2015. 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 Rectal adenocarcinoma is primary malignancy. Possible primary adenocarcinoma of the lung Status: Chronic Total Time Spent Total Time Spent: Total time spent caring for the patient today was 60 minutes. This includes time spent for the visit reviewing the chart, time spent during the visit, time spent after the visit and documentation and planning in coordination of care.
[2023-07-07 21:44] VITALS: BP 161/86; PULSE 80; RESP 16; RESP 20; TEMP 36.8; O2SAT 91; O2SAT 93; BMI 18.0
[2023-07-07] MEDS: MIRTAZAPINE 15 MG TABLET PO (22:42)
[2023-07-07] MEDS: GABAPENTIN 300 MG CAPSULE PO (22:42)
[2023-07-07] MEDS: MAGNESIUM IV 2 GM/50 ML PIGGYBACK IVPB (22:43)
[2023-07-07] MEDS: ENOXAPARIN 30 MG/0.3ML INJ SUBCUT (22:44)
[2023-07-07] MEDS: 0.9 % SODIUM CHLORIDE 250 ml IV (22:44)
[2023-07-07] MEDS: SERTRALINE 100 MG TABLET PO (22:44)
[2023-07-07 23:30] VITALS: BP 116/95; PULSE 83; RESP 18; TEMP 36.7; O2SAT 91
[2023-07-08] MEDS: HEPARIN 500 UNIT/5 ML SYRINGE IVF ×3 (02:01→20:39)
[2023-07-08 02:04] VITALS: BP 153/77; PULSE 72; RESP 18; TEMP 36.7; O2SAT 89
[2023-07-08] MEDS: OXYCODONE 5 MG TABLET 10 MG PO ×2 (02:10→12:00)
--- NOTE | 2023-07-08 05:35 | PC.NURSE ---
Pt alert and oriented x3. Afebrile. Pt reports 6/10 pain in right side, pain managed with PRN medications. Pt is on 0.5L of O2 via nasal cannula to maintain O2 status of 88% or greater. Pt is up SBA, tolerating regular diet, and slept throughout most of night. Night uneventful.
[2023-07-08] MEDS: SODIUM CHLORIDE 0.9 % (FLUSH) 10 ML SYRINGE 5 ML IVF (05:57)
[2023-07-08 06:26] LABS: HCO3 VBG 30 mmol/L (21-28); PCO2 VBG 58 mmHG (40-50); PO2 VBG < 30.1 mmHG (25-47)
[2023-07-08 06:31] LABS: Mean Corpuscular HGB Conc 32 gm/dL (32-36); Mean Corpuscular Hemoglobin 29 pg (26-34); Mean Corpuscular Volume 92 fL (80-100); Platelet Count* 199 K/uL (140-440); Red Blood Count 4.14 m/uL (4.00-5.20); White Blood Count* 3.59 K/uL (4.50-11.00)
[2023-07-08 06:33] LABS: Slide Review Reflex No
[2023-07-08 06:55] LABS: Chloride* 103 mmol/L (96-114); Sodium* 140 mmol/L (135-149)
[2023-07-08 06:58] LABS: Anion Gap 7 mEq/L (7-15); Blood Urea Nitrogen* 10 mg/dL (7-30); Carbon Dioxide* 30 mmol/L (20-32); Creatinine* 0.5 mg/dL (0.5-1.5); Estimated Glomerular Filt Rate 98 ml/min
[2023-07-08 06:59] LABS: Calcium* 9.5 mg/dL (8.4-10.6); Glucose* 137 mg/dL (60-115); Magnesium* 2.3 mg/dL (1.5-2.6)
--- NOTE | 2023-07-08 07:59 | P.IMPN_ITS ---
Progress Note: A&P Assessment and plan (1) Chronic respiratory failure with hypoxia and hypercapnia: Problem details: Acute on chronic, recurrent, in setting of adenocarcinoma of the lung. Active smoker. COPD, oxygen dependent CT negative for PE, notable for mild ground-glass opacities left lung infectious versus inflammatory, extensive pulmonary metastases unchanged VBG pCO2 62, baseline 53-60, pH 7.329, HC03 33. Serum carbon dioxide 33, previously 34 Oxygen dependent, baseline 2 L Status: Acute (2) Chronic obstructive pulmonary disease with acute exacerbation: Problem details: Prednisone 40 mg daily x5 day course, received methylprednisolone in ED on 07/06 DuoNebs q.i.d., albuterol nebs p.r.n. Will give 1 time dose of magnesium 2 g IV as current Mag level is 1.6 RT for pulmonary support Monitor labs, VBG Doxycycline initiated 07/07 given persistent symptomatic state Status: Acute (3) Hypokalemia: Problem details: - Potassium 3.4, replace with oral supplement and monitor Status: Acute (4) Essential hypertension: Problem details: - age appropriate control Status: Chronic (5) Rectal cancer: Problem details: Diagnosed 2015. 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 Rectal adenocarcinoma is primary malignancy. Possible primary adenocarcinoma of the lung Status: Chronic Plan - per above - patient's symptoms prohibit discharge home today, may need additional support (not ready for hospice at this time, doesn't want to d/c to SNF) - son updated outside room, questions answered - nurse also updated Subjective Date Seen: 07/08/23 Interval history: Selena was admitted on 07/06 for acute on chronic hypoxic hypercarbic respiratory failure in the setting of known COPD, tobacco use, and rectal cancer with metastases to lung. She still is very dyspneic this morning, struggling to complete ADLs. She lives along with support from as well as son Daniel; she is not interested in SNF stay at this time. She also knows that she's an appropriate hospice candidate, pre-contemplative. Exam Narrative: Exam Narrative: GEN: Alert and sitting comfortably in bed, RR 20-24 during my visit HEENT: EOMIs bilaterally, no scleral icterus CV: RRR, No concerning murmurs R: Wheezing in bilateral apices, bibasilar rhonchi Ext: wwp, no concerning edema Skin: No concerning skin lesions or rashes on exposed skin Neuro: No focal deficits Psych: Appropriate Const: Vital Signs, click to edit/add: Vital Signs - 24 hr 07/07/23 18:50 07/07/23 19:57 07/07/23 20:29 Temperature 97.6 F Pulse Rate [Left P ulse Oximeter] Pulse Rate [Pulse Oximeter] 58 L Respiratory Rate 24 Blood Pressure [Ri ght Arm] Blood Pressure [Ri ght Upper Arm] 151/96 H Pulse Oximetry 100 95 92 Oxygen Delivery Me thod Nasal Cannula Nasal Cannula Oxygen Flow Rate 1.5 1 07/07/23 20:31 07/07/23 21:44 07/07/23 21:44 Temperature 98.3 F Pulse Rate [Left P ulse Oximeter] 80 Pulse Rate [Pulse Oximeter] 64 Respiratory Rate 18 20 16 Blood Pressure [Ri ght Arm] 161/86 H Blood Pressure [Ri ght Upper Arm] 145/83 H Pulse Oximetry 93 93 91 Oxygen Delivery Me thod Nasal Cannula Nasal Cannula Nasal Cannula Oxygen Flow Rate 1 1 1 07/07/23 23:30 07/07/23 23:30 07/07/23 23:30 Temperature 98.0 F Pulse Rate [Left P ulse Oximeter] 83 Pulse Rate [Pulse Oximeter] Respiratory Rate 18 18 18 Blood Pressure [Ri ght Arm] 116/95 H Blood Pressure [Ri ght Upper Arm] Pulse Oximetry 91 91 Oxygen Delivery Me thod Nasal Cannula Nasal Cannula Oxygen Flow Rate 1 1 07/08/23 02:04 Temperature 98.0 F Pulse Rate [Left P ulse Oximeter] 72 Pulse Rate [Pulse Oximeter] Respiratory Rate 18 Blood Pressure [Ri ght Arm] 153/77 H Blood Pressure [Ri ght Upper Arm] Pulse Oximetry 89 Oxygen Delivery Me thod Nasal Cannula Oxygen Flow Rate 1 Labs Labs: Laboratory Results - last 24 hr 07/07/23 07/07/23 07/08/23 19:17 20:06 06:16 WBC 5.31 3.59 L RBC 3.72 L 4.14 Hgb 10.8 L 12.0 Hct 34.5 38.0 MCV 93 92 MCH 29 29 MCHC 31 L 32 RDW Coeff of Aleks 13.7 Plt Count 167 199 Neut % (Auto) 56.4 Lymph % (Auto) 32.4 [place] % (Auto) 7.0 Eos % (Auto) 3.2 Baso % (Auto) 0.8 Neut # (Auto) 3.00 Lymph # (Auto) 1.72 [place] # (Auto) 0.40 Eos # (Auto) 0.17 Baso # (Auto) 0.04 Abs Immat Gran (auto) 0.01 Imm/Tot Granulo (auto) 0.2 VBG pH 7.329 7.330 VBG pCO2 62 H* 58 H VBG pO2 < 30.1 < 30.1 VBG HCO3 33 H 30 H Sodium 139 140 Potassium 3.4 L 4.0 Chloride 104 103 Carbon Dioxide 33 H 30 Anion Gap 2 L 7 BUN 11 10 Creatinine 0.5 0.5 Estimated Creat Clear 37.11 37.20 Estimated GFR 98 98 Glucose 104 137 H Calcium 8.9 9.5 Magnesium 1.6 2.3 NT-Pro-B Natriuret Pep 2310 SARS-CoV-2 (PCR) Negative SARS-CoV-2 Influenza Type A (PCR) Negative PCR FLU A Influenza Type B (PCR) Negative PCR FLU B RSV (PCR) Negative PCR RSV
[2023-07-08 08:00] VITALS: BP 157/79; PULSE 66; RESP 18; TEMP 36.6; O2SAT 97
[2023-07-08 08:45] LABS: Procalcitonin* 0.03 ng/mL (<0.50)
[2023-07-08] MEDS: POTASSIUM CHLORIDE 10 MEQ CAPSULE ER 20 MEQ PO (08:57)
[2023-07-08] MEDS: predniSONE 20 MG TABLET 40 MG PO (08:57)
[2023-07-08] MEDS: POTASSIUM CHLORIDE 10 MEQ CAPSULE ER PO (08:57)
[2023-07-08] MEDS: guaiFENesin 600 MG TAB.ER.12H PO ×2 (08:58→20:38)
[2023-07-08] MEDS: AMLODIPINE 5 MG TABLET PO (08:58)
[2023-07-08] MEDS: MORPHINE 30 MG TABLET.ER PO ×2 (08:58→20:38)
[2023-07-08] MEDS: METOPROLOL SUCCINATE (XL) 50 MG TAB PO (08:58)
[2023-07-08 11:36] VITALS: BMI 18.0
[2023-07-08 12:33] VITALS: BP 143/91; PULSE 70; RESP 20; TEMP 36.8; O2SAT 96
[2023-07-08 15:31] VITALS: BP 142/84; PULSE 67; RESP 18; TEMP 36.6; O2SAT 95
[2023-07-08] MEDS: NICOTINE 21 MG PATCH 1 PATCH TRANSDERMA (16:12)
--- NOTE | 2023-07-08 16:15 | PC.SOCIAL ---
Discharge planning: Met with pt and son, Daniel, in room. Pt is refusing discharge planning to any place other than home and wants to resume [facility] at home at discharge. Pt is still interested in [facility] and states no one has contacted her from [facility] about that yet. Last admission, social media analyst requested [facility] coordinator follow up with pt as she believed she was on a waiting list. tobacco farmworker again contacted coordinator Meron by email as she was not working today. Son states ot has a hard time getting voicemails off of her phone and requested [facility] call him if she does not answer. Left these instructions for [facility] coordinator. Pt stated with son present that she was interested in completing an [employer] Directive. Later, social media analyst went back with the forms and discussed and assisted pt in filling out the short form with her son as RUIZ. tobacco farmworker offered to locate a Notary to complete the form, but pt states she wants to think about it and work on it when she feels better. Form was left with pt but not signed. tobacco farmworker discussed with pt the option to keep her [facility] nurse and move into an assisted living facility. PT was appreciative of the information but is not interested in this at this time. tobacco farmworker to follow up as needed.
[2023-07-08] MEDS: ONDANSETRON ODT 4 MG TAB PO (16:54)
--- NOTE | 2023-07-08 17:07 | PC.NURSE ---
Shift Summary: Patient up with SBA, refuses gait belt and walker, is compliant with non-slip socks. Survey Instrument Operator sitting near room since patient has been ambulating independently/not using call light. Nicotine patch requested and placed on left shoulder. o2 sat >90% on 1L/NC. Patient has taken off pulse ox every time staff have left room, cooperative with spot checks. Increased agitation this afternoon r/t feeling SOB, when checked on patient is not wearing o2, once staff place nasal canula back on patient verbalizes improvement. Has been offered nebs and has refused. Rated pain 8/10 which is chronic, offered PRN oxycodone and refused.
[2023-07-08 19:00] VITALS: BP 167/91; PULSE 69; RESP 18; TEMP 36.6; O2SAT 95
[2023-07-08] MEDS: IPRAT-ALBUT 0.5-2.5 MG/3 ML NEB 1 NEB IH (20:33)
[2023-07-08] MEDS: SERTRALINE 100 MG TABLET PO (20:38)
[2023-07-08] MEDS: MIRTAZAPINE 15 MG TABLET PO (20:38)
[2023-07-08] MEDS: GABAPENTIN 300 MG CAPSULE PO (20:38)
[2023-07-08] MEDS: DOXYCYCLINE HYCLATE 100 MG PO (20:38)
[2023-07-08] MEDS: ENOXAPARIN 30 MG/0.3ML INJ SUBCUT (20:40)
[2023-07-08 23:00] VITALS: BP 157/87; PULSE 60; RESP 18; TEMP 36.6; O2SAT 91; O2SAT 96
[2023-07-09 02:18] VITALS: BP 129/83; PULSE 66; RESP 18; TEMP 36.4; O2SAT 96
--- NOTE | 2023-07-09 05:25 | PC.NURSE ---
Shift note: Pt is doing well. Ambulated with SBA to and from BR. No pain, fever and SOB. At 0500, pt complained of feeling nauseated and Ondansetron given which was effective. Conscious, alert and oriented. Vitally stable. Pt had adequate sleep. Port appeared clean, and patent.
[2023-07-09] MEDS: ONDANSETRON ODT 4 MG TAB PO (05:30)
[2023-07-09 07:07] LABS: Chloride* 107 mmol/L (96-114); Sodium* 141 mmol/L (135-149)
[2023-07-09 07:09] LABS: Anion Gap 0 mEq/L (7-15); Carbon Dioxide* 34 mmol/L (20-32); Creatinine* 0.6 mg/dL (0.5-1.5); Est. Creatinine Clearance* 36.05; Estimated Glomerular Filt Rate 94 ml/min
[2023-07-09 07:10] LABS: Blood Urea Nitrogen* 11 mg/dL (7-30); Calcium* 9.3 mg/dL (8.4-10.6); Glucose* 76 mg/dL (60-115)
[2023-07-09] MEDS: predniSONE 20 MG TABLET 40 MG PO (08:31)
[2023-07-09] MEDS: POTASSIUM CHLORIDE 10 MEQ CAPSULE ER PO (08:31)
[2023-07-09] MEDS: guaiFENesin 600 MG TAB.ER.12H PO (08:32)
[2023-07-09] MEDS: MORPHINE 30 MG TABLET.ER PO (08:32)
[2023-07-09] MEDS: DOXYCYCLINE HYCLATE 100 MG PO (08:32)
[2023-07-09] MEDS: METOPROLOL SUCCINATE (XL) 50 MG TAB PO (08:32)
[2023-07-09] MEDS: SODIUM CHLORIDE 0.9 % (FLUSH) 10 ML SYRINGE 5 ML IVF (08:32)
[2023-07-09] MEDS: AMLODIPINE 5 MG TABLET PO (08:32)
[2023-07-09] MEDS: HEPARIN 500 UNIT/5 ML SYRINGE IVF (08:32)
[2023-07-09 09:00] VITALS: BP 178/99; PULSE 65; RESP 20; TEMP 36.4; O2SAT 95
--- NOTE | 2023-07-09 09:54 | P.DS_ITS ---
DS: Providers Provider Time Seen by Provider: 08:53 Date Seen: 07/09/23 Date of admission: 07/08/23 11:42 Primary care physician: Bryon Mondragon MD Admitting Clinician: Maday Huber MD Consults: 07/07/23 21:16 Consult to Respiratory Therapy [CONS] Routine Comment: Reason(s) for RT Consult:: Consult 07/07/23 21:19 Consult to Occupational Therapy [CONS] Routine Comment: Reason(s) for OT Consult:: Evaluate and Treat Any Restrictions?:: No Restrictions Consult to Physical Therapy [CONS] Routine Comment: Reason(s) for PT Consult:: Evaluate and Treat Any Restrictions?:: No Restrictions Consult to Instrument Lens Grinder Apprentice [CONS] Routine Comment: Reason for Consult:: Social Service Consult Attending Physician on discharge: Lisa Lacey MD Date of Discharge: 07/09/23 DS: Diagnosis Discharge Diagnosis (1) Chronic respiratory failure with hypoxia and hypercapnia: Status: Acute Problem details: Acute on chronic, recurrent, in setting of adenocarcinoma of the lung. Active smoker. COPD, oxygen dependent CT negative for PE, notable for mild ground-glass opacities left lung infectious versus inflammatory, extensive pulmonary metastases unchanged VBG pCO2 62, baseline 53-60, pH 7.329, HC03 33. Serum carbon dioxide 33, previously 34 Oxygen dependent, baseline 2 L - 07/07 and 07/08 back to baseline oxygen needs (2) Chronic obstructive pulmonary disease with acute exacerbation: Status: Acute Problem details: Prednisone 40 mg daily x5 day course, received methylprednisolone in ED on 07/06 DuoNebs q.i.d., albuterol nebs p.r.n. Will give 1 time dose of magnesium 2 g IV as current Mag level is 1.6 RT for pulmonary support Monitor labs, VBG Doxycycline initiated 07/07 given persistent symptomatic state - 07/08 feeling better, at baseline oxygen needs (3) Hypokalemia: Status: Resolved (4) Essential hypertension: Status: Chronic Problem details: - age appropriate control (5) Rectal cancer: Status: Chronic Problem details: Diagnosed 2015. 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 Rectal adenocarcinoma is primary malignancy. Possible primary adenocarcinoma of the lung DS: Summary Hospital Course Hospital Course: Per H&P 07/07/23: Selena Gutierrez is a 73 year old female past medical history significant for hypertension, degenerative joint disease, tobacco dependence, rectal cancer with Mets to lung (adenocarcinoma), COPD, oxygen dependent is admitted to the medical floor from the ED for acute on chronic recurrent hypoxic respiratory failure with hypercapnia. Patient is seen with son at bedside. Reports 2 day history of increasing shortness of breath. Her home health nurse was with her today and had her sent to the ED. Patient denies new or worsening chest pain or pressure outside of her normal discomfort related to her lung cancer. Denies headaches. Occasional dizziness. Denies recent fevers. Has occasional nausea, no worse than normal. No recent vomiting. No change in stools. Weight has stabilized. Patient continues on oral chemotherapy, reporting no recent worsening of cancer progression. Continues to smoke daily. Figures there is no point in quitting at this stage of her cancer. Used 8 nebs at home, received 1 per EMS, and a 3rd in the ED. Feeling better. Continues to be hypoxic, < 80s, while conversing. 07/08/23: She still is very dyspneic this morning, struggling to complete ADLs. She lives along with support from HH as well as son Daniel; she is not interested in SNF stay at this time. She also knows that she's an appropriate hospice candidate, pre-contemplative. 07/09/23: She is feeling much better; now independent with ADLs, ambulating to the bathroom independently. She is interested in discharging home. Time Spent with Patient Time attestation: Total time spent providing and/or coordinating discharge services: Exam Narrative: Exam Narrative: General: No acute distress. Awake, alert, oriented. No pallor. No jaundice. Tall, thin. Sitting comfortably in the bedside chair. Oropharynx: Clear. Mucous membranes moist. Cardiovascular: Regular rate and rhythm. No murmurs, gallops, or rubs. Respiratory: No respiratory distress. Able to talk in complete sentences. Clear to auscultation bilaterally. No wheezes or crackles. Extremities: No pedal edema. Const: Vital Signs, click to edit/add: Vital Signs - 24 hr 07/08/23 12:33 07/08/23 15:31 07/08/23 15:31 Temperature 98.3 F Pulse Rate [Bilate ral Dorsalis Pedis ] Pulse Rate [Left P ulse Oximeter] 70 Respiratory Rate 20 18 18 Blood Pressure [Ri ght Arm] 143/91 H Pulse Oximetry 96 95 Oxygen Delivery Me thod Nasal Cannula Nasal Cannula Oxygen Flow Rate 0.5 1 07/08/23 15:31 07/08/23 19:00 07/08/23 23:00 Temperature 97.8 F 97.9 F Pulse Rate [Bilate ral Dorsalis Pedis ] 67 Pulse Rate [Left P ulse Oximeter] 69 60 Respiratory Rate 18 18 18 Blood Pressure [Ri ght Arm] 142/84 H 167/91 H Pulse Oximetry 95 95 Oxygen Delivery Me thod Nasal Cannula Nasal Cannula Oxygen Flow Rate 1 1 07/08/23 23:00 07/08/23 23:00 07/09/23 02:18 Temperature 97.9 F 97.6 F Pulse Rate [Bilate ral Dorsalis Pedis ] Pulse Rate [Left P ulse Oximeter] 60 66 Respiratory Rate 18 18 18 Blood Pressure [Ri ght Arm] 157/87 H 129/83 Pulse Oximetry 91 96 96 Oxygen Delivery Me thod Nasal Cannula Nasal Cannula Nasal Cannula Oxygen Flow Rate 1 1 1 07/09/23 09:00 07/09/23 09:00 Temperature 97.6 F Pulse Rate [Bilate ral Dorsalis Pedis ] 65 Pulse Rate [Left P ulse Oximeter] Respiratory Rate 20 20 Blood Pressure [Ri ght Arm] 178/99 H Pulse Oximetry 95 95 Oxygen Delivery Me thod Nasal Cannula Nasal Cannula Oxygen Flow Rate 0.5 0.5 DS: Data Data Completed and Pending Labs on day of discharge: Labs from last 24 hours 07/09/23 05:54 Sodium 141 Potassium 4.0 Chloride 107 Carbon Dioxide 34 H Anion Gap 0 L BUN 11 Creatinine 0.6 Estimated Creat Clear 36.05 Estimated GFR 94 Glucose 76 Calcium 9.3 Study: CT-Chest PE STUDY-07/07/2023 7:53:39 PM Ordering Physician: JCARLOS Final Report: INDICATION: Dyspnea. Malignancy. History of metastatic colorectal cancer. TECHNIQUE: CT chest pulmonary angiogram acquired with 95 cc of Isovue 370 IV contrast. COMPARISON: CT pulmonary angiogram 06/21/2023 FINDINGS: Cardiovascular structures: CT pulmonary angiogram demonstrates adequate opacification of the pulmonary arteries. No evidence of pulmonary embolus. Aortic atherosclerosis and tortuosity. Ascending thoracic aorta measures 3.8 change. Coronary artery calcifications. Cardiomegaly, as before. Prior median sternotomy and CABG. Mediastinum and aaron: No pathologic lymphadenopathy. Lungs: No pneumothorax. Central airways are patent. Multiple bilateral parenchymal and pleural-based nodules and masses, right greater than left have not significantly changed. New mild ground-glass opacities in the left lung. Pleura and pericardium: No effusions. Chest wall and axilla: Right Port-A-Cath appears unchanged. Bones: Mild degenerative changes. Stable superior endplate deformities of the T2 and T7 vertebra. No acute osseous abnormality. Upper abdomen: Unremarkable/unchanged. IMPRESSION: 1. No evidence of pulmonary embolus. 2. Mild ground-glass opacities in the left lung may be infectious/inflammatory in the appropriate clinical setting. 3. Extensive pulmonary metastasis is unchanged. Dictated by Reece Amado MD @ 07/07/2023 8:13:13 PM Please note that all CT scans at this facility use dose modulation, iterative reconstruction, and/or weight-based dosing when appropriate to reduce radiation dose to as low as reasonably achievable. Dictated by: Reece Amado MD @ 07/07/2023 20:13:31 Signed by: Reece Amado MD @07/07/2023 8:13:31 PM (Electronic Signature) Discharge Plan Discharge Disposition: Home, Self-Care Date of Admission: 07/08/23 11:42 Attending Provider on Discharge: Lisa Lacey Primary Care Provider: Byron Mondragon Condition: Improved Anticipated Discharge Date/Time: 07/09/23 10:09 Discharge Medications: New doxycycline hyclate 100 mg Tablet 100 mg PO BID 4 Days Qty: 8 0RF guaifenesin [Mucinex] 600 mg Tablet Extended Release 12hr 600 mg PO BID Qty: 20 0RF prednisone 20 mg Tablet 40 mg PO DAILYWM 3 Days Qty: 6 0RF Continued morphine 30 mg tablet extended release 30 mg PO BID clonazepam 0.5 mg tablet 0.5 mg PO HS PRN nitroglycerin 0.4 mg tablet, sublingual 0.4 mg sublingual Q5M PRN (Reason: chest pain) sertraline 100 mg tablet 100 mg PO HS gabapentin 300 mg capsule 300 mg PO HS aspirin 81 mg tablet,chewable 81 mg PO DAILY PRN albuterol sulfate [Ventolin HFA] 90 mcg/actuation HFA aerosol inhaler 2 puff inhalation Q4H PRN ipratropium-albuterol 0.5 mg-3 mg(2.5 mg base)/3 mL Solution For Nebulization 3 ml inhalation Q6H PRN (Reason: dyspnea) Qty: 20 0RF Lumakras 120 mg tablet 600 mg PO DAILY Qty: 150 3RF sennosides-docusate sodium [Stool Softener-Laxative] 8.6-50 mg Tablet 2 tab-cap PO BID PRN polyethylene glycol 3350 17 gram/dose powder 17 g PO DAILY PRN multivitamin with folic acid [Tab-A-Nan] 400 mcg tablet 1 tab PO DAILY mirtazapine 15 mg tablet 15 mg PO HS oxycodone 10 mg tablet 10 mg PO Q4H PRN Systane Ultra 0.4-0.3 % drops 1 drp ophthalmic (eye) Q2H PRN ondansetron 4 mg tablet,disintegrating 4 mg translingual Q8H PRN (Reason: nausea and vomiting) Rx Instructions: Use either this or prochlorperazine for nausea Try taking this 30 mins prior to Sotorasib potassium chloride 10 mEq Capsule, Extended Release 10 meq PO DAILYWM Qty: 30 0RF metoprolol succinate 50 mg Tablet Extended Release 24 Hr 50 mg PO DAILY Qty: 30 0RF amlodipine 5 mg Tablet 5 mg PO DAILY Qty: 30 0RF Discharge Orders: Discharge Order (Routine); Ordered 07/09/23 Ordered By: Lisa Lacey Additional Instructions: Resume usual home oxygen, no change. Resume home health, no change. Activity Level: No Restrictions Discharge Diet: Regular Follow Up Appointments: Byron Mondragon MD [Primary Care Provider] - (5-7 days) Forms: [facility] Info Instructions
[2023-07-09] MEDS: OXYCODONE 5 MG TABLET 10 MG PO (10:58)
--- NOTE | 2023-07-09 12:04 | PC.NURSE ---
Shift Summary:Patient told of discharge this morning during rounds, Patient had not yet called for ride by 1000, Staff asked again that patient call for ride and patient stated I'm just too tire right now,I'll take a nap first. Staff informed patient that discharge time was 1200 and patient did not respond. Staff called patients ride @ 1030 and informed of 1200 discharge time. Port heparinized and discontinued prior to discharge. Dressing change on bottom done. O2 sats >90% on RA, patient does have o2 equipment at home as needed. New medications reviewed, informed patient that nicotine patches are available over the counter. Nicotine patch removed prior to discharge. Patients chemo medications returned to her. Patient has been ambulating independently in room, tolerating activity well. Patient discharged @ 1202 via wheelchair.
--- NOTE | 2023-07-10 11:46 | PC.NURSE ---
Discharge instructions faxed to [facility] to resume care Tuesday.
== END 2023-07-09 12:02 | disposition home or self-care (01) | DRG 189 ==
LOC: ED 20:29 → MEDSURG 21:10
PROVIDERS: Physician Assistant; Admitting Provider Family Medicine; Emergency Provider Family Medicine; PCP Family Medicine; Visit Provider Family Medicine
DX: J96.21 Acute and chronic respiratory failure with hypoxia (principal); J44.1 Chronic obstructive pulmonary disease with (acute) exacerbation; C20 Malignant neoplasm of rectum; Z68.1 Body mass index [BMI] 19.9 or less, adult; C78.02 Secondary malignant neoplasm of left lung; C78.01 Secondary malignant neoplasm of right lung; J96.22 Acute and chronic respiratory failure with hypercapnia; J96.12 Chronic respiratory failure with hypercapnia; I10 Essential (primary) hypertension; F17.210 Nicotine dependence, cigarettes, uncomplicated; E87.6 Hypokalemia; Z99.81 Dependence on supplemental oxygen; I71.21 Aneurysm of the ascending aorta, without rupture
CPT/HCPCS: 36415; 71275; 80048; 82803; 83735; 83880; 84145; 85025; 85027; 87631; 94640; 97161; 97165; 99285; G0378; A9270; J1642; J1650; J2919; J3475; J7050; J7512; Q9967; S4990

== ENCOUNTER 2023-07-21 14:58 | Outpatient (CLI) | payer OTHER, SELFPAY ==
--- NOTE | 2023-07-21 15:00 | PE_ITS ---
[facility] [address] [facility] [address] Phone:?[phone] Fax:?[phone] Referring Physician Information: Keysha Barber M.D. [address] [facility] [address] Phone:?[phone] Fax:?[phone] Patient:Amilcar Gutierrez D.O.B:?1950 Sex:?Female Phone:?[phone] [facility] MRN:?[id number] Exam Date:?07/21/2023 EXAM: PET/CT EYES TO THIGHS, CANCER RESTAGING CLINICAL INFORMATION: Lung cancer, colon cancer. TECHNICAL INFORMATION: Helical acquisition of data was obtained from the orbits to the upper thighs with reconstruction of 3.75 mm thick images at 3.[address] data was used for attenuation correction. PET scanning was performed through the same anatomic range 60 minutes following administration of 11.83 mCi of 18-FDG delivered intravenously. The patient's glucose at the time of the injection was 82 mg/dL. PET, CT and PET/CT fusion images are interpreted using a computer viewing workstation. PET, CT and PET/CT fusion images were archived and saved in the patient's permanent medical record. COMPARISON: PET-CTs from 04/14/2023 and 09/16/2022. INTERPRETATION: Head and Neck: There are no abnormal hypermetabolic foci within the head or neck. There is physiologic uptake in the intracranial soft tissues. Chest: Multiple pulmonary nodules and masses are present. As before, there are largely necrotic and variably calcified. Most do not show increased FDG uptake; indexed lesions include: ...a) medial right upper lobe nodule (Se 2 Im 91) measures 2.9 x 1.8 cm, stable, with a maximum SUV of 2.87, previously 3.72 (March 2023) and 4.19 (August 2022). ...b) posterior right upper lobe nodule (Se 2 Im 97) has a maximum SUV of 10.57, previously 8.01 (March 2023) and 3.03 (August 2022). ...c) left perihilar nodule (Se 2 Im 99) is indistinct on the free breathing CT but has a maximum SUV of 2.48, previously 6.5 (March 2023) and 5.27 (August 2022). ...d) left basal nodule (Se 2 Im 136) measures 2.8 x 1.8 cm, stable, with a maximum SUV of 1.69, previously 2.16 (March 2023) and 2.89 (August 2022). There is a new focus of increased FDG uptake within an otherwise stable right basal conglomeration (Se 2 Im 133), with a maximum SUV of 5.11. Background mediastinal blood pool uptake has a maximum SUV of 1.93. Right chest port catheter terminates in the upper SVC. No lymphadenopathy detected. Abdomen and Pelvis: There are no abnormal hypermetabolic foci within the abdomen or pelvis. Background hepatic parenchymal uptake has a maximum SUV of 2.3. There is physiologic excretion of radiotracer in the urine and bowel. Status post cholecystectomy. 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 Skeleton, Musculature, and Integument: No abnormal hypermetabolic foci within the skeleton. No hazel osteoblastic or osteolytic disease. CONCLUSION: Multiple pulmonary nodules and masses redemonstrated, the majority of which are necrotic and variably calcified. A new focus of FDG uptake within an otherwise stable right basal conglomeration suggests a new focus of viable disease. Of the previously indexed lesions, Lesion A is stable to minimally improved. Lesion B shows continued increase in FDG uptake. Lesion C shows decreased FDG uptake. Lesion D shows continued minimal improvement. Electronically signed on 07/22/2023 1:38:00 PM by Keyshawn Lay M.D.
--- OUTSIDE RECORDS SUMMARY | 2023-07-21 15:02 | XMS_ITS | Clinical Summary ---
Author Organization [facility] Address [place], [place] [address] Care Team Providers Care Precision Inspector Name Role Phone Jairo Renettajean pierre Schultz LP Unavailable Hue Mayes MD Unavailable [phone] Byron Mondragon MD Primary Care Provider + Conchita Pierson RN Unavailable Miri Norton RN Unavailable [phone] Allergies Active Allergy Reactions Criticality Noted Date [...] by mouth once daily. 90 Tablet 3 10/11/202 3 Active albuterol HFA (PRO-AIR; VENTOLIN; PROVENTIL) [...] enteric coated tabletIndications: Coronary artery disease involving ruby heart without angina pectoris, unspecified vessel or [...] mg sublingual tabletIndications: Coronary artery disease involving ruby heart without angina pectoris, unspecified vessel or [...] NAUSEA/VOMITIN G 30 Tablet 2 4 Active Mucus Relief ER 600 mg Extended-Release tablet Take 600 mg by mouth two times daily. 4 Active amLODIPine (NORVASC) 5 mg tablet Take 5 mg by mouth once daily. 4 Active metoprolol succinate (TOPROL XL) 50 mg sustained-release tablet Take 50 mg by mouth once daily. 4 Active potassium chloride (MICRO-K) 10 mEq Controlled-release capsule Take 10 mEq by mouth once daily with a meal. 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 10/03/2018 Controlled substance agreement signed 04/26/2017 Overview: Signed: 10/22/14: Amanda Del Cid, KETTLE OPERATOR HEAD, BC, PHOTO MASK INSPECTOR /mf Long QT interval 06/01/2016 Junctional rhythm [...] Overview: - s/p CAB x 3 in [place] 09/27/2006: MAXWELL - LAD, SVG - OM2, [...] 06/01/2016 07/05/2018 Severe malnutrition 05/29/2016 07/06/19 19 KTA (acute kidney injury) 05/28/2016 Metabolic acidosis, normal anion gap (NAG) 05/28/2016 07/05/2018 Anxiety state, unspecified r ule out PTSD and panic disorder 08/26/2014 11/29/2014 Anxiety 06/27/2014 08/26/2014 Anxiety 06/27/2014 Acute kidney injury 02/23/20 19 Delirium 02/22/2019 Encounters Date Type Department Care Team Description 07/19/2023 Telephone [facility] [address] [place] [address] Byron Mondragon MD Appointment Request 07/14/2023 Refill [facility] [address] [place] [address] Byron Mondragon MD Refill Request (Amlodipine, metoprolol, mucus relief, potassium ) 07/13/2023 Telephone [facility] [address] [place] [address] Byron Mondragon MD 07/07/2023 Orders Only [facility] Scanner 1 scan: (1-Ord) [facility], CHEST PE STUDY, 07/07/2023 07/06/2023 Telephone [facility] [address] [place] [address] Byron Mondragon MD 07/04/2023 Refill [facility] [address] [place] [address] Byron Mondragon MD Refill Request (Ondansetron) 07/01/2023 Telephone [facility] [address] [place] [address] Byron Mondragon MD Questions 07/01/2023 Refill [facility] [address] [place] [address] Byron Mondragon MD Refill Request (Morphine, oxyCODONE ) 06/27/2023 Telephone [facility] [address] [place] [address] Byron Mondragon MD update (Update/) 06/21/2023 Orders Only [facility] Scanner 1 scan: (1-Ord) [facility], XR CHEST 1V, 06/21/2023 06/21/2023 Orders Only [facility] Scanner 1 scan: (1-Ord) [place], ANGIO CHEST , 06/21/2023 06/10/[address] [address] Byron Mondragon MD Prior Authorization (morphine CONTROLLED RELEASE (MS CONTIN) 30 mg CR tablet APPROVED (06/10/23-06/09/24)) 06/09/[address] [address] Byron Mondragon MD Prior Authorization 05/31/[address] [address] Byron Mondragon MD Refill Request (oxyCODONE, morphine) 05/24/[address] [address] Byron Mondragon MD 05/19/[address] [address] Byron Mondragon MD Refill Request (oxyCODONE 10 mg tablet ) 05/10/[address] [address] Byron Mondragon MD Questions (QUESTIONS) 05/05/[address] [address] Byron Mondragon MD Medication Management (morphine CONTROLLED-RELEASE (MS CONTIN) 15 mg tablet & oxyCODONE (ROXICODONE) 5 mg immediate release tablet) 05/02/2023 Nurse Triage [address] [address] Byron Mondragon MD Chest Pain 05/02/[address] [address] Byron Mondragon MD Refill Request (Oxycodone) 05/02/[address] [address] Byron Mondragon MD Error-please disregard 04/30/2023 Refill [facility] [address] [place] [address] Byron Mondragon MD Refill Request (oxyCODONE (ROXICODONE) 5 mg immediate release tablet) 04/28/2023 Telephone [facility] [address] [place] [address] VoteByron shepherd MD Questions 04/22/2023 Telephone [facility] [address] [place] [address] Conchita Fontana DO Refill Request (oxycodone) 04/22/2023 Refill [facility] [address] [place] [address] VoteByron shepherd MD Refill Request (oxyCODONE (ROXICODONE) 5 mg immediate release tablet) from Last 3 Months Immunizations Name Administration Dates Next Due COVID-19 vaccine (Tengah 30mcg/0.3mL) 12YO+ MERLYN-SUCROSE MD MIKEV 06/04/2021 DT [...] Comments Blood Pressure 125/87 04/07/2023 4:13 PM SALES REPRESENTATIVE TRAINEE Pulse 68 04/07/2023 4:13 PM SALES REPRESENTATIVE TRAINEE Temperature 36.5 ??C (97.7 ??F) 11/25/2022 1:41 PM CD T Respiratory Rate 18 04/01/2022 1:29 PM SALES REPRESENTATIVE TRAINEE Oxygen Saturation 96% 04/07/2023 4:13 PM SALES REPRESENTATIVE TRAINEE Inhaled Oxygen Concentration - - Weight 52.9 kg (116 lb 11.2 oz) 04/07/2023 4:13 PM SALES REPRESENTATIVE TRAINEE Height 160.3 cm (5' 3.1) 04/07/2023 4:13 PM SALES REPRESENTATIVE TRAINEE Body Mass Index 20.61 04/07/2023 4:13 PM SALES REPRESENTATIVE TRAINEE Plan of Treatment Upcoming Encounters Date Type Department Care Team (Late st Contact Info) Description 08/02/2023 2:30 PM CDT Office Visit [facility] [address] [facility] [place] [address] Votel, Byron [place] [address] [place] [address] Procedures Procedure Name Priority Date/Time Associated Diagnosis Comments SCAN-CT INTERPRETATION 12:00 AM CDT SCAN-RADIOLOGY REPORT 06/21/2023 12:00 AM CDT SCAN-CT INTERPRETATION 12:00 AM CDT from Last 3 Months Results * SCAN-CT INTERPRETATION (07/07/2023 12:00 AM CDT) Only the most recent of2 resultswithin the time period is included. Anatomical Region Laterality Modality Other Scanner OTHER * SCAN-RADIOLOGY REPORT (06/21/2023 12:00 AM CDT) Anatomical Region Laterality Modality Other Scanner OTHER from Last 3 Months Advance Directives Documents on File Type Date Recorded Patient Front Services Agent Expl anation Treatment Guidelines 08/20/2016 3:11 PM [...] Comments Code Status Discussion: Discussed Care Teams Precision Inspector Relationship Specialty Start Date End Date Votel, Byron Cota MD [address] [place] [address] PCP - General Family Practice 11/26/20 Renetta Gill LP Psychologist Psychology 05/20/11 Hue Mayes MD [address] [address] Rheumatology Rheumatology 12/08/15 Conchita Pierson RN [facility], [address] [place], [place] [id number] Diesel Dinkey Operator - [facility] Registered Nurse 04/28/21 Miri Norton RN [facility] [address] [place], [place] [id number] Diesel Dinkey Operator - [facility] Registered Nurse 04/28/21
== END 2023-07-21 14:59 | disposition home or self-care (01) ==
LOC: RAD 14:59
PROVIDERS: PCP Family Medicine; Visit Provider Internal Medicine Hematology & Oncology
DX: C20 Malignant neoplasm of rectum (principal); C34.90 Malignant neoplasm of unspecified part of unspecified bronchus or lung
CPT/HCPCS: 78815; A9552

== ENCOUNTER 2023-08-26 14:02 | Outpatient (RCR) | payer OTHER, SELFPAY | END 2024-07-29 10:42 | disposition home or self-care (01) | LOC: MOW 14:02 | PROVIDERS: PCP Family Medicine; Visit Provider Family Medicine | DX: Z76.0 Encounter for issue of repeat prescription (principal) | CPT/HCPCS: S5170 ==

== ENCOUNTER 2023-09-15 14:00 | Outpatient (RCR) | payer OTHER, SELFPAY ==
--- NOTE | 2023-07-19 08:40 | ONC.NURNOTE ---
Patient's home care nurse calling and stating patient refuses to go to MRI today and there was talk in hospital about hospice. Sub Acute Care Nurse called patient to encourage her to go to test. Patient states she is so tired she can't lift her head off the pillow. Sub Acute Care Nurse talked to her about medications and she stated she hasn't used her oxycodone for 3 weeks but has ER morphine 30mg bid plus other evening medications ie: Gabapentin/mirtazapine that could be making her sleepy to the point of not wanting to get up. She stated she would be ok with a reduction of pain medication and maybe use Oxycodone if her pain worsens as break through if that would help her stay awake. Meanwhile she was told that the test are important to measure how the oral chemo she is using is working. She agreed to do test and will be in today
[2023-07-19 10:52] LABS: Basophils Absolute Auto 0.03 K/uL (0.00-0.30); Basophils Percent Auto 0.6 % (0.0-3.0); Eosinophils Absolute Auto 0.19 K/uL (0.00-0.50); Eosinophils Percent Auto 3.7 % (0.0-7.0); Hematocrit 36.5 % (33.0-51.0); Hemoglobin* 11.6 gm/dL (12.0-16.0); Immature Granulocytes Abs Auto 0.01 K/uL (0.00-0.30); Immature Granulocytes Pct Auto 0.2 %; Lymphocytes Percent Auto 31.4 % (20-44); Mean Corpuscular HGB Conc 32 gm/dL (32-36); Mean Corpuscular Hemoglobin 29 pg (26-34); Mean Corpuscular Volume 92 fL (80-100); Monocytes Percent Auto 8.1 % (0.0-11.0); Neutrophils Absolute Auto 2.85 K/uL (1.7-7.0); Platelet Count* 171 K/uL (140-440); RDW Coefficient of Variation % 14.2 % (11.5-15.5); Red Blood Count 3.96 m/uL (4.00-5.20); White Blood Count* 5.09 K/uL (4.50-11.00)
[2023-07-19 10:55] LABS: Slide Review Reflex No
[2023-07-19] MEDS: SODIUM CHLORIDE 0.9 % (FLUSH) 10 ML SYRINGE IVF ×2 (11:02→12:26)
[2023-07-19 11:22] LABS: Albumin* 3.7 g/dL (3.3-5.0); Chloride* 106 mmol/L (96-114); Sodium* 139 mmol/L (135-149)
[2023-07-19 11:23] LABS: Potassium* 3.8 mmol/L (3.6-5.1)
[2023-07-19 11:25] LABS: Alkaline Phosphatase* 83 U/L (40-150); Anion Gap 5 mEq/L (7-15); Aspartate Amino Transferase* 27 U/L (12-35); Bilirubin Total* 0.8 mg/dL (0.1-1.5); Carbon Dioxide* 28 mmol/L (20-32); Creatinine* 0.6 mg/dL (0.5-1.5); Estimated Glomerular Filt Rate 94 ml/min; Total Protein* 6.9 g/dL (6.0-8.3)
[2023-07-19 11:26] LABS: Alanine Aminotransferase* 16 U/L (4-35); Blood Urea Nitrogen* 11 mg/dL (7-30); Calcium* 8.6 mg/dL (8.4-10.6); Glucose* 120 mg/dL (60-115)
[2023-07-19] MEDS: ALTEPLASE 2 MG INJ IVF (11:45)
[2023-07-19] MEDS: HEPARIN 500 UNIT/5 ML SYRINGE IVF (12:26)
[2023-07-21] MEDS: HEPARIN 500 UNIT/5 ML SYRINGE IVF (16:15)
[2023-07-21] MEDS: SODIUM CHLORIDE 0.9 % (FLUSH) 10 ML SYRINGE IVF (16:15)
--- NOTE | 2023-07-27 11:11 | PC.SOCIAL ---
Social work: Met with pt and son Daniel regarding questions about Healthcare Directive and financial POA. Pt states she is interested in completing both of these forms. Provided her with the financial POA form and answered questions on this. Discussed the options of the long or short [employer] Directive form. Pt is interested in the short form and was provided with the form and written information on it. Went through the firm with pt and answered questions. Shared information on having the form signed by witnesses versus having it notarized. Son states he will assist her with the completion of these forms. Both were appreciative of information provided.
--- NOTE | 2023-09-21 13:19 | ONC.NURNOTE ---
Addendum entered by Grisel Monahan RN 10/21/23 15:26: Pt's hospice nurse called requesting a physician to order port removal for pt. Will obtain order on Tuesday when digna returns. Original Note: Patient called the office stating that she needs to have her port flushed, but she is meeting with Hospice on Tuesday. She was told to address this with the hospice group to see if they are able to do this, she should come in here to have this done, or refrain from having this done at this time. Patient will update the [facility] early next week.
--- NOTE | 2023-10-24 14:49 | ONC.NURNOTE ---
Patient called to cancel her appointment for labs on Tuesday, she is now enrolled in hospice. She also mentions that she will need to have her port removed. Patient was told that it is not detrimental to leave this in place, unless it is painful or hospice is requesting to have this removed. If patient would like to have this done, hospice can write an order to have this removed and it would be need to be sent to the surgeons office. Patient will reach out if more is needed in the future.
== END 2024-01-15 23:59 | disposition home or self-care (01) ==
LOC: CCIC 14:00
PROVIDERS: PCP Family Medicine; Referring Provider Family Medicine; Visit Provider Internal Medicine Hematology & Oncology
DX: C20 Malignant neoplasm of rectum (principal); C78.01 Secondary malignant neoplasm of right lung
CPT/HCPCS: 36415; 70553; 80053; 82378; 85025; 96374; 96376; 99211; 99215; G0463; A9575; J1642; J2997

== ENCOUNTER 2023-12-10 12:21 | Outpatient (CLI) | payer OTHER, SELFPAY ==
--- OUTSIDE RECORDS SUMMARY | 2023-12-12 22:02 | XMS_ITS | Clinical Summary ---
Author Organization [employer] [facility] Address [place], [place] [address] Care Team Providers Care Supervisor [employer] Name Role Phone Jairo Renettajean pierre Schultz LP Unavailable Hue Mayes MD Unavailable [phone] Byron Mondragon MD Primary Care Provider + Conchita Pierson RN Unavailable Miri Norton RN Unavailable [phone] Allergies Active Allergy Reactions Criticality Noted Date [...] times daily. 1080 mL 3 3 Active nitroglycerin (NITROSTAT) 0.4 mg sublingual tabletIndications:C oronary artery disease involving [place] heart without angina pectoris, unspecified vessel or lesion type DISSOLVE ONE TABLET UNDER TONGUE EVERY FIVE MINUTES NEEDED FOR CHEST PAIN. MAY USE UP TO 3 TABLETS. CALL 911 IF NO RELIEF 25 Tablet 2 3 Active polyethylene glycoL (MIRALAX) 17 gram/scoop [...] mouth at bedtime. 90 Tablet 4 Active aspirin (ECOTRIN) 81 mg enteric coated tabletIndications:C oronary artery disease involving [place] heart without angina pectoris, unspecified vessel or lesion type TAKE 1 TABLET BY MOUTH DAILY WITH A MEAL 100 Tablet 4 Active gabapentin (NEURONTIN) 300 mg capsuleIndications: Neuropathic pain TAKE 1 CAPSULE BY MOUTH AT BEDTIME 90 Capsule 4 Active sennosides-docusate (Senexon-S) (8.6-50 mg) tabletIndications:C hest wall pain TAKE 2 TABLETS BY MOUTH TWICE A DAY 360 Tablet 4 Active mirtazapine (REMERON) 7.5 mg tabletIndications:G eneralized anxiety disorder Take one at bedtime for a week, then 2 at bedtime. 90 Tablet 3 3 11/15/19 24 Discontinued aspirin (ECOTRIN) 81 mg enteric coated tabletIndications:C oronary artery disease involving [place] heart without angina pectoris, unspecified vessel or lesion type Take 1 Tablet (81 mg) by mouth once daily with a meal. 100 Tablet 3 3 12/11/19 24 Discontinued gabapentin (Neurontin) 300 mg capsuleIndications: Neuropathic pain Take 1 Capsule (300 mg) by mouth at bedtime. 90 Capsule 3 3 12/11/19 24 Discontinued sennosides-docusate (SENOKOT S) (8.6-50 mg) tabletIndications:C hest wall pain Take 2 Tablets by mouth two times daily. 120 Tablet 11 3 12/11/19 24 Discontinued Active Problems Problem Noted Date Diagnosed Date Encounter for admission to hospice care 09/05/19 Overview (09/06/2023): Scheduled for admission 09/06/2023, info consult only as patient did not wish to admit that day Hospice Physician Narrative Encounter for Discussion of Hospice Care Physician Chart Review: 09/05/2023 Patient: Selena Gutierrez This note is intended for informational purposes [...] Overview (04/26/2017): Signed: 10/22/14: Amanda Del Cid, KARENA, BC, GLUER AND WEDGER /mf Long QT interval 06/01/2016 Junctional rhythm 05/30/2016 Right ventricular dysfunction 05/30/2016 Medical non-compliance 05/28/2016 Generalized abdominal pain 05/28/2016 Thrombocytopenia 05/28/2016 Rectal cancer 01/20/2016 Overview (09/06/2018): Metastatic to lung. PTSD (post-traumatic stress disorder) 11/29/2014 Dysthymic disorder 06/03/2011 CAD (coronary artery disease) Overview (06/13/2014): - s/p CAB x 3 in [place] 09/27/2006: MAXWELL - LAD, SVG - OM2, [...] Type Department Care Team Description 12/09/2023 Refill [facility] [address] [place] [address] Byron Mondragon MD Refill Request (Aspirin, Gabapentin, Senexon-s) 11/14/2023 Telephone [facility] [address] [place] [address] Votejoao, Byron Cota MD Questions (Infusion Port Removal) 11/09/[address] [address] Votejoao, Byron Cota MD Refill Request (Mirtazapine) 10/16/[address] [address] Votejoao, Byron Cota MD Refill Request (Mucus Relief Er) 10/11/[address] [address] Votel, Byron Cota MD Form 09/29/[address] [address] Votel, Byron Cota MD Form 09/29/[address] [address] Votel, Byron Cota MD Form 09/22/[address] [address] Votel, Byron Cota MD Medication Management (ondansetron (ZOFRAN ODT) 4 mg disintegrating tablet) 09/22/[address] [address] Votejoao, Byron Cota MD Refill Request (Sertraline) 09/16/[address] [address] Votejaoo, Byron Cota MD Hospice 09/16/[address] [address] ToroteByron shepherd MD Refill Request (Mucus Relief Er) from Last 3 Months Immunizations Name Administration Dates Next Due COVID-19 vaccine ([employer] NT[employer] 30mcg/0.3mL) 12YO+ MERLYN-SUCROSE MD MIKEV 06/04/2021 [...] DT Respiratory Rate 18 04/01/2022 1:29 PM ETL MANAGER Oxygen Saturation 97% 08/30/2023 4:26 PM CDT Inhaled Oxygen Concentration - - Weight 45.2 kg (99 lb 9.6 oz) 08/30/2023 4:26 PM CDT Height 160 cm (5' 3) 08/30/2023 4:26 PM CDT Body Mass Index 17.64 08/30/2023 4:26 PM CDT Plan of Treatment Not on file Advance Directives Documents on File Type Date Recorded Patient Chemist Assistant Expl anation Treatment Guidelines 08/20/2016 3:11 PM [...] Code Status Discussion: Discussed Care Teams Supervisor Hairspring Fabrication Relationship Specialty Start Date End Date VotelByron MD [address] [place] [address] PCP - General Family Practice 11/26/20 Renetta Gill LP Psychologist Psychology 05/20/11 Hue Mayes MD [address] [address] Rheumatology Rheumatology 12/08/15 Conchita Pierson RN Replaced by [facility] [place], [place] [address] Marketing Systems Analyst - [facility] Registered Nurse 04/28/21 Miri Norton RN Replaced by [facility] [address] [place] [address] Marketing Systems Analyst - [facility] Registered Nurse 04/28/21
--- OUTSIDE RECORDS SUMMARY | 2023-12-12 22:02 | XMS_ITS | Continuity of Care Document ---
Author Organization [facility] Address [address] [address] [place] [address] Phone Care Team Providers Care Sustainable Agriculture Faculty Name Role Phone Unavailable Unavailable Unavailable Procedures Procedure Date Subsqt Hosp-da E&m Minr Compl Init Hosp-da E&m Mod Severity Advance Directives Directive Yes / No Effective Date File Name No Information Encounters Encounter Description Practice Location Reason(s) For Visit Diagnoses Date Provider Providers Copied on Encounter Subsqt Hosp-da E&m Minr Compl [facility], [address] [address], [place], [place], [id number], tel:[phone] [facility] No Information No Information Referring Provider: Byron Barnes, [address] , [place], [address]. tel:[phone] Init Hosp-da E&m Mod Severity [facility], [address] [address], [place], [place], [id number], [place] tel:[phone] [facility] No Information No Information Referring Provider: Byron Barnes, [address] , [place], [address]. tel:[phone] Family History Family Member Type Diagnosis Age At Onset No Information Payers Payer name Insurance type Covered green party ID Authorserjio plummer(s) Medicare [facility] [place] [id number] [place] Medical Assistance [id number] Social History Type Description Quantity Date Captured [...]
== END 2023-12-10 12:22 | disposition home or self-care (01) ==
LOC: AMB 12-12 22:00
PROVIDERS: PCP Family Medicine; Visit Provider Internal Medicine
DX: R29.810 Facial weakness (principal); R53.1 Weakness
CPT/HCPCS: A0425; A0427

== ENCOUNTER 2023-12-10 12:41 | Emergency (ER) | payer OTHER, SELFPAY ==
[2023-12-10 12:45] VITALS: BP 192/109; PULSE 76; RESP 16; TEMP 36.3; O2SAT 90; BMI 17.0
--- NOTE | 2023-12-10 12:54 | CRLHL7_ITS ---
For Patients: As a result of the Century Cures Act, medical imaging exams and procedure reports are released immediately into your electronic medical record. You may view this report before your referring provider. If you have questions, please contact your health care provider. INDICATION: Left hand foot numbness and tingling. TECHNIQUE: CT of the head without contrast. Coronal and sagittal reformats are included. COMPARISON: Brain MRI from 04/04/2023. FINDINGS: No CT evidence of acute cortical infarct. No loss of wyatt white matter differentiation. No hyperdense vessels to suggest intracranial thrombus. No acute intracranial hemorrhage. No mass effect or midline shift. No hydrocephalus or extra-axial collections. Patchy white matter hypoattenuation, typical for chronic microvascular ischemic change. Mild generalized parenchymal volume loss. Intracranial vascular calcifications. No acute osseous abnormalities. Mastoid air cells and paranasal sinuses are clear. Normal soft tissues. IMPRESSION: IMPRESSION:1. No CT evidence of acute cortical infarct. No acute intracranial hemorrhage. No other acute intracranial findings. Please note that all CT scans at this facility use dose modulation, iterative reconstruction, and/or weight-based dosing when appropriate to reduce radiation dose to as low as reasonably achievable. Dictated by Alvin Donahue MD @ 12/10/2023 1:45:57 PM (Electronically Signed)
--- NOTE | 2023-12-10 13:15 | ED.NEUROSD ---
HPI - Neuro Symptoms/Deficit General Time Seen by Provider: 12:42 Date Seen: 12/10/23 Chief Complaint: Neuro Symptoms/Altered Deficit Stated Complaint: Weakness Time Seen by Provider: 12/10/23 12:42 Source: patient, family, EMS, RN notes reviewed and old records reviewed Mode of arrival: EMS Limitations: no limitations History of Present Illness HPI Narrative: This patient is a 73-year-old female brought in by [facility] from [facility] where she resides on hospice for colon and lung cancer. She is coming in for supposedly left facial droop, left arm and leg weakness. EMS noted that her left eye was bloodshot. Patient states she can mildly feel a little irritation in that eye but there is no visual changes. She denies any trauma, did not hit her head. She is complaining of left hand and left foot numbness and tingling. She states she is still able to use them. She is worried that she might be having a stroke. On arrival she thought her hand was better but her left foot still felt numb and tingly. She has no headache. She states they are looking to increase her services to an assisted living. She believes she enrolled in hospice about sometime in September. She does have underlying COPD, is maintained on 2 L nasal cannula oxygen at home. EMS reports that they did not find any neurologic deficits on their exam but they did note the bleeding in the white of her left eye. Patient did want to come in for evaluation and thus they did appropriately bring her, following her request to come in. Patient has an oncology note from 07/23/2023. Have reviewed this, her goal of care was palliative even at that point and prognosis was quoted to be dismal. Patient did have a brain MRI on 07/19/2023, showing no acute intracranial abnormality or evidence for intracranial metastatic disease. Advanced chronic microvascular ischemic changes and mild diffuse cerebral volume loss were also noted. Related Data Home Medications ?Medication ?Instructions ?Recorded ?Confirmed clonazepam 0.5 mg tablet 0.5 mg PO HS PRN 09/07/21 07/27/23 nitroglycerin 0.4 mg sublingual 0.4 mg sublingual Q5M PRN chest 09/07/21 07/27/23 tablet pain sertraline 100 mg tablet 100 mg PO HS 09/07/21 12/10/23 gabapentin 300 mg capsule 300 mg PO HS 05/03/22 12/10/23 albuterol sulfate 90 mcg/actuation 2 puff inhalation Q4H PRN 10/15/22 07/27/23 aerosol inhaler (Ventolin HFA) aspirin 81 mg chewable tablet 81 mg PO DAILY PRN 04/19/23 07/27/23 morphine 30 mg tablet,extended 30 mg PO BID 04/19/23 07/27/23 release multivitamin with folic acid 400 1 tab PO DAILY 06/21/23 07/27/23 mcg tablet (Tab-A-Nan) polyethylene glycol 3350 17 17 g PO DAILY PRN 06/21/23 07/27/23 gram/dose oral powder sennosides 8.6 mg-docusate sodium 2 tab-cap PO BID PRN 06/21/23 12/10/23 50 mg tablet (Stool Softener-Laxative) mirtazapine 15 mg tablet 15 mg PO HS 06/22/23 12/10/23 ondansetron 4 mg disintegrating 4 mg translingual Q8H PRN nausea 06/22/23 07/27/23 tablet and vomiting oxycodone 10 mg tablet 10 mg PO Q4H PRN 06/22/23 07/27/23 peg 400-propylene glycol 0.4 %-0.3 1 drp ophthalmic (eye) Q2H PRN 06/22/23 07/27/23 % eye drops (Systane Ultra) guaifenesin 600 mg tablet, 600 mg PO .qd 07/27/23 extended release 12 hr (Mucinex) dexamethasone 4 mg tablet 4 mg PO DAILY 12/10/23 12/10/23 lorazepam 0.5 mg tablet 0.5 mg PO DAILY 12/10/23 12/10/23 Previous Rx's ?Medication ?Instructions ?Recorded ipratropium 0.5 mg-albuterol 3 mg 3 ml inhalation Q6H PRN dyspnea 10/17/22 (2.5 mg base)/3 mL nebulization #20 ea soln amlodipine 5 mg tablet 5 mg PO DAILY #30 tabs 06/25/23 metoprolol succinate 50 mg 50 mg PO DAILY #30 tabs 06/25/23 tablet,extended release 24 hr potassium chloride 10 mEq 10 meq PO DAILYWM #30 caps 06/25/23 capsule,extended release doxycycline hyclate 100 mg tablet 100 mg PO BID 4 days #8 tabs 07/09/23 sotorasib 120 mg tablet (Lumakras) 600 mg (5 x 120 mg) PO DAILY #150 08/15/23 tabs Allergies Allergy/AdvReac Type Severity Reaction Status Date / Time penicillin V Allergy Intermediate Rash Verified 07/27/23 11:25 Review of Systems Status of ROS: Reports: 6 or more systems reviewed and unremarkable except as noted in History and below PFSH [facility] Medical History Hypokalemia ?E87.6 - Hypokalemia (ICD-10) Acute on chronic hypoxic respiratory failure ?J96.21 - Acute and chronic respiratory failure with hypoxia (ICD-10) Lung metastasis ?C78.00 - Secondary malignant neoplasm of unspecified lung (ICD-10) Rectal cancer ?C20 - Malignant neoplasm of rectum (ICD-10) Encounter for insertion of tunneled central venous catheter (CVC) with port ?Z45.2 - Encounter for adjustment and management of vascular access device (ICD-10) Adenocarcinoma, lung ?C34.90 - Malignant neoplasm of unspecified part of unspecified bronchus or lung (ICD-10) 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 ?C79.9 - Secondary malignant neoplasm of unspecified site (ICD-10) ?C20 - Malignant neoplasm of rectum (ICD-10) Histoplasmosis ?B39.9 - Histoplasmosis, unspecified (ICD-10) Adenocarcinoma of rectum (~12/2015) ?C20 - Malignant neoplasm of rectum (ICD-10) Surgical History History of reversal of ileostomy ?Z98.890 - Other specified postprocedural states (ICD-10) History of low anterior resection of rectum ?Z90.49 - Acquired absence of other specified parts of digestive tract (ICD-10) History of bronchoscopy ?Z98.890 - Other specified postprocedural states (ICD-10) History of lung biopsy ?Z98.890 - Other specified postprocedural states (ICD-10) History of cholecystectomy ?Z90.49 - Acquired absence of other specified parts of digestive tract (ICD-10) History of appendectomy ?Z90.49 - Acquired absence of other specified parts of digestive tract (ICD-10) History of coronary artery bypass graft x 3 ?Z95.1 - Presence of aortocoronary bypass graft (ICD-10) Family History Father Coronary artery disease Social History Narrative: Lives alone in an apartment in [place]. Designates her son, Daniel, as her primary contact for power client experience specialist for health should that be required, cell phone [phone]. Son Daniel lives nearby. Designates her daughter, Staci, as her secondary contact for power of client experience specialist for health should that be required, cell phone [phone]. Adamant that she desires a DNR DNI resuscitation status. She occasionally drinks alcohol. She has been smoking cigarettes since 1957. Currently smoking 3 cigarettes per day What is your current living situation?: I presently have a place to live Problems where you live: no known problems Problems where you live details: N/A In the past 12 months, utilities in danger of being shut off: no In past 12 months, lack of transportation kept you from medical appts, meetings, work, or getting things needed for daily living: no In the past 12 mos, have been you worried that your food would run out before you had money to buy more?: never true In the past 12 mos, the food you bought just didn't last and you didn't have money to buy more?: never true Highest level of school completed/degree received: high school graduate Smoking Status: Current every day smoker What tobacco products do you use: cigarettes Smoking packs per day: 1 Smoking cigarettes per day: 20.0 Do you use any of these nicotine containing products: None Second hand tobacco smoke exposure: Yes How often do you have a drink containing alcohol: monthly or less Alcohol type: hard liquor How many standard drinks containing alcohol do you have on a typical day: 1 or 2 How often do you have six or more drinks on one occasion: Never AUDIT-C Alcohol total score: 1 Non-prescribed substance use: denies use Caffeine: Yes How often does anyone, including family, friends and others, physically hurt you: never How often does anyone, including family, friends and others, insult or talk down to you: never How often does anyone, including family, friends and others, threaten you with harm: never How often does anyone, including family, friends and others, scream or curse at you: never service: No Exam Const: Vital Signs, click to edit/add: Vital Signs - 24 hr 12/10/23 12:45 12/10/23 14:04 Temperature 97.3 F L Pulse Rate [Pulse Oximeter] 76 76 Respiratory Rate 16 Blood Pressure [Ri ght Upper Arm] 192/109 H 176/97 H Pulse Oximetry 90 95 Oxygen Delivery Me thod Room Air This 73-year-old female is alert, interactive, no apparent distress. She is wearing nasal cannula oxygen. She is seen in exam room 3. Did have her come into the ER 1st given her hospice status and EMS report of no focal neurologic deficit. Pupils are equal round reactive, extraocular muscles intact, no noted visual deficit. She has global erythema around the left conjunctiva consistent with conjunctival bleeding. Symmetrical facial function, speech is normal. Drip, no adenopathy. Lungs with rhonchi but no wheezing noted, slightly prolonged expiratory phase, some kyphosis noted, no tachypnea. CV regular rate and rhythm, no murmur noted. Abdomen is soft, nontender, nondistended. Symmetrical facial function, no facial droop noted. Strength is 5/5 and symmetric throughout her upper extremities and lower extremities. She does not feel any numbness or tingling in her hand but states her left toes and foot feel numb and tingly when I touch in comparison to her right. She has no lower extremity edema, skin appears normal. Documenting provider has reviewed patient's vital signs: yes Course Course ED Course: Did have initial discussion with patient that she is hospice, stroke workup and treatment are not truly congruent with hospice goals of care. Patient states that she certainly does not want to have a stroke and this is definitely understandable but she does have underlying terminal cancer. Discussed with her that I would talk to Stroke Neurology, can consider doing noncontrast head CT in the interim as she does want this. She understands that this is certainly not a complete workup for stroke and will not definitively rule it out. She really does want a head CT. I reviewed with her that I would talk to her once I have spoken with Stroke Neurology. Do note that her blood pressures are elevated, MRI a from June did show chronic microvascular changes. 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 Reevaluation(s) Time of Reevaluation #1: 13:00 Reevaluation #1: Had conversation with patient and her son who was on the phone. Reviewed that the stroke neurologist is recommending no workup due to hospice status. We discussed that I certainly do have concerns that her symptoms are from cerebrovascular disease, could be metastatic cancer, vascular disease with either ischemic or even possible bleed. Right now she is only having numbness tingling. We discussed in patients who do exhibit neurovascular symptoms, have a very high a recurrence in the initial phases. We discussed that if there is stroke pathology, treatment to prevent further pathology would include likely antithrombotics for her if no embolic phenomenon were considered, likely hospitalization initially with subsequent management of blood pressure and maximization of cholesterol medicine. This is not in line with hospice and on and medicines are extremely unlikely to be continued on hospice. This would put her back to baseline again. We have discussed this, reviewed that for full workup and treatment of this she is most definitely likely to be hospitalized as a cannot do an MRI on the weekend, would need further evaluation and management of her blood pressure likely although not immediately. Did review with them that full workup included multiple modalities of evaluation including labs, cardiac monitoring, head imaging with head CT, CT angiogram and possibly even MRI (see which is not probably able to be done on the weekend). Her son is interested in finding out what is happening. Selena has made the decision that she wants to proceed with the head CT. I have reviewed with her that this is not likely to be complete workup but will certainly do this as she is requesting it. Time of Reevaluation #2: 14:01 Reevaluation #2: Did review that her head CT is showing no acute pathology. We did review that initial head CT imaging does not rule out ischemic pathology, does not rule out small possible metastatic disease. We really are left with same situation as prior to the head CT. We do know that there is very likely no head bleed. Have went over all of this with her and her son. They are going to discuss this amongst themselves for while and see which way that would like to proceed. Her son tells me that he did speak with the hospice himself, they were told that they could go off hospice and re-enroll later. Time of Reevaluation #3: 14:20 Reevaluation #3: Patient wants to talk to her daughter, still does not know what she wants to do. She does tell me that she was on aspirin, Plavix, blood pressure medicine and cholesterol medicine prior to going on hospice. She does state if she goes off hospice that she will be on all the medicines she was on before hospice. She would like to talk to her daughter, I think this is a good idea to discuss further with her family. Additional Reevaluation(s): 1436 p.m.: Patient is requesting to go home, wants no further interventions or workup. She does understand the twice is in consequences of this decision, this is been very well spelled out to her. I do understand this to be very difficult situation balancing other health issues in the setting of terminal cancer. I do support her decision making and feel that she understood all of our conversations. Consultations Consultation #1: Did call stroke Neurology and spoke with Dr. Pérez. Reviewed that this is a hospice patient, he stated with hospice he would not even do CT, this is not within goals of care of hospice. Will go back and review this with patient. Time: 12:59 Vital Signs Vital signs: Initial Vital Signs Temperature 97.3 F L 12/10/23 12:45 Temperature Source Temporal Artery Scan 12/10/23 12:45 Pulse Rate 76 12/10/23 12:45 Respiratory Rate 16 12/10/23 12:45 Blood Pressure 192/109 H 12/10/23 12:45 Blood Pressure Mean 136 H 12/10/23 12:45 Blood Pressure Position Sitting 12/10/23 12:45 Pulse Oximetry 90 12/10/23 12:45 Oxygen Delivery Method Room Air 12/10/23 12:45 Vital Signs Temperature 97.3 F L 12/10/23 12:45 Pulse Rate 76 12/10/23 12:45 Respiratory Rate 16 12/10/23 12:45 Blood Pressure 192/109 H 12/10/23 12:45 Pulse Oximetry 90 12/10/23 12:45 Oxygen Delivery Method Room Air 12/10/23 12:45 Temperature 97.3 F L 12/10/23 12:45 Pulse Rate 76 12/10/23 14:04 Respiratory Rate 16 12/10/23 12:45 Blood Pressure 176/97 H 12/10/23 14:04 Pulse Oximetry 95 12/10/23 14:04 Oxygen Delivery Method Room Air 12/10/23 12:45 MDM - Neuro Symptoms/Deficit Imaging Data CT scan - head: Attestation: I have reviewed the pertinent imaging results. Radiologist's impression: Patient: SELENA MARTINEZ Facility:?[facility] Patient ID:?[id number] Site Patient ID:?[id number]. Site :?[id number] Study:?CT-Head W/O-12/10/2023 1:24:52 PM Ordering Physician:Ashly Domingo Final Report: INDICATION: Left hand foot numbness and tingling. TECHNIQUE: CT of the head without contrast. Coronal and sagittal reformats are included. COMPARISON: Brain MRI from 04/04/2023. FINDINGS: No CT evidence of acute cortical infarct. No loss of wyatt white matter differentiation. No hyperdense vessels to suggest intracranial thrombus. No acute intracranial hemorrhage. No mass effect or midline shift. No hydrocephalus or extra-axial collections. Patchy white matter hypoattenuation, typical for chronic microvascular ischemic change. Mild generalized parenchymal volume loss. Intracranial vascular calcifications. No acute osseous abnormalities. Mastoid air cells and paranasal sinuses are clear. Normal soft tissues. IMPRESSION: IMPRESSION:1. No CT evidence of acute cortical infarct. No acute intracranial hemorrhage. No other acute intracranial findings. Please note that all CT scans at this facility use dose modulation, iterative reconstruction, and/or weight-based dosing when appropriate to reduce radiation dose to as low as reasonably achievable. Dictated by Alvin Donahue MD @ 12/10/2023 1:45:57 PM (Electronic Signature) Discharge Plan Discharge Clinical Impression: Numbness and tingling in left hand, Numbness and tingling of foot, Subconjunctival hematoma Patient Disposition: Home, Self-Care Condition: Stable Instructions: Paresthesia (ED) Additional Instructions: Return back to [facility]. It is possible that the numbness and tingling within the hand and foot could be underlying small developing metastatic tumor in the brain or possibly small area of ischemic stroke/TIA. We will observe your request for no further workup and returning back home for hospice care. Activity Level: Activity as Tolerated Discharge Diet: Regular Prescriptions: No Action guaifenesin [Mucinex] 600 mg tablet extended release 12hr 600 mg PO .qd morphine 30 mg tablet extended release 30 mg PO BID doxycycline hyclate 100 mg Tablet 100 mg PO BID 4 Days Qty: 8 0RF clonazepam 0.5 mg tablet 0.5 mg PO HS PRN nitroglycerin 0.4 mg tablet, sublingual 0.4 mg sublingual Q5M PRN (Reason: chest pain) sertraline 100 mg tablet 100 mg PO HS gabapentin 300 mg capsule 300 mg PO HS aspirin 81 mg tablet,chewable 81 mg PO DAILY PRN albuterol sulfate [Ventolin HFA] 90 mcg/actuation HFA aerosol inhaler 2 puff inhalation Q4H PRN ipratropium-albuterol 0.5 mg-3 mg(2.5 mg base)/3 mL Solution For Nebulization 3 ml inhalation Q6H PRN (Reason: dyspnea) Qty: 20 0RF sennosides-docusate sodium [Stool Softener-Laxative] 8.6-50 mg Tablet 2 tab-cap PO BID PRN polyethylene glycol 3350 17 gram/dose powder 17 g PO DAILY PRN multivitamin with folic acid [Tab-A-Nan] 400 mcg tablet 1 tab PO DAILY mirtazapine 15 mg tablet 15 mg PO HS oxycodone 10 mg tablet 10 mg PO Q4H PRN Systane Ultra 0.4-0.3 % drops 1 drp ophthalmic (eye) Q2H PRN ondansetron 4 mg tablet,disintegrating 4 mg translingual Q8H PRN (Reason: nausea and vomiting) Rx Instructions: Use either this or prochlorperazine for nausea Try taking this 30 mins prior to Sotorasib potassium chloride 10 mEq Capsule, Extended Release 10 meq PO DAILYWM Qty: 30 0RF metoprolol succinate 50 mg Tablet Extended Release 24 Hr 50 mg PO DAILY Qty: 30 0RF amlodipine 5 mg Tablet 5 mg PO DAILY Qty: 30 0RF lorazepam 0.5 mg tablet 0.5 mg PO DAILY dexamethasone 4 mg tablet 4 mg PO DAILY Lumakras 120 mg tablet 600 mg PO DAILY Qty: 150 3RF Follow Up/Referrals: Byron Mondragon MD [Primary Care Provider] - Stand Alone Forms: [employer] Info Instructions
--- NOTE | 2023-12-10 13:16 | ED.NURSE ---
conversation with MD, pt and son in regards to proceeding with tests and care and being on Hospice. family and pt wish to proceed with head CT
--- OUTSIDE RECORDS SUMMARY | 2023-12-10 13:43 | XMS_ITS | Continuity of Care Document ---
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 Role Phone Unavailable Unavailable Unavailable Procedures Procedure Date Subsqt Hosp-da E&m Minr Compl Init Hosp-da E&m Mod Severity Advance Directives Directive Yes / No Effective Date File Name No Information Encounters Encounter Description Practice Location Reason(s) For Visit Diagnoses Date Provider Providers Copied on Encounter Subsqt Hosp-da E&m Minr Compl [facility] [place], [address] [address], [place], [place], [id number], tel:[phone] [facility] No Information No Information Referring Provider: Byron Barnes, [address] , [place], [address]. tel:[phone] Init Hosp-da E&m Mod Severity [facility], [address] [address], [place], [place], [id number], [place] tel:[phone] [facility] No Information No Information Referring Provider: Byron Barnes, [address] , [place], [address]. tel:[phone] Family History Family Member Type Diagnosis Age At Onset No Information Payers Payer name Insurance type Covered constitution party ID Authorserjio plummer(s) Medicare [facility] [place] [id number] [place] Medical Assistance [id number] Social History Type Description Quantity Date Captured [...]
--- OUTSIDE RECORDS SUMMARY | 2023-12-10 13:43 | XMS_ITS | Clinical Summary ---
Author Organization [facility] Address [place], [place] [address] Care Team Providers Care Supervisor Rose Grading Name Role Phone Jairo Renettajean pierre Schultz LP Unavailable Hue Mayes MD Unavailable [phone] Byron Mondragon MD Primary Care Provider + Conchita Pierson RN Unavailable [phone] Miri Norton RN Unavailable Allergies Active Allergy [...] 1 Each 3 Active Walker - 4 wheelsIndications:W eak,Malignant neoplasm [...] Of Breath. 8.5 g 3 3 Active albuterol-ipratropi um (DUONEB) (2.5-0.5 mg) in 3 mL NEBULIZATION solutionIndications :COPD exacerbation (HC) Inhale 3 mL via a nebulizer 4 times daily. 1080 mL 3 3 Active aspirin (ECOTRIN) 81 mg enteric coated tabletIndications:C oronary artery disease involving kot[place] heart without angina pectoris, unspecified vessel or lesion type Take 1 Tablet (81 mg) by mouth once daily with a meal. 100 Tablet 3 3 Active gabapentin (Neurontin) 300 mg capsuleIndications: Neuropathic pain Take 1 Capsule (300 mg) by mouth at bedtime. 90 Capsule 3 3 Active nitroglycerin (NITROSTAT) 0.4 mg sublingual tabletIndications:C oronary artery disease involving [place] heart without angina pectoris, unspecified vessel or lesion type DISSOLVE ONE TABLET UNDER TONGUE EVERY FIVE MINUTES NEEDED FOR CHEST PAIN. MAY USE UP TO 3 TABLETS. CALL 911 IF NO RELIEF 25 Tablet 2 3 Active sennosides-docusate (SENOKOT S) (8.6-50 mg) tabletIndications:C hest wall pain Take 2 Tablets by mouth two times daily. 120 Tablet 11 3 Active polyethylene glycoL (MIRALAX) 17 gram/scoop powderIndications:C [...] daily. 1 Each 3 Active multivitamin (MVI) tabletIndications:E ncounter for herb and vitamin supplement management Take 1 Tablet by mouth once daily. 100 Tablet 4 3 Active Shower ChairIndications:Ma lignant neoplasm metastatic to lung, unspecified laterality (HC),Primary malignant neoplasm of lung, unspecified laterality (HC) For home use. 1 Each 3 Active Diaper,Brief, Adult,DisposableInd ications:Stress incontinence of urine For home use. 120 Each 3 Active oxygen-air delivery systems (HOME OXYGEN)Indications: Chronic obstructive pulmonary disease, unspecified COPD type (HC) Portable oxygen with conserving device. Need for 99 months 2 LPM 3 Active Blood Pressure Monitor KitIndications:Viv gnant neoplasm metastatic to right lung (HC) Frequency of testing: daily 1 Each 4 Active ondansetron (ZOFRAN ODT) 4 mg disintegrating tabletIndications:N ausea DISSOLVE 1 TABLET ON TONGUE EVERY 8 HOURS NEEDED FOR NAUSEA/VOMITING 30 Tablet 2 4 Active wheelchairIndicatio ns:Malignant neoplasm metastatic to right lung (HC),Rectal cancer (HC) Wheelchair: Standard with leg rests: (Swing away Length of need: 99 months 1 Each 4 Active food supplemt, lactose-reduced (Ensure)Indications :Cancer cachexia (HC) 1 bottle daily by mouth 3792 mL 10 4 Active LORazepam (ATIVAN) 0.5 mg tabIndications:Gene ralized anxiety disorder Take 1 Tablet (0.5 mg) by mouth every 6 hours if needed for Anxiety. 24 Tablet 1 4 Active amLODIPine (NORVASC) 5 mg tabletIndications:H TN (hypertension) Take 1 Tablet (5 mg) by mouth once daily. 90 Tablet 3 4 Active metoprolol succinate (TOPROL XL) 50 mg sustained-release tabletIndications:H TN (hypertension) Take 1 Tablet (50 mg) by mouth once daily. 90 Tablet 3 4 Active morphine CONTROLLED-RELEASE (MS CONTIN) 15 mg tabletIndications:M alignant neoplasm metastatic to right lung (HC) TAKE 1 TABLET BY MOUTH TWICE A DAY 60 Tablet 4 Active oxyCODONE 10 mg tabletIndications:M alignant neoplasm metastatic to right lung (HC),Primary malignant neoplasm of lung, unspecified laterality (HC) Take 1 Tablet (10 mg) by mouth every 4 hours if needed for Pain. 30 Tablet 4 Active ondansetron (ZOFRAN) 8 mg tabletIndications:N ausea Take 1 Tablet (8 mg) by mouth every 8 hours if needed for Nausea/Vomiting . 30 Tablet 2 4 Active sertraline (ZOLOFT) 100 mg tabletIndications:G eneralized anxiety disorder,Dysthymic disorder Take 1 Tablet (100 mg) by mouth at bedtime. 90 Tablet 4 Active Mucus Relief ER 600 mg Extended-Release tabletIndications:C hronic obstructive pulmonary disease, unspecified COPD type (HC) TAKE 1 TABLET BY MOUTH TWICE A DAY 60 Tablet 3 4 Active mirtazapine (REMERON) 15 mg tabletIndications:G eneralized anxiety disorder Take 1 Tablet (15 mg) by mouth at bedtime. 90 Tablet 4 Active mirtazapine (REMERON) 7.5 mg tabletIndications:G eneralized anxiety disorder Take one at bedtime for a week, then 2 at bedtime. 90 Tablet 3 3 11/15/19 24 Discontinued Active Problems Problem Noted Date Diagnosed Date Encounter for admission to hospice care 09/05/19 24 Overview (09/06/2023): Scheduled for admission 09/06/2023, info consult only as patient did not wish to admit that day Hospice Physician Narrative Encounter for Discussion of Hospice Care Physician Chart Review: 09/05/2023 Patient: Selena Shepherd Matt This note is intended for informational purposes only as the patient is being evaluated for eligibility and considered for enrollment. 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 Physician narrative: Selena Gutierrez is a 73-year-old woman with history of rectal adenocarcinoma with metastases to lymph nodes, lung, and pleura; possible concurrent primary lung adenocarcinoma; COPD, and congestive heart failure. Most of her care has occurred outside our system, and I am not able to see full details of her course. She was initially diagnosed with rectal adenocarcinoma in 2015. She underwent low anterior resection in February 2016 followed by adjuvant chemotherapy, though had to stop the chemo due to toxicity. CT imaging February 2018 showed 2 new soft tissue nodules in her lungs and ensuing biopsy confirmed metastatic rectal cancer. She was trialed on several other lines of therapy, with toxicity from most of them, but was eventually started on sotorasib which she was able to tolerate well. She continued to have slow progression of disease while on this agent. Her most recent oncology follow-up (07/22/2023) indicated that her PET/CT showed mild progression in the lung nodules, but she had a rapidly rising CEA and significantly worsening performance status, with ECOG 3 at that follow-up. At that time she wished to continue her disease directed therapy. She followed up with her primary care provider on 08/30/2023, where it was noted that she was struggling with pain from her metastatic lesions and poor appetite; she requested hospice consultation at that time. On evaluation by hospice admissions nurse today, patient . The current PPS for this patient is %, compared to % six months ago. ADLs (ambulation, dressing, feeding, toileting, transfers, bathing). Pain . dyspnea . Sleeping hours per day. Appetite . She has had a significant weight loss, from 116 pounds 04/07/2023 to 99 pounds on 08/30/2023; this is about 15% total body weight in about 5 months. Patient/family goals of care are for comfort and not treatment of underlying disease. They would like to avoid further ED visits and hospitalizations. Prognosis: Ms. Gutierrez has rectal adenocarcinoma with metastases to lungs, lymph nodes, and pleura, as well as a possible concurrent primary lung adenocarcinoma. She has had significant worsening of her performance status and significant weight loss over the last several months. At this time disease directed therapy does not meet her goals of care. If her illness takes the expected course, her prognosis is less than 6 months. Creatinine/GFR: 0.58/greater than 90 on 08/30/2023 QTc: 464 ms on 11/25/2022 Symptom Management Plan: Symptom Plan Comments Pain/Dyspnea Agitation Anxiety Seizure Constipation Secretions Nausea I attest that by signing this document I have composed the above narrative based on my review of this patient's available medical record and discussion with the hospice admission nurse. In my professional judgement, based on illness and decline, this patient is terminally ill and prognosis is less than six months if the disease runs its natural course. Reece Beckford DO .................... 09/05/2023 5:50 PM Primary malignant neoplasm of lung 09/01/2023 Malignant neoplasm metastatic to lung 06/07/2021 Chronic obstructive pulmonary disease 06/07/2021 Depression, recurrent 06/07/2021 Hypertensive heart disease with heart failure Peripheral vascular disease 10/03/2018 Controlled substance agreement signed 04/26/2017 Overview (04/26/2017): Signed: 10/22/14: Amanda Del Cid, CENTER PUNCH OPERATOR, BC, HYPO DIPPER /mf Long QT interval 06/01/2016 Junctional rhythm 05/30/2016 Right ventricular dysfunction 05/30/2016 Medical non-compliance 05/28/2016 Generalized abdominal pain 05/28/2016 Thrombocytopenia 05/28/2016 Rectal cancer 01/20/2016 Overview (09/06/2018): Metastatic to lung. PTSD (post-traumatic stress disorder) 11/29/2014 Dysthymic disorder 06/03/2011 CAD (coronary artery disease) Overview (06/13/2014): - s/p CAB x 3 in [place] 09/27/2006: MAXWELL - LAD, SVG - OM2, SVG -dRCA - Angiogram 10/04/2006: SVG - OM totally occluded at proximal portion (no intervention performed); MAXWELL - LAD and SVG - dRCA patent. - angiogram 06/13/14: s/p SONJA Distal SVG-RCA anastomosis HTN (hypertension) Overview (05/13/2009): Updated by system to replace inactive record Hyperlipidemia LDL goal < 70 Tobacco use disorder Pain Debility Resolved Problems Problem Noted Date Diagnosed Date Resolved Date Type 2 diabetes mellitus wit h diabetic peripheral angiopathy without gangrene, without long-term current use of insulin 04/07/2023 09/01/2023 Type 2 diabetes mellitus wit h unspecified complications 06/07/2021 09/01/2023 Chronic pulmonary edema 01/14/2021 08/0 06/2021 Ileostomy status 10/03/2018 02/22/2019 PAF (paroxysmal atrial fibri llation) with rapid ventricular response 06/01/2016 07/05/2018 Severe malnutrition 05/29/2016 07/06/19 19 KAT (acute kidney injury) 05/28/2016 Metabolic acidosis, normal anion gap (NAG) 05/28/2016 07/05/2018 Anxiety state, unspecified r ule out PTSD and panic disorder 08/26/2014 11/29/2014 Anxiety 06/27/2014 08/26/2014 Accelerating angina 06/13/2014 09/01/19 24 Diabetes mellitus, type 2 09/14/2010 Anxiety 06/27/2014 Acute kidney injury 02/23/20 19 Delirium 02/22/2019 Encounters Date Type Department Care Team Description 12/09/2023 Refill [facility] [address] [place] [address] Byron Mondragon MD Refill Request (Aspirin, Gabapentin, Senexon-s) 11/14/2023 Telephone [facility] [address] [place] [address] Byron Mondragon MD Questions (Infusion Port Removal) 11/09/2023 Refill [facility] [address] [place] [address] Byron Mondragon MD Refill Request (Mirtazapine) 10/16/2023 Refill [facility] [address] [place] [address] Byron Mondragon MD Refill Request (Mucus Relief Er) 10/11/2023 Telephone [facility] [address] [place] [address] VoteByron shepherd MD Form 09/29/2023 Telephone [facility] [address] [place] [address] ToroteByron shepherd MD Form 09/29/2023 Telephone [facility] [address] [place] [address] ToroteByron shepherd MD Form 09/22/2023 Telephone [facility] [address] [place] [address] VoteByron shepherd MD Medication Management (ondansetron (ZOFRAN ODT) 4 mg disintegrating tablet) 09/22/[address] [address] Byron Mondragon MD Refill Request (Sertraline) 09/16/[address] [address] Byron Mondragon MD Hospice 09/16/2023 Refill [facility] [address] [place] [address] Byron Mondragon MD Refill Request (Mucus Relief Er) from Last 3 Months Immunizations Name Administration Dates Next Due COVID-19 vaccine (Ethical Ocean 30mcg/0.3mL) 12YO+ MERLYN-SUCROSE PF, MDV 06/04/2021 DT [...] drink = 0.6 oz pur e alcohol) seldom PHQ-2 Answer Date Recorded PHQ-2 TOTAL SCORE 2 06/04/2021 Social Connections Answer Date Recorded Frequency of Communication with Friends and Fami ly Not on file 11/09/2023 Financial Resource Strain Answer Date R ecorded [...] Outcome GA Total Labor Labor/2nd/3rd Weight Sex Type Anes PTL Lynnette A1 A5 Name Clin Para Para Last Filed Vital Signs Vital Sign Reading Time Taken Comments Blood Pressure 154/92 08/30/2023 4:58 PM CDT Pulse 82 08/30/2023 4:26 PM CDT Temperature 36.7 ??C (98.1 ??F) 08/02/2023 10:59 AM C DT Respiratory Rate 18 04/01/2022 1:29 PM INTEGRATION CONSULTANT Oxygen Saturation 97% 08/30/2023 4:26 PM CDT Inhaled Oxygen Concentration - - Weight 45.2 kg (99 lb 9.6 oz) 08/30/2023 4:26 PM CDT Height 160 cm (5' 3) 08/30/2023 4:26 PM CDT Body Mass Index 17.64 08/30/2023 4:26 PM CDT Plan of Treatment Not on file Advance Directives Documents on File Type Date Recorded Patient Commercial Insurance Underwriter Expl anation Treatment Guidelines 08/20/2016 3:11 PM HO ME* DNR REQUEST FORM, [facility], 08/17/2016 * Full Code (Latest Code [...] Code Status Discussion: Discussed Care Teams Supervisor Rose Grading Relationship Specialty Start Date End Date Votel, Byron Cota MD [address] [place] [address] PCP - General Family Practice 11/26/20 Renetta Gill LP Psychologist Psychology 05/20/11 Hue Mayes MD [address] [facility] [address] [place] [address] Rheumatology Rheumatology 12/08/15 Conchita Pierson RN [address] [facility] [place], [place] [id number] Compositor Apprentice - [facility] Registered Nurse 04/28/21 Miri Norton RN [address] [facility] [address] [place], [place] [id number] Compositor Apprentice - [facility] Registered Nurse 04/28/21
[2023-12-10 14:04] VITALS: BP 176/97; PULSE 76; O2SAT 95
== END 2023-12-10 14:52 | disposition home or self-care (01) ==
PROVIDERS: Emergency Provider Family Medicine; PCP Family Medicine
DX: R20.0 Anesthesia of skin (principal); H11.32 Conjunctival hemorrhage, left eye
CPT/HCPCS: 70450; 99284

== ENCOUNTER 2024-01-23 08:26 | Emergency (ER) | payer OTHER, SELFPAY ==
[2024-01-23 08:38] VITALS: BP 141/75; PULSE 83; RESP 20; TEMP 36.6; O2SAT 93; BMI 18.3
[2024-01-23 09:41] VITALS: O2SAT 93
--- OUTSIDE RECORDS SUMMARY | 2024-01-23 10:12 | XMS_ITS | Clinical Summary ---
Author Organization [facility] Address [place], [place] [address] Care Team Providers Care Window Shade Estimator Name Role Phone GillDiane alvarezjean pierre Schultz LP Unavailable [phone] Hue Mayes MD Unavailable Byron Mondragon MD Primary Care Provider + Rossy Palacios RN Unavailable Allergies Active Allergy Reactions Criticality [...] mg sublingual tabletIndications:C oronary artery disease involving [place] heart without angina pectoris, unspecified vessel or [...] Nausea/Vomiting . 30 Tablet 2 4 Active Mucus Relief [...] enteric coated tabletIndications:C oronary artery disease involving [place] heart without angina pectoris, unspecified vessel or lesion type TAKE 1 TABLET BY MOUTH DAILY WITH A MEAL 100 Tablet 4 Active gabapentin (NEURONTIN) 300 mg capsuleIndications: Neuropathic pain TAKE 1 CAPSULE BY MOUTH AT BEDTIME 90 Capsule 4 Active sennosides-docusate (Senexon-S) (8.6-50 mg) tabletIndications:C hest wall pain TAKE 2 TABLETS BY MOUTH TWICE A DAY 360 Tablet 4 Active sertraline (ZOLOFT) 100 mg tabletIndications:G eneralized anxiety disorder,Dysthymic disorder TAKE 1 TABLET BY MOUTH AT BEDTIME 30 Tablet 5 4 Active sertraline (ZOLOFT) 100 mg tabletIndications:G eneralized anxiety disorder,Dysthymic disorder Take 1 Tablet (100 mg) by mouth at bedtime. 90 Tablet 4 01/13/20 24 Discontinued Active Problems Problem Noted Date [...] 04/26/2017 Overview (04/26/2017): Signed: 10/22/14: Amanda Del Cid APRN, BC, CHARGE HISTOTECHNOLOGIST /mf Long QT interval 06/01/2016 Junctional rhythm 05/30/2016 Right ventricular dysfunction 05/30/2016 Medical non-compliance 05/28/2016 Generalized abdominal pain 05/28/2016 Thrombocytopenia 05/28/2016 Rectal cancer 01/20/2016 Overview (09/06/2018): Metastatic to lung. PTSD (post-traumatic stress disorder) 11/29/2014 Dysthymic disorder 06/03/2011 CAD (coronary artery disease) Overview (06/13/2014): - s/p CAB x 3 in [place] [...] Encounters Date Type Department Care Team Description 01/09/2024 Refill [facility] [address] [place] [address] Byron Mondragon MD Refill Request (Sertraline) 12/10/[address] [facility] Scanner 1 scan: (1-Ord) [facility], HEAD/BRAIN WO, 12/10/2023 12/09/2023 Refill [facility] [address] [place] [address] Byron Mondragon MD Refill Request (Aspirin, Gabapentin, Senexon-s) 11/14/2023 Telephone [facility] [address] [place] [address] Byron Mondragon MD Questions (Infusion Port Removal) 11/09/2023 Refill [facility] [address] [place] [address] Byron Mondragon MD Refill Request (Mirtazapine) from Last 3 Months Immunizations Name Administration Dates Next Due COVID-19 vaccine (eblizz 30mcg/0.3mL) 12YO+ MERLYN-SUCROSE PF, MDV 06/04/2021 DT [...] 82 08/30/2023 4:26 PM CDT Temperature 36.7 C (98.1 F) 08/02/2023 10:59 AM CDT Respiratory Rate 18 04/01/2022 1:29 PM SIZER HAND Oxygen Saturation 97% 08/30/2023 4:26 PM CDT Inhaled Oxygen Concentration - - Weight 45.2 kg (99 lb 9.6 oz) 08/30/2023 4:26 PM CDT Height 160 cm (5' 3) 08/30/2023 4:26 PM CDT Body Mass Index 17.64 08/30/2023 4:26 PM CDT Plan of Treatment Not on file Procedures Procedure Name Priority Date/Time Associated Diagnosis Comments SCAN-CT INTERPRETATION 12/10/2023 12:00 AM CDT from Last 3 Months Results * SCAN-CT INTERPRETATION (12/10/2023 12:00 AM CDT) Anatomical Region Laterality Modality Other Scanner OTHER from Last 3 Months Advance Directives Documents on File Type Date Recorded 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 Treatment Guidelines 08/20/2016 3:11 PM HO ME* DNR REQUEST FORM, [facility], 08/17/2016 * Full Code (Latest Code Status [...] Comments Code Status Discussion: Discussed Care Teams Window Shade Estimator Relationship Specialty Start Date End Date VotelByron MD [address] [place] [address] PCP - General Family Practice 11/26/20 Renetta Gill LP Psychologist Psychology 05/20/11 Hue Mayes MD [address] [address] Rheumatology Rheumatology 12/08/15 Rossy Palacios RN [address] [address] Warehouse Picker - [facility] Registered Nurse 12/19/23 Ana Mcnair, RN [address] [address] Warehouse Picker - [facility] [place] 12/14/23
[2024-01-23] MEDS: diphenhydrAMINE 50 MG/ML inj IVP (10:22)
[2024-01-23 10:40] LABS: Basophils Absolute Auto 0.02 K/uL (0.00-0.30); Basophils Percent Auto 0.2 % (0.0-3.0); Hematocrit 37.6 % (33.0-51.0); Hemoglobin* 11.8 gm/dL (12.0-16.0); Immature Granulocytes Abs Auto 0.02 K/uL (0.00-0.30); Immature Granulocytes Pct Auto 0.2 %; Lymphocytes Percent Auto 8.6 % (20-44); Mean Corpuscular HGB Conc 31 gm/dL (32-36); Mean Corpuscular Hemoglobin 27 pg (26-34); Mean Corpuscular Volume 86 fL (80-100); Monocytes Percent Auto 2.3 % (0.0-11.0); Neutrophils Percent Auto 88.7 % (42.0-72.0); Platelet Count* 218 K/uL (140-440); RDW Coefficient of Variation % 13.9 % (11.5-15.5); White Blood Count* 10.51 K/uL (4.50-11.00)
[2024-01-23 10:42] LABS: Slide Review Reflex No
[2024-01-23 10:46] LABS: Appearance Urine Clear (Clear); Bilirubin Urine 1+ (Negative); Blood Urine Negative (Negative); Color Urine Yellow (Yellow); Glucose Urine Negative (Negative); Ketones Urine 1+ (Negative); Leukocyte Esterase Urine Negative (Negative); Nitrite Urine Negative (Negative); Protein Urine Negative (Negative)
[2024-01-23 10:57] LABS: RBC Urine 0-2 (0-2); WBC Urine 0-2 (0-5)
[2024-01-23 10:58] LABS: Bacteria Urine Few; Squamous Epithelial Cell Urine Few (None-Few); White Blood Cell Casts Urine Few
[2024-01-23 11:07] LABS: Chloride* 101 mmol/L (96-114); Potassium* 3.9 mmol/L (3.6-5.1); Sodium* 137 mmol/L (135-149)
[2024-01-23 11:10] LABS: Anion Gap 6 mEq/L (7-15); Blood Urea Nitrogen* 23 mg/dL (7-30); Calcium* 9.2 mg/dL (8.4-10.6); Carbon Dioxide* 30 mmol/L (20-32); Creatinine* 0.6 mg/dL (0.5-1.5); Est. Creatinine Clearance* 35.34; Estimated Glomerular Filt Rate 94 ml/min; Glucose* 113 mg/dL (60-115)
--- NOTE | 2024-01-23 11:11 | ED_ITS ---
HPI - General Adult General Date Seen: 01/23/24 Chief complaint: Unspecified Complaint, Adult Stated complaint: pain/tremors Time Seen by Provider: 01/23/24 08:54 Source: patient and family Mode of arrival: wheelchair History of Present Illness HPI narrative: Patient is a 73-year-old woman here with her son. He brought her in because her he is concern that she is ?overmedicated. She is on hospice, currently re siding at [facility]. He said he moved her to [facility] recently because things were getting too difficult to manage at home. She has metastatic rectal cancer and oxygen-dependent COPD. Her son feels that she does not new well with morphine. She was switched from morphine to methadone for control of pain, but he says they have been giving her p.r.n. morphine any feels it makes her both more agitated and too sedated. He also says that she is not sleeping well. There is no reported acute symptoms such as fevers, vomiting, new or unusual pain. I spoke with their primary hospice nurse, Yvonne, phone number [phone]. She says that none of this is really new, they did give her some morphine over the weekend because her pain was poorly controlled and the son has had concerns about inadequate pain control. Her only other new medicine in the last 30 days is trazodone. This was started to help with sleep, apparently the son has been hesitant to use additional Ativan. Patient herself seems to have a little bit of confusion, has good memory for some things like her allergies, but was unable to tell me the year. It sounds as if sometimes she would be able to access that information but not always. She does not have any specific complaints aside from feeling like she just can not sit still. She said ?they need to stop that morphine?. Her son says he would like to take her off hospice and have a palliative care physician manage her medications. Related Data Home Medications ?Medication ?Instructions ?Recorded ?Confirmed clonazepam 0.5 mg tablet 0.5 mg PO HS PRN 09/07/21 07/27/23 nitroglycerin 0.4 mg sublingual 0.4 mg sublingual Q5M PRN chest 09/07/21 07/27/23 tablet pain sertraline 100 mg tablet 100 mg PO HS 09/07/21 12/10/23 gabapentin 300 mg capsule 300 mg PO HS 05/03/22 12/10/23 albuterol sulfate 90 mcg/actuation 2 puff inhalation Q4H PRN 10/15/22 07/27/23 aerosol inhaler (Ventolin HFA) aspirin 81 mg chewable tablet 81 mg PO DAILY PRN 04/19/23 07/27/23 morphine 30 mg tablet,extended 30 mg PO BID 04/19/23 07/27/23 release multivitamin with folic acid 400 1 tab PO DAILY 06/21/23 07/27/23 mcg tablet (Tab-A-Nan) polyethylene glycol 3350 17 17 g PO DAILY PRN 06/21/23 07/27/23 gram/dose oral powder sennosides 8.6 mg-docusate sodium 2 tab-cap PO BID PRN 06/21/23 12/10/23 50 mg tablet (Stool Softener-Laxative) mirtazapine 15 mg tablet 15 mg PO HS 06/22/23 12/10/23 ondansetron 4 mg disintegrating 4 mg translingual Q8H PRN nausea 06/22/23 07/27/23 tablet and vomiting oxycodone 10 mg tablet 10 mg PO Q4H PRN 06/22/23 07/27/23 peg 400-propylene glycol 0.4 %-0.3 1 drp ophthalmic (eye) Q2H PRN 06/22/23 07/27/23 % eye drops (Systane Ultra) guaifenesin 600 mg tablet, 600 mg PO .qd 07/27/23 extended release 12 hr (Mucinex) dexamethasone 4 mg tablet 4 mg PO DAILY 12/10/23 12/10/23 lorazepam 0.5 mg tablet 0.5 mg PO DAILY 12/10/23 12/10/23 Previous Rx's ?Medication ?Instructions ?Recorded ipratropium 0.5 mg-albuterol 3 mg 3 ml inhalation Q6H PRN dyspnea 10/17/22 (2.5 mg base)/3 mL nebulization #20 ea soln amlodipine 5 mg tablet 5 mg PO DAILY #30 tabs 06/25/23 metoprolol succinate 50 mg 50 mg PO DAILY #30 tabs 06/25/23 tablet,extended release 24 hr potassium chloride 10 mEq 10 meq PO DAILYWM #30 caps 06/25/23 capsule,extended release doxycycline hyclate 100 mg tablet 100 mg PO BID 4 days #8 tabs 07/09/23 sotorasib 120 mg tablet (Lumakras) 600 mg (5 x 120 mg) PO DAILY #150 08/15/23 tabs Allergies Allergy/AdvReac Type Severity Reaction Status Date / Time penicillin V Allergy Intermediate Rash Verified 07/27/23 11:25 Review of Systems Status of ROS: Reports: unobtainable due to medical condition PFSH PFS Medical History Hypokalemia ?E87.6 - Hypokalemia (ICD-10) Acute on chronic hypoxic respiratory failure ?J96.21 - Acute and chronic respiratory failure with hypoxia (ICD-10) Lung metastasis ?C78.00 - Secondary malignant neoplasm of unspecified lung (ICD-10) Rectal cancer ?C20 - Malignant neoplasm of rectum (ICD-10) Encounter for insertion of tunneled central venous catheter (CVC) with port ?Z45.2 - Encounter for adjustment and management of vascular access device (ICD-10) Adenocarcinoma, lung ?C34.90 - Malignant neoplasm of unspecified part of unspecified bronchus or lung (ICD-10) 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 ?C79.9 - Secondary malignant neoplasm of unspecified site (ICD-10) ?C20 - Malignant neoplasm of rectum (ICD-10) Histoplasmosis ?B39.9 - Histoplasmosis, unspecified (ICD-10) Adenocarcinoma of rectum (~12/2015) ?C20 - Malignant neoplasm of rectum (ICD-10) Surgical History History of reversal of ileostomy ?Z98.890 - Other specified postprocedural states (ICD-10) History of low anterior resection of rectum ?Z90.49 - Acquired absence of other specified parts of digestive tract (ICD- 10) History of bronchoscopy ?Z98.890 - Other specified postprocedural states (ICD-10) History of lung biopsy ?Z98.890 - Other specified postprocedural states (ICD-10) History of cholecystectomy ?Z90.49 - Acquired absence of other specified parts of digestive tract (ICD- 10) History of appendectomy ?Z90.49 - Acquired absence of other specified parts of digestive tract (ICD- 10) History of coronary artery bypass graft x 3 ?Z95.1 - Presence of aortocoronary bypass graft (ICD-10) Family History Father Coronary artery disease Social History Narrative: Lives alone in an apartment in [place]. Designates her son, Daniel, as her primary contact for power workers compensation attorney for health should that be required, cell phone [phone]. Son Daniel lives nearby. Designates her daughter, Staci, as her secondary contact for power of workers compensation attorney for health should that be required, cell phone [phone]. Adamant that she desires a DNR DNI resuscitation status. She occasionally drinks alcohol. She has been smoking cigarettes since 1957. Currently smoking 3 cigarettes per day What is your current living situation?: I presently have a place to live Problems where you live: no known problems Problems where you live details: N/A In the past 12 months, utilities in danger of being shut off: no In the past 12 mos, have been you worried that your food would run out before you had money to buy more?: never true In the past 12 mos, the food you bought just didn't last and you didn't have money to buy more?: never true Highest level of school completed/degree received: high school graduate Smoking Status: Current every day smoker What tobacco products do you use: cigarettes Smoking packs per day: 1 Smoking cigarettes per day: 20.0 Do you use any of these nicotine containing products: None Second hand tobacco smoke exposure: Yes How often do you have a drink containing alcohol: monthly or less Alcohol type: hard liquor How many standard drinks containing alcohol do you have on a typical day: 1 or 2 How often do you have six or more drinks on one occasion: Never AUDIT-C Alcohol total score: 1 Non-prescribed substance use: denies use Caffeine: Yes How often does anyone, including family, friends and others, physically hurt you : never How often does anyone, including family, friends and others, insult or talk down to you: never How often does anyone, including family, friends and others, threaten you with harm: never How often does anyone, including family, friends and others, scream or curse at you: never service: No Exam Narrative: Exam Narrative: Vital signs reviewed In general, alert, nontoxic elderly woman. She is thin, moving around a lot in bed. Head: Normocephalic, atraumatic. Eyes: Sclera clear. Pupils equal and reactive. ENT: Mucous membranes moist. Neck: Supple without adenopathy. Heart: Regular rate and rhythm without murmur. Lungs: Decrease, no wheezing, no increased work of breathing. Abdomen: Soft, nontender to palpation. Extremities: Well perfused, pulses intact. No significant edema. Neurologic: Alert, conversant. Speech fluent, face symmetric. Moves all extremities equally. Skin: Warm, dry well perfused. Affect: Normal. Const: Vital Signs, click to edit/add: Vital Signs - 24 hr 01/23/24 08:38 01/23/24 09:41 Temperature 97.8 F Pulse Rate [Pulse Oximeter] 83 Respiratory Rate 20 Blood Pressure [Ri ght Upper Arm] 141/75 H Pulse Oximetry 93 93 Oxygen Delivery Me thod Nasal Cannula Nasal Cannula Oxygen Flow Rate 3 3 Documenting provider has reviewed patient's vital signs: yes Course Course ED Course: Had a fairly long conversation with the patient's son as well as talking to nurse Yvonne on the phone. Reviewed with him we do not have palliative care here, I am not able to help with medication management in the sense of rearrangi ng all of her long-term medications. I did try some Benadryl here, she presents as somewhat akisthetic, though a review of her medications does not show an obvious cause for this. She is on Remeron, but has been on that for quite some time. She does not have signs or symptoms of serotonin syndrome. Her exam is really unremarkable aside from frequently wanting to sit up. Yvonne seems to feel that there is a little bit of unrealistic expectations on the part of family. Did talk over the morphine issue and she will switch that to hydromorphone instead. I checked basic labs, her white blood cell count is normal at 10.5, hemoglobin is 11.8. Diff is notable for a left shift with 89% neutrophils. UA shows 1+ ketones, 1+ bilirubin but is otherwise negative. Metabolic panel is pending. Assuming this is normal, I think patient can go back to [facility]. Will discuss with son that his options are to continue with hospice with above discussed modifications, to discontinue hospice and pursue palliative Medicine on their own, or to discontinue hospice and have the rounding provider at [facility] manage medications. Vital Signs Vital signs: Initial Vital Signs Temperature 97.8 F 01/23/24 08:38 Temperature Source Temporal Artery Scan 01/23/24 08:38 Pulse Rate 83 01/23/24 08:38 Respiratory Rate 20 01/23/24 08:38 Blood Pressure 141/75 H 01/23/24 08:38 Blood Pressure Mean 97 01/23/24 08:38 Pulse Oximetry 93 01/23/24 08:38 Oxygen Delivery Method Nasal Cannula 01/23/24 08:38 Oxygen Flow Rate 3 01/23/24 08:38 Vital Signs Temperature 97.8 F 01/23/24 08:38 Pulse Rate 83 01/23/24 08:38 Respiratory Rate 20 01/23/24 08:38 Blood Pressure 141/75 H 01/23/24 08:38 Pulse Oximetry 93 01/23/24 08:38 Oxygen Delivery Method Nasal Cannula 01/23/24 08:38 Oxygen Flow Rate 3 01/23/24 08:38 Temperature 97.8 F 01/23/24 08:38 Pulse Rate 83 01/23/24 08:38 Respiratory Rate 20 01/23/24 08:38 Blood Pressure 141/75 H 01/23/24 08:38 Pulse Oximetry 93 01/23/24 09:41 Oxygen Delivery Method Nasal Cannula 01/23/24 09:41 Oxygen Flow Rate 3 01/23/24 09:41 Medications Administered Medications: Discontinued Medications Generic Name Dose Route Start Last Admin Trade Name Freq PRN Reason Stop Dose Admin Diphenhydramine HCl 50 mg 01/23/24 09:56 01/23/24 10:22 Diphenhydramine 50 Mg/Ml Inj IVP 01/23/24 09:57 50 mg ONCE ONE Administration Medical Decision Making Lab Data Labs: Lab Results 01/23/24 Range/Units 10:30 WBC 10.51 (4.50-11.00) K/uL RBC 4.40 (4.00-5.20) m/uL Hgb 11.8 L (12.0-16.0) gm/dL Hct 37.6 (33.0-51.0) % MCV 86 (80-100) fL MCH 27 (26-34) pg MCHC 31 L (32-36) gm/dL RDW Coeff of Aleks 13.9 (11.5-15.5) % Plt Count 218 (140-440) K/uL Neut % (Auto) 88.7 H (42.0-72.0) % Lymph % (Auto) 8.6 L (20-44) % Garden % (Auto) 2.3 (0.0-11.0) % Eos % (Auto) 0.0 (0.0-7.0) % Baso % (Auto) 0.2 (0.0-3.0) % Neut # (Auto) 9.30 H (1.7-7.0) K/uL Lymph # (Auto) 0.90 (0.90-2.90) K/uL Garden # (Auto) 0.20 (0.00-0.90) K/UL Eos # (Auto) 0.00 (0.00-0.50) K/uL Baso # (Auto) 0.02 (0.00-0.30) K/uL Abs Immat Gran (auto) 0.02 (0.00-0.30) K/uL Imm/Tot Granulo (auto) 0.2 % Sodium 137 (135-149) mmol/L Potassium 3.9 (3.6-5.1) mmol/L Chloride 101 (96-114) mmol/L Carbon Dioxide 30 (20-32) mmol/L Anion Gap 6 L (7-15) mEq/L BUN 23 (7-30) mg/dL Creatinine 0.6 (0.5-1.5) mg/dL Estimated Creat Clear 35.34 Estimated GFR 94 ml/min Glucose 113 (60-115) mg/dL Calcium 9.2 (8.4-10.6) mg/dL Urine Color Yellow (Yellow) Urine Appearance Clear (Clear) Urine pH 7.0 (5.0-8.5) Ur Specific [place] 1.020 (1.000-1.030) Urine Protein Negative (Negative) Urine Glucose (UA) Negative (Negative) Urine Ketones 1+ A (Negative) Urine Blood Negative (Negative) Urine Nitrite Negative (Negative) Urine Bilirubin 1+ A (Negative) Urine Urobilinogen 1.0 (0.2-1.0) Ur Leukocyte Esterase Negative (Negative) Urine RBC 0-2 (0-2) Urine WBC 0-2 (0-5) Ur Squamous Epith Cells Few (None-Few) Urine Bacteria Few A (None) WBC Casts Few A (None) Discharge Plan Discharge Clinical Impression: Restlessness and agitation Patient Disposition: Hospice - Medical Facility Condition: Stable Additional Instructions: Labs are normal today. I spoke with Yvonne from hospice, they will change from morphine to Dilaudid for breakthrough pain and see if you feel like she tolerates this better. Benadryl seem to be effective here for symptoms of restlessness, I passed this along to Yvonne as well and perhaps this could be used as a p.r.n. medication. Prescriptions: No Action guaifenesin [Mucinex] 600 mg tablet extended release 12hr 600 mg PO .qd morphine 30 mg tablet extended release 30 mg PO BID doxycycline hyclate 100 mg Tablet 100 mg PO BID 4 Days Qty: 8 0RF clonazepam 0.5 mg tablet 0.5 mg PO HS PRN nitroglycerin 0.4 mg tablet, sublingual 0.4 mg sublingual Q5M PRN (Reason: chest pain) sertraline 100 mg tablet 100 mg PO HS gabapentin 300 mg capsule 300 mg PO HS aspirin 81 mg tablet,chewable 81 mg PO DAILY PRN albuterol sulfate [Ventolin HFA] 90 mcg/actuation HFA aerosol inhaler 2 puff inhalation Q4H PRN ipratropium-albuterol 0.5 mg-3 mg(2.5 mg base)/3 mL Solution For Nebulization 3 ml inhalation Q6H PRN (Reason: dyspnea) Qty: 20 0RF sennosides-docusate sodium [Stool Softener-Laxative] 8.6-50 mg Tablet 2 tab-cap PO BID PRN polyethylene glycol 3350 17 gram/dose powder 17 g PO DAILY PRN multivitamin with folic acid [Tab-A-Nan] 400 mcg tablet 1 tab PO DAILY mirtazapine 15 mg tablet 15 mg PO HS oxycodone 10 mg tablet 10 mg PO Q4H PRN Systane Ultra 0.4-0.3 % drops 1 drp ophthalmic (eye) Q2H PRN ondansetron 4 mg tablet,disintegrating 4 mg translingual Q8H PRN (Reason: nausea and vomiting) Rx Instructions: Use either this or prochlorperazine for nausea Try taking this 30 mins prior to Sotorasib potassium chloride 10 mEq Capsule, Extended Release 10 meq PO DAILYWM Qty: 30 0RF metoprolol succinate 50 mg Tablet Extended Release 24 Hr 50 mg PO DAILY Qty: 30 0RF amlodipine 5 mg Tablet 5 mg PO DAILY Qty: 30 0RF lorazepam 0.5 mg tablet 0.5 mg PO DAILY dexamethasone 4 mg tablet 4 mg PO DAILY Lumakras 120 mg tablet 600 mg PO DAILY Qty: 150 3RF Follow Up/Referrals: Byron Mondragon MD [Primary Care Provider] - Stand Alone Forms: [employer] Info Instructions
== END 2024-01-23 12:40 | disposition hospice, inpatient (51) ==
PROVIDERS: Emergency Provider Emergency Medicine; PCP Family Medicine
DX: R45.1 Restlessness and agitation (principal); Z51.5 Encounter for palliative care; R82.90 Unspecified abnormal findings in urine
CPT/HCPCS: 36415; 80048; 81001; 85025; 87086; 96374; 99283; 99284; J1200